=== PATIENT | male | born 1985 | race Caucasian/White ===

== ENCOUNTER 2017-11-23 22:47 | Inpatient (IN) | payer OTHER ==
[~2017-11-23] VITALS: Ht 170.2 cm; Wt 67.3 kg
[2017-11-23] MEDS: SODIUM CHLOR 0.9% 1000 ML INJ 1,000 ML IV SCH
[2017-11-23 22:48] VITALS: O2SAT 100
[2017-11-23] MEDS ORDERED: ONDANSETRON HCL 4 MG/2 ML VIAL ONE (22:52)
[2017-11-23] MEDS ORDERED: GENTAMICIN 80 MG PREMIX 100 ML ONE (22:53)
[2017-11-23] MEDS ORDERED: PROPOFOL 1000 MG/100 ML INJ 100 ML ONE (23:03)
[2017-11-23 23:09] LABS: AUTOMATED NEUTROPHIL # 26.1 TH/MM3 (1.8-7.7); BASOPHIL # 0.1 TH/MM3 (0-0.2); BASOPHIL % 0.3 % (0.0-2.0); EOSINOPHIL # 0.1 TH/MM3 (0-0.4); EOSINOPHIL % 0.4 % (0.0-4.0); HEMATOCRIT 37.6 % (39.0-51.0); HEMOGLOBIN 13.3 GM/DL (13.0-17.0); LYMPH % 15.2 % (9.0-44.0); MEAN CELL VOLUME 88.5 FL (80.0-100.0); MEAN CORPUSCULAR HEMOGLOBIN 31.5 PG (27.0-34.0); MEAN CORPUSCULAR HGB CONC 35.5 % (32.0-36.0); MEAN PLATELET VOLUME 7.9 FL (7.0-11.0); MONO % 4.3 % (0.0-8.0); MONOCYTE # 1.4 TH/MM3 (0-0.9); NEUT % 79.8 % (16.0-70.0); PLATELET COUNT 318 TH/MM3 (150-450); RED BLOOD COUNT 4.24 MIL/MM3 (4.50-5.90); RED CELL DISTRIBUTION WIDTH 12.5 % (11.6-17.2); WHITE BLOOD COUNT 32.7 TH/MM3 (4.0-11.0)
[2017-11-23] MEDS ORDERED: ROCURONIUM INJ 50 MG/5 ML VIAL ONE (23:09)
[2017-11-23] MEDS ORDERED: MIDAZOLAM HCL 5 MG/ML VIAL (1 ML) ONE (23:09)
[2017-11-23 23:17] LABS: INTERNATIONAL NORMALIZED RATIO 1.2 RATIO
[2017-11-23 23:20] VITALS: O2SAT 100
[2017-11-23] MEDS ORDERED: IOHEXOL 350 MG/ML 10 ML VIAL (for RAD DIAG) IVCONTRAST ONE (23:21)
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
[2017-11-23] MEDS ORDERED: Post-op Orders (for Pharmacy) XX ONE (23:45)
[2017-11-23] MEDS ORDERED: ONDANSETRON HCL 4 MG/2 ML VIAL IV PUSH PRN (23:45)
[2017-11-23] MEDS ORDERED: SODIUM CHLORIDE 0.9% FLUSH 10 ML FLUSH IV FLUSH PRN (23:45)
[2017-11-23] MEDS ORDERED: NALOXONE HCL 0.4 MG/ML AMP IV PUSH PRN (23:45)
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
--- NOTE | 2017-11-23 23:54 | RADRPT ---
EXAM DATE/TIME: 11/23/2017 22:48 [facility] COMPARISON: No previous studies available for comparison. INDICATIONS : Post ET tube placement MEDICAL HISTORY : Unobtainable SURGICAL HISTORY : Unobtainable ENCOUNTER: Initial ACUITY: 1 day PAIN SCORE: Non-responsive. LOCATION: Bilateral chest FINDINGS: Endotracheal tube and nasogastric tube in satisfactory position. Scattered subsegmental air space dis ease in the lungs, probably small contusions or mild aspiration. No effusion. Pneumothoraces seen on CT are not appreciated on plain film. CONCLUSION: 1. Endotracheal tube and nasogastric tube in good position. Scattered lung contusions or mild aspirat ion. No effusion. 2. Left-sided rib fractures. See abdomen and pelvic CT report. Dave Horton MD on November 23, 2017 at 23:50 Board Certified Radiologist. This report was verified electronically.
[2017-11-23 23:58] LABS: BANDS 15 % (0-6); LYMPHOCYTES 11 % (9-44); METAMYELOCYTES 1 % (0-1); MONOCYTES 2 % (0-8); MYELOCYTES 1 % (0-0); NEUTROPHIL # MANUAL DIFF 28.4 TH/MM3 (1.8-7.7); POLYS (SEG NEUTROPHILS) 69 % (16-70); PROMYELOCYTES 1 % (0-0)
[2017-11-24] VITALS (21 sets, daily range): BP systolic 92–117; BP diastolic 45–56; PULSE 59–119; RESP 16–24; TEMP 97.3–100.4; O2SAT 98–100
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
[2017-11-24] MEDS ORDERED: ATROPINE SULFATE 1 MG/10 ML SYRINGE ONE (00:13)
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
[2017-11-24] MEDS: fentaNYL 2,500 MCG/NS 250 ML IV PRN ×2 (00:21→11:06)
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
[2017-11-24] MEDS: PANTOPRAZOLE SODIUM 40 MG VIAL IV PUSH SCH ×2 (00:23→00:28)
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
[2017-11-24] MEDS ORDERED: PROPOFOL 1000 MG/100 ML IV PRN (00:30)
[2017-11-24] MEDS ORDERED: TERBUTALINE INJ 1 MG/ML AMP SQ PRN (00:30)
[2017-11-24] MEDS: MIDAZOLAM 100 MG/NS 100 ML DRIP Premix IV PRN ×3 (00:35→21:54)
[2017-11-24] MEDS: NOREPINEPHRINE INJ 4 MG in SODIUM CHLOR 0.9% 250 ML INJ 246 ML IV PRN ×2 (00:35→20:14)
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
[2017-11-24] MEDS ORDERED: ROCURONIUM INJ 50 MG/5 ML VIAL IV SCH (02:15)
[2017-11-24] MEDS: GENTAMICIN SULFATE 80 MG/2 ML VIAL IM SCH ×3 (02:34→19:42)
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
[2017-11-24 03:51] LABS: AUTOMATED NEUTROPHIL # 23.3 TH/MM3 (1.8-7.7); BASOPHIL # 0.1 TH/MM3 (0-0.2); BASOPHIL % 0.2 % (0.0-2.0); HEMATOCRIT 38.8 % (39.0-51.0); HEMOGLOBIN 13.3 GM/DL (13.0-17.0); LYMPH % 4.7 % (9.0-44.0); LYMPHOCYTE # 1.2 TH/MM3 (1.0-4.8); MEAN CELL VOLUME 87.2 FL (80.0-100.0); MEAN CORPUSCULAR HEMOGLOBIN 29.9 PG (27.0-34.0); MEAN CORPUSCULAR HGB CONC 34.3 % (32.0-36.0); MEAN PLATELET VOLUME 7.4 FL (7.0-11.0); MONOCYTE # 2.1 TH/MM3 (0-0.9); NEUT % 87.1 % (16.0-70.0); PLATELET COUNT 245 TH/MM3 (150-450); RED BLOOD COUNT 4.45 MIL/MM3 (4.50-5.90); RED CELL DISTRIBUTION WIDTH 13.5 % (11.6-17.2); WHITE BLOOD COUNT 26.8 TH/MM3 (4.0-11.0)
[2017-11-24 04:20] LABS: BICARBONATE 23.1 MEQ/L (21.0-32.0); CALCIUM 6.6 MG/DL (8.5-10.1); CREATININE 0.99 MG/DL (0.60-1.30)
[2017-11-24 04:59] LABS: CALCIUM-PROTEIN CORRECTED 7.7 MG/DL (8.5-10.1); TOTAL PROTEIN 4.9 GM/DL (6.4-8.2)
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
[2017-11-24] MEDS ORDERED: SODIUM CHLOR 0.9% 1000 ML INJ 1,000 ML IV SCH ×2 (07:00→11:00)
[2017-11-24] MEDS ORDERED: LACTATED RINGER'S 1000 ML INJ 1,000 ML IV SCH (07:00)
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
[2017-11-24] MEDS ORDERED: MAGNESIUM SULFATE INJ 2 GM in SODIUM CHLORIDE 0.9% INJ 96 ML IV PRN (07:30)
[2017-11-24] MEDS ORDERED: POTASSIUM PHOSPHATE MONOBASIC 500 MG TAB PO/TUBE PRN (07:30)
[2017-11-24] MEDS ORDERED: SODIUM PHOSPHATE INJ 30 MMOL in SODIUM CHLOR 0.9% 250 ML INJ 240 ML IV PRN (07:30)
[2017-11-24] MEDS ORDERED: POTASSIUM PHOSPHATE INJ 30 MMOL in SODIUM CHLOR 0.9% 250 ML INJ 250 ML IV PRN (07:30)
[2017-11-24] MEDS ORDERED: POTASSIUM CHLOR 20 MEQ PREMIX 100 ML IV PRN ×2 (07:30)
[2017-11-24] MEDS ORDERED: CHLORHEXIDINE GLUCONATE 2 % 1 PACK (2 CLOTHS) TOP PRN (07:30)
[2017-11-24] MEDS ORDERED: MAGNESIUM SULFATE INJ 4 GM in SODIUM CHLORIDE 0.9% INJ 92 ML IV PRN (07:30)
[2017-11-24] MEDS ORDERED: POTASSIUM CHLOR 40 MEQ PREMIX 100 ML IV PRN (07:30)
[2017-11-24] MEDS ORDERED: MAGNESIUM OXIDE 400 MG TAB PO PRN (07:30)
[2017-11-24] MEDS ORDERED: POTASSIUM PHOSPHATE MONOBASIC 500 MG TAB PO PRN (07:30)
[2017-11-24] MEDS ORDERED: MISCELLANEOUS NURSING INFORMATION XX SCH (07:30)
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
[2017-11-24] MEDS: CHLORHEXIDINE 0.12% (ORAL KIT) 15 ML CUP MT SCH ×2 (08:00→20:00)
[2017-11-24] MEDS: METHOCARBAMOL 500 MG TAB PO SCH ×3 (08:00→21:16)
[2017-11-24 08:23] LABS: BANDS 19 % (0-6); LYMPHOCYTES 11 % (9-44); MONOCYTES 7 % (0-8); POLYS (SEG NEUTROPHILS) 63 % (16-70)
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
[2017-11-24] MEDS: RESP: ALBUTEROL 2.5 MG/IPRATROPIUM 0.5 MG NEB (SCH) INH ×3 (08:33→20:24)
[2017-11-24] MEDS: LIDOCAINE HCL 5% PATCH T-DERMAL SCH (09:00)
[2017-11-24] MEDS: DOCUSATE SODIUM 50 MG/SENNA 8.6 MG TAB PO SCH ×2 (09:00→21:16)
[2017-11-24] MEDS: SODIUM CHLORIDE 0.9% FLUSH 10 ML FLUSH IV FLUSH SCH ×2 (09:00→21:16)
[2017-11-24] MEDS: MAGNESIUM HYDROXIDE SUSP 30 ML CUP PO SCH ×2 (09:00→21:16)
[2017-11-24 10:07] LABS: INTERNATIONAL NORMALIZED RATIO 1.1 RATIO
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
[2017-11-24] MEDS ORDERED: TETRACAINE 0.5% OPTH SOLN 4 ML BTL EACH EYE ONE (11:00)
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
[2017-11-24] MEDS ORDERED: ROCURONIUM INJ 50 MG/5 ML SYRINGE IV PUSH ONE (12:00)
[2017-11-24] MEDS ORDERED: PHENYLEPH/NS 1000 MCG/10 ML SYR IV ONE (12:00)
[2017-11-24] MEDS ORDERED: PROPOFOL 200 MG/20 ML AMP IV ONE (12:00)
[2017-11-24] MEDS ORDERED: LIDOCAINE HCL 1% PF 5 ML SYRINGE OTHER ONE (12:00)
[2017-11-24] MEDS ORDERED: LACTATED RINGER'S 1000 ML INJ 1,000 ML IV ONE (12:00)
[2017-11-24] MEDS ORDERED: PHENYLEPHRINE HCL 10 MG/ML VIAL IV ONE (12:00)
[2017-11-24] MEDS ORDERED: NORMOSOL R INJ 1,000 ML IV ONE (12:00)
[2017-11-24] MEDS ORDERED: SODIUM CHLOR 0.9% 250 ML INJ 250 ML IV ONE (12:00)
[2017-11-24] MEDS: ACETAMINOPHEN 1000 MG/100 ML 100 ML IV PRN (12:42)
[2017-11-24] MEDS ORDERED: BUPIVACAINE/EPINEPHRINE 0.5% PF 30 ML VIAL ONE (14:27)
[2017-11-24] MEDS ORDERED: THROMBIN (TOPICAL) 5,000 UNIT VIAL ONE (14:27)
[2017-11-24] MEDS ORDERED: GELFOAM SIZE 100 ONE (14:27)
[2017-11-24] MEDS ORDERED: FUROSEMIDE 40 MG/4 ML VIAL ONE (14:27)
[2017-11-24] MEDS ORDERED: ceFAZolin 2 GM PREMIX 0 ML ONE (14:27)
[2017-11-24] MEDS ORDERED: MANNITOL INJ 0 ML ONE (14:28)
[2017-11-24] MEDS ORDERED: levETIRAcetam 500 MG/5 ML VIAL IV ONE (15:21)
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
--- NOTE | 2017-11-24 17:34 | PD.OP ---
DANIELA Alan [id number] Operative Report Date of Surgery: Nov 24, 2017 Preoperative Diagnosis: Left frontal and temporal open depressed comminuted skull fractures; left frontal parietal large degloving scalp injury Postoperative Diagnosis: Same Procedure: Bicoronal flap with the left frontotemporal craniotomy for elevation and fixation of depressed skull fractures; reconstruction of a comminuted frontal skull base floor from the fractures; scalp flap transfer with repair of large degloving scalp injury Anesthesia: Gen. endotracheal by Candie brooke Surgeon: Geovanny Lowe M.D. [employer] Supervisor(s): Nuris Cope Operation and Findings: Following administration of a general endotracheal anesthesia patient received a gram of vancomycin intravenously. He had a Clinton catheter and invasive monitoring lines in place. Sequential compression devices were also in place. He was positioned supine with the head secured in a horseshoe headrest in a neutral position with the cervical collar in place. The bilateral frontal temporal areas along the left parietal area shaved. The open large degloving the left frontoparietal scalp injury was then irrigated with saline solution and subsequently prepped with a Betadine solution and ChloraPrep and sterilely draped. A bicoronal incision was incorporated into the large scalp laceration after infiltrating the scalp with 0.5% Marcaine with epinephrine solution. The scalp flap retracted forward until the orbital rim. Comminuted depressed frontal skull fractures were evident. Temporalis muscle fascia was also incised and retracted in a comminuted left temporal depressed skull skull fractures also seen compressing on the dura significantly but the did not penetrate to the dura and no CSF leak was noted. Fractures of the frontal skull overlying the orbital roof were also noted. With another gambling supervisor a bur hole was made and the bone flap adjacent to the frontal and temporal bone fractures was elevated. The fracture was also elevated with the use of curettes and normal alignment restored along with removal of the small fragments that were depressed. Area was copiously irrigated. Bone holes were placed at the craniotomy edges and dural tacking stitches placed with 4 Nurolon. The left frontal skull base floor along with the orbital roof was reinforced with the pericranial flap as well as compressed Gelf[place]am. The bone flap along with a comminuted skull fractures were then approximated using a [place] mini plates. The temporalis muscle fascia was approximated using 2-0 Vicryl procedures. The galea undercut to facilitate the coverage of the degloving scalp injury for a scalp transfer and subsequently the galea was partial using 3-0 Vicryl interrupted stitches and final skin closure was with ace. At this point the plastic surgeon undertook repair of the forehead/ eyelid laceration and washing out of the left upper extremity the open fracture wound by the orthopedic surgeon. There were no intraoperative complications from the cranial portion of the surgery estimated blood loss about 25 cc. Geovanny Lowe MD Nov 24, 2017 17:34
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
[2017-11-24] MEDS ORDERED: BACITRACIN TOP OINT 15 GM TUBE ONE (18:29)
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
[2017-11-24] MEDS ORDERED: MIDAZOLAM HCL 2 MG/2 ML VIAL ONE (19:23)
[2017-11-24] MEDS: SODIUM CHLOR 0.9% 1000 ML INJ 1,000 ML IV SCH ×2 (19:41→20:11)
[2017-11-24 20:42] LABS: HEMATOCRIT 29.5 % (39.0-51.0); HEMOGLOBIN 10.1 GM/DL (13.0-17.0); MEAN CELL VOLUME 86.9 FL (80.0-100.0); MEAN CORPUSCULAR HEMOGLOBIN 29.8 PG (27.0-34.0); MEAN CORPUSCULAR HGB CONC 34.3 % (32.0-36.0); MEAN PLATELET VOLUME 7.8 FL (7.0-11.0); PLATELET COUNT 171 TH/MM3 (150-450); RED BLOOD COUNT 3.39 MIL/MM3 (4.50-5.90); RED CELL DISTRIBUTION WIDTH 13.7 % (11.6-17.2); WHITE BLOOD COUNT 13.4 TH/MM3 (4.0-11.0)
[2017-11-24 21:10] LABS: BICARBONATE 21.2 MEQ/L (21.0-32.0); CALCIUM 6.9 MG/DL (8.5-10.1); CREATININE 1.28 MG/DL (0.60-1.30)
[2017-11-24 21:27] LABS: CALCIUM-PROTEIN CORRECTED 8.4 MG/DL (8.5-10.1); TOTAL PROTEIN 4.4 GM/DL (6.4-8.2)
[2017-11-24] MEDS: BACITRACIN OPHT OINT 3.5 GM TUBO SCH (23:05)
[2017-11-24] MEDS: ARTIFICIAL TEARS OPTH OINT 3.5 APPLIC/3.5 GM TUBO EACH EYE SCH (23:06)
[2017-11-25] VITALS (20 sets, daily range): BP systolic 102–132; BP diastolic 47–56; PULSE 60–90; RESP 18–24; TEMP 99.7–100.4; O2SAT 100
[2017-11-25] MEDS: fentaNYL 2,500 MCG/NS 250 ML IV PRN ×3 (00:11→19:56)
[2017-11-25] MEDS: PANTOPRAZOLE SODIUM 40 MG VIAL IV PUSH SCH ×2 (00:46→23:31)
[2017-11-25] MEDS: GENTAMICIN SULFATE 80 MG/2 ML VIAL IM SCH ×2 (02:30→08:34)
[2017-11-25] MEDS: RESP: ALBUTEROL 2.5 MG/IPRATROPIUM 0.5 MG NEB (SCH) INH ×4 (03:18→20:39)
[2017-11-25] MEDS: CHLORHEXIDINE GLUCONATE 2 % 1 PACK (2 CLOTHS) TOP SCH (04:00)
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
[2017-11-25 05:33] LABS: AUTOMATED NEUTROPHIL # 8.7 TH/MM3 (1.8-7.7); BASOPHIL % 0.2 % (0.0-2.0); EOSINOPHIL % 0.1 % (0.0-4.0); HEMATOCRIT 25.2 % (39.0-51.0); HEMOGLOBIN 8.9 GM/DL (13.0-17.0); LYMPH % 7.2 % (9.0-44.0); LYMPHOCYTE # 0.8 TH/MM3 (1.0-4.8); MEAN CELL VOLUME 86.2 FL (80.0-100.0); MEAN CORPUSCULAR HEMOGLOBIN 30.3 PG (27.0-34.0); MEAN CORPUSCULAR HGB CONC 35.1 % (32.0-36.0); MEAN PLATELET VOLUME 7.8 FL (7.0-11.0); MONO % 9.2 % (0.0-8.0); NEUT % 83.3 % (16.0-70.0); PLATELET COUNT 139 TH/MM3 (150-450); RED BLOOD COUNT 2.92 MIL/MM3 (4.50-5.90); RED CELL DISTRIBUTION WIDTH 13.8 % (11.6-17.2); WHITE BLOOD COUNT 10.4 TH/MM3 (4.0-11.0)
[2017-11-25] MEDS: METHOCARBAMOL 500 MG TAB PO SCH ×3 (05:43→22:14)
[2017-11-25 05:58] LABS: ALBUMIN 2.1 GM/DL (3.4-5.0); BICARBONATE 25.3 MEQ/L (21.0-32.0); CALCIUM 7.2 MG/DL (8.5-10.1); CALCIUM-PROTEIN CORRECTED 8.8 MG/DL (8.5-10.1); CREATININE 0.95 MG/DL (0.60-1.30); TOTAL BILIRUBIN ADULT 0.9 MG/DL (0.2-1.0); TOTAL PROTEIN 4.3 GM/DL (6.4-8.2)
[2017-11-25] MEDS: SODIUM CHLOR 0.9% 1000 ML INJ 1,000 ML IV SCH ×2 (06:27→14:13)
--- NOTE | 2017-11-25 07:10 | PD.ORT.PN ---
Subjective Subjective Remarks s/p left distal humerus fx POD 1 s/p I&D by Dr Duarte of left distal humerus s/p spine, facial, head fractures intubated/sedated. Objective Vitals Vital Signs Date Time Temp Pulse Resp B/P (MAP) Pulse Ox O2 Delivery O2 Flow Rate FiO2 11/25/17 06:00 89 11/25/17 05:47 100 35 11/25/17 04:00 35 11/25/17 04:00 90 11/25/17 04:00 100.0 90 24 109/54 (72) 100 108/47 (67) 11/25/17 02:00 86 11/25/17 01:33 100 40 11/25/17 00:00 88 11/25/17 00:00 40 11/25/17 00:00 99.7 88 24 113/54 (73) 100 104/50 (68) 11/24/17 23:54 100 40 11/24/17 22:16 106/50 11/24/17 22:00 92 11/24/17 20:15 40 11/24/17 20:14 98 107/55 11/24/17 20:11 100 Ventilator 45 11/24/17 20:11 100 45 11/24/17 20:00 91 11/24/17 20:00 45 11/24/17 20:00 99.9 91 24 100 106/56 (73) 11/24/17 19:00 100 Mechanical Ventilator 45 11/24/17 14:00 119 11/24/17 12:00 107 11/24/17 12:00 45 11/24/17 12:00 100.4 107 24 117/55 (75) 100 11/24/17 11:14 98 45 11/24/17 10:18 100 100 11/24/17 10:00 78 11/24/17 08:00 100.0 86 24 110/53 (72) 100 11/24/17 08:00 113 11/24/17 08:00 50 11/24/17 07:38 100 50 I/O 11/24/17 11/24/17 11/24/17 11/25/17 11/25/17 11/25/17 07:00 15:00 23:00 07:00 15:00 23:00 Intake Total 800 ml 3227 ml 1686 ml Output Total 850 ml 300 ml 400 ml 1150 ml Balance -50 ml -300 ml 2827 ml 536 ml Intake IV Total 1227 ml 1686 ml Packed Cells 800 ml Other 2000 ml Output Urine Total 450 ml 300 ml 200 ml 950 ml Stool Total 0 ml 0 ml Gastric Drainage Total 400 ml 200 ml Estimated Blood Loss 200 ml Result Diagram: 11/25/17 0430 11/25/17 0430 Other Results Laboratory Tests Test 11/24/17 09:25 Prothromb Time International Ratio 1.1 RATIO Prothrombin Time 11.0 SEC (9.8-11.6) Imaging Last 72 hours Impressions Chest X-Ray 11/24/17 0400 Signed Impressions: Service Date/Time: November 04:58 - CONCLUSION: 1. Minimal basilar density, probably atelectasis. No significant effusion. No pneumothorax identified on plain film. Placement of left central line without pneumothorax. Left-sided rib fractures present. Dave Horton MD Pelvis X-Ray 11/23/172308 Signed Impressions: Service Date/Time: Thursday, November 23, 2017 22:48 - CONCLUSION: Unremarkable examination of the pelvis. Dave Horton MD Chest X-Ray 11/23/172308 Signed Impressions: Service Date/Time: Thursday, November 23, 2017 22:48 - CONCLUSION: 1. Left lower rib fractures. Cardiomediastinal silhouette within normal limits. No dense consolidation or effusion. Dave Horton MD Thoracic Spine CT 11/23/17 903 Signed Impressions: Service Date/Time: Thursday, November 23, 2017 23:18 - CONCLUSION: 1. At T12 there is a burst fracture with retropulsion resulting in mild to moderate stenosis and fracture extending into the posterior elements. 2. At T11 there is a mild endplate fracture superiorly with fractures extending posteriorly into the posterior elements and facet joints at T11-12. Dave Horton MD Maxillofacial CT 11/23/17 201 Signed Impressions: Service Date/Time: Thursday, November 23, 2017 23:17 - CONCLUSION: 1. Numerous facial fractures as above including bilateral mandibular, bilateral zygomatic arches, bilateral orbits bilateral maxillary and ethmoid sinuses. Also bilateral calvarial fractures. Trace pneumocephalus. Extensive scalp and facial swelling. Dave Horton MD Lumbar Spine CT 11/23/172252 Signed Impressions: Service Date/Time: Thursday, November 23, 2017 23:21 - CONCLUSION: 1. Fractures through the left transverse process of L1 and L2. No lumbar spine vertebral body fractures or subluxation. Dave Horton MD Head CT 11/23/172252 Signed Impressions: Service Date/Time: Thursday, November 23, 2017 23:16 - CONCLUSION: 1. Fractures of the left frontal bone and right parietal bone without significant displacement. Trace pneumocephalus near the right parietal bone fracture. No significant intracranial hemorrhage. 2. Numerous facial bone fractures with hemorrhage in the paranasal sinuses. Facial CT pending. Dave Horton MD Chest CT 11/23/172252 Signed Impressions: Service Date/Time: Thursday, November 23, 2017 23:21 - CONCLUSION: 1. Small bilateral pneumothoraces. 2. Scattered groundglass opacity in the lungs most characteristic of lung contusions or minimal aspiration. 3. Multiple fractures including burst fracture of T12, superior endplate fracture of T11 and multiple left rib fractures as above. 4. Endotracheal tube and nasogastric tube in good position. Dave Horton MD Cervical Spine CT 11/23/172252 Signed Impressions: Service Date/Time: Thursday, November 23, 2017 23:17 - CONCLUSION: 1. Nondisplaced fractures to the left lateral mass of C3 and C5 extending into the facet joints. No vertebral body fractures. No subluxation. Dave Horton MD Abdomen/Pelvis CT 11/23/172252 Signed Impressions: Service Date/Time: Thursday, November 23, 2017 23:21 - CONCLUSION: 1. Negative for solid visceral injury within the abdomen and pelvis. No free air or free fluid. 2. Small bilateral pneumothoraces. 3. Fractures of the left transverse processes of L1 and L2 and the left anterior fifth through eighth ribs. T11 superior endplate fracture and T12 burst fractures as previously described. 4. Appendicolith without evidence for appendicitis. NG tip in stomach. Clinton catheter in bladder. 5. There is a small amount of air in the left external iliac vein and left femoral vein. Dave Horton MD Radius/Ulna X-Ray 11/23/17 0000 Signed Impressions: Service Date/Time: Thursday, November 23, 2017 22:48 - CONCLUSION: 1. First Metacarpal fracture. No radius and ulna fractures. No dislocation. Dave Horton MD Humerus X-Ray 11/23/17 0000 Signed Impressions: Service Date/Time: Thursday, November 23, 2017 22:48 - CONCLUSION: 1. Angulated fracture left distal humeral shaft. Dave Horton MD Chest X-Ray 11/23/17 0000 Signed Impressions: Service Date/Time: Thursday, November 23, 2017 22:48 - CONCLUSION: 1. Endotracheal tube and nasogastric tube in good position. Scattered lung contusions or mild aspiration. No effusion. 2. Left-sided rib fractures. See abdomen and pelvic CT report. Dave Horton MD Last 24 hours Impressions Chest X-Ray 11/24/17 0400 Signed Impressions: Service Date/Time: November 04:58 - CONCLUSION: 1. Minimal basilar density, probably atelectasis. No significant effusion. No pneumothorax identified on plain film. Placement of left central line without pneumothorax. Left-sided rib fractures present. Dave Horton MD Pelvis X-Ray 11/23/172308 Signed Impressions: Service Date/Time: Thursday, November 23, 2017 22:48 - CONCLUSION: Unremarkable examination of the pelvis. Dave Hortno MD Chest X-Ray 11/23/172308 Signed Impressions: Service Date/Time: Thursday, November 23, 2017 22:48 - CONCLUSION: 1. Left lower rib fractures. Cardiomediastinal silhouette within normal limits. No dense consolidation or effusion. Dave Horton MD Thoracic Spine CT 11/23/17 540 Signed Impressions: Service Date/Time: Thursday, November 23, 2017 23:18 - CONCLUSION: 1. At T12 there is a burst fracture with retropulsion resulting in mild to moderate stenosis and fracture extending into the posterior elements. 2. At T11 there is a mild endplate fracture superiorly with fractures extending posteriorly into the posterior elements and facet joints at T11-12. Dave Horton MD Maxillofacial CT 11/23/17 4118 Signed Impressions: Service Date/Time: Thursday, November 23, 2017 23:17 - CONCLUSION: 1. Numerous facial fractures as above including bilateral mandibular, bilateral zygomatic arches, bilateral orbits bilateral maxillary and ethmoid sinuses. Also bilateral calvarial fractures. Trace pneumocephalus. Extensive scalp and facial swelling. Dave Horton MD Lumbar Spine CT 11/23/172252 Signed Impressions: Service Date/Time: Thursday, November 23, 2017 23:21 - CONCLUSION: 1. Fractures through the left transverse process of L1 and L2. No lumbar spine vertebral body fractures or subluxation. Dave Horton MD Head CT 11/23/172252 Signed Impressions: Service Date/Time: Thursday, November 23, 2017 23:16 - CONCLUSION: 1. Fractures of the left frontal bone and right parietal bone without significant displacement. Trace pneumocephalus near the right parietal bone fracture. No significant intracranial hemorrhage. 2. Numerous facial bone fractures with hemorrhage in the paranasal sinuses. Facial CT pending. Dave Horton MD Chest CT 11/23/172252 Signed Impressions: Service Date/Time: Thursday, November 23, 2017 23:21 - CONCLUSION: 1. Small bilateral pneumothoraces. 2. Scattered groundglass opacity in the lungs most characteristic of lung contusions or minimal aspiration. 3. Multiple fractures including burst fracture of T12, superior endplate fracture of T11 and multiple left rib fractures as above. 4. Endotracheal tube and nasogastric tube in good position. Dave Horton MD Cervical Spine CT 11/23/172252 Signed Impressions: Service Date/Time: Thursday, November 23, 2017 23:17 - CONCLUSION: 1. Nondisplaced fractures to the left lateral mass of C3 and C5 extending into the facet joints. No vertebral body fractures. No subluxation. Dave Horton MD Abdomen/Pelvis CT 11/23/172252 Signed Impressions: Service Date/Time: Thursday, November 23, 2017 23:21 - CONCLUSION: 1. Negative for solid visceral injury within the abdomen and pelvis. No free air or free fluid. 2. Small bilateral pneumothoraces. 3. Fractures of the left transverse processes of L1 and L2 and the left anterior fifth through eighth ribs. T11 superior endplate fracture and T12 burst fractures as previously described. 4. Appendicolith without evidence for appendicitis. NG tip in stomach. Clinton catheter in bladder. 5. There is a small amount of air in the left external iliac vein and left femoral vein. Dave Horton MD Objective Remarks No laxity or deformity right upper extremity Bilateral lower extremity: No laxity in bilateral legs or ankles. Left upper extremity splint in place. Puncture wound medial/posterior humerus. Good capillary refills distally Assessment & Plan Assessment and Plan Left humeral shaft fracture with puncture wound s/p I&D by Dr Duarte - POD 1 -maintain splint at all times -will await neuro recs on spine/head fxs. -once neuro has plan of when or if to fix, will proceed with ORIF of left humerus. patient will need to be in lateral position for fixation of left humerus -possibly mon/tu depending on neuro recs and plan. Dennis Perez/First Margareth JIMENEZ Nov 25, 2017 07:10
[2017-11-25] MEDS: CHLORHEXIDINE 0.12% (ORAL KIT) 15 ML CUP MT SCH ×2 (07:46→19:21)
[2017-11-25] MEDS: MIDAZOLAM HCL 5 MG/ML VIAL (1 ML) IV PRN ×3 (07:46→19:32)
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
[2017-11-25] MEDS: LIDOCAINE HCL 5% PATCH T-DERMAL SCH (08:23)
[2017-11-25] MEDS: MIDAZOLAM 100 MG/NS 100 ML DRIP Premix IV PRN (08:23)
[2017-11-25] MEDS: DOCUSATE SODIUM 50 MG/SENNA 8.6 MG TAB PO SCH ×2 (08:23→19:45)
[2017-11-25] MEDS: MAGNESIUM HYDROXIDE SUSP 30 ML CUP PO SCH ×2 (08:23→19:36)
[2017-11-25] MEDS: NOREPINEPHRINE INJ 4 MG in SODIUM CHLOR 0.9% 250 ML INJ 246 ML IV PRN ×2 (08:24→18:51)
[2017-11-25] MEDS: ARTIFICIAL TEARS OPTH OINT 3.5 APPLIC/3.5 GM TUBO EACH EYE SCH ×3 (08:25→17:34)
[2017-11-25] MEDS: SODIUM CHLORIDE 0.9% FLUSH 10 ML FLUSH IV FLUSH SCH ×3 (08:25→23:31)
[2017-11-25] MEDS: BACITRACIN OPHT OINT 3.5 GM TUBO SCH ×2 (08:25→19:41)
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
[2017-11-25] MEDS ORDERED: FUROSEMIDE 20 MG/2 ML VIAL IV PUSH ONE ×2 (10:00)
[2017-11-25] MEDS: DEXAMETHASONE SOD PHOS 4 MG/ML VIAL IV PUSH SCH ×2 (10:07→19:40)
[2017-11-25] MEDS: ROCURONIUM INJ 50 MG/5 ML VIAL IV PRN (10:30)
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
[2017-11-25] MEDS: GENTAMICIN SULFATE 80 MG/2 ML VIAL IV SCH (17:34)
[2017-11-26] VITALS (16 sets, daily range): BP systolic 108–131; BP diastolic 54–74; PULSE 60–75; RESP 18–20; TEMP 99–99.9; O2SAT 100
[2017-11-26] MEDS: GENTAMICIN SULFATE 80 MG/2 ML VIAL IV SCH (01:02)
[2017-11-26] MEDS: MIDAZOLAM HCL 5 MG/ML VIAL (1 ML) IV PRN ×2 (01:02→06:32)
[2017-11-26] MEDS: SODIUM CHLOR 0.9% 1000 ML INJ 1,000 ML IV SCH ×3 (01:03→22:08)
[2017-11-26] MEDS: RESP: ALBUTEROL 2.5 MG/IPRATROPIUM 0.5 MG NEB (SCH) INH ×4 (03:36→20:57)
[2017-11-26] MEDS: CHLORHEXIDINE GLUCONATE 2 % 1 PACK (2 CLOTHS) TOP SCH (04:00)
[2017-11-26] MEDS: MIDAZOLAM 100 MG/NS 100 ML DRIP Premix IV PRN ×2 (04:12→12:48)
[2017-11-26] MEDS: NOREPINEPHRINE INJ 4 MG in SODIUM CHLOR 0.9% 250 ML INJ 246 ML IV PRN ×2 (04:53→18:38)
[2017-11-26] MEDS: METHOCARBAMOL 500 MG TAB PO SCH ×3 (05:13→22:07)
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
[2017-11-26 05:59] LABS: HEMOGLOBIN 7.3 GM/DL (13.0-17.0); LYMPH % 4.7 % (9.0-44.0); LYMPHOCYTE # 0.5 TH/MM3 (1.0-4.8); MEAN CELL VOLUME 86.8 FL (80.0-100.0); MEAN CORPUSCULAR HEMOGLOBIN 30.3 PG (27.0-34.0); MEAN CORPUSCULAR HGB CONC 34.9 % (32.0-36.0); MEAN PLATELET VOLUME 7.4 FL (7.0-11.0); MONO % 6.7 % (0.0-8.0); MONOCYTE # 0.8 TH/MM3 (0-0.9); NEUT % 88.6 % (16.0-70.0); PLATELET COUNT 154 TH/MM3 (150-450); RED BLOOD COUNT 2.42 MIL/MM3 (4.50-5.90); RED CELL DISTRIBUTION WIDTH 13.5 % (11.6-17.2); WHITE BLOOD COUNT 11.3 TH/MM3 (4.0-11.0)
[2017-11-26 06:17] LABS: AST (GOT) 108 U/L (15-37); BICARBONATE 31.3 MEQ/L (21.0-32.0); BLOOD UREA NITROGEN 11 MG/DL (7-18); CALCIUM 7.6 MG/DL (8.5-10.1); CHLORIDE 106 MEQ/L (98-107); CREATININE 0.82 MG/DL (0.60-1.30); GLOMERULAR FILTRATION RATE 109 ML/MIN (>89); GLUCOSE,RANDOM 164 MG/DL (74-106); SODIUM (NA) 141 MEQ/L (136-145)
[2017-11-26 06:18] LABS: ALT (GPT) 51 U/L (12-78)
[2017-11-26 06:20] LABS: ALKALINE PHOSPHATASE 52 U/L (45-117); TOTAL BILIRUBIN ADULT 0.6 MG/DL (0.2-1.0); TOTAL PROTEIN 4.8 GM/DL (6.4-8.2)
[2017-11-26] MEDS: fentaNYL 2,500 MCG/NS 250 ML IV PRN ×2 (06:38→17:31)
[2017-11-26] MEDS: CHLORHEXIDINE 0.12% (ORAL KIT) 15 ML CUP MT SCH ×2 (08:00→20:15)
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
[2017-11-26] MEDS: ARTIFICIAL TEARS OPTH OINT 3.5 APPLIC/3.5 GM TUBO EACH EYE SCH ×3 (09:00→17:29)
[2017-11-26] MEDS: BACITRACIN OPHT OINT 3.5 GM TUBO SCH ×2 (09:00→20:15)
[2017-11-26] MEDS: MAGNESIUM HYDROXIDE SUSP 30 ML CUP PO SCH ×2 (09:08→20:14)
[2017-11-26] MEDS: LIDOCAINE HCL 5% PATCH T-DERMAL SCH (09:08)
[2017-11-26] MEDS: DOCUSATE SODIUM 50 MG/SENNA 8.6 MG TAB PO SCH ×2 (09:08→20:14)
[2017-11-26] MEDS: DEXAMETHASONE SOD PHOS 4 MG/ML VIAL IV PUSH SCH ×2 (09:08→20:14)
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
[2017-11-26] MEDS: GENTAMICIN 80 MG PREMIX 100 ML IV SCH ×2 (11:16→17:30)
--- NOTE | 2017-11-26 12:08 | RADRPT ---
EXAM DATE/TIME: 11/26/2017 11:33 [facility] COMPARISON: No previous studies available for comparison. INDICATIONS : Bilateral leg swelling. History of deep vein thrombosis. MEDICAL HISTORY : Deep venous thrombosis. Sleep apnea. Depression. Substance use. SURGICAL HISTORY : Foot I&D. ENCOUNTER: Initial ACUITY: 1 day PAIN SCORE: Non-responsive LOCATION: Bilateral leg. TECHNIQUE: Venous ultrasound of the left and right leg was performed from the inguinal ligament to the proximal calf. Real-time, color Doppler and spectral tracing, compression and augmentation techniques were us ed. FINDINGS: RIGHT LEG: There is normal compressibility of the deep venous system from the inguinal region to the proximal ca lf. No echogenic clot is seen in the lumen of the common femoral, femoral, popliteal, and posterior tibial veins. There is a normal response of the venous system to proximal and distal augmentation an d respiration. LEFT LEG: There is normal compressibility of the deep venous system from the inguinal region to the proximal ca lf. No echogenic clot is seen in the lumen of the common femoral, femoral, popliteal, and posterior tibial veins. There is a normal response of the venous system to proximal and distal augmentation an d respiration. CONCLUSION: No DVT in either leg. Sancho Messina MD on November 26, 2017 at 12:04 Board Certified Radiologist. This report was verified electronically.
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
[2017-11-26] MEDS: SODIUM CHLORIDE 0.9% FLUSH 10 ML FLUSH IV FLUSH SCH (20:15)
[2017-11-26] MEDS: PANTOPRAZOLE SODIUM 40 MG VIAL IV PUSH SCH (23:19)
[2017-11-27] VITALS (18 sets, daily range): BP systolic 92–133; BP diastolic 50–90; PULSE 65–89; RESP 13–22; TEMP 99.1–100.4; O2SAT 84–100
[2017-11-27] MEDS: MIDAZOLAM 100 MG/NS 100 ML DRIP Premix IV PRN ×2 (01:55→11:55)
[2017-11-27] MEDS: GENTAMICIN 80 MG PREMIX 100 ML IV SCH ×3 (02:46→18:38)
[2017-11-27] MEDS: RESP: ALBUTEROL 2.5 MG/IPRATROPIUM 0.5 MG NEB (SCH) INH ×4 (03:59→23:14)
[2017-11-27] MEDS: CHLORHEXIDINE GLUCONATE 2 % 1 PACK (2 CLOTHS) TOP SCH (04:00)
[2017-11-27 04:30] LABS: AUTOMATED NEUTROPHIL # 10.4 TH/MM3 (1.8-7.7); BASOPHIL % 0.3 % (0.0-2.0); LYMPH % 4.6 % (9.0-44.0); LYMPHOCYTE # 0.5 TH/MM3 (1.0-4.8); MEAN CELL VOLUME 88.3 FL (80.0-100.0); MEAN CORPUSCULAR HEMOGLOBIN 30.6 PG (27.0-34.0); MEAN CORPUSCULAR HGB CONC 34.7 % (32.0-36.0); MEAN PLATELET VOLUME 7.5 FL (7.0-11.0); MONO % 7.5 % (0.0-8.0); MONOCYTE # 0.9 TH/MM3 (0-0.9); NEUT % 87.6 % (16.0-70.0); PLATELET COUNT 147 TH/MM3 (150-450); RED BLOOD COUNT 2.17 MIL/MM3 (4.50-5.90); RED CELL DISTRIBUTION WIDTH 13.4 % (11.6-17.2); WHITE BLOOD COUNT 11.8 TH/MM3 (4.0-11.0)
[2017-11-27 04:41] LABS: HEMATOCRIT 19.1 % (39.0-51.0); HEMOGLOBIN 6.6 GM/DL (13.0-17.0)
[2017-11-27] MEDS: fentaNYL 2,500 MCG/NS 250 ML IV PRN ×2 (05:01→13:59)
[2017-11-27 05:09] LABS: ALBUMIN 1.9 GM/DL (3.4-5.0); BICARBONATE 31.6 MEQ/L (21.0-32.0); CALCIUM 7.4 MG/DL (8.5-10.1); CALCIUM-PROTEIN CORRECTED 8.6 MG/DL (8.5-10.1); CREATININE 0.61 MG/DL (0.60-1.30); TOTAL BILIRUBIN ADULT 0.5 MG/DL (0.2-1.0)
[2017-11-27] MEDS: METHOCARBAMOL 500 MG TAB PO SCH ×3 (05:37→22:49)
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
[2017-11-27] MEDS: CHLORHEXIDINE 0.12% (ORAL KIT) 15 ML CUP MT SCH ×2 (08:00→20:00)
[2017-11-27] MEDS: SODIUM CHLORIDE 0.9% FLUSH 10 ML FLUSH IV FLUSH SCH ×2 (09:00→20:06)
[2017-11-27] MEDS: ARTIFICIAL TEARS OPTH OINT 3.5 APPLIC/3.5 GM TUBO EACH EYE SCH ×3 (09:00→18:00)
[2017-11-27] MEDS: BACITRACIN OPHT OINT 3.5 GM TUBO SCH ×2 (09:00→20:06)
[2017-11-27] MEDS ORDERED: DOPamine INJ PREMIX 500 ML ONE (09:02)
[2017-11-27] MEDS: DOPamine 800 MG/D5W PREMIX 500 ML IV PRN (09:10)
[2017-11-27] MEDS: DOCUSATE SODIUM 50 MG/SENNA 8.6 MG TAB PO SCH ×2 (10:16→20:07)
[2017-11-27] MEDS: MAGNESIUM HYDROXIDE SUSP 30 ML CUP PO SCH ×2 (10:16→20:07)
[2017-11-27] MEDS: LIDOCAINE HCL 5% PATCH T-DERMAL SCH (10:19)
[2017-11-27] MEDS: SODIUM CHLOR 0.9% 1000 ML INJ 1,000 ML IV SCH (10:19)
[2017-11-27] MEDS: VALPROIC ACID SYRUP 250 MG/5 ML UDC PO SCH ×2 (10:30→20:06)
[2017-11-27] MEDS: ROCURONIUM INJ 50 MG/5 ML VIAL IV PRN (10:45)
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
[2017-11-27 11:14] LABS: HEMATOCRIT 24.7 % (39.0-51.0); HEMOGLOBIN 8.8 GM/DL (13.0-17.0)
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
[2017-11-27] MEDS ORDERED: FUROSEMIDE 20 MG/2 ML VIAL IV PUSH ONE (11:30)
[2017-11-27] MEDS: QUEtiapine FUMARATE 25 MG TAB PO SCH ×2 (11:59→18:36)
[2017-11-27] MEDS: PROPOFOL 1000 MG/100 ML INJ 100 ML IV PRN ×2 (12:30→18:58)
[2017-11-27] MEDS ORDERED: TERBUTALINE INJ 1 MG/ML AMP SQ PRN (12:45)
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
[2017-11-27] MEDS: DEXAMETHASONE SOD PHOS 4 MG/ML VIAL IV PUSH SCH (20:06)
[2017-11-27] MEDS: PANTOPRAZOLE SODIUM 40 MG VIAL IV PUSH SCH (23:47)
[2017-11-28] VITALS (19 sets, daily range): BP systolic 93–136; BP diastolic 51–71; PULSE 66–83; RESP 11–19; TEMP 99.1–100.2; O2SAT 99–100
[2017-11-28] MEDS: fentaNYL 2,500 MCG/NS 250 ML IV PRN ×2 (02:24→14:45)
[2017-11-28] MEDS: GENTAMICIN 80 MG PREMIX 100 ML IV SCH ×2 (02:25→10:31)
[2017-11-28] MEDS: RESP: ALBUTEROL 2.5 MG/IPRATROPIUM 0.5 MG NEB (SCH) INH ×2 (03:35→07:30)
[2017-11-28] MEDS: CHLORHEXIDINE GLUCONATE 2 % 1 PACK (2 CLOTHS) TOP SCH (04:00)
--- NOTE | 2017-11-28 05:06 | RADRPT ---
EXAM DATE/TIME: 11/28/2017 04:34 [facility] COMPARISON: CHEST SINGLE AP, November 27, 2017, 4:28. INDICATIONS : Short of breath. MEDICAL HISTORY : None. SURGICAL HISTORY : None. ENCOUNTER: Initial ACUITY: 4 - 6 days PAIN SCORE: 0/10 LOCATION: Bilateral chest FINDINGS: Portable AP view of the chest demonstrates a normal-sized cardiac silhouette. ETT and left subclavian central line are present. Nasogastric tube distal tip courses beyond the GE junction with sidehole i n distal esophagus. There is left lower lung zone airspace consolidation. No pneumothorax or pleural effusion is identified. CONCLUSION: 1. Improved aeration at the left lung base with continued airspace consolidation in the left lower renny ng zone. 2. Nasogastric tube sentinel hole is in the distal esophagus. Waqas Linares MD on November 28, 2017 at 5:04 Board Certified Radiologist. This report was verified electronically.
[2017-11-28 05:30] LABS: AUTOMATED NEUTROPHIL # 8.9 TH/MM3 (1.8-7.7); EOSINOPHIL % 0.1 % (0.0-4.0); HEMATOCRIT 22.4 % (39.0-51.0); LYMPH % 6.1 % (9.0-44.0); LYMPHOCYTE # 0.6 TH/MM3 (1.0-4.8); MEAN CELL VOLUME 86.5 FL (80.0-100.0); MEAN CORPUSCULAR HEMOGLOBIN 30.9 PG (27.0-34.0); MEAN CORPUSCULAR HGB CONC 35.8 % (32.0-36.0); MEAN PLATELET VOLUME 7.3 FL (7.0-11.0); MONO % 6.8 % (0.0-8.0); MONOCYTE # 0.7 TH/MM3 (0-0.9); PLATELET COUNT 156 TH/MM3 (150-450); RED BLOOD COUNT 2.59 MIL/MM3 (4.50-5.90); RED CELL DISTRIBUTION WIDTH 13.7 % (11.6-17.2); WHITE BLOOD COUNT 10.2 TH/MM3 (4.0-11.0)
[2017-11-28 05:52] LABS: ALBUMIN 2.1 GM/DL (3.4-5.0); ALT (GPT) 58 U/L (12-78); AST (GOT) 65 U/L (15-37); BLOOD UREA NITROGEN 22 MG/DL (7-18); CALCIUM 7.8 MG/DL (8.5-10.1); CHLORIDE 104 MEQ/L (98-107); CREATININE 0.66 MG/DL (0.60-1.30); GLOMERULAR FILTRATION RATE 140 ML/MIN (>89); GLUCOSE,RANDOM 116 MG/DL (74-106); SODIUM (NA) 142 MEQ/L (136-145)
[2017-11-28 05:53] LABS: ALKALINE PHOSPHATASE 44 U/L (45-117); TOTAL BILIRUBIN ADULT 0.8 MG/DL (0.2-1.0); TOTAL PROTEIN 5.3 GM/DL (6.4-8.2)
[2017-11-28] MEDS: METHOCARBAMOL 500 MG TAB PO SCH ×3 (06:25→22:45)
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
[2017-11-28] MEDS: CHLORHEXIDINE 0.12% (ORAL KIT) 15 ML CUP MT SCH ×2 (07:55→19:38)
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
[2017-11-28] MEDS: BACITRACIN OPHT OINT 3.5 GM TUBO SCH ×2 (08:57→21:00)
[2017-11-28] MEDS: SODIUM CHLORIDE 0.9% FLUSH 10 ML FLUSH IV FLUSH SCH ×2 (08:58→21:01)
[2017-11-28] MEDS: ARTIFICIAL TEARS OPTH OINT 3.5 APPLIC/3.5 GM TUBO EACH EYE SCH ×3 (08:58→17:23)
[2017-11-28] MEDS: MAGNESIUM HYDROXIDE SUSP 30 ML CUP PO SCH ×2 (08:59→21:00)
[2017-11-28] MEDS: LIDOCAINE HCL 5% PATCH T-DERMAL SCH (08:59)
[2017-11-28] MEDS: DEXAMETHASONE SOD PHOS 4 MG/ML VIAL IV PUSH SCH ×2 (08:59→21:01)
[2017-11-28] MEDS: DOCUSATE SODIUM 50 MG/SENNA 8.6 MG TAB PO SCH ×2 (08:59→21:00)
[2017-11-28] MEDS: VALPROIC ACID SYRUP 250 MG/5 ML UDC PO SCH ×2 (09:00→21:00)
[2017-11-28] MEDS: QUEtiapine FUMARATE 25 MG TAB PO SCH ×3 (09:00→17:23)
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
[2017-11-28] MEDS: ENOXAPARIN SODIUM 30 MG/0.3 ML SYRINGE SQ SCH ×2 (10:12→22:45)
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
[2017-11-28] MEDS: PROPOFOL 1000 MG/100 ML INJ 100 ML IV PRN (14:11)
[2017-11-28] MEDS: MIDAZOLAM HCL 5 MG/ML VIAL (1 ML) IV PRN ×5 (14:12→23:49)
[2017-11-28] MEDS: ROCURONIUM INJ 50 MG/5 ML VIAL IV PRN (15:15)
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
[2017-11-28] MEDS: GENTAMICIN INJ 80 MG in SODIUM CHLORIDE 0.9% INJ 100 ML IV SCH (19:58)
[2017-11-28] MEDS: MIDAZOLAM 100 MG/NS 100 ML DRIP Premix IV PRN (21:05)
[2017-11-29] VITALS (16 sets, daily range): BP systolic 112–169; BP diastolic 56–89; PULSE 54–122; RESP 16–19; TEMP 99.1–100.4; O2SAT 97–100
[2017-11-29] MEDS: fentaNYL 2,500 MCG/NS 250 ML IV PRN ×3 (00:40→21:52)
[2017-11-29] MEDS: PANTOPRAZOLE SODIUM 40 MG VIAL IV PUSH SCH ×2 (00:40→23:57)
[2017-11-29] MEDS: MIDAZOLAM HCL 5 MG/ML VIAL (1 ML) IV PRN ×3 (02:44→10:45)
[2017-11-29] MEDS: GENTAMICIN INJ 80 MG in SODIUM CHLORIDE 0.9% INJ 100 ML IV SCH (03:44)
[2017-11-29] MEDS: CHLORHEXIDINE GLUCONATE 2 % 1 PACK (2 CLOTHS) TOP SCH (04:00)
[2017-11-29] MEDS: DOPamine 800 MG/D5W PREMIX 500 ML IV PRN (05:04)
--- NOTE | 2017-11-29 05:18 | RADRPT ---
EXAM DATE/TIME: 11/29/2017 04:28 [facility] COMPARISON: CHEST SINGLE AP, November 28, 2017, 4:34. INDICATIONS : Short of breath, respiratory disease. MEDICAL HISTORY : None. SURGICAL HISTORY : None. ENCOUNTER: Subsequent ACUITY: 4 - 6 days PAIN SCORE: 0/10 LOCATION: Bilateral chest FINDINGS: Portable AP view of the chest demonstrates a normal-sized cardiac silhouette. ETT, nasogastric tube, and left subclavian central line are present. There is increased left basilar pleural-parenchymal opa city and mildly increased right lower lung zone consolidation. No pneumothorax is visualized. CONCLUSION: 1. Increased left lower lung zone consolidation with possible effusion. 2. Mildly increased right lower lung zone consolidation. Waqas Linares MD on November 29, 2017 at 5:15 Board Certified Radiologist. This report was verified electronically.
[2017-11-29] MEDS: METHOCARBAMOL 500 MG TAB PO SCH ×3 (06:16→21:51)
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
[2017-11-29 06:34] LABS: AUTOMATED NEUTROPHIL # 10.2 TH/MM3 (1.8-7.7); BASOPHIL % 0.1 % (0.0-2.0); HEMATOCRIT 23.4 % (39.0-51.0); LYMPHOCYTE # 0.7 TH/MM3 (1.0-4.8); MEAN CORPUSCULAR HEMOGLOBIN 29.6 PG (27.0-34.0); MEAN PLATELET VOLUME 7.4 FL (7.0-11.0); MONO % 7.1 % (0.0-8.0); MONOCYTE # 0.8 TH/MM3 (0-0.9); NEUT % 86.8 % (16.0-70.0); PLATELET COUNT 207 TH/MM3 (150-450); RED BLOOD COUNT 2.69 MIL/MM3 (4.50-5.90); RED CELL DISTRIBUTION WIDTH 13.7 % (11.6-17.2); WHITE BLOOD COUNT 11.8 TH/MM3 (4.0-11.0)
[2017-11-29 07:12] LABS: ALBUMIN 2.1 GM/DL (3.4-5.0); AST (GOT) 56 U/L (15-37); BLOOD UREA NITROGEN 20 MG/DL (7-18); CALCIUM 8.3 MG/DL (8.5-10.1); CHLORIDE 104 MEQ/L (98-107); CREATININE 0.61 MG/DL (0.60-1.30); GLOMERULAR FILTRATION RATE 153 ML/MIN (>89); GLUCOSE,RANDOM 106 MG/DL (74-106); SODIUM (NA) 142 MEQ/L (136-145)
[2017-11-29 07:13] LABS: ALT (GPT) 59 U/L (12-78)
[2017-11-29 07:15] LABS: ALKALINE PHOSPHATASE 79 U/L (45-117); TOTAL PROTEIN 5.6 GM/DL (6.4-8.2)
--- NOTE | 2017-11-29 07:22 | PD.ORT.PN ---
Subjective Subjective Remarks s/p left distal humerus fx s/p I&D by Dr Duarte of left distal humerus s/p spine, facial, head fractures intubated/sedated. Objective Vitals Vital Signs Date Time Temp Pulse Resp B/P (MAP) Pulse Ox O2 Delivery O2 Flow Rate FiO2 11/29/17 06:00 68 11/29/17 05:04 79 152/79 11/29/17 04:22 100 40 11/29/17 04:00 99.5 54 17 125/57 (79) 100 11/29/17 04:00 54 11/29/17 04:00 40 11/29/17 02:00 69 11/29/17 01:52 100 40 11/29/17 00:00 62 11/29/17 00:00 40 11/29/17 00:00 99.3 62 16 112/56 (74) 98 11/28/17 23:08 100 40 11/28/17 22:00 71 11/28/17 21:29 100 40 11/28/17 20:00 99.7 70 19 124/57 (79) 100 11/28/17 20:00 70 11/28/17 20:00 40 11/28/17 19:00 100 Mechanical Ventilator 40 11/28/17 18:00 70 11/28/17 16:00 40 11/28/17 16:00 100.2 73 18 114/54 (74) 100 11/28/17 16:00 66 11/28/17 15:27 40 11/28/17 15:20 99 40 11/28/17 14:38 40 11/28/17 14:00 70 11/28/17 12:43 100 45 11/28/17 12:40 45 11/28/17 12:00 74 11/28/17 12:00 99.1 74 13 136/71 (92) 100 11/28/17 12:00 45 11/28/17 11:17 100 45 11/28/17 10:00 75 11/28/17 08:00 83 11/28/17 08:00 99.3 80 11 113/55 (74) 100 11/28/17 08:00 45 11/28/17 07:30 100 45 I/O 11/28/17 11/28/17 11/28/17 11/29/17 11/29/1711/29/18 07:00 15:00 23:00 07:00 15:00 23:00 Intake Total 765 ml 465 ml 100 ml 663 ml Output Total 750 ml 1400 ml 2375 ml Balance 15 ml 465 ml -1300 ml -1712 ml Intake IV Total 765 ml 465 ml 100 ml 663 ml Output Urine Total 650 ml 1400 ml 2325 ml Gastric Drainage Total 100 ml 0 ml 50 ml # Bowel Movements 1 0 1 Result Diagram: 11/29/17 0600 11/29/17 06 Imaging Last 72 hours Impressions Chest X-Ray 11/24/17 0400 Signed Impressions: Service Date/Time: November 04:58 - CONCLUSION: 1. Minimal basilar density, probably atelectasis. No significant effusion. No pneumothorax identified on plain film. Placement of left central line without pneumothorax. Left-sided rib fractures present. Dave Horton MD Pelvis X-Ray 11/23/172308 Signed Impressions: Service Date/Time: Thursday, November 23, 2017 22:48 - CONCLUSION: Unremarkable examination of the pelvis. Dave Horton MD Chest X-Ray 11/23/172308 Signed Impressions: Service Date/Time: Thursday, November 23, 2017 22:48 - CONCLUSION: 1. Left lower rib fractures. Cardiomediastinal silhouette within normal limits. No dense consolidation or effusion. Dave Horton MD Thoracic Spine CT 11/23/172252 Signed Impressions: Service Date/Time: Thursday, November 23, 2017 23:18 - CONCLUSION: 1. At T12 there is a burst fracture with retropulsion resulting in mild to moderate stenosis and fracture extending into the posterior elements. 2. At T11 there is a mild endplate fracture superiorly with fractures extending posteriorly into the posterior elements and facet joints at T11-12. Dave Horton MD Maxillofacial CT 11/23/172252 Signed Impressions: Service Date/Time: Thursday, November 23, 2017 23:17 - CONCLUSION: 1. Numerous facial fractures as above including bilateral mandibular, bilateral zygomatic arches, bilateral orbits bilateral maxillary and ethmoid sinuses. Also bilateral calvarial fractures. Trace pneumocephalus. Extensive scalp and facial swelling. Dave Horton MD Lumbar Spine CT 11/23/172252 Signed Impressions: Service Date/Time: Thursday, November 23, 2017 23:21 - CONCLUSION: 1. Fractures through the left transverse process of L1 and L2. No lumbar spine vertebral body fractures or subluxation. Dave Horton MD Head CT 11/23/172252 Signed Impressions: Service Date/Time: Thursday, November 23, 2017 23:16 - CONCLUSION: 1. Fractures of the left frontal bone and right parietal bone without significant displacement. Trace pneumocephalus near the right parietal bone fracture. No significant intracranial hemorrhage. 2. Numerous facial bone fractures with hemorrhage in the paranasal sinuses. Facial CT pending. Dave Horton MD Chest CT 11/23/172252 Signed Impressions: Service Date/Time: Thursday, November 23, 2017 23:21 - CONCLUSION: 1. Small bilateral pneumothoraces. 2. Scattered groundglass opacity in the lungs most characteristic of lung contusions or minimal aspiration. 3. Multiple fractures including burst fracture of T12, superior endplate fracture of T11 and multiple left rib fractures as above. 4. Endotracheal tube and nasogastric tube in good position. Dave Horton MD Cervical Spine CT 11/23/172252 Signed Impressions: Service Date/Time: Thursday, November 23, 2017 23:17 - CONCLUSION: 1. Nondisplaced fractures to the left lateral mass of C3 and C5 extending into the facet joints. No vertebral body fractures. No subluxation. Dave Horton MD Abdomen/Pelvis CT 11/23/172252 Signed Impressions: Service Date/Time: Thursday, November 23, 2017 23:21 - CONCLUSION: 1. Negative for solid visceral injury within the abdomen and pelvis. No free air or free fluid. 2. Small bilateral pneumothoraces. 3. Fractures of the left transverse processes of L1 and L2 and the left anterior fifth through eighth ribs. T11 superior endplate fracture and T12 burst fractures as previously described. 4. Appendicolith without evidence for appendicitis. NG tip in stomach. Clinton catheter in bladder. 5. There is a small amount of air in the left external iliac vein and left femoral vein. Dave Horton MD Radius/Ulna X-Ray 11/23/17 0000 Signed Impressions: Service Date/Time: Thursday, November 23, 2017 22:48 - CONCLUSION: 1. First Metacarpal fracture. No radius and ulna fractures. No dislocation. Dave Horton MD Humerus X-Ray 11/23/17 0000 Signed Impressions: Service Date/Time: Thursday, November 23, 2017 22:48 - CONCLUSION: 1. Angulated fracture left distal humeral shaft. Dave Horton MD Chest X-Ray 11/23/17 0000 Signed Impressions: Service Date/Time: Thursday, November 23, 2017 22:48 - CONCLUSION: 1. Endotracheal tube and nasogastric tube in good position. Scattered lung contusions or mild aspiration. No effusion. 2. Left-sided rib fractures. See abdomen and pelvic CT report. Dave Horton MD Last 24 hours Impressions Chest X-Ray 11/24/17 0400 Signed Impressions: Service Date/Time: November 04:58 - CONCLUSION: 1. Minimal basilar density, probably atelectasis. No significant effusion. No pneumothorax identified on plain film. Placement of left central line without pneumothorax. Left-sided rib fractures present. Dave Horton MD Pelvis X-Ray 11/23/172308 Signed Impressions: Service Date/Time: Thursday, November 23, 2017 22:48 - CONCLUSION: Unremarkable examination of the pelvis. Dave Horton MD Chest X-Ray 11/23/172308 Signed Impressions: Service Date/Time: Thursday, November 23, 2017 22:48 - CONCLUSION: 1. Left lower rib fractures. Cardiomediastinal silhouette within normal limits. No dense consolidation or effusion. Dave Horton MD Thoracic Spine CT 11/23/17 0336 Signed Impressions: Service Date/Time: Thursday, November 23, 2017 23:18 - CONCLUSION: 1. At T12 there is a burst fracture with retropulsion resulting in mild to moderate stenosis and fracture extending into the posterior elements. 2. At T11 there is a mild endplate fracture superiorly with fractures extending posteriorly into the posterior elements and facet joints at T11-12. Dave Horton MD Maxillofacial CT 11/23/17 7566 Signed Impressions: Service Date/Time: Thursday, November 23, 2017 23:17 - CONCLUSION: 1. Numerous facial fractures as above including bilateral mandibular, bilateral zygomatic arches, bilateral orbits bilateral maxillary and ethmoid sinuses. Also bilateral calvarial fractures. Trace pneumocephalus. Extensive scalp and facial swelling. Dave Horton MD Lumbar Spine CT 11/23/172252 Signed Impressions: Service Date/Time: Thursday, November 23, 2017 23:21 - CONCLUSION: 1. Fractures through the left transverse process of L1 and L2. No lumbar spine vertebral body fractures or subluxation. Dave Horton MD Head CT 11/23/172252 Signed Impressions: Service Date/Time: Thursday, November 23, 2017 23:16 - CONCLUSION: 1. Fractures of the left frontal bone and right parietal bone without significant displacement. Trace pneumocephalus near the right parietal bone fracture. No significant intracranial hemorrhage. 2. Numerous facial bone fractures with hemorrhage in the paranasal sinuses. Facial CT pending. Dave Horton MD Chest CT 11/23/172252 Signed Impressions: Service Date/Time: Thursday, November 23, 2017 23:21 - CONCLUSION: 1. Small bilateral pneumothoraces. 2. Scattered groundglass opacity in the lungs most characteristic of lung contusions or minimal aspiration. 3. Multiple fractures including burst fracture of T12, superior endplate fracture of T11 and multiple left rib fractures as above. 4. Endotracheal tube and nasogastric tube in good position. Dave Horton MD Cervical Spine CT 11/23/172252 Signed Impressions: Service Date/Time: Thursday, November 23, 2017 23:17 - CONCLUSION: 1. Nondisplaced fractures to the left lateral mass of C3 and C5 extending into the facet joints. No vertebral body fractures. No subluxation. Dave Horton MD Abdomen/Pelvis CT 11/23/172252 Signed Impressions: Service Date/Time: Thursday, November 23, 2017 23:21 - CONCLUSION: 1. Negative for solid visceral injury within the abdomen and pelvis. No free air or free fluid. 2. Small bilateral pneumothoraces. 3. Fractures of the left transverse processes of L1 and L2 and the left anterior fifth through eighth ribs. T11 superior endplate fracture and T12 burst fractures as previously described. 4. Appendicolith without evidence for appendicitis. NG tip in stomach. Clinton catheter in bladder. 5. There is a small amount of air in the left external iliac vein and left femoral vein. Dave Horton MD Objective Remarks No laxity or deformity right upper extremity Bilateral lower extremity: No laxity in bilateral legs or ankles. Left upper extremity splint in place. Puncture wound medial/posterior humerus. Good capillary refills distally Assessment & Plan Assessment and Plan 1) Left humeral shaft fracture with puncture wound s/p I&D by Dr Duarte -maintain splint at all times -planned facial surgery today. planned spinal surgery on -once facial and spinal surgeries are completed, will proceed with ORIF of humerus -will likely be early next week before can proceed with humerus surgery. probably mon/tues depending on patient status -recommend keeping nasally intubated after facial surgery until all surgeries completed. Dennis Perez/[employer] Nov 29, 2017 07:22
[2017-11-29 07:47] LABS: BANDS 8 % (0-6); CORRECTED NUCLEATED RBC 3 /100 WBC (0-0); LYMPHOCYTES 13 % (9-44); MONOCYTES 6 % (0-8); MYELOCYTES 1 % (0-0); NEUTROPHIL # MANUAL DIFF 9.6 TH/MM3 (1.8-7.7); NUCLEATED RED BLOOD CELL 3 (0-0); POLYS (SEG NEUTROPHILS) 72 % (16-70)
[2017-11-29] MEDS: CHLORHEXIDINE 0.12% (ORAL KIT) 15 ML CUP MT SCH ×2 (07:53→20:00)
[2017-11-29] MEDS: ARTIFICIAL TEARS OPTH OINT 3.5 APPLIC/3.5 GM TUBO EACH EYE SCH ×3 (09:00→18:55)
[2017-11-29] MEDS: SODIUM CHLORIDE 0.9% FLUSH 10 ML FLUSH IV FLUSH SCH ×2 (09:00→20:19)
[2017-11-29] MEDS: BACITRACIN OPHT OINT 3.5 GM TUBO SCH ×2 (09:00→20:19)
[2017-11-29] MEDS: MAGNESIUM HYDROXIDE SUSP 30 ML CUP PO SCH ×2 (09:00→20:19)
[2017-11-29] MEDS: LIDOCAINE HCL 5% PATCH T-DERMAL SCH (09:05)
[2017-11-29] MEDS: ENOXAPARIN SODIUM 30 MG/0.3 ML SYRINGE SQ SCH ×2 (09:05→21:48)
[2017-11-29] MEDS: VALPROIC ACID SYRUP 250 MG/5 ML UDC PO SCH ×2 (09:07→20:19)
[2017-11-29] MEDS: QUEtiapine FUMARATE 25 MG TAB PO SCH ×3 (09:07→18:08)
[2017-11-29] MEDS: DOCUSATE SODIUM 50 MG/SENNA 8.6 MG TAB PO SCH ×2 (09:07→20:19)
[2017-11-29] MEDS: DEXAMETHASONE SOD PHOS 4 MG/ML VIAL IV PUSH SCH (09:07)
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
[2017-11-29] MEDS ORDERED: ATROPINE SULFATE 1 MG/10 ML SYRINGE ONE (11:03)
[2017-11-29] MEDS ORDERED: ROCURONIUM INJ 50 MG/5 ML SYRINGE IV PUSH ONE (12:00)
[2017-11-29] MEDS ORDERED: SODIUM CHLORIDE 0.9% 20 ML VIAL IV ONE (12:00)
[2017-11-29] MEDS ORDERED: ceFAZolin INJ 1,000 MG VIAL IV ONE ×2 (12:00→14:47)
[2017-11-29] MEDS ORDERED: VECURONIUM BROMIDE 20 MG VIAL IV ONE (12:00)
[2017-11-29] MEDS ORDERED: DEXAMETHASONE SOD PHOS 4 MG/ML VIAL IV ONE (12:00)
[2017-11-29] MEDS ORDERED: STERILE WATER FOR INJECTION 20 ML VIAL IV ONE (12:00)
[2017-11-29] MEDS: ROCURONIUM INJ 50 MG/5 ML VIAL IV PRN (12:30)
[2017-11-29] MEDS ORDERED: SODIUM CHLORIDE 0.9% 20 ML VIAL ONE (13:15)
[2017-11-29] MEDS ORDERED: MICROFIBRILLAR COLLAGEN HEMOSTAT 1 GM PKT ONE (13:15)
[2017-11-29] MEDS ORDERED: DEXAMETHASONE SOD PHOS 20 MG/5 ML VIAL ONE (13:16)
[2017-11-29] MEDS ORDERED: methylPREDNISolone SOD SUCC 125 MG/2 ML VIAL ONE (13:16)
[2017-11-29] MEDS ORDERED: LIDOCAINE 2%/EPINEPHrine PF 1:200,000 20ML SDV ONE (13:16)
[2017-11-29] MEDS ORDERED: BACITRACIN TOP OINT 15 GM TUBE ONE ×2 (13:16→17:51)
[2017-11-29] MEDS ORDERED: PETROLATUM 30 GM TUBE ONE (13:16)
[2017-11-29] MEDS ORDERED: CHLORHEXIDINE GLUCONATE 0.12% 15 ML CUP ONE (13:18)
[2017-11-29] MEDS: PROPOFOL 1000 MG/100 ML INJ 100 ML IV PRN ×4 (13:21→21:51)
[2017-11-29] MEDS: MIDAZOLAM 100 MG/NS 100 ML DRIP Premix IV PRN (13:22)
[2017-11-29] MEDS: ACETAMINOPHEN 1000 MG/100 ML 100 ML IV PRN (13:25)
[2017-11-29] MEDS ORDERED: OXYMETAZOLINE HCL 0.05% 15 ML NASAL SPRAY ONE (13:55)
[2017-11-29] MEDS ORDERED: ARTIFICIAL TEARS OPTH OINT 3.5 APPLIC/3.5 GM TUBO ONE (14:33)
[2017-11-29] MEDS: LIDOCAINE 1%/EPINEPHrine 1:100,000 SOLN 50 ML VIAL ONE (14:48)
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
[2017-11-29] MEDS ORDERED: BALANCED SALT SOLN OPHT IRRIG 15 ML BTL ONE (17:11)
[2017-11-29] MEDS: cefTRIAXone INJ 1,000 MG in SODIUM CHLORIDE 0.9% INJ 100 ML IV SCH (18:55)
[2017-11-29] MEDS: MIDAZOLAM 100 MG/100 ML INJ 100 ML IV PRN (23:40)
[2017-11-30] VITALS (22 sets, daily range): BP systolic 100–133; BP diastolic 48–71; PULSE 60–82; RESP 14–18; TEMP 99–101.7; O2SAT 97–100
[2017-11-30] MEDS: PROPOFOL 1000 MG/100 ML INJ 100 ML IV PRN ×5 (00:39→23:38)
[2017-11-30] MEDS: CHLORHEXIDINE GLUCONATE 2 % 1 PACK (2 CLOTHS) TOP SCH (03:59)
[2017-11-30 05:40] LABS: AUTOMATED NEUTROPHIL # 10.5 TH/MM3 (1.8-7.7); BASOPHIL % 0.1 % (0.0-2.0); EOSINOPHIL % 0.3 % (0.0-4.0); HEMATOCRIT 22.6 % (39.0-51.0); HEMOGLOBIN 7.7 GM/DL (13.0-17.0); LYMPH % 6.1 % (9.0-44.0); LYMPHOCYTE # 0.7 TH/MM3 (1.0-4.8); MEAN CORPUSCULAR HGB CONC 34.1 % (32.0-36.0); MEAN PLATELET VOLUME 6.9 FL (7.0-11.0); MONO % 6.2 % (0.0-8.0); MONOCYTE # 0.7 TH/MM3 (0-0.9); NEUT % 87.3 % (16.0-70.0); PLATELET COUNT 261 TH/MM3 (150-450); RED BLOOD COUNT 2.57 MIL/MM3 (4.50-5.90); RED CELL DISTRIBUTION WIDTH 13.5 % (11.6-17.2); WHITE BLOOD COUNT 12.1 TH/MM3 (4.0-11.0)
[2017-11-30 05:56] LABS: AST (GOT) 38 U/L (15-37); BICARBONATE 31.8 MEQ/L (21.0-32.0); BLOOD UREA NITROGEN 20 MG/DL (7-18); CALCIUM 7.9 MG/DL (8.5-10.1); CHLORIDE 105 MEQ/L (98-107); CREATININE 0.62 MG/DL (0.60-1.30); GLOMERULAR FILTRATION RATE 150 ML/MIN (>89); GLUCOSE,RANDOM 100 MG/DL (74-106); SODIUM (NA) 143 MEQ/L (136-145)
[2017-11-30 05:57] LABS: ALT (GPT) 56 U/L (12-78)
[2017-11-30 06:00] LABS: ALKALINE PHOSPHATASE 77 U/L (45-117); TOTAL BILIRUBIN ADULT 1.1 MG/DL (0.2-1.0); TOTAL PROTEIN 5.4 GM/DL (6.4-8.2)
--- NOTE | 2017-11-30 06:11 | RADRPT ---
EXAM DATE/TIME: 11/30/2017 05:06 [facility] COMPARISON: CHEST SINGLE AP, November 29, 2017, 4:28. INDICATIONS : Shortness of breath. MEDICAL HISTORY : None. SURGICAL HISTORY : None. ENCOUNTER: Subsequent ACUITY: 4 - 6 days PAIN SCORE: Non-responsive. LOCATION: Bilateral chest FINDINGS: Portable AP view of the chest demonstrates a normal-sized cardiac silhouette. ETT, left subclavian ce ntral line, and nasogastric tube are present. EKG lines overlie the patient. There is stable left bas ilar pleural-parenchymal opacity. No pneumothorax or right lung abnormality is identified. CONCLUSION: Stable left basilar opacity likely representing small pleural effusion with associated atelectasis an d/or airspace consolidation. There is improved aeration at the right lung base. Waqas Linares MD on November 30, 2017 at 6:08 Board Certified Radiologist. This report was verified electronically.
[2017-11-30] MEDS: METHOCARBAMOL 500 MG TAB PO SCH ×3 (06:37→21:22)
--- NOTE | 2017-11-30 07:13 | PD.ORT.PN ---
Subjective Subjective Remarks s/p left distal humerus fx s/p I&D by Dr Duarte of left distal humerus s/p spine, facial, head fractures intubated/sedated. Objective Vitals Vital Signs Date Time Temp Pulse Resp B/P (MAP) Pulse Ox O2 Delivery O2 Flow Rate FiO2 11/30/17 06:00 61 11/30/17 04:30 100 40 11/30/17 04:00 64 11/30/17 04:00 99.0 64 17 105/52 (69) 99 11/30/17 04:00 40 11/30/17 02:00 62 11/30/17 01:42 100 40 11/30/17 00:00 99.5 60 18 108/54 (72) 100 11/30/17 00:00 40 11/30/17 00:00 60 11/29/17 22:00 70 11/29/17 20:18 100 40 11/29/17 20:00 78 11/29/17 20:00 40 11/29/17 20:00 99.7 78 18 119/57 (77) 100 11/29/17 19:00 100 Mechanical Ventilator 40 11/29/17 18:35 97 40 11/29/17 14:00 100 100 11/29/17 12:00 122 11/29/17 12:00 40 11/29/17 12:00 100.4 122 19 169/89 (115) 100 11/29/17 11:48 100 40 11/29/17 10:00 74 11/29/17 08:00 56 11/29/17 08:00 40 11/29/17 08:00 99.1 56 16 121/56 (77) 100 11/29/17 07:33 100 40 I/O 11/29/17 11/29/17 11/29/17 11/30/17 11/30/17 11/30/17 07:00 15:00 23:00 07:00 15:00 23:00 Intake Total 663 ml 1350 ml 628 ml Output Total 2375 ml 150 ml 2755 ml Balance -1712 ml 1200 ml -2127 ml Intake IV Total 663 ml 550 ml 628 ml Other 800 ml Output Urine Total 2325 ml 2725 ml Gastric Drainage Total 50 ml 0 ml Drainage Total 30 ml Estimated Blood Loss 150 ml # Bowel Movements 1 2 1 Result Diagram: 11/30/17 0520 11/30/17 0520 Imaging Last 72 hours Impressions Chest X-Ray 11/24/17 0400 Signed Impressions: Service Date/Time: November 04:58 - CONCLUSION: 1. Minimal basilar density, probably atelectasis. No significant effusion. No pneumothorax identified on plain film. Placement of left central line without pneumothorax. Left-sided rib fractures present. Dave Horton MD Pelvis X-Ray 11/23/172308 Signed Impressions: Service Date/Time: Thursday, November 23, 2017 22:48 - CONCLUSION: Unremarkable examination of the pelvis. Dave Horton MD Chest X-Ray 11/23/172308 Signed Impressions: Service Date/Time: Thursday, November 23, 2017 22:48 - CONCLUSION: 1. Left lower rib fractures. Cardiomediastinal silhouette within normal limits. No dense consolidation or effusion. Dave Horton MD Thoracic Spine CT 11/23/172252 Signed Impressions: Service Date/Time: Thursday, November 23, 2017 23:18 - CONCLUSION: 1. At T12 there is a burst fracture with retropulsion resulting in mild to moderate stenosis and fracture extending into the posterior elements. 2. At T11 there is a mild endplate fracture superiorly with fractures extending posteriorly into the posterior elements and facet joints at T11-12. Dave Horton MD Maxillofacial CT 11/23/172252 Signed Impressions: Service Date/Time: Thursday, November 23, 2017 23:17 - CONCLUSION: 1. Numerous facial fractures as above including bilateral mandibular, bilateral zygomatic arches, bilateral orbits bilateral maxillary and ethmoid sinuses. Also bilateral calvarial fractures. Trace pneumocephalus. Extensive scalp and facial swelling. Dave Horton MD Lumbar Spine CT 11/23/172252 Signed Impressions: Service Date/Time: Thursday, November 23, 2017 23:21 - CONCLUSION: 1. Fractures through the left transverse process of L1 and L2. No lumbar spine vertebral body fractures or subluxation. Dave Horton MD Head CT 11/23/172252 Signed Impressions: Service Date/Time: Thursday, November 23, 2017 23:16 - CONCLUSION: 1. Fractures of the left frontal bone and right parietal bone without significant displacement. Trace pneumocephalus near the right parietal bone fracture. No significant intracranial hemorrhage. 2. Numerous facial bone fractures with hemorrhage in the paranasal sinuses. Facial CT pending. Dave Horton MD Chest CT 11/23/172252 Signed Impressions: Service Date/Time: Thursday, November 23, 2017 23:21 - CONCLUSION: 1. Small bilateral pneumothoraces. 2. Scattered groundglass opacity in the lungs most characteristic of lung contusions or minimal aspiration. 3. Multiple fractures including burst fracture of T12, superior endplate fracture of T11 and multiple left rib fractures as above. 4. Endotracheal tube and nasogastric tube in good position. Dave Horton MD Cervical Spine CT 11/23/172252 Signed Impressions: Service Date/Time: Thursday, November 23, 2017 23:17 - CONCLUSION: 1. Nondisplaced fractures to the left lateral mass of C3 and C5 extending into the facet joints. No vertebral body fractures. No subluxation. Dave Horton MD Abdomen/Pelvis CT 11/23/172252 Signed Impressions: Service Date/Time: Thursday, November 23, 2017 23:21 - CONCLUSION: 1. Negative for solid visceral injury within the abdomen and pelvis. No free air or free fluid. 2. Small bilateral pneumothoraces. 3. Fractures of the left transverse processes of L1 and L2 and the left anterior fifth through eighth ribs. T11 superior endplate fracture and T12 burst fractures as previously described. 4. Appendicolith without evidence for appendicitis. NG tip in stomach. Clinton catheter in bladder. 5. There is a small amount of air in the left external iliac vein and left femoral vein. Dave Horton MD Radius/Ulna X-Ray 11/23/17 0000 Signed Impressions: Service Date/Time: Thursday, November 23, 2017 22:48 - CONCLUSION: 1. First Metacarpal fracture. No radius and ulna fractures. No dislocation. Dave Horton MD Humerus X-Ray 11/23/17 Signed Impressions: Service Date/Time: Thursday, November 23, 2017 22:48 - CONCLUSION: 1. Angulated fracture left distal humeral shaft. Dave Horton MD Chest X-Ray 11/23/17 0000 Signed Impressions: Service Date/Time: Thursday, November 23, 2017 22:48 - CONCLUSION: 1. Endotracheal tube and nasogastric tube in good position. Scattered lung contusions or mild aspiration. No effusion. 2. Left-sided rib fractures. See abdomen and pelvic CT report. Dave Horton MD Last 24 hours Impressions Chest X-Ray 11/24/170 Signed Impressions: Service Date/Time: November 04:58 - CONCLUSION: 1. Minimal basilar density, probably atelectasis. No significant effusion. No pneumothorax identified on plain film. Placement of left central line without pneumothorax. Left-sided rib fractures present. Dave Horton MD Pelvis X-Ray 11/23/172308 Signed Impressions: Service Date/Time: Thursday, November 23, 2017 22:48 - CONCLUSION: Unremarkable examination of the pelvis. Dave Horton MD Chest X-Ray 11/23/172308 Signed Impressions: Service Date/Time: Thursday, November 23, 2017 22:48 - CONCLUSION: 1. Left lower rib fractures. Cardiomediastinal silhouette within normal limits. No dense consolidation or effusion. Dave Horton MD Thoracic Spine CT 11/23/172252 Signed Impressions: Service Date/Time: Thursday, November 23, 2017 23:18 - CONCLUSION: 1. At T12 there is a burst fracture with retropulsion resulting in mild to moderate stenosis and fracture extending into the posterior elements. 2. At T11 there is a mild endplate fracture superiorly with fractures extending posteriorly into the posterior elements and facet joints at T11-12. Dave Horton MD Maxillofacial CT 11/23/172252 Signed Impressions: Service Date/Time: Thursday, November 23, 2017 23:17 - CONCLUSION: 1. Numerous facial fractures as above including bilateral mandibular, bilateral zygomatic arches, bilateral orbits bilateral maxillary and ethmoid sinuses. Also bilateral calvarial fractures. Trace pneumocephalus. Extensive scalp and facial swelling. Dave Horton MD Lumbar Spine CT 11/23/172252 Signed Impressions: Service Date/Time: Thursday, November 23, 2017 23:21 - CONCLUSION: 1. Fractures through the left transverse process of L1 and L2. No lumbar spine vertebral body fractures or subluxation. Dave Horton MD Head CT 11/23/172252 Signed Impressions: Service Date/Time: Thursday, November 23, 2017 23:16 - CONCLUSION: 1. Fractures of the left frontal bone and right parietal bone without significant displacement. Trace pneumocephalus near the right parietal bone fracture. No significant intracranial hemorrhage. 2. Numerous facial bone fractures with hemorrhage in the paranasal sinuses. Facial CT pending. Dave Horton MD Chest CT 11/23/172252 Signed Impressions: Service Date/Time: Thursday, November 23, 2017 23:21 - CONCLUSION: 1. Small bilateral pneumothoraces. 2. Scattered groundglass opacity in the lungs most characteristic of lung contusions or minimal aspiration. 3. Multiple fractures including burst fracture of T12, superior endplate fracture of T11 and multiple left rib fractures as above. 4. Endotracheal tube and nasogastric tube in good position. Dave Horton MD Cervical Spine CT 11/23/172252 Signed Impressions: Service Date/Time: Thursday, November 23, 2017 23:17 - CONCLUSION: 1. Nondisplaced fractures to the left lateral mass of C3 and C5 extending into the facet joints. No vertebral body fractures. No subluxation. Dave Horton MD Abdomen/Pelvis CT 11/23/172252 Signed Impressions: Service Date/Time: Thursday, November 23, 2017 23:21 - CONCLUSION: 1. Negative for solid visceral injury within the abdomen and pelvis. No free air or free fluid. 2. Small bilateral pneumothoraces. 3. Fractures of the left transverse processes of L1 and L2 and the left anterior fifth through eighth ribs. T11 superior endplate fracture and T12 burst fractures as previously described. 4. Appendicolith without evidence for appendicitis. NG tip in stomach. Clinton catheter in bladder. 5. There is a small amount of air in the left external iliac vein and left femoral vein. Dave Horton MD Objective Remarks No laxity or deformity right upper extremity Bilateral lower extremity: No laxity in bilateral legs or ankles. Left upper extremity splint in place. Puncture wound medial/posterior humerus. Good capillary refills distally Assessment & Plan Assessment and Plan 1) Left humeral shaft fracture with puncture wound s/p I&D by Dr Duarte -maintain splint at all times -facial surgery completed yesterday -planned spinal surgery -once facial and spinal surgeries are completed, will proceed with ORIF of humerus -will plan for ORIF of humerus on Tuesday pending medical stability -consents on chart and need to be signed by family Dennis Perez/First Margareth JIMENEZ Nov 30, 2017 07:13
[2017-11-30] MEDS: CHLORHEXIDINE 0.12% (ORAL KIT) 15 ML CUP MT SCH ×2 (07:41→20:46)
[2017-11-30] MEDS: VALPROIC ACID SYRUP 250 MG/5 ML UDC PO SCH ×2 (08:34→20:47)
[2017-11-30] MEDS: DEXAMETHASONE SOD PHOS 4 MG/ML VIAL IV PUSH SCH (08:34)
[2017-11-30] MEDS: QUEtiapine FUMARATE 25 MG TAB PO SCH ×3 (08:34→17:57)
[2017-11-30] MEDS: MIDAZOLAM 100 MG/100 ML INJ 100 ML IV PRN ×2 (08:34→19:23)
[2017-11-30] MEDS: BACITRACIN OPHT OINT 3.5 GM TUBO SCH ×2 (08:35→20:46)
[2017-11-30] MEDS: MAGNESIUM HYDROXIDE SUSP 30 ML CUP PO SCH ×2 (08:35→20:47)
[2017-11-30] MEDS: LIDOCAINE HCL 5% PATCH T-DERMAL SCH (08:35)
[2017-11-30] MEDS: SODIUM CHLORIDE 0.9% FLUSH 10 ML FLUSH IV FLUSH SCH ×2 (08:35→20:47)
[2017-11-30] MEDS: ARTIFICIAL TEARS OPTH OINT 3.5 APPLIC/3.5 GM TUBO EACH EYE SCH ×3 (08:35→17:57)
[2017-11-30] MEDS: DOCUSATE SODIUM 50 MG/SENNA 8.6 MG TAB PO SCH ×2 (08:35→20:47)
[2017-11-30 08:39] LABS: BANDS 3 % (0-6); LYMPHOCYTES 7 % (9-44); METAMYELOCYTES 1 % (0-1); MONOCYTES 3 % (0-8); MYELOCYTES 2 % (0-0); NEUTROPHIL # MANUAL DIFF 10.9 TH/MM3 (1.8-7.7); POLYS (SEG NEUTROPHILS) 84 % (16-70)
[2017-11-30 08:41] LABS: POLYCHROMASIA 2.2 % (0.0-1.9)
[2017-11-30 08:43] LABS: KERATOCYTES OCC (NORMAL)
[2017-11-30] MEDS: DOPamine 800 MG/D5W PREMIX 500 ML IV PRN (09:13)
[2017-11-30] MEDS: fentaNYL 2,500 MCG/NS 250 ML IV PRN ×2 (09:13→19:22)
[2017-11-30] MEDS: ROCURONIUM INJ 50 MG/5 ML VIAL IV PRN (09:36)
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
--- NOTE | 2017-11-30 10:23 | RADRPT ---
EXAM DATE/TIME: 11/30/2017 09:52 [facility] COMPARISON: CT 3D/SPECIAL RECONSTRUCTION, November 23, 2017, 23:17. CT FACIAL BONES W/O CONTRAST, November 23 8, 23:17. INDICATIONS : Post operative facial reconstruction. RADIATION DOSE: 56.97 CTDIvol (mGy) MEDICAL HISTORY : Non-responsive. SURGICAL HISTORY : Non-responsive. ENCOUNTER: Subsequent ACUITY: 1 week PAIN SCORE: Non-responsive LOCATION: flank TECHNIQUE: Volumetric scanning of the facial bones was performed. Using automated exposure control and adjustme nt of the mA and/or kV according to patient size, radiation dose was kept as low as reasonably achiev able to obtain optimal diagnostic quality images. DICOM format image data is available electronicall y for review and comparison. FINDINGS: There has been good reduction and approximation across either verbal rim on the left. There is persistent depression of the lateral orbital wall extending toward the overall apex with fra ctures of the cribriform plate and left temporal bone. Sphenoid sinus, ethmoid sinuses and maxillary sinuses are opacified. There is good approximation of the zygomatic arch on the left. Plate is seen bridging the focal bone on the right sulcal sinus. There are fractures of the posterio r wall of the left focal sinus. The left focal sinus is opacified. There is no pneumocephalus. There is no entrapment on the right and fractures of the right interlobar rib and lateral rim. Fract ure of the right zygomatic arch is noted as well. Temporal bones are intact Portion of its radial contents visualized are unremarkable Patient is at significant risk for CSF leak in the left little sinus and the perform plate left side. CONCLUSION: Postop repair as above with significant improvement in alignment. 3-D recon is nilay sarmiento. Tyrel Davison MD FACR on November 30, 2017 at 10:16 Board Certified Radiologist. This report was verified electronically.
[2017-11-30] MEDS: ACETAMINOPHEN 1000 MG/100 ML 100 ML IV PRN ×2 (11:15→21:11)
[2017-11-30] MEDS ORDERED: SODIUM CHLOR 0.9% 250 ML INJ 250 ML IV ONE (11:15)
--- NOTE | 2017-11-30 12:29 | RADRPT ---
EXAM DATE/TIME: 11/30/2017 09:53 [facility] COMPARISON: CT 3D/SPECIAL RECONSTRUCTION, November 23, 2017, 23:17. INDICATIONS : Post operative facial reconstruction. CTDIvol (mGy) ; Reconstructed from previous dataset, no dose MEDICAL HISTORY : Non-responsive. SURGICAL HISTORY : Non-responsive. ENCOUNTER: Initial ACUITY: 1 week PAIN SCALE: Non-responsive LOCATION: facial TECHNIQUE: 3D reconstructions of the face were performed. DICOM format image data is available electronically f or review and comparison. FINDINGS: 3-D reconstruction reveal significant improvement of the complex facial bone fractures but compared t o the preoperative study. CONCLUSION: Improvement as above. Tyrel Davison MD FACR on November 30, 2017 at 12:26 Board Certified Radiologist. This report was verified electronically.
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
[2017-11-30] MEDS: cefTRIAXone INJ 1,000 MG in SODIUM CHLORIDE 0.9% INJ 100 ML IV SCH (17:57)
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
[2017-12-01] VITALS (16 sets, daily range): BP systolic 108–131; BP diastolic 51–64; PULSE 62–95; RESP 16–19; TEMP 98.2–101.5; O2SAT 93–100
[2017-12-01] MEDS: PANTOPRAZOLE SODIUM 40 MG VIAL IV PUSH SCH ×2 (00:07→23:26)
[2017-12-01] MEDS: MIDAZOLAM HCL 5 MG/ML VIAL (1 ML) IV PRN (01:24)
[2017-12-01] MEDS: PROPOFOL 1000 MG/100 ML INJ 100 ML IV PRN ×5 (02:44→22:58)
[2017-12-01] MEDS: CHLORHEXIDINE GLUCONATE 2 % 1 PACK (2 CLOTHS) TOP SCH (04:00)
[2017-12-01] MEDS: ACETAMINOPHEN 1000 MG/100 ML 100 ML IV PRN (04:40)
[2017-12-01 04:45] LABS: AUTOMATED NEUTROPHIL # 12.4 TH/MM3 (1.8-7.7); BASOPHIL % 0.3 % (0.0-2.0); EOSINOPHIL # 0.1 TH/MM3 (0-0.4); HEMATOCRIT 28.1 % (39.0-51.0); HEMOGLOBIN 9.7 GM/DL (13.0-17.0); LYMPH % 6.3 % (9.0-44.0); LYMPHOCYTE # 0.9 TH/MM3 (1.0-4.8); MEAN CELL VOLUME 87.7 FL (80.0-100.0); MEAN CORPUSCULAR HEMOGLOBIN 30.2 PG (27.0-34.0); MEAN CORPUSCULAR HGB CONC 34.5 % (32.0-36.0); MEAN PLATELET VOLUME 6.9 FL (7.0-11.0); MONO % 6.5 % (0.0-8.0); MONOCYTE # 0.9 TH/MM3 (0-0.9); NEUT % 85.9 % (16.0-70.0); PLATELET COUNT 291 TH/MM3 (150-450); RED CELL DISTRIBUTION WIDTH 13.5 % (11.6-17.2); WHITE BLOOD COUNT 14.4 TH/MM3 (4.0-11.0)
[2017-12-01 05:12] LABS: BICARBONATE 28.6 MEQ/L (21.0-32.0); CALCIUM 7.3 MG/DL (8.5-10.1); CREATININE 0.59 MG/DL (0.60-1.30)
[2017-12-01] MEDS: MIDAZOLAM 100 MG/100 ML INJ 100 ML IV PRN ×2 (05:26→18:39)
[2017-12-01 05:28] LABS: CALCIUM-PROTEIN CORRECTED 8.1 MG/DL (8.5-10.1); TOTAL PROTEIN 5.6 GM/DL (6.4-8.2)
[2017-12-01] MEDS: fentaNYL 2,500 MCG/NS 250 ML IV PRN ×2 (05:55→18:39)
[2017-12-01] MEDS: METHOCARBAMOL 500 MG TAB PO SCH ×3 (05:55→21:10)
[2017-12-01] MEDS ORDERED: PROPOFOL 500 MG/50 ML INJ 200 ML ONE (06:38)
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
[2017-12-01] MEDS ORDERED: BUPIVACAINE/EPINEPHRINE 0.5% PF 30 ML VIAL ONE (07:48)
[2017-12-01] MEDS ORDERED: VANCOMYCIN HCL 1000 MG VIAL ONE ×4 (07:48→12:57)
[2017-12-01] MEDS ORDERED: GELFOAM SIZE 100 ONE ×2 (07:48→11:21)
[2017-12-01] MEDS ORDERED: THROMBIN (TOPICAL) 5,000 UNIT VIAL ONE ×2 (07:48→11:21)
[2017-12-01] MEDS: CHLORHEXIDINE 0.12% (ORAL KIT) 15 ML CUP MT SCH ×2 (08:00→21:09)
[2017-12-01] MEDS ORDERED: SODIUM BICARBONATE 8.4% INJ 50 MEQ/50 ML SYR ONE (08:05)
[2017-12-01] MEDS ORDERED: CALCIUM CHLORIDE 10% SOLN 1 GRAM/10 ML SYR ONE (08:05)
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
[2017-12-01] MEDS: ARTIFICIAL TEARS OPTH OINT 3.5 APPLIC/3.5 GM TUBO EACH EYE SCH ×3 (09:00→17:31)
[2017-12-01] MEDS: BACITRACIN OPHT OINT 3.5 GM TUBO SCH ×2 (09:00→21:09)
[2017-12-01] MEDS: DEXAMETHASONE SOD PHOS 4 MG/ML VIAL IV PUSH SCH (09:00)
[2017-12-01] MEDS: LIDOCAINE HCL 5% PATCH T-DERMAL SCH (09:00)
[2017-12-01] MEDS: QUEtiapine FUMARATE 25 MG TAB PO SCH ×3 (09:00→17:31)
[2017-12-01] MEDS: DOCUSATE SODIUM 50 MG/SENNA 8.6 MG TAB PO SCH ×2 (09:00→21:10)
[2017-12-01] MEDS: MAGNESIUM HYDROXIDE SUSP 30 ML CUP PO SCH ×2 (09:00→21:10)
[2017-12-01] MEDS: SODIUM CHLORIDE 0.9% FLUSH 10 ML FLUSH IV FLUSH SCH ×2 (09:00→21:09)
[2017-12-01] MEDS: VALPROIC ACID SYRUP 250 MG/5 ML UDC PO SCH ×2 (09:00→21:10)
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
[2017-12-01] MEDS ORDERED: SUFentanil INJ 250 MCG/5 ML AMP ONE ×2 (10:06→10:07)
[2017-12-01] MEDS ORDERED: NS 500 ML (EXCEL BAG) INJ 500 ML IV ONE (12:00)
[2017-12-01] MEDS ORDERED: PROPOFOL 200 MG/20 ML AMP IV ONE (12:00)
[2017-12-01] MEDS ORDERED: SODIUM CHLOR 0.9% 250 ML INJ 250 ML IV ONE (12:00)
[2017-12-01] MEDS ORDERED: PHENYLEPH/NS 1000 MCG/10 ML SYR IV ONE (12:00)
[2017-12-01] MEDS ORDERED: LACTATED RINGER'S 1000 ML INJ 1,000 ML IV ONE (12:00)
[2017-12-01] MEDS ORDERED: NORMOSOL R INJ 2,000 ML IV ONE (12:00)
[2017-12-01] MEDS ORDERED: PHENYLEPHRINE HCL 10 MG/ML VIAL IV ONE (12:00)
[2017-12-01] MEDS ORDERED: ePHEDrine/NS 25 MG/5 ML SYRINGE IV ONE (12:00)
[2017-12-01] MEDS ORDERED: ROCURONIUM INJ 50 MG/5 ML SYRINGE IV PUSH ONE (12:00)
[2017-12-01] MEDS ORDERED: DEXAMETHASONE SOD PHOS 4 MG/ML VIAL IV ONE (12:00)
[2017-12-01] MEDS ORDERED: LIDOCAINE HCL 1% PF 5 ML SYRINGE OTHER ONE (12:00)
[2017-12-01 14:08] LABS: HEMATOCRIT 27.6 % (39.0-51.0); HEMOGLOBIN 9.5 GM/DL (13.0-17.0)
[2017-12-01] MEDS ORDERED: MORPHINE SULFATE 4 MG/ML INJ ONE (14:35)
[2017-12-01] MEDS ORDERED: MIDAZOLAM HCL 2 MG/2 ML VIAL ONE (14:35)
[2017-12-01 15:29] LABS: BACTERIA, URINE RARE /hpf; BILIRUBIN, URINE NEG (NEG); BLOOD, URINE NEG (NEG); GLUCOSE,URINE NEG (NEG); KETONE, URINE 10 mg/dL (NEG); MUCUS URINE FEW /lpf (OCC); NITRITE,URINE NEG (NEG); PH, URINE 5.5 (5.0-8.5); URINE COLOR YELLOW (YELLW/STRAW); URINE LEUKOCYTE ESTERASE NEG (NEG)
--- NOTE | 2017-12-01 15:29 | RADRPT ---
EXAM DATE/TIME: 12/01/2017 08:39 [facility] COMPARISON: MRI THORACIC SPINE W/O CONTRAST, November 25, 2017, 10:58. SPINE THORACIC LATERAL ONLY, December 01, 2017, 8:39. INDICATIONS : Post-op T10-L2 posterior thoracolumbar fusion. MEDICAL HISTORY : None. SURGICAL HISTORY : Craniotomy. ORIF left humerus. ENCOUNTER: Subsequent ACUITY: 1 week PAIN SCORE: Non-responsive. LOCATION: Thoracolumbar spine. FINDINGS: Posterior fusion hardware is noted extending from T10 through L2 and is in good position. T12 bryanna elliott deformity is stable. CONCLUSION: Posterior fusion hardware extends from T10 through L2 and is in good position. Stable T12 compression deformity. Kristian Ford MD on December 01, 2017 at 15:25 Board Certified Radiologist. This report was verified electronically.
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
[2017-12-01 15:37] LABS: BICARBONATE 27.8 MEQ/L (21.0-32.0); CALCIUM 7.8 MG/DL (8.5-10.1); CREATININE 0.52 MG/DL (0.60-1.30)
[2017-12-01 15:39] LABS: AUTOMATED NEUTROPHIL # 17.5 TH/MM3 (1.8-7.7); BASOPHIL % 0.2 % (0.0-2.0); EOSINOPHIL # 0.1 TH/MM3 (0-0.4); EOSINOPHIL % 0.7 % (0.0-4.0); HEMATOCRIT 30.6 % (39.0-51.0); HEMOGLOBIN 10.5 GM/DL (13.0-17.0); LYMPH % 2.8 % (9.0-44.0); LYMPHOCYTE # 0.5 TH/MM3 (1.0-4.8); MEAN CELL VOLUME 87.9 FL (80.0-100.0); MEAN CORPUSCULAR HEMOGLOBIN 30.1 PG (27.0-34.0); MEAN CORPUSCULAR HGB CONC 34.3 % (32.0-36.0); MEAN PLATELET VOLUME 7.1 FL (7.0-11.0); MONO % 3.5 % (0.0-8.0); MONOCYTE # 0.7 TH/MM3 (0-0.9); NEUT % 92.8 % (16.0-70.0); PLATELET COUNT 337 TH/MM3 (150-450); RED BLOOD COUNT 3.49 MIL/MM3 (4.50-5.90); RED CELL DISTRIBUTION WIDTH 14.2 % (11.6-17.2); WHITE BLOOD COUNT 18.8 TH/MM3 (4.0-11.0)
[2017-12-01] MEDS: cefTRIAXone INJ 1,000 MG in SODIUM CHLORIDE 0.9% INJ 100 ML IV SCH (15:46)
[2017-12-01 16:22] LABS: BANDS 5 % (0-6); LYMPHOCYTES 19 % (9-44); METAMYELOCYTES 1 % (0-1); MONOCYTES 2 % (0-8); NEUTROPHIL # MANUAL DIFF 14.7 TH/MM3 (1.8-7.7); POLYS (SEG NEUTROPHILS) 70 % (16-70); PROMYELOCYTES 2 % (0-0)
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
[2017-12-01] MEDS: DOPamine INJ 800 MG in DEXTROSE 5% IN WATE 500 ML INJ 480 ML IV PRN ×2 (17:02)
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
[2017-12-01] MEDS ORDERED: ENOXAPARIN SODIUM 30 MG/0.3 ML SYRINGE SQ SCH (21:00)
[2017-12-02] VITALS (17 sets, daily range): BP systolic 100–146; BP diastolic 45–58; PULSE 59–92; RESP 16–20; TEMP 98.8–101.5; O2SAT 95–100
[2017-12-02] MEDS: PROPOFOL 1000 MG/100 ML INJ 100 ML IV PRN ×5 (03:07→20:51)
[2017-12-02] MEDS: CHLORHEXIDINE GLUCONATE 2 % 1 PACK (2 CLOTHS) TOP SCH (03:36)
[2017-12-02 04:41] LABS: AUTOMATED NEUTROPHIL # 13.3 TH/MM3 (1.8-7.7); BASOPHIL # 0.1 TH/MM3 (0-0.2); BASOPHIL % 0.4 % (0.0-2.0); EOSINOPHIL # 0.2 TH/MM3 (0-0.4); HEMATOCRIT 26.4 % (39.0-51.0); HEMOGLOBIN 9.5 GM/DL (13.0-17.0); LYMPH % 5.7 % (9.0-44.0); LYMPHOCYTE # 0.9 TH/MM3 (1.0-4.8); MEAN CELL VOLUME 86.1 FL (80.0-100.0); MEAN PLATELET VOLUME 6.9 FL (7.0-11.0); MONO % 5.6 % (0.0-8.0); MONOCYTE # 0.9 TH/MM3 (0-0.9); NEUT % 87.3 % (16.0-70.0); PLATELET COUNT 319 TH/MM3 (150-450); RED BLOOD COUNT 3.06 MIL/MM3 (4.50-5.90); RED CELL DISTRIBUTION WIDTH 13.8 % (11.6-17.2); WHITE BLOOD COUNT 15.3 TH/MM3 (4.0-11.0)
[2017-12-02] MEDS: MIDAZOLAM 100 MG/100 ML INJ 100 ML IV PRN ×2 (04:48→15:14)
[2017-12-02] MEDS: METHOCARBAMOL 500 MG TAB PO SCH ×3 (05:19→21:15)
[2017-12-02 05:24] LABS: ALBUMIN 1.8 GM/DL (3.4-5.0); ALT (GPT) 52 U/L (12-78); AST (GOT) 36 U/L (15-37); BICARBONATE 29.2 MEQ/L (21.0-32.0); BLOOD UREA NITROGEN 16 MG/DL (7-18); CALCIUM 7.7 MG/DL (8.5-10.1); CHLORIDE 106 MEQ/L (98-107); CREATININE 0.44 MG/DL (0.60-1.30); GLOMERULAR FILTRATION RATE 223 ML/MIN (>89); GLUCOSE,RANDOM 110 MG/DL (74-106); SODIUM (NA) 141 MEQ/L (136-145)
[2017-12-02 05:26] LABS: ALKALINE PHOSPHATASE 101 U/L (45-117); TOTAL BILIRUBIN ADULT 0.8 MG/DL (0.2-1.0); TOTAL PROTEIN 5.6 GM/DL (6.4-8.2)
--- NOTE | 2017-12-02 06:58 | PD.ORT.PN ---
Subjective Subjective Remarks s/p left distal humerus fx s/p I&D by Dr Duarte of left distal humerus s/p spine, facial, head fractures with subsequent ORIF intubated/sedated. Objective Vitals Vital Signs Date Time Temp Pulse Resp B/P (MAP) Pulse Ox O2 Delivery O2 Flow Rate FiO2 12/02/17 04:04 99 40 12/02/17 04:00 99.3 80 20 112/48 (69) 98 12/02/17 04:00 40 12/02/17 04:00 80 12/02/17 02:00 59 12/02/17 00:34 98 45 12/02/17 00:00 45 12/02/17 00:00 60 12/02/17 00:00 98.8 60 16 114/51 (72) 99 12/01/17 22:00 66 12/01/17 20:44 100 50 12/01/17 20:00 98.2 62 17 120/58 (78) 98 Automatic Cuff 12/01/17 20:00 62 12/01/17 20:00 50 12/01/17 19:00 100 Mechanical Ventilator 40 12/01/17 18:00 65 12/01/17 17:43 99 50 12/01/17 16:00 72 12/01/17 16:00 50 12/01/17 16:00 100.2 72 16 131/64 (86) 98 12/01/17 14:45 93 40 12/01/17 14:30 95 12/01/17 08:30 99 100 12/01/17 08:00 99.9 67 16 110/51 (70) 99 12/01/17 08:00 40 12/01/17 08:00 67 12/01/17 07:00 99 Mechanical Ventilator 40 I/O 12/01/17 12/01/17 12/01/17 12/02/17 12/02/17 12/02/17 07:00 15:00 23:00 07:00 15:00 23:00 Intake Total 1793 ml 1800 ml 920 ml 300 ml Output Total 1110 ml 1550 ml 2010 ml 40 ml Balance 683 ml 250 ml -1090 ml 260 ml Intake IV Total 1553 ml 1800 ml 800 ml 300 ml Other 240 ml 120 ml Output Urine Total 1100 ml 1350 ml 1900 ml Stool Total 0 ml Gastric Drainage Total 0 ml 0 ml Drainage Total 10 ml 110 ml 40 ml Estimated Blood Loss 200 ml # Bowel Movements 0 Result Diagram: 12/02/17 0345 12/02/17 0415 Imaging Last 72 hours Impressions Chest X-Ray 11/24/17 0400 Signed Impressions: Service Date/Time: November 04:58 - CONCLUSION: 1. Minimal basilar density, probably atelectasis. No significant effusion. No pneumothorax identified on plain film. Placement of left central line without pneumothorax. Left-sided rib fractures present. Dave Horton MD Pelvis X-Ray 11/23/172308 Signed Impressions: Service Date/Time: Thursday, November 23, 2017 22:48 - CONCLUSION: Unremarkable examination of the pelvis. Dave Horton MD Chest X-Ray 11/23/172308 Signed Impressions: Service Date/Time: Thursday, November 23, 2017 22:48 - CONCLUSION: 1. Left lower rib fractures. Cardiomediastinal silhouette within normal limits. No dense consolidation or effusion. Dave Horton MD Thoracic Spine CT 11/23/172252 Signed Impressions: Service Date/Time: Thursday, November 23, 2017 23:18 - CONCLUSION: 1. At T12 there is a burst fracture with retropulsion resulting in mild to moderate stenosis and fracture extending into the posterior elements. 2. At T11 there is a mild endplate fracture superiorly with fractures extending posteriorly into the posterior elements and facet joints at T11-12. Dave Horton MD Maxillofacial CT 11/23/172252 Signed Impressions: Service Date/Time: Thursday, November 23, 2017 23:17 - CONCLUSION: 1. Numerous facial fractures as above including bilateral mandibular, bilateral zygomatic arches, bilateral orbits bilateral maxillary and ethmoid sinuses. Also bilateral calvarial fractures. Trace pneumocephalus. Extensive scalp and facial swelling. Dave Horton MD Lumbar Spine CT 11/23/172252 Signed Impressions: Service Date/Time: Thursday, November 23, 2017 23:21 - CONCLUSION: 1. Fractures through the left transverse process of L1 and L2. No lumbar spine vertebral body fractures or subluxation. Dave Horton MD Head CT 11/23/172252 Signed Impressions: Service Date/Time: Thursday, November 23, 2017 23:16 - CONCLUSION: 1. Fractures of the left frontal bone and right parietal bone without significant displacement. Trace pneumocephalus near the right parietal bone fracture. No significant intracranial hemorrhage. 2. Numerous facial bone fractures with hemorrhage in the paranasal sinuses. Facial CT pending. Dave Horton MD Chest CT 11/23/172252 Signed Impressions: Service Date/Time: Thursday, November 23, 2017 23:21 - CONCLUSION: 1. Small bilateral pneumothoraces. 2. Scattered groundglass opacity in the lungs most characteristic of lung contusions or minimal aspiration. 3. Multiple fractures including burst fracture of T12, superior endplate fracture of T11 and multiple left rib fractures as above. 4. Endotracheal tube and nasogastric tube in good position. Dave Horton MD Cervical Spine CT 11/23/172252 Signed Impressions: Service Date/Time: Thursday, November 23, 2017 23:17 - CONCLUSION: 1. Nondisplaced fractures to the left lateral mass of C3 and C5 extending into the facet joints. No vertebral body fractures. No subluxation. Dave Horton MD Abdomen/Pelvis CT 11/23/172252 Signed Impressions: Service Date/Time: Thursday, November 23, 2017 23:21 - CONCLUSION: 1. Negative for solid visceral injury within the abdomen and pelvis. No free air or free fluid. 2. Small bilateral pneumothoraces. 3. Fractures of the left transverse processes of L1 and L2 and the left anterior fifth through eighth ribs. T11 superior endplate fracture and T12 burst fractures as previously described. 4. Appendicolith without evidence for appendicitis. NG tip in stomach. Clinton catheter in bladder. 5. There is a small amount of air in the left external iliac vein and left femoral vein. Dave Horton MD Radius/Ulna X-Ray 11/23/17 0000 Signed Impressions: Service Date/Time: Thursday, November 23, 2017 22:48 - CONCLUSION: 1. First Metacarpal fracture. No radius and ulna fractures. No dislocation. Dave Horton MD Humerus X-Ray 11/23/17 0000 Signed Impressions: Service Date/Time: Thursday, November 23, 2017 22:48 - CONCLUSION: 1. Angulated fracture left distal humeral shaft. Dave Horton MD Chest X-Ray 11/23/17 0000 Signed Impressions: Service Date/Time: Thursday, November 23, 2017 22:48 - CONCLUSION: 1. Endotracheal tube and nasogastric tube in good position. Scattered lung contusions or mild aspiration. No effusion. 2. Left-sided rib fractures. See abdomen and pelvic CT report. Dave Horton MD Last 24 hours Impressions Chest X-Ray 11/24/17 0400 Signed Impressions: Service Date/Time: November 04:58 - CONCLUSION: 1. Minimal basilar density, probably atelectasis. No significant effusion. No pneumothorax identified on plain film. Placement of left central line without pneumothorax. Left-sided rib fractures present. Dave Horton MD Pelvis X-Ray 11/23/172308 Signed Impressions: Service Date/Time: Thursday, November 23, 2017 22:48 - CONCLUSION: Unremarkable examination of the pelvis. Dave Horton MD Chest X-Ray 11/23/172308 Signed Impressions: Service Date/Time: Thursday, November 23, 2017 22:48 - CONCLUSION: 1. Left lower rib fractures. Cardiomediastinal silhouette within normal limits. No dense consolidation or effusion. Dave Horton MD Thoracic Spine CT 11/23/172252 Signed Impressions: Service Date/Time: Thursday, November 23, 2017 23:18 - CONCLUSION: 1. At T12 there is a burst fracture with retropulsion resulting in mild to moderate stenosis and fracture extending into the posterior elements. 2. At T11 there is a mild endplate fracture superiorly with fractures extending posteriorly into the posterior elements and facet joints at T11-12. Dave Horton MD Maxillofacial CT 11/23/172252 Signed Impressions: Service Date/Time: Thursday, November 23, 2017 23:17 - CONCLUSION: 1. Numerous facial fractures as above including bilateral mandibular, bilateral zygomatic arches, bilateral orbits bilateral maxillary and ethmoid sinuses. Also bilateral calvarial fractures. Trace pneumocephalus. Extensive scalp and facial swelling. Dave Horton MD Lumbar Spine CT 11/23/172252 Signed Impressions: Service Date/Time: Thursday, November 23, 2017 23:21 - CONCLUSION: 1. Fractures through the left transverse process of L1 and L2. No lumbar spine vertebral body fractures or subluxation. Dave Horton MD Head CT 11/23/172252 Signed Impressions: Service Date/Time: Thursday, November 23, 2017 23:16 - CONCLUSION: 1. Fractures of the left frontal bone and right parietal bone without significant displacement. Trace pneumocephalus near the right parietal bone fracture. No significant intracranial hemorrhage. 2. Numerous facial bone fractures with hemorrhage in the paranasal sinuses. Facial CT pending. Dave Horton MD Chest CT 11/23/172252 Signed Impressions: Service Date/Time: Thursday, November 23, 2017 23:21 - CONCLUSION: 1. Small bilateral pneumothoraces. 2. Scattered groundglass opacity in the lungs most characteristic of lung contusions or minimal aspiration. 3. Multiple fractures including burst fracture of T12, superior endplate fracture of T11 and multiple left rib fractures as above. 4. Endotracheal tube and nasogastric tube in good position. Dave Horton MD Cervical Spine CT 11/23/172252 Signed Impressions: Service Date/Time: Thursday, November 23, 2017 23:17 - CONCLUSION: 1. Nondisplaced fractures to the left lateral mass of C3 and C5 extending into the facet joints. No vertebral body fractures. No subluxation. Dave Horton MD Abdomen/Pelvis CT 11/23/172252 Signed Impressions: Service Date/Time: Thursday, November 23, 2017 23:21 - CONCLUSION: 1. Negative for solid visceral injury within the abdomen and pelvis. No free air or free fluid. 2. Small bilateral pneumothoraces. 3. Fractures of the left transverse processes of L1 and L2 and the left anterior fifth through eighth ribs. T11 superior endplate fracture and T12 burst fractures as previously described. 4. Appendicolith without evidence for appendicitis. NG tip in stomach. Clinton catheter in bladder. 5. There is a small amount of air in the left external iliac vein and left femoral vein. Dave Horton MD Objective Remarks No laxity or deformity right upper extremity Bilateral lower extremity: No laxity in bilateral legs or ankles. Left upper extremity splint in place. Puncture wound medial/posterior humerus. Good capillary refills distally Assessment & Plan Assessment and Plan 1) Left humeral shaft fracture with puncture wound s/p I&D by Dr Duarte -maintain splint at all times -facial surgery completed tuesday -spinal surgery completed -plan for OR today with Dr Merlos for ORIF of left humerus Dennis Perez/First Margareth JIMENEZ Dec 02, 2017 06:58
[2017-12-02 07:00] LABS: BANDS 11 % (0-6); LYMPHOCYTES 1 % (9-44); METAMYELOCYTES 4 % (0-1); MONOCYTES 2 % (0-8); NEUTROPHIL # MANUAL DIFF 14.8 TH/MM3 (1.8-7.7); POLYS (SEG NEUTROPHILS) 82 % (16-70)
[2017-12-02] MEDS: ACETAMINOPHEN 1000 MG/100 ML 100 ML IV PRN ×2 (07:27→20:35)
[2017-12-02] MEDS: CHLORHEXIDINE 0.12% (ORAL KIT) 15 ML CUP MT SCH ×2 (08:00→20:02)
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
[2017-12-02] MEDS: BACITRACIN OPHT OINT 3.5 GM TUBO SCH ×2 (09:00→20:03)
[2017-12-02] MEDS: VALPROIC ACID SYRUP 250 MG/5 ML UDC PO SCH ×2 (09:00→20:03)
[2017-12-02] MEDS: SODIUM CHLORIDE 0.9% FLUSH 10 ML FLUSH IV FLUSH SCH ×2 (09:00→20:03)
[2017-12-02] MEDS: MAGNESIUM HYDROXIDE SUSP 30 ML CUP PO SCH ×2 (09:00→20:03)
[2017-12-02] MEDS: QUEtiapine FUMARATE 25 MG TAB PO SCH ×3 (09:00→17:24)
[2017-12-02] MEDS: LIDOCAINE HCL 5% PATCH T-DERMAL SCH (09:00)
[2017-12-02] MEDS: DOCUSATE SODIUM 50 MG/SENNA 8.6 MG TAB PO SCH ×2 (09:00→20:03)
[2017-12-02] MEDS: ARTIFICIAL TEARS OPTH OINT 3.5 APPLIC/3.5 GM TUBO EACH EYE SCH ×3 (09:00→18:00)
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
[2017-12-02] MEDS ORDERED: ACETAMINOPHEN 1000 MG/100 ML 100 ML IV ONE (10:34)
[2017-12-02] MEDS ORDERED: GENTAMICIN SULFATE 80 MG/2 ML VIAL ONE ×2 (10:36→12:13)
[2017-12-02] MEDS ORDERED: ceFAZolin 2 GM PREMIX 50 ML ONE (10:36)
[2017-12-02] MEDS ORDERED: Vancomycin Consult Pharmacy 1 EA OTHER SCH (11:15)
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
[2017-12-02] MEDS ORDERED: ePHEDrine/NS 25 MG/5 ML SYRINGE IV ONE (12:00)
[2017-12-02] MEDS ORDERED: PROPOFOL 200 MG/20 ML AMP IV ONE (12:00)
[2017-12-02] MEDS ORDERED: ONDANSETRON HCL 4 MG/2 ML VIAL IV PUSH ONE (12:00)
[2017-12-02] MEDS ORDERED: VECURONIUM BROMIDE 20 MG VIAL IV ONE (12:00)
[2017-12-02] MEDS ORDERED: PHENYLEPHRINE HCL 10 MG/ML VIAL IV ONE (12:00)
[2017-12-02] MEDS ORDERED: VANCOMYCIN INJ 1,500 MG in SODIUM CHLORID 0.9% 500 ML INJ 500 ML IV ONE (12:00)
[2017-12-02] MEDS ORDERED: LACTATED RINGER'S 1000 ML INJ 2,000 ML IV ONE (12:00)
[2017-12-02] MEDS ORDERED: ROCURONIUM INJ 50 MG/5 ML SYRINGE IV PUSH ONE (12:00)
[2017-12-02] MEDS ORDERED: PHENYLEPH/NS 1000 MCG/10 ML SYR IV ONE (12:00)
[2017-12-02] MEDS ORDERED: ceFAZolin 2 GM PREMIX 50 ML IV SCH (12:45)
[2017-12-02] MEDS ORDERED: GENTAMICIN 80 MG PREMIX 100 ML IV SCH (12:45)
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
[2017-12-02] MEDS: PIPERACIL-TAZO 4.5 GM PREMIX 100 ML IV SCH ×3 (13:56→23:51)
--- NOTE | 2017-12-02 14:07 | PD.ORT.PN ---
Subjective Subjective Remarks POD 0 s/p ORIF left humeral shaft fx s/p spine, facial, head fractures with subsequent ORIF intubated/sedated. Objective Vitals Vital Signs Date Time Temp Pulse Resp B/P (MAP) Pulse Ox O2 Delivery O2 Flow Rate FiO2 12/02/17 10:45 100 100 12/02/17 10:00 92 12/02/17 08:23 96 45 12/02/17 08:00 72 12/02/17 08:00 101.5 62 19 146/58 (87) 99 12/02/17 08:00 45 12/02/17 07:00 100 Mechanical Ventilator 45 12/02/17 06:00 80 12/02/17 04:04 99 40 12/02/17 04:00 99.3 80 20 112/48 (69) 98 12/02/17 04:00 40 12/02/17 04:00 80 12/02/17 02:00 59 12/02/17 00:34 98 45 12/02/17 00:00 45 12/02/17 00:00 60 12/02/17 00:00 98.8 60 16 114/51 (72) 99 12/01/17 22:00 66 12/01/17 20:44 100 50 12/01/17 20:00 98.2 62 17 120/58 (78) 98 Automatic Cuff 12/01/17 20:00 62 12/01/17 20:00 50 12/01/17 19:00 100 Mechanical Ventilator 40 12/01/17 18:00 65 12/01/17 17:43 99 50 12/01/17 16:00 72 12/01/17 16:00 50 12/01/17 16:00 100.2 72 16 131/64 (86) 98 12/01/17 14:45 93 40 12/01/17 14:30 95 I/O 12/01/17 12/01/17 12/01/17 12/02/17 12/02/17 12/02/17 07:00 15:00 23:00 07:00 15:00 23:00 Intake Total 1793 ml 1800 ml 920 ml 420 ml 1000 ml Output Total 1110 ml 1550 ml 2010 ml 1170 ml 1150 ml Balance 683 ml 250 ml -1090 ml -750 ml -150 ml Intake IV Total 1553 ml 1800 ml 800 ml 300 ml Other 240 ml 120 ml 120 ml 1000 ml Output Urine Total 1100 ml 1350 ml 1900 ml 1100 ml 1000 ml Stool Total 0 ml Gastric Drainage Total 0 ml 0 ml Drainage Total 10 ml 110 ml 70 ml Estimated Blood Loss 200 ml 150 ml # Bowel Movements 0 0 Result Diagram: 12/02/17 0345 12/02/17 0415 Imaging Last 72 hours Impressions Chest X-Ray 11/24/17 0400 Signed Impressions: Service Date/Time: November 04:58 - CONCLUSION: 1. Minimal basilar density, probably atelectasis. No significant effusion. No pneumothorax identified on plain film. Placement of left central line without pneumothorax. Left-sided rib fractures present. Dave Horton MD Pelvis X-Ray 11/23/172308 Signed Impressions: Service Date/Time: Thursday, November 23, 2017 22:48 - CONCLUSION: Unremarkable examination of the pelvis. Dave Horton MD Chest X-Ray 11/23/172308 Signed Impressions: Service Date/Time: Thursday, November 23, 2017 22:48 - CONCLUSION: 1. Left lower rib fractures. Cardiomediastinal silhouette within normal limits. No dense consolidation or effusion. Dave Horton MD Thoracic Spine CT 11/23/172252 Signed Impressions: Service Date/Time: Thursday, November 23, 2017 23:18 - CONCLUSION: 1. At T12 there is a burst fracture with retropulsion resulting in mild to moderate stenosis and fracture extending into the posterior elements. 2. At T11 there is a mild endplate fracture superiorly with fractures extending posteriorly into the posterior elements and facet joints at T11-12. Dave Horton MD Maxillofacial CT 11/23/172252 Signed Impressions: Service Date/Time: Thursday, November 23, 2017 23:17 - CONCLUSION: 1. Numerous facial fractures as above including bilateral mandibular, bilateral zygomatic arches, bilateral orbits bilateral maxillary and ethmoid sinuses. Also bilateral calvarial fractures. Trace pneumocephalus. Extensive scalp and facial swelling. Dave Horton MD Lumbar Spine CT 11/23/172252 Signed Impressions: Service Date/Time: Thursday, November 23, 2017 23:21 - CONCLUSION: 1. Fractures through the left transverse process of L1 and L2. No lumbar spine vertebral body fractures or subluxation. Dave Horton MD Head CT 11/23/172252 Signed Impressions: Service Date/Time: Thursday, November 23, 2017 23:16 - CONCLUSION: 1. Fractures of the left frontal bone and right parietal bone without significant displacement. Trace pneumocephalus near the right parietal bone fracture. No significant intracranial hemorrhage. 2. Numerous facial bone fractures with hemorrhage in the paranasal sinuses. Facial CT pending. Dave Horton MD Chest CT 11/23/172252 Signed Impressions: Service Date/Time: Thursday, November 23, 2017 23:21 - CONCLUSION: 1. Small bilateral pneumothoraces. 2. Scattered groundglass opacity in the lungs most characteristic of lung contusions or minimal aspiration. 3. Multiple fractures including burst fracture of T12, superior endplate fracture of T11 and multiple left rib fractures as above. 4. Endotracheal tube and nasogastric tube in good position. Dave Horton MD Cervical Spine CT 11/23/172252 Signed Impressions: Service Date/Time: Thursday, November 23, 2017 23:17 - CONCLUSION: 1. Nondisplaced fractures to the left lateral mass of C3 and C5 extending into the facet joints. No vertebral body fractures. No subluxation. Dave Horton MD Abdomen/Pelvis CT 11/23/172252 Signed Impressions: Service Date/Time: Thursday, November 23, 2017 23:21 - CONCLUSION: 1. Negative for solid visceral injury within the abdomen and pelvis. No free air or free fluid. 2. Small bilateral pneumothoraces. 3. Fractures of the left transverse processes of L1 and L2 and the left anterior fifth through eighth ribs. T11 superior endplate fracture and T12 burst fractures as previously described. 4. Appendicolith without evidence for appendicitis. NG tip in stomach. Clinton catheter in bladder. 5. There is a small amount of air in the left external iliac vein and left femoral vein. Dave Horton MD Radius/Ulna X-Ray 11/23/17 0000 Signed Impressions: Service Date/Time: Thursday, November 23, 2017 22:48 - CONCLUSION: 1. First Metacarpal fracture. No radius and ulna fractures. No dislocation. Dave Horton MD Humerus X-Ray 11/23/17 0000 Signed Impressions: Service Date/Time: Thursday, November 23, 2017 22:48 - CONCLUSION: 1. Angulated fracture left distal humeral shaft. Dave Horton MD Chest X-Ray 11/23/17 0000 Signed Impressions: Service Date/Time: Thursday, November 23, 2017 22:48 - CONCLUSION: 1. Endotracheal tube and nasogastric tube in good position. Scattered lung contusions or mild aspiration. No effusion. 2. Left-sided rib fractures. See abdomen and pelvic CT report. Dave Horton MD Last 24 hours Impressions Chest X-Ray 11/24/17 0400 Signed Impressions: Service Date/Time: November 04:58 - CONCLUSION: 1. Minimal basilar density, probably atelectasis. No significant effusion. No pneumothorax identified on plain film. Placement of left central line without pneumothorax. Left-sided rib fractures present. Dave Horton MD Pelvis X-Ray 11/23/172308 Signed Impressions: Service Date/Time: Thursday, November 23, 2017 22:48 - CONCLUSION: Unremarkable examination of the pelvis. Dave Horton MD Chest X-Ray 11/23/172308 Signed Impressions: Service Date/Time: Thursday, November 23, 2017 22:48 - CONCLUSION: 1. Left lower rib fractures. Cardiomediastinal silhouette within normal limits. No dense consolidation or effusion. Dave Horton MD Thoracic Spine CT 11/23/172252 Signed Impressions: Service Date/Time: Thursday, November 23, 2017 23:18 - CONCLUSION: 1. At T12 there is a burst fracture with retropulsion resulting in mild to moderate stenosis and fracture extending into the posterior elements. 2. At T11 there is a mild endplate fracture superiorly with fractures extending posteriorly into the posterior elements and facet joints at T11-12. Dave Horton MD Maxillofacial CT 11/23/17 909 Signed Impressions: Service Date/Time: Thursday, November 23, 2017 23:17 - CONCLUSION: 1. Numerous facial fractures as above including bilateral mandibular, bilateral zygomatic arches, bilateral orbits bilateral maxillary and ethmoid sinuses. Also bilateral calvarial fractures. Trace pneumocephalus. Extensive scalp and facial swelling. Dave Horton MD Lumbar Spine CT 11/23/172252 Signed Impressions: Service Date/Time: Thursday, November 23, 2017 23:21 - CONCLUSION: 1. Fractures through the left transverse process of L1 and L2. No lumbar spine vertebral body fractures or subluxation. Dave Horton MD Head CT 11/23/172252 Signed Impressions: Service Date/Time: Thursday, November 23, 2017 23:16 - CONCLUSION: 1. Fractures of the left frontal bone and right parietal bone without significant displacement. Trace pneumocephalus near the right parietal bone fracture. No significant intracranial hemorrhage. 2. Numerous facial bone fractures with hemorrhage in the paranasal sinuses. Facial CT pending. Dave Horton MD Chest CT 11/23/172252 Signed Impressions: Service Date/Time: Thursday, November 23, 2017 23:21 - CONCLUSION: 1. Small bilateral pneumothoraces. 2. Scattered groundglass opacity in the lungs most characteristic of lung contusions or minimal aspiration. 3. Multiple fractures including burst fracture of T12, superior endplate fracture of T11 and multiple left rib fractures as above. 4. Endotracheal tube and nasogastric tube in good position. Dave Horton MD Cervical Spine CT 11/23/172252 Signed Impressions: Service Date/Time: Thursday, November 23, 2017 23:17 - CONCLUSION: 1. Nondisplaced fractures to the left lateral mass of C3 and C5 extending into the facet joints. No vertebral body fractures. No subluxation. Dave Horton MD Abdomen/Pelvis CT 11/23/172252 Signed Impressions: Service Date/Time: Thursday, November 23, 2017 23:21 - CONCLUSION: 1. Negative for solid visceral injury within the abdomen and pelvis. No free air or free fluid. 2. Small bilateral pneumothoraces. 3. Fractures of the left transverse processes of L1 and L2 and the left anterior fifth through eighth ribs. T11 superior endplate fracture and T12 burst fractures as previously described. 4. Appendicolith without evidence for appendicitis. NG tip in stomach. Clinton catheter in bladder. 5. There is a small amount of air in the left external iliac vein and left femoral vein. Dave Horton MD Objective Remarks LUE: dressings clean and dry. intact. +cap refill. Assessment & Plan Assessment and Plan 1) Left humeral shaft fracture s/p ORIF - POD 0 -daily dressing changes beginning POD 2 -sling and NWB otherwise -patient scheduled to have left hand fixed tuesday -other than hand, ortho surgeries completed at this time Dennis Perez/First Margareth JIMENEZ Dec 02, 2017 14:06
[2017-12-02] MEDS: ERGOCALCIFEROL (VIT D2) 50,000 UNIT CAP PO SCH (14:25)
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
[2017-12-02] MEDS: DOPamine INJ 800 MG in DEXTROSE 5% IN WATE 500 ML INJ 480 ML IV PRN ×2 (15:14)
--- NOTE | 2017-12-02 15:14 | RADRPT ---
EXAM DATE/TIME: 12/02/2017 12:29 [facility] COMPARISON: No previous studies available for comparison. INDICATIONS : Left humeral fracture- ORIF. MEDICAL HISTORY : None. SURGICAL HISTORY : None. ENCOUNTER: Subsequent ACUITY: 1 day PAIN SCORE: Non-responsive. LOCATION: Left Humerus. FINDINGS: Plate with screws is seen bridging the humeral fracture. Alignment anatomic. CONCLUSION: Anatomic alignment with hardware in good position. Tyrel Davison MD FACR on December 02, 2017 at 15:11 Board Certified Radiologist. This report was verified electronically.
[2017-12-02] MEDS: VANCOMYCIN INJ 1,500 MG in SODIUM CHLORID 0.9% 500 ML INJ 500 ML IV SCH (16:00)
--- NOTE | 2017-12-02 17:07 | RADRPT ---
EXAM DATE/TIME: 12/02/2017 16:41 [facility] COMPARISON: MRI THORACIC SPINE W/O CONTRAST, November 25, 2017, 10:58. CHEST SINGLE AP, December 01, 2017, 15:30 . INDICATIONS : Central line placement. MEDICAL HISTORY : Non-responsive. SURGICAL HISTORY : Non-responsive. ENCOUNTER: Initial ACUITY: 1 day PAIN SCORE: Non-responsive. LOCATION: Bilateral chest FINDINGS: Central line entering from the right with the tip in the right atrium. Left central line ET tube and nasogastric tube in good position. Cardiomegaly with mild interstitial edema. Minimal probable margie nges left base. CONCLUSION: Line from the right tip in right atrium. Tyrel Davison MD FACR on December 02, 2017 at 17:04 Board Certified Radiologist. This report was verified electronically.
[2017-12-02] MEDS: fentaNYL 2,500 MCG/NS 250 ML IV PRN (17:31)
--- NOTE | 2017-12-02 19:50 | PD.PROCEDR ---
Procedure Note Procedure Central Line Procedure Note Right subclavian 7 Persian 20 cm triple lumen catheter Diagnosis: Traumatic brain injury Indications: And need for highly potent vasoactive substances Consent: Obtained Anesthesia: Propofol IV Description of the Procedure: The patient was placed in the supine, mild- Trendelenburg position. The area was prepped and draped sterilely. A 19g needle was inserted under negative pressure aspiration and dark venous blood was obtained. A guidewire was inserted easily without resistance. A small incision was made using a #11 blade. Using a modified Seldinger technique, the dilator and 7 Persian 20 cm catheter were advanced over the guidewire without resistance. All ports were aspirated and flushed, and had brisk blood return. The line was secured at the skin using 2-0 silk interrupted sutures. A Biopatch and Transparent sterile dressing were applied. There were no immediate complications noted. There was minimal EBL. The patient tolerated the procedure well. Ultrasound guidance was not used for this procedure A Chest x-ray has been ordered. I personally performed the procedure. Philip Bundy MD Dec 02, 2017 19:50
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
[2017-12-02] MEDS: PANTOPRAZOLE SODIUM 40 MG VIAL IV PUSH SCH (23:51)
[2017-12-03] VITALS (19 sets, daily range): BP systolic 90–119; BP diastolic 46–54; PULSE 65–106; RESP 16–30; TEMP 98.8–103.1; O2SAT 96–100
[2017-12-03] MEDS: PROPOFOL 1000 MG/100 ML INJ 100 ML IV PRN ×6 (00:30→21:43)
[2017-12-03] MEDS: MIDAZOLAM 100 MG/100 ML INJ 100 ML IV PRN ×3 (01:08→21:43)
[2017-12-03] MEDS: MIDAZOLAM HCL 5 MG/ML VIAL (1 ML) IV PRN ×2 (02:23→21:43)
[2017-12-03] MEDS: ACETAMINOPHEN 1000 MG/100 ML 100 ML IV PRN ×3 (03:06→17:29)
[2017-12-03] MEDS: CHLORHEXIDINE GLUCONATE 2 % 1 PACK (2 CLOTHS) TOP SCH (04:00)
[2017-12-03] MEDS: VANCOMYCIN INJ 1,500 MG in SODIUM CHLORID 0.9% 500 ML INJ 500 ML IV SCH ×2 (04:16→15:53)
[2017-12-03 04:17] LABS: AUTOMATED NEUTROPHIL # 13.2 TH/MM3 (1.8-7.7); BASOPHIL # 0.1 TH/MM3 (0-0.2); BASOPHIL % 0.7 % (0.0-2.0); EOSINOPHIL # 0.2 TH/MM3 (0-0.4); EOSINOPHIL % 1.5 % (0.0-4.0); HEMATOCRIT 25.7 % (39.0-51.0); HEMOGLOBIN 8.6 GM/DL (13.0-17.0); LYMPH % 3.8 % (9.0-44.0); LYMPHOCYTE # 0.6 TH/MM3 (1.0-4.8); MEAN CELL VOLUME 87.4 FL (80.0-100.0); MEAN CORPUSCULAR HEMOGLOBIN 29.4 PG (27.0-34.0); MEAN CORPUSCULAR HGB CONC 33.7 % (32.0-36.0); MEAN PLATELET VOLUME 6.7 FL (7.0-11.0); MONO % 3.7 % (0.0-8.0); MONOCYTE # 0.5 TH/MM3 (0-0.9); NEUT % 90.3 % (16.0-70.0); PLATELET COUNT 321 TH/MM3 (150-450); RED BLOOD COUNT 2.94 MIL/MM3 (4.50-5.90); RED CELL DISTRIBUTION WIDTH 13.8 % (11.6-17.2); WHITE BLOOD COUNT 14.7 TH/MM3 (4.0-11.0)
--- NOTE | 2017-12-03 04:30 | RADRPT ---
EXAM DATE/TIME: 12/03/2017 03:14 [facility] COMPARISON: CHEST SINGLE AP, December 02, 2017, 16:41. INDICATIONS : Respiratory failure MEDICAL HISTORY : Non-Responsive SURGICAL HISTORY : Non-Responsive ENCOUNTER: Subsequent ACUITY: 2 weeks PAIN SCORE: Non-responsive. LOCATION: Bilateral chest FINDINGS: Endotracheal tube in good position. NG enters stomach. Right central line in superior vena cava. Bila teral mostly basilar airspace consolidation, left greater than right small left effusion. No pneumoth orax. CONCLUSION: 1. Basilar airspace disease, left greater than right similar to December 02. Previous left central reinier e has been removed. No pneumothorax. Dave Horton MD on December 03, 2017 at 4:27 Board Certified Radiologist. This report was verified electronically.
[2017-12-03 04:43] LABS: BICARBONATE 29.8 MEQ/L (21.0-32.0); CALCIUM 7.2 MG/DL (8.5-10.1); CREATININE 0.55 MG/DL (0.60-1.30)
[2017-12-03 05:03] LABS: CALCIUM-PROTEIN CORRECTED 8.3 MG/DL (8.5-10.1); TOTAL PROTEIN 5.1 GM/DL (6.4-8.2)
[2017-12-03] MEDS ORDERED: IOHEXOL 350 MG/ML 10 ML VIAL (for RAD DIAG) IVCONTRAST ONE (05:20)
[2017-12-03] MEDS: PIPERACIL-TAZO 4.5 GM PREMIX 100 ML IV SCH ×3 (05:39→17:29)
--- NOTE | 2017-12-03 05:40 | RADRPT ---
EXAM DATE/TIME: 12/03/2017 04:58 [facility] COMPARISON: No previous studies available for comparison. INDICATIONS : Tachycardia and hypoxia; rule out pulmonary embolus. IV CONTRAST: 75 cc Omnipaque 350 (iohexol) IV RADIATION DOSE: 10.82 CTDIvol (mGy) MEDICAL HISTORY : None SURGICAL HISTORY : None. ENCOUNTER: Initial ACUITY: 1 day PAIN SCALE: Non-responsive LOCATION: chest TECHNIQUE: Volumetric scanning of the chest was performed using a pulmonary embolism protocol MIP images were re constructed. Using automated exposure control and adjustment of the mA and/or kV according to patien t size, radiation dose was kept as low as reasonably achievable to obtain optimal diagnostic quality images. DICOM format image data is available electronically for review and comparison. Follow-up recommendations for detected pulmonary nodules are based at a minimum on nodule size and pa tient risk factors according to Fleischner Society Guidelines. FINDINGS: The examination is positive for pulmonary emboli seen mostly on the right side. There is bilateral mo stly basilar dependent consolidation in the lungs with left greater than right pleural effusions. No significant pericardial effusion. Endotracheal tube in good position. Nasogastric tube enters stomach. Right central line in right atri um. No acute findings in the upper abdomen. Previous spinal fixation. CONCLUSION: 1. Positive for pulmonary emboli noted on the right side. 2. Basilar and dependent lung consolidation with bilateral pleural effusions, left greater than right . Dave Horton MD on December 03, 2017 at 5:36 Board Certified Radiologist. This report was verified electronically.
[2017-12-03] MEDS: METHOCARBAMOL 500 MG TAB PO SCH ×3 (05:52→21:58)
[2017-12-03] MEDS: ENOXAPARIN SODIUM 100 MG/ML SYRINGE SQ SCH ×2 (06:45→17:29)
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
[2017-12-03] MEDS: EPOPROSTENOL NEB SOLUTION 50 NG/KG/MIN 100 ML NEB SCH ×6 (07:31→23:15)
[2017-12-03] MEDS: CHLORHEXIDINE 0.12% (ORAL KIT) 15 ML CUP MT SCH ×2 (08:00→19:58)
[2017-12-03] MEDS: CHOLECALCIFEROL (VIT D3) 1000 UNIT TAB PO SCH (09:00)
[2017-12-03] MEDS: SODIUM CHLORIDE 0.9% FLUSH 10 ML FLUSH IV FLUSH SCH ×2 (09:00→19:57)
[2017-12-03] MEDS: ARTIFICIAL TEARS OPTH OINT 3.5 APPLIC/3.5 GM TUBO EACH EYE SCH ×2 (09:00→13:00)
[2017-12-03] MEDS: VALPROIC ACID SYRUP 250 MG/5 ML UDC PO SCH ×2 (09:00→19:57)
[2017-12-03] MEDS: DOCUSATE SODIUM 50 MG/SENNA 8.6 MG TAB PO SCH ×2 (09:00→19:57)
[2017-12-03] MEDS: LIDOCAINE HCL 5% PATCH T-DERMAL SCH (09:00)
[2017-12-03] MEDS: BACITRACIN OPHT OINT 3.5 GM TUBO SCH ×2 (09:00→19:58)
[2017-12-03] MEDS: MAGNESIUM HYDROXIDE SUSP 30 ML CUP PO SCH ×2 (09:00→19:57)
[2017-12-03] MEDS: QUEtiapine FUMARATE 25 MG TAB PO SCH ×3 (09:00→17:30)
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
[2017-12-03] MEDS: BACITRACIN TOP OINT 15 GM TUBE TOPICAL SCH ×2 (12:00→19:59)
[2017-12-03] MEDS: fentaNYL 2,500 MCG/NS 250 ML IV PRN (13:35)
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
[2017-12-03] MEDS ORDERED: LEVOFLOXACIN 750 MG PREMIX INJ 150 ML IV SCH (17:00)
[2017-12-03] MEDS ORDERED: TOBRAMYCIN 0.3%/DEXAMETHASONE 0.1% OPHT SUSP 5 ML BTL EACH EYE SCH (17:00)
[2017-12-03] MEDS: ARTIFICIAL TEARS OPTH OINT 3.5 APPLIC/3.5 GM TUBO LEFT EYE SCH ×2 (17:30→19:59)
[2017-12-03] MEDS: ARTIFICIAL TEARS OPTH OINT 3.5 APPLIC/3.5 GM TUBO RIGHT EYE SCH (17:30)
[2017-12-03] MEDS ORDERED: NOREPINEPHRINE 4 MG/4 ML AMP ONE (20:15)
[2017-12-03] MEDS ORDERED: NOREPINEPHRINE 4 MG/D5W 250 ML IV PRN (22:00)
[2017-12-04] VITALS (15 sets, daily range): BP systolic 87–123; BP diastolic 46–65; PULSE 66–98; RESP 18–30; TEMP 99.3–100.7; O2SAT 100
[2017-12-04] MEDS: PIPERACIL-TAZO 4.5 GM PREMIX 100 ML IV SCH ×4 (00:10→17:49)
[2017-12-04] MEDS: PROPOFOL 1000 MG/100 ML INJ 100 ML IV PRN ×7 (01:13→22:22)
[2017-12-04] MEDS: ARTIFICIAL TEARS OPTH OINT 3.5 APPLIC/3.5 GM TUBO LEFT EYE SCH ×6 (02:00→20:21)
[2017-12-04] MEDS: CHLORHEXIDINE GLUCONATE 2 % 1 PACK (2 CLOTHS) TOP SCH (03:36)
[2017-12-04] MEDS ORDERED: PHARMACY ORDERED LAB ONE (03:45)
[2017-12-04] MEDS: VANCOMYCIN INJ 1,500 MG in SODIUM CHLORID 0.9% 500 ML INJ 500 ML IV SCH (04:00)
[2017-12-04] MEDS: MIDAZOLAM HCL 5 MG/ML VIAL (1 ML) IV PRN ×2 (05:00→22:00)
[2017-12-04] MEDS: METHOCARBAMOL 500 MG TAB PO SCH ×3 (06:28→20:19)
[2017-12-04] MEDS: ENOXAPARIN SODIUM 100 MG/ML SYRINGE SQ SCH ×2 (06:28→17:49)
--- NOTE | 2017-12-04 06:49 | RADRPT ---
EXAM DATE/TIME: 12/04/2017 05:05 [place] COMPARISON: CHEST SINGLE AP, December 03, 2017, 3:14. INDICATIONS : Pleural effusion. Follow up respiratory status. MEDICAL HISTORY : None. SURGICAL HISTORY : Fusion, thoracic. ENCOUNTER: Subsequent ACUITY: 4 - 6 days PAIN SCORE: Non-responsive. LOCATION: Bilateral chest FINDINGS: A single view of the chest demonstrates endotracheal tube in satisfactory position. NG enters stomach . Right central line in superior vena cava. Bilateral mostly basilar airspace disease not significant ly changed over the last day. CONCLUSION: 1. Basilar airspace disease relatively stable over the last day. Left effusion stable. Endotracheal t ube, right central line and nasogastric tube also unchanged. Previous spinal fixation. Dave Horton MD on December 04, 2017 at 6:46 Board Certified Radiologist. This report was verified electronically.
[2017-12-04 06:52] LABS: AUTOMATED NEUTROPHIL # 19.6 TH/MM3 (1.8-7.7); BASOPHIL # 0.1 TH/MM3 (0-0.2); BASOPHIL % 0.3 % (0.0-2.0); EOSINOPHIL # 0.2 TH/MM3 (0-0.4); HEMATOCRIT 25.6 % (39.0-51.0); HEMOGLOBIN 8.6 GM/DL (13.0-17.0); LYMPH % 2.8 % (9.0-44.0); LYMPHOCYTE # 0.6 TH/MM3 (1.0-4.8); MEAN CELL VOLUME 88.6 FL (80.0-100.0); MEAN CORPUSCULAR HEMOGLOBIN 29.8 PG (27.0-34.0); MEAN CORPUSCULAR HGB CONC 33.6 % (32.0-36.0); MEAN PLATELET VOLUME 7.1 FL (7.0-11.0); MONO % 4.6 % (0.0-8.0); NEUT % 91.3 % (16.0-70.0); PLATELET COUNT 214 TH/MM3 (150-450); RED BLOOD COUNT 2.89 MIL/MM3 (4.50-5.90); WHITE BLOOD COUNT 21.4 TH/MM3 (4.0-11.0)
[2017-12-04] MEDS: MIDAZOLAM 100 MG/100 ML INJ 100 ML IV PRN ×2 (07:04→17:43)
[2017-12-04 07:17] LABS: BICARBONATE 26.9 MEQ/L (21.0-32.0); CALCIUM 7.5 MG/DL (8.5-10.1); CREATININE 0.58 MG/DL (0.60-1.30)
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
[2017-12-04] MEDS: EPOPROSTENOL NEB SOLUTION 50 NG/KG/MIN 100 ML NEB SCH ×4 (07:51→17:10)
[2017-12-04] MEDS: CHLORHEXIDINE 0.12% (ORAL KIT) 15 ML CUP MT SCH ×2 (08:00→20:19)
[2017-12-04] MEDS: FAMOTIDINE 20 MG TAB PO SCH ×2 (08:57→20:19)
[2017-12-04] MEDS: CHOLECALCIFEROL (VIT D3) 1000 UNIT TAB PO SCH (08:57)
[2017-12-04] MEDS: QUEtiapine FUMARATE 25 MG TAB PO SCH ×3 (08:57→17:49)
[2017-12-04] MEDS: BACITRACIN OPHT OINT 3.5 GM TUBO SCH ×2 (08:58→20:20)
[2017-12-04] MEDS: MAGNESIUM HYDROXIDE SUSP 30 ML CUP PO SCH ×2 (08:58→20:20)
[2017-12-04] MEDS: VALPROIC ACID SYRUP 250 MG/5 ML UDC PO SCH ×2 (08:58→20:19)
[2017-12-04] MEDS: DOCUSATE SODIUM 50 MG/SENNA 8.6 MG TAB PO SCH ×2 (08:58→20:20)
[2017-12-04] MEDS: ARTIFICIAL TEARS OPTH OINT 3.5 APPLIC/3.5 GM TUBO RIGHT EYE SCH ×3 (08:58→17:50)
[2017-12-04] MEDS: BACITRACIN TOP OINT 15 GM TUBE TOPICAL SCH ×2 (08:59→20:20)
[2017-12-04] MEDS: LIDOCAINE HCL 5% PATCH T-DERMAL SCH (08:59)
[2017-12-04] MEDS: SODIUM CHLORIDE 0.9% FLUSH 10 ML FLUSH IV FLUSH SCH ×2 (09:00→20:20)
[2017-12-04] MEDS: fentaNYL 2,500 MCG/NS 250 ML IV PRN ×2 (09:21)
[2017-12-04] MEDS: NOREPINEPHRINE INJ 4 MG in SODIUM CHLOR 0.9% 250 ML INJ 246 ML IV PRN (11:15)
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
[2017-12-04] MEDS ORDERED: VANCOMYCIN 1,500 MG/NS 500 ML IV SCH ×2 (12:00)
[2017-12-04] MEDS: BENEPROTEIN POWDER 1 PACK G-TUBE SCH ×3 (13:00→17:49)
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
--- NOTE | 2017-12-04 16:16 | HHI.PR ---
Subjective Remarks Nurse called and stated the left eye was starting to swell in the medial corner. Objective Vital Signs Date Time Temp Pulse Resp B/P (MAP) Pulse Ox O2 Delivery O2 Flow Rate FiO2 12/04/17 15:29 100 40 12/04/17 14:58 79 106/55 12/04/17 13:20 70 103/64 12/04/17 12:00 66 12/04/17 12:00 99.3 66 18 87/46 (60) 100 12/04/17 12:00 66 87/46 12/04/17 11:16 100 40 12/04/17 11:15 72 85/47 12/04/17 08:00 40 12/04/17 08:00 99.9 93 30 123/65 (84) 100 12/04/17 08:00 93 12/04/17 07:49 100 40 12/04/17 06:00 98 12/04/17 04:14 100 40 12/04/17 04:00 70 12/04/17 04:00 99.9 96 22 97/49 (65) 100 12/04/17 04:00 60 12/04/17 02:00 79 12/04/17 01:04 100 40 12/04/17 00:00 100.0 88 21 94/54 (67) 100 12/04/17 00:00 60 12/04/17 00:00 88 12/03/17 22:00 71 12/03/17 20:00 65 12/03/17 20:00 98.8 65 16 90/46 (61) 100 12/03/17 20:00 60 12/03/17 19:33 100 50 12/03/17 19:00 100 Mechanical Ventilator 60 12/03/17 18:00 86 I/O 12/03/17 12/03/17 12/03/17 12/04/17 12/04/17 12/04/17 07:00 15:00 23:00 07:00 15:00 23:00 Intake Total 1815 ml 650 ml 1568 ml 824 ml 1250 ml Output Total 1500 ml 2150 ml 1240 ml 0 ml Balance 315 ml 650 ml -582 ml -416 ml 1250 ml Intake IV Total 1453 ml 650 ml 1115 ml 450 ml 1250 ml Tube Feeding 162 ml 273 ml 374 ml Other 200 ml 180 ml Output Urine Total 1450 ml 1800 ml 1200 ml Stool Total 300 ml Gastric Drainage Total 0 ml 0 ml Tube Feeding Residual Discard 0 ml Drainage Total 50 ml 50 ml 40 ml # Bowel Movements 1 Result Diagram: 12/04/17 0600 12/04/17 0600 Objective Remarks Va unable EOM unable CVF unable Pupils 3-2 no APD OU IOP 14, 15 mm Hg Anterior exam OD - normal eyelid, mild chemosis, K clear, AC deep, pupil round, lens clear OS - eyelid laceration with sutures intact, lateral tarsorrhaphy, chemosis nasally, K clear, AC deep, pupil round, lens clear Assessment and Plan Problem List: (1) Orbit fracture, bilateral ICD Codes: S02.81XA - Fracture of other specified skull and facial bones, right side, initial encounter for closed fracture; S02.82XA - Fracture of other specified skull and facial bones, left side, initial encounter for closed fracture Plan: No ocular injury seen on exam. Will reevaluate when patient awake and alert. (2) Left eyelid laceration ICD Codes: S01.112A - Laceration without foreign body of left eyelid and periocular area, initial encounter Plan: s/p repair by Dr. Blum with lateral tarsorrhaphy. (3) Chemosis of conjunctiva of both eyes ICD Codes: H11.423 - Conjunctival edema, bilateral Plan: Increase Lacri-lube ointment to q4h OU and keep left eye covered. Exposure to air will make the chemosis worse. Problem Qualifiers (1) Orbit fracture, bilateral: (2) Left eyelid laceration: Qualified Codes: S01.112D - Laceration without foreign body of left eyelid and periocular area, subsequent encounter Isabela Wheeler MD Dec 04, 2017 16:16
[2017-12-04] MEDS: LEVOFLOXACIN 750 MG PREMIX INJ 150 ML IV SCH (16:41)
--- NOTE | 2017-12-04 18:50 | ECHRPT ---
Indication: PE CONCLUSIONS Technically difficult study. The left ventricular systolic function is normal with an estimated ejection fraction in the range of 55-60%. The right ventricular systoilc function assessed visually is mildly decreased. Trace mitral valve regurgitation. There is trace tricuspid valve regurgitation. Possible left pleural effusion. BP: 107 / 50 HR: 69 Rhythm: MEASUREMENTS (Male / Female) Normal Values Technical Quality:Technically difficult study 2D ECHO LV Diastolic Diameter PLAX 4.2 cm 4.2 - 5.9 / 3.9 - 5.3 cm LV Systolic Diameter PLAX 3.0 cm IVS Diastolic Thickness 0.9 cm 0.6 - 1.0 / 0.6 - 0.9 cm LVPW Diastolic Thickness 0.7 cm 0.6 - 1.0 / 0.6 - 0.9 cm LV Relative Wall Thickness 0.4 DOPPLER Mitral E Point Velocity 90.7 cm/s Mitral A Point Velocity 72.8 cm/s Mitral E to A Ratio 1.2 TR Peak Velocity 150.3 cm/s TR Peak Gradient 9.0 mmHg FINDINGS LEFT VENTRICLE Normal left ventricular size. Wall thickness is normal. The left ventricular systolic function is normal with an estimated ejection fraction in the range of 55-60%. No regional wall motion abnormalities are present. RIGHT VENTRICLE The right ventricular size is normal. The right ventricular systoilc function assessed visually is mildly decreased LEFT ATRIUM The left atrial size is normal. RIGHT ATRIUM The right atrial size is normal. ATRIAL SEPTUM Normal atrial septal thickness. AORTA The aortic root and proximal ascending aorta are normal in size on limited imaging. MITRAL VALVE Structurally normal mitral valve. Trace mitral valve regurgitation. AORTIC VALVE Trileaflet aortic valve. No aortic valve stenosis or regurgitation. TRICUSPID VALVE Structurally normal tricuspid valve. There is trace tricuspid valve regurgitation. PULMONARY VALVE The pulmonary valve is not well visualized. VESSELS The inferior vena cava is normal in size. PERICARDIUM No pericardial effusion. Possible left pleural effusion. Larry Gonzalez DO (Electronically Signed) Final Date:04 December 2017 18:49
[2017-12-04] MEDS ORDERED: Vancomycin Consult Pharmacy 1 EA OTHER SCH (19:15)
[2017-12-04] MEDS: cefTRIAXone INJ 2,000 MG in SODIUM CHLORIDE 0.9% INJ 100 ML IV SCH (20:18)
[2017-12-04] MEDS: metroNIDAZOLE 500 MG TAB PO SCH (20:19)
[2017-12-04] MEDS: VANCOMYCIN 1,500 MG/NS 500 ML IV SCH ×2 (21:25)
[2017-12-05] VITALS (19 sets, daily range): BP systolic 95–126; BP diastolic 49–88; PULSE 57–109; RESP 16–22; TEMP 98.1–100.9; O2SAT 98–100
[2017-12-05] MEDS: EPOPROSTENOL NEB SOLUTION 50 NG/KG/MIN 100 ML NEB SCH ×6 (00:39→15:08)
[2017-12-05] MEDS: ARTIFICIAL TEARS OPTH OINT 3.5 APPLIC/3.5 GM TUBO LEFT EYE SCH ×6 (02:00→22:18)
[2017-12-05] MEDS: ACETAMINOPHEN 1000 MG/100 ML 100 ML IV PRN ×2 (02:34→20:12)
[2017-12-05] MEDS: CHLORHEXIDINE GLUCONATE 2 % 1 PACK (2 CLOTHS) TOP SCH (04:00)
[2017-12-05] MEDS: VANCOMYCIN 1,500 MG/NS 500 ML IV SCH ×6 (04:00→22:18)
[2017-12-05] MEDS: PROPOFOL 1000 MG/100 ML INJ 100 ML IV PRN ×6 (05:37→23:26)
[2017-12-05] MEDS: fentaNYL 2,500 MCG/NS 250 ML IV PRN ×2 (05:37→16:46)
[2017-12-05] MEDS: metroNIDAZOLE 500 MG TAB PO SCH ×2 (05:38→14:00)
[2017-12-05] MEDS: METHOCARBAMOL 500 MG TAB PO SCH ×3 (05:38→22:00)
[2017-12-05] MEDS: ENOXAPARIN SODIUM 100 MG/ML SYRINGE SQ SCH ×3 (05:39→20:52)
[2017-12-05 06:47] LABS: AUTOMATED NEUTROPHIL # 16.9 TH/MM3 (1.8-7.7); BASOPHIL # 0.1 TH/MM3 (0-0.2); BASOPHIL % 0.5 % (0.0-2.0); EOSINOPHIL # 0.1 TH/MM3 (0-0.4); EOSINOPHIL % 0.5 % (0.0-4.0); HEMATOCRIT 21.4 % (39.0-51.0); HEMOGLOBIN 7.2 GM/DL (13.0-17.0); LYMPH % 2.7 % (9.0-44.0); LYMPHOCYTE # 0.5 TH/MM3 (1.0-4.8); MEAN CELL VOLUME 88.6 FL (80.0-100.0); MEAN CORPUSCULAR HEMOGLOBIN 29.7 PG (27.0-34.0); MEAN CORPUSCULAR HGB CONC 33.6 % (32.0-36.0); MONO % 4.5 % (0.0-8.0); MONOCYTE # 0.8 TH/MM3 (0-0.9); NEUT % 91.8 % (16.0-70.0); PLATELET COUNT 205 TH/MM3 (150-450); RED BLOOD COUNT 2.41 MIL/MM3 (4.50-5.90); WHITE BLOOD COUNT 18.4 TH/MM3 (4.0-11.0)
--- NOTE | 2017-12-05 07:08 | PD.ORT.PN ---
Subjective Subjective Remarks Patient is intubated and sedated. Objective Vitals Vital Signs Date Time Temp Pulse Resp B/P (MAP) Pulse Ox O2 Delivery O2 Flow Rate FiO2 12/05/17 06:00 83 12/05/17 04:00 40 12/05/17 04:00 75 12/05/17 04:00 100.9 75 17 95/49 (64) 99 12/05/17 03:58 100 40 12/05/17 02:00 82 12/05/17 01:06 98 35 12/05/17 00:00 82 12/05/17 00:00 100.1 82 22 126/88 (101) 98 12/05/17 00:00 40 12/04/17 22:00 79 12/04/17 20:07 100 35 12/04/17 20:00 99.7 75 22 98/57 (71) 100 12/04/17 20:00 40 12/04/17 20:00 75 12/04/17 20:00 100 Mechanical Ventilator 35 12/04/17 18:37 79 113/56 12/04/17 16:35 80 106/55 12/04/17 16:00 76 12/04/17 16:00 100.7 76 20 101/52 (68) 100 12/04/17 15:29 100 40 12/04/17 14:58 79 106/55 12/04/17 13:20 70 103/64 12/04/17 12:00 66 12/04/17 12:00 99.3 66 18 87/46 (60) 100 12/04/17 12:00 66 87/46 12/04/17 11:16 100 40 12/04/17 11:15 72 85/47 12/04/17 08:00 40 12/04/17 08:00 99.9 93 30 123/65 (84) 100 12/04/17 08:00 93 12/04/17 07:49 100 40 I/O 12/04/17 12/04/17 12/04/17 12/05/17 12/05/17 12/05/17 07:00 15:00 23:00 07:00 15:00 23:00 Intake Total 824 ml 1250 ml 1542 ml 1700 ml Output Total 1240 ml 0 ml 1370.0 ml 970 ml Balance -416 ml 1250 ml 172.0 ml 730 ml Intake IV Total 450 ml 1250 ml 650 ml 1150 ml Tube Feeding 374 ml 512 ml 450 ml Other 380 ml 100 ml Output Urine Total 1200 ml 1225 ml 750 ml Stool Total 100 ml 200 ml Gastric Drainage Total 0 ml 0 ml Tube Feeding Residual Discard 0 ml 0 ml Drainage Total 40 ml 45 ml 20 ml Result Diagram: 12/05/17 0526 12/04/17 0600 Imaging Last 72 hours Impressions Chest X-Ray 11/24/17 0400 Signed Impressions: Service Date/Time: November 04:58 - CONCLUSION: 1. Minimal basilar density, probably atelectasis. No significant effusion. No pneumothorax identified on plain film. Placement of left central line without pneumothorax. Left-sided rib fractures present. Dave Horton MD Pelvis X-Ray 11/23/172308 Signed Impressions: Service Date/Time: Thursday, November 23, 2017 22:48 - CONCLUSION: Unremarkable examination of the pelvis. Dave Horton MD Chest X-Ray 11/23/172308 Signed Impressions: Service Date/Time: Thursday, November 23, 2017 22:48 - CONCLUSION: 1. Left lower rib fractures. Cardiomediastinal silhouette within normal limits. No dense consolidation or effusion. Dave Horton MD Thoracic Spine CT 11/23/172252 Signed Impressions: Service Date/Time: Thursday, November 23, 2017 23:18 - CONCLUSION: 1. At T12 there is a burst fracture with retropulsion resulting in mild to moderate stenosis and fracture extending into the posterior elements. 2. At T11 there is a mild endplate fracture superiorly with fractures extending posteriorly into the posterior elements and facet joints at T11-12. Dave Horton MD Maxillofacial CT 11/23/172252 Signed Impressions: Service Date/Time: Thursday, November 23, 2017 23:17 - CONCLUSION: 1. Numerous facial fractures as above including bilateral mandibular, bilateral zygomatic arches, bilateral orbits bilateral maxillary and ethmoid sinuses. Also bilateral calvarial fractures. Trace pneumocephalus. Extensive scalp and facial swelling. Dave Horton MD Lumbar Spine CT 11/23/172252 Signed Impressions: Service Date/Time: Thursday, November 23, 2017 23:21 - CONCLUSION: 1. Fractures through the left transverse process of L1 and L2. No lumbar spine vertebral body fractures or subluxation. Dave Horton MD Head CT 11/23/172252 Signed Impressions: Service Date/Time: Thursday, November 23, 2017 23:16 - CONCLUSION: 1. Fractures of the left frontal bone and right parietal bone without significant displacement. Trace pneumocephalus near the right parietal bone fracture. No significant intracranial hemorrhage. 2. Numerous facial bone fractures with hemorrhage in the paranasal sinuses. Facial CT pending. Dave Horton MD Chest CT 11/23/172252 Signed Impressions: Service Date/Time: Thursday, November 23, 2017 23:21 - CONCLUSION: 1. Small bilateral pneumothoraces. 2. Scattered groundglass opacity in the lungs most characteristic of lung contusions or minimal aspiration. 3. Multiple fractures including burst fracture of T12, superior endplate fracture of T11 and multiple left rib fractures as above. 4. Endotracheal tube and nasogastric tube in good position. Dave Horton MD Cervical Spine CT 11/23/172252 Signed Impressions: Service Date/Time: Thursday, November 23, 2017 23:17 - CONCLUSION: 1. Nondisplaced fractures to the left lateral mass of C3 and C5 extending into the facet joints. No vertebral body fractures. No subluxation. Dave Horton MD Abdomen/Pelvis CT 11/23/172252 Signed Impressions: Service Date/Time: Thursday, November 23, 2017 23:21 - CONCLUSION: 1. Negative for solid visceral injury within the abdomen and pelvis. No free air or free fluid. 2. Small bilateral pneumothoraces. 3. Fractures of the left transverse processes of L1 and L2 and the left anterior fifth through eighth ribs. T11 superior endplate fracture and T12 burst fractures as previously described. 4. Appendicolith without evidence for appendicitis. NG tip in stomach. Clinton catheter in bladder. 5. There is a small amount of air in the left external iliac vein and left femoral vein. Dave Horton MD Radius/Ulna X-Ray 11/23/17 0000 Signed Impressions: Service Date/Time: Thursday, November 23, 2017 22:48 - CONCLUSION: 1. First Metacarpal fracture. No radius and ulna fractures. No dislocation. Dave Horton MD Humerus X-Ray 11/23/17 0000 Signed Impressions: Service Date/Time: Thursday, November 23, 2017 22:48 - CONCLUSION: 1. Angulated fracture left distal humeral shaft. Dave Horton MD Chest X-Ray 11/23/17 0000 Signed Impressions: Service Date/Time: Thursday, November 23, 2017 22:48 - CONCLUSION: 1. Endotracheal tube and nasogastric tube in good position. Scattered lung contusions or mild aspiration. No effusion. 2. Left-sided rib fractures. See abdomen and pelvic CT report. Dave Horton MD Last 24 hours Impressions Chest X-Ray 11/24/17 0400 Signed Impressions: Service Date/Time: November 04:58 - CONCLUSION: 1. Minimal basilar density, probably atelectasis. No significant effusion. No pneumothorax identified on plain film. Placement of left central line without pneumothorax. Left-sided rib fractures present. Dave Horton MD Pelvis X-Ray 11/23/172308 Signed Impressions: Service Date/Time: Thursday, November 23, 2017 22:48 - CONCLUSION: Unremarkable examination of the pelvis. Dave Horton MD Chest X-Ray 11/23/172308 Signed Impressions: Service Date/Time: Thursday, November 23, 2017 22:48 - CONCLUSION: 1. Left lower rib fractures. Cardiomediastinal silhouette within normal limits. No dense consolidation or effusion. Dave Horton MD Thoracic Spine CT 11/23/173 Signed Impressions: Service Date/Time: Thursday, November 23, 2017 23:18 - CONCLUSION: 1. At T12 there is a burst fracture with retropulsion resulting in mild to moderate stenosis and fracture extending into the posterior elements. 2. At T11 there is a mild endplate fracture superiorly with fractures extending posteriorly into the posterior elements and facet joints at T11-12. Dave Horton MD Maxillofacial CT 11/23/17 286 Signed Impressions: Service Date/Time: Thursday, November 23, 2017 23:17 - CONCLUSION: 1. Numerous facial fractures as above including bilateral mandibular, bilateral zygomatic arches, bilateral orbits bilateral maxillary and ethmoid sinuses. Also bilateral calvarial fractures. Trace pneumocephalus. Extensive scalp and facial swelling. Dave Horton MD Lumbar Spine CT 11/23/172252 Signed Impressions: Service Date/Time: Thursday, November 23, 2017 23:21 - CONCLUSION: 1. Fractures through the left transverse process of L1 and L2. No lumbar spine vertebral body fractures or subluxation. Dave Horton MD Head CT 11/23/172252 Signed Impressions: Service Date/Time: Thursday, November 23, 2017 23:16 - CONCLUSION: 1. Fractures of the left frontal bone and right parietal bone without significant displacement. Trace pneumocephalus near the right parietal bone fracture. No significant intracranial hemorrhage. 2. Numerous facial bone fractures with hemorrhage in the paranasal sinuses. Facial CT pending. Dave Horton MD Chest CT 11/23/172252 Signed Impressions: Service Date/Time: Thursday, November 23, 2017 23:21 - CONCLUSION: 1. Small bilateral pneumothoraces. 2. Scattered groundglass opacity in the lungs most characteristic of lung contusions or minimal aspiration. 3. Multiple fractures including burst fracture of T12, superior endplate fracture of T11 and multiple left rib fractures as above. 4. Endotracheal tube and nasogastric tube in good position. Dave Horton MD Cervical Spine CT 11/23/172252 Signed Impressions: Service Date/Time: Thursday, November 23, 2017 23:17 - CONCLUSION: 1. Nondisplaced fractures to the left lateral mass of C3 and C5 extending into the facet joints. No vertebral body fractures. No subluxation. Dave Horton MD Abdomen/Pelvis CT 11/23/172252 Signed Impressions: Service Date/Time: Thursday, November 23, 2017 23:21 - CONCLUSION: 1. Negative for solid visceral injury within the abdomen and pelvis. No free air or free fluid. 2. Small bilateral pneumothoraces. 3. Fractures of the left transverse processes of L1 and L2 and the left anterior fifth through eighth ribs. T11 superior endplate fracture and T12 burst fractures as previously described. 4. Appendicolith without evidence for appendicitis. NG tip in stomach. Clinton catheter in bladder. 5. There is a small amount of air in the left external iliac vein and left femoral vein. Dave Horton MD Objective Remarks LUE: dressings clean and dry. intact. +cap refill. Motor and sensory exams are not possible secondary to sedation Assessment & Plan Assessment and Plan 1) Left humeral shaft fracture s/p ORIF - POD 3 -daily dressing changes beginning POD 2 -sling and NWB Amor Curry MD Dec 05, 2017 07:07
[2017-12-05] MEDS: MIDAZOLAM HCL 5 MG/ML VIAL (1 ML) IV PRN (07:15)
[2017-12-05 07:17] LABS: BICARBONATE 26.4 MEQ/L (21.0-32.0); CALCIUM 7.3 MG/DL (8.5-10.1); CREATININE 0.55 MG/DL (0.60-1.30)
[2017-12-05 07:38] LABS: CALCIUM-PROTEIN CORRECTED 8.5 MG/DL (8.5-10.1); TOTAL PROTEIN 4.9 GM/DL (6.4-8.2)
--- NOTE | 2017-12-05 07:44 | RADRPT ---
EXAM DATE/TIME: 12/05/2017 07:03 [facility] COMPARISON: CHEST SINGLE AP, December 04, 2017, 5:05. INDICATIONS : Atelectasis. Pleural effusion. MEDICAL HISTORY : None. SURGICAL HISTORY : Fusion, thoracic. ENCOUNTER: Subsequent ACUITY: 1 week PAIN SCORE: Non-responsive. LOCATION: Bilateral chest FINDINGS: Stable ETT, NGT and right subclavian catheter. Patchy bilateral lower lobe airspace disease with like ly small left pleural effusion. Cardiomediastinal contours are unremarkable. Remainder of the exam is unchanged. CONCLUSION: 1. Stable lines and tubes. 2. Stable bilateral lower lobe patchy airspace disease and small left pleural effusion. Zenon Mariano MD on December 05, 2017 at 7:40 Board Certified Radiologist. This report was verified electronically.
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
[2017-12-05] MEDS: CHLORHEXIDINE 0.12% (ORAL KIT) 15 ML CUP MT SCH ×2 (08:29→20:52)
[2017-12-05] MEDS: LIDOCAINE HCL 5% PATCH T-DERMAL SCH (08:50)
[2017-12-05] MEDS: CHOLECALCIFEROL (VIT D3) 1000 UNIT TAB PO SCH (08:50)
[2017-12-05] MEDS: FAMOTIDINE 20 MG TAB PO SCH ×2 (08:50→20:54)
[2017-12-05] MEDS: QUEtiapine FUMARATE 25 MG TAB PO SCH ×3 (08:50→15:59)
[2017-12-05] MEDS: cefTRIAXone INJ 2,000 MG in SODIUM CHLORIDE 0.9% INJ 100 ML IV SCH ×2 (08:51→20:51)
[2017-12-05] MEDS: SODIUM CHLORIDE 0.9% FLUSH 10 ML FLUSH IV FLUSH SCH ×2 (08:51→20:52)
[2017-12-05] MEDS: BACITRACIN OPHT OINT 3.5 GM TUBO SCH ×2 (08:51→20:53)
[2017-12-05] MEDS: MAGNESIUM HYDROXIDE SUSP 30 ML CUP PO SCH ×2 (08:51→20:54)
[2017-12-05] MEDS: VALPROIC ACID SYRUP 250 MG/5 ML UDC PO SCH ×2 (08:51→20:54)
[2017-12-05] MEDS: DOCUSATE SODIUM 50 MG/SENNA 8.6 MG TAB PO SCH ×2 (08:51→20:54)
[2017-12-05] MEDS: BENEPROTEIN POWDER 1 PACK G-TUBE SCH ×3 (08:51→16:56)
[2017-12-05] MEDS: BACITRACIN TOP OINT 15 GM TUBE TOPICAL SCH ×2 (08:52→20:54)
[2017-12-05] MEDS: ARTIFICIAL TEARS OPTH OINT 3.5 APPLIC/3.5 GM TUBO RIGHT EYE SCH ×3 (08:52→16:56)
[2017-12-05] MEDS: MIDAZOLAM 100 MG/100 ML INJ 100 ML IV PRN (08:52)
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
[2017-12-05] MEDS ORDERED: PHARMACY ORDERED LAB ONE ×2 (11:45)
[2017-12-05] MEDS ORDERED: ROCURONIUM INJ 50 MG/5 ML VIAL ONE (12:59)
--- NOTE | 2017-12-05 14:57 | RADRPT ---
EXAM DATE/TIME: 12/05/2017 14:13 [facility] COMPARISON: CHEST SINGLE AP, December 05, 2017, 7:03. INDICATIONS : Post bronchoscopy. MEDICAL HISTORY : None. SURGICAL HISTORY : fusion thoracic and lumbar. ENCOUNTER: Initial ACUITY: 1 week PAIN SCORE: Non-responsive. LOCATION: Bilateral chest FINDINGS: A single view of the chest demonstrates interval worsening of predominantly bibasilar air space disea se and worsening effusions. No pneumothorax. Nasogastric and endotracheal tubes have been removed and replaced with a tracheostomy with the tip at the clavicular heads. Right subclavian central venous c atheter is unchanged in position. Heart size is normal. Osseous structures are intact. CONCLUSION: 1. Slight interval worsening in bibasilar airspace disease with persistent effusions which may also b e slightly worse. 2. No pneumothorax. 3. Interval removal of the endotracheal and nasogastric tubes with placement of a tracheostomy. The t ip of the tracheostomy is positioned at the base of the head/aortic arch Dalton Ayala MD on December 05, 2017 at 14:51 Board Certified Radiologist. This report was verified electronically.
[2017-12-05] MEDS ORDERED: HYDROmorphone HCL PF 4 MG/ML VIAL IV PUSH ONE (15:30)
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
[2017-12-05] MEDS: LEVOFLOXACIN 750 MG PREMIX INJ 150 ML IV SCH (16:56)
[2017-12-05] MEDS: metroNIDAZOLE 500 MG INJ 100 ML IV SCH (16:56)
--- NOTE | 2017-12-05 18:21 | PD.PROCEDR ---
Procedure Note Procedure Procedure: Diagnostic Fiberoptic Bronchoscopy Diagnosis: Chronic respiratory failure Indications: Need for placement of percutaneous dilation tracheostomy Consent: Written consent was obtained Anesthesia: Propofol, Versed, fentanyl, Rocuronium Description of the Procedure: The patient was sedated and mechanically ventilated. The patient was placed on 100% FIO2 and a volume control mode of ventilation. The fiberoptic bronchoscopy was inserted via oral endotracheal tube. The trachea, right and left mainstem bronchi, and sub-segmental bronchi were evaluated. The endobronchial anatomy was normal. At this point, the percutaneous dilation tracheostomy procedure was performed. The needle, guidewire, dilator, and tracheostomy were all performed under direct bronchoscopic guidance and visualization. Once the tracheostomy was in place, the bronchoscope was inserted through the tracheostomy, and the lumen of the tracheostomy was confirmed in the lumen of the trachea prior to any positive pressure ventilation. Findings: Moderate amount of thin but purulent appearing secretions in the left lower lobe. BAL samples: 2 BAL samples were sent from the left lower lobe. The patient tolerated the procedure well with no hemodynamic instability or hypoxia. There were no immediate complications noted. At the conclusion of the procedure, the patient was placed back on their pre-procedure ventilatory settings. There was minimal EBL. A chest x-ray has been ordered. I personally performed the procedure. Philip Bundy MD Dec 05, 2017 18:21
[2017-12-05] MEDS: HYDROmorphone HCL PF 2 MG/ML VIAL IV PUSH SCH (19:28)
[2017-12-05] MEDS ORDERED: METHADONE 10 MG/ML VIAL IV PUSH ONE (22:00)
[2017-12-06] VITALS (18 sets, daily range): BP systolic 105–143; BP diastolic 52–84; PULSE 75–108; RESP 16–25; TEMP 99–101.5; O2SAT 94–100
[2017-12-06] MEDS: metroNIDAZOLE 500 MG INJ 100 ML IV SCH ×4 (00:43→23:57)
[2017-12-06] MEDS: HYDROmorphone HCL PF 2 MG/ML VIAL IV PUSH SCH ×7 (00:43→22:20)
[2017-12-06] MEDS: EPOPROSTENOL NEB SOLUTION 50 NG/KG/MIN 100 ML NEB SCH ×8 (00:43→23:35)
[2017-12-06] MEDS: fentaNYL DRIP 250 ML IV PRN ×3 (01:19→20:00)
[2017-12-06] MEDS: ARTIFICIAL TEARS OPTH OINT 3.5 APPLIC/3.5 GM TUBO LEFT EYE SCH ×6 (01:20→22:00)
[2017-12-06] MEDS: CHLORHEXIDINE GLUCONATE 2 % 1 PACK (2 CLOTHS) TOP SCH (03:20)
[2017-12-06] MEDS: VANCOMYCIN 1,500 MG/NS 500 ML IV SCH ×6 (03:55→21:21)
[2017-12-06] MEDS: PROPOFOL 1000 MG/100 ML INJ 100 ML IV PRN ×5 (04:00→23:22)
[2017-12-06 04:28] LABS: AUTOMATED NEUTROPHIL # 9.8 TH/MM3 (1.8-7.7); BASOPHIL % 0.3 % (0.0-2.0); EOSINOPHIL # 0.1 TH/MM3 (0-0.4); EOSINOPHIL % 1.2 % (0.0-4.0); HEMATOCRIT 23.4 % (39.0-51.0); LYMPH % 7.5 % (9.0-44.0); LYMPHOCYTE # 0.9 TH/MM3 (1.0-4.8); MEAN CELL VOLUME 87.8 FL (80.0-100.0); MEAN CORPUSCULAR HEMOGLOBIN 30.1 PG (27.0-34.0); MEAN CORPUSCULAR HGB CONC 34.3 % (32.0-36.0); MEAN PLATELET VOLUME 7.1 FL (7.0-11.0); MONO % 7.4 % (0.0-8.0); MONOCYTE # 0.9 TH/MM3 (0-0.9); NEUT % 83.6 % (16.0-70.0); PLATELET COUNT 252 TH/MM3 (150-450); RED BLOOD COUNT 2.67 MIL/MM3 (4.50-5.90); RED CELL DISTRIBUTION WIDTH 13.9 % (11.6-17.2); WHITE BLOOD COUNT 11.7 TH/MM3 (4.0-11.0)
[2017-12-06 05:01] LABS: BICARBONATE 30.7 MEQ/L (21.0-32.0); CALCIUM 7.7 MG/DL (8.5-10.1); CREATININE 0.44 MG/DL (0.60-1.30)
[2017-12-06] MEDS: METHOCARBAMOL 500 MG TAB PO SCH ×3 (05:08→20:55)
[2017-12-06] MEDS: POTASSIUM CHLOR 40 MEQ PREMIX 100 ML IV PRN (06:25)
[2017-12-06 06:38] LABS: BANDS 12 % (0-6); LYMPHOCYTES 3 % (9-44); METAMYELOCYTES 2 % (0-1); MONOCYTES 9 % (0-8); NEUTROPHIL # MANUAL DIFF 10.2 TH/MM3 (1.8-7.7); POLYS (SEG NEUTROPHILS) 71 % (16-70); PROMYELOCYTES 2 % (0-0)
[2017-12-06] MEDS: MIDAZOLAM 100 MG/100 ML INJ 100 ML IV PRN ×2 (07:16→20:54)
--- NOTE | 2017-12-06 07:31 | PD.ORT.PN ---
Subjective Subjective Remarks POD 4 s/p ORIF left humeral shaft fx s/p spine, facial, head fractures with subsequent ORIF trached thumb surgery still not done Objective Vitals Vital Signs Date Time Temp Pulse Resp B/P (MAP) Pulse Ox O2 Delivery O2 Flow Rate FiO2 12/06/17 06:00 94 12/06/17 04:25 24 12/06/17 04:10 96 35 12/06/17 04:00 102 12/06/17 04:00 35 12/06/17 04:00 99.1 102 23 132/84 (100) 99 12/06/17 02:00 87 12/06/17 00:21 100 35 12/06/17 00:00 99.0 75 16 108/52 (70) 100 12/06/17 00:00 75 12/06/17 00:00 35 12/05/17 23:49 16 12/05/17 22:00 100 12/05/17 21:29 100 40 12/05/17 20:00 99.3 104 16 107/51 (69) 100 12/05/17 20:00 109 12/05/17 20:00 35 12/05/17 19:00 100 Mechanical Ventilator 40 12/05/17 18:00 73 12/05/17 16:47 100 50 12/05/17 16:00 35 12/05/17 16:00 98.7 80 17 101/52 (68) 100 12/05/17 16:00 71 12/05/17 14:06 100 100 12/05/17 14:00 88 12/05/17 12:00 35 12/05/17 12:00 98.5 71 17 102/55 (71) 100 12/05/17 12:00 66 12/05/17 11:45 100 35 12/05/17 10:00 57 12/05/17 09:04 100 35 12/05/17 08:00 100 Mechanical Ventilator 35 12/05/17 08:00 98.1 71 18 101/55 (70) 100 12/05/17 08:00 40 12/05/17 08:00 69 I/O 12/05/17 12/05/17 12/05/17 12/06/17 12/06/17 12/06/17 07:00 15:00 23:00 07:00 15:00 23:00 Intake Total 1700 ml 400 ml 770 ml 1165 ml Output Total 970 ml 0 ml 1510 ml 1450 ml Balance 730 ml 400 ml -740 ml -285 ml Intake IV Total 1150 ml 400 ml 650 ml 1165 ml Tube Feeding 450 ml 0 ml Other 100 ml 120 ml Output Urine Total 750 ml 1500 ml 1450 ml Stool Total 200 ml 0 ml 0 ml Gastric Drainage Total 0 ml Tube Feeding Residual Discard 0 ml Drainage Total 20 ml 10 ml Result Diagram: 12/06/1739912/06/17399 Imaging Last 72 hours Impressions Chest X-Ray 11/24/17399 Signed Impressions: Service Date/Time: November 04:58 - CONCLUSION: 1. Minimal basilar density, probably atelectasis. No significant effusion. No pneumothorax identified on plain film. Placement of left central line without pneumothorax. Left-sided rib fractures present. Dave Horton MD Pelvis X-Ray 11/23/172308 Signed Impressions: Service Date/Time: Thursday, November 23, 2017 22:48 - CONCLUSION: Unremarkable examination of the pelvis. Dave Horton MD Chest X-Ray 11/23/172308 Signed Impressions: Service Date/Time: Thursday, November 23, 2017 22:48 - CONCLUSION: 1. Left lower rib fractures. Cardiomediastinal silhouette within normal limits. No dense consolidation or effusion. Dave Horton MD Thoracic Spine CT 11/23/172252 Signed Impressions: Service Date/Time: Thursday, November 23, 2017 23:18 - CONCLUSION: 1. At T12 there is a burst fracture with retropulsion resulting in mild to moderate stenosis and fracture extending into the posterior elements. 2. At T11 there is a mild endplate fracture superiorly with fractures extending posteriorly into the posterior elements and facet joints at T11-12. Dave Horton MD Maxillofacial CT 11/23/172252 Signed Impressions: Service Date/Time: Thursday, November 23, 2017 23:17 - CONCLUSION: 1. Numerous facial fractures as above including bilateral mandibular, bilateral zygomatic arches, bilateral orbits bilateral maxillary and ethmoid sinuses. Also bilateral calvarial fractures. Trace pneumocephalus. Extensive scalp and facial swelling. Dave Horton MD Lumbar Spine CT 11/23/172252 Signed Impressions: Service Date/Time: Thursday, November 23, 2017 23:21 - CONCLUSION: 1. Fractures through the left transverse process of L1 and L2. No lumbar spine vertebral body fractures or subluxation. Dave Horton MD Head CT 11/23/172252 Signed Impressions: Service Date/Time: Thursday, November 23, 2017 23:16 - CONCLUSION: 1. Fractures of the left frontal bone and right parietal bone without significant displacement. Trace pneumocephalus near the right parietal bone fracture. No significant intracranial hemorrhage. 2. Numerous facial bone fractures with hemorrhage in the paranasal sinuses. Facial CT pending. Dave Horton MD Chest CT 11/23/172252 Signed Impressions: Service Date/Time: Thursday, November 23, 2017 23:21 - CONCLUSION: 1. Small bilateral pneumothoraces. 2. Scattered groundglass opacity in the lungs most characteristic of lung contusions or minimal aspiration. 3. Multiple fractures including burst fracture of T12, superior endplate fracture of T11 and multiple left rib fractures as above. 4. Endotracheal tube and nasogastric tube in good position. Dave Horton MD Cervical Spine CT 11/23/172252 Signed Impressions: Service Date/Time: Thursday, November 23, 2017 23:17 - CONCLUSION: 1. Nondisplaced fractures to the left lateral mass of C3 and C5 extending into the facet joints. No vertebral body fractures. No subluxation. Dave Horton MD Abdomen/Pelvis CT 11/23/172252 Signed Impressions: Service Date/Time: Thursday, November 23, 2017 23:21 - CONCLUSION: 1. Negative for solid visceral injury within the abdomen and pelvis. No free air or free fluid. 2. Small bilateral pneumothoraces. 3. Fractures of the left transverse processes of L1 and L2 and the left anterior fifth through eighth ribs. T11 superior endplate fracture and T12 burst fractures as previously described. 4. Appendicolith without evidence for appendicitis. NG tip in stomach. Clinton catheter in bladder. 5. There is a small amount of air in the left external iliac vein and left femoral vein. Dave Horton MD Radius/Ulna X-Ray 11/23/17 0000 Signed Impressions: Service Date/Time: Thursday, November 23, 2017 22:48 - CONCLUSION: 1. First Metacarpal fracture. No radius and ulna fractures. No dislocation. Dave Horton MD Humerus X-Ray 11/23/17 0000 Signed Impressions: Service Date/Time: Thursday, November 23, 2017 22:48 - CONCLUSION: 1. Angulated fracture left distal humeral shaft. Dave Horton MD Chest X-Ray 11/23/17 0000 Signed Impressions: Service Date/Time: Thursday, November 23, 2017 22:48 - CONCLUSION: 1. Endotracheal tube and nasogastric tube in good position. Scattered lung contusions or mild aspiration. No effusion. 2. Left-sided rib fractures. See abdomen and pelvic CT report. Dave Horton MD Last 24 hours Impressions Chest X-Ray 11/24/17 0400 Signed Impressions: Service Date/Time: November 04:58 - CONCLUSION: 1. Minimal basilar density, probably atelectasis. No significant effusion. No pneumothorax identified on plain film. Placement of left central line without pneumothorax. Left-sided rib fractures present. Dave Horton MD Pelvis X-Ray 11/23/172308 Signed Impressions: Service Date/Time: Thursday, November 23, 2017 22:48 - CONCLUSION: Unremarkable examination of the pelvis. Dave Horton MD Chest X-Ray 11/23/172308 Signed Impressions: Service Date/Time: Thursday, November 23, 2017 22:48 - CONCLUSION: 1. Left lower rib fractures. Cardiomediastinal silhouette within normal limits. No dense consolidation or effusion. Dave Horton MD Thoracic Spine CT 11/23/17 160 Signed Impressions: Service Date/Time: Thursday, November 23, 2017 23:18 - CONCLUSION: 1. At T12 there is a burst fracture with retropulsion resulting in mild to moderate stenosis and fracture extending into the posterior elements. 2. At T11 there is a mild endplate fracture superiorly with fractures extending posteriorly into the posterior elements and facet joints at T11-12. Dave Horton MD Maxillofacial CT 11/23/17 2395 Signed Impressions: Service Date/Time: Thursday, November 23, 2017 23:17 - CONCLUSION: 1. Numerous facial fractures as above including bilateral mandibular, bilateral zygomatic arches, bilateral orbits bilateral maxillary and ethmoid sinuses. Also bilateral calvarial fractures. Trace pneumocephalus. Extensive scalp and facial swelling. Dave Horton MD Lumbar Spine CT 11/23/172252 Signed Impressions: Service Date/Time: Thursday, November 23, 2017 23:21 - CONCLUSION: 1. Fractures through the left transverse process of L1 and L2. No lumbar spine vertebral body fractures or subluxation. Dave Horton MD Head CT 11/23/172252 Signed Impressions: Service Date/Time: Thursday, November 23, 2017 23:16 - CONCLUSION: 1. Fractures of the left frontal bone and right parietal bone without significant displacement. Trace pneumocephalus near the right parietal bone fracture. No significant intracranial hemorrhage. 2. Numerous facial bone fractures with hemorrhage in the paranasal sinuses. Facial CT pending. Dave Horton MD Chest CT 11/23/172252 Signed Impressions: Service Date/Time: Thursday, November 23, 2017 23:21 - CONCLUSION: 1. Small bilateral pneumothoraces. 2. Scattered groundglass opacity in the lungs most characteristic of lung contusions or minimal aspiration. 3. Multiple fractures including burst fracture of T12, superior endplate fracture of T11 and multiple left rib fractures as above. 4. Endotracheal tube and nasogastric tube in good position. Dave Horton MD Cervical Spine CT 11/23/172252 Signed Impressions: Service Date/Time: Thursday, November 23, 2017 23:17 - CONCLUSION: 1. Nondisplaced fractures to the left lateral mass of C3 and C5 extending into the facet joints. No vertebral body fractures. No subluxation. Dave Horton MD Abdomen/Pelvis CT 11/23/172252 Signed Impressions: Service Date/Time: Thursday, November 23, 2017 23:21 - CONCLUSION: 1. Negative for solid visceral injury within the abdomen and pelvis. No free air or free fluid. 2. Small bilateral pneumothoraces. 3. Fractures of the left transverse processes of L1 and L2 and the left anterior fifth through eighth ribs. T11 superior endplate fracture and T12 burst fractures as previously described. 4. Appendicolith without evidence for appendicitis. NG tip in stomach. Clinton catheter in bladder. 5. There is a small amount of air in the left external iliac vein and left femoral vein. Dave Horton MD Objective Remarks LUE: dressings clean and dry. intact. +cap refill. Motor and sensory exams are not possible secondary to sedation Assessment & Plan Assessment and Plan 1) Left humeral shaft fracture s/p ORIF - POD 4 -daily dressing changes -sling and NWB -OT for motion of elbow and shoulder Dennis Perez/[employer] PA Dec 06, 2017 07:31
[2017-12-06] MEDS: BACITRACIN OPHT OINT 3.5 GM TUBO SCH ×2 (07:54→21:00)
[2017-12-06] MEDS: MAGNESIUM HYDROXIDE SUSP 30 ML CUP PO SCH ×2 (07:54→21:00)
[2017-12-06] MEDS: CHLORHEXIDINE 0.12% (ORAL KIT) 15 ML CUP MT SCH ×2 (07:54→20:00)
[2017-12-06] MEDS: QUEtiapine FUMARATE 25 MG TAB PO SCH ×3 (07:54→18:00)
[2017-12-06] MEDS: BENEPROTEIN POWDER 1 PACK G-TUBE SCH ×3 (07:54→15:56)
[2017-12-06] MEDS: VALPROIC ACID SYRUP 250 MG/5 ML UDC PO SCH ×2 (07:54→21:21)
[2017-12-06] MEDS: DOCUSATE SODIUM 50 MG/SENNA 8.6 MG TAB PO SCH ×2 (07:54→20:55)
[2017-12-06] MEDS: ARTIFICIAL TEARS OPTH OINT 3.5 APPLIC/3.5 GM TUBO RIGHT EYE SCH ×3 (07:55→18:02)
[2017-12-06] MEDS: BACITRACIN TOP OINT 15 GM TUBE TOPICAL SCH ×2 (07:55→21:00)
[2017-12-06] MEDS: FAMOTIDINE 20 MG TAB PO SCH ×2 (07:55→20:55)
[2017-12-06] MEDS: CHOLECALCIFEROL (VIT D3) 1000 UNIT TAB PO SCH (07:55)
[2017-12-06] MEDS: cefTRIAXone INJ 2,000 MG in SODIUM CHLORIDE 0.9% INJ 100 ML IV SCH ×2 (08:16→20:55)
[2017-12-06] MEDS: ENOXAPARIN SODIUM 100 MG/ML SYRINGE SQ SCH ×2 (08:16→20:54)
[2017-12-06] MEDS: SODIUM CHLORIDE 0.9% FLUSH 10 ML FLUSH IV FLUSH SCH ×2 (08:16→21:00)
[2017-12-06] MEDS: LIDOCAINE HCL 5% PATCH T-DERMAL SCH (08:16)
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
[2017-12-06] MEDS ORDERED: LIDOCAINE HCL 1% PF 5 ML SYRINGE OTHER ONE (12:00)
[2017-12-06] MEDS ORDERED: PROPOFOL 200 MG/20 ML AMP IV ONE (12:00)
[2017-12-06] MEDS ORDERED: KETAMINE IV ONE (12:00)
[2017-12-06] MEDS ORDERED: SODIUM CHLOR 0.9% IV ONE (12:00)
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
[2017-12-06] MEDS: ACETAMINOPHEN 1000 MG/100 ML 100 ML IV PRN (13:18)
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
--- NOTE | 2017-12-06 15:15 | PD.PROCEDR ---
GI Procedure PROCEDURE PERFORMED EGD with PEG placement INDICATION FOR PROCEDURE Respiratory failure and need for long-term nutritional access PROCEDURE: The procedure, risks and benefits were discussed with Mr. Kaur and informed consent was obtained. Anesthesia sedated him with Diprivan. He was placed in the left lateral decubitus position. EGD: The Pentax videoscope was introduced through the oropharynx and advanced to the second portion of the duodenum under direct visualization. Retroflexion was performed in the stomach. FINDINGS: Esophagus this was normal Stomach this was normal Duodenum this was normal Following the evaluation of the stomach and the duodenum the stomach was insufflated with air and the area of PEG placement was identified through indentation and transillumination the area was prepped and draped in usual fashion 5 cc of lidocaine were injected locally a small incision was made then an Angiocath was passed into the stomach through which a guidewire was passed this was retrieved with the scope into that a PEG tube was attached and pulled into place and thereafter secured in usual fashion The patient tolerated procedure well and there are no immediate complications ESTIMATED BLOOD LOSS: None SPECIMENS REMOVED: None COMPLICATIONS: None IMPRESSION: Normal EGD Successful PEG placement PLAN: PLAN: 1. May use PEG tube for medications today 2. May start feeding tomorrow 3. May obtain nutritional consult for tube feeding 4. Flush tube with 50 cc of water every 4-6 hours 5. Always flush tube after feedings 6. Apply abdominal binder as necessary 7. Clamp G-tube after use and flush. Mason Coles MD Dec 06, 2017 15:15
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
[2017-12-06] MEDS: LEVOFLOXACIN 750 MG PREMIX INJ 150 ML IV SCH (15:56)
[2017-12-06] MEDS: ACETAMINOPHEN/HYDROcodone 325 MG/10 MG TAB PO PRN (23:57)
[2017-12-06] MEDS: HYDROmorphone HCL PF 2 MG/ML VIAL IV PUSH PRN (23:57)
[2017-12-07] VITALS (18 sets, daily range): BP systolic 93–145; BP diastolic 50–102; PULSE 75–144; RESP 17–28; TEMP 98–101.4; O2SAT 94–100
[2017-12-07] MEDS: ARTIFICIAL TEARS OPTH OINT 3.5 APPLIC/3.5 GM TUBO LEFT EYE SCH ×6 (02:00→20:36)
[2017-12-07] MEDS: HYDROmorphone HCL PF 2 MG/ML VIAL IV PUSH SCH ×6 (02:47→23:09)
[2017-12-07] MEDS ORDERED: PHARMACY ORDERED LAB ONE (03:45)
[2017-12-07] MEDS: CHLORHEXIDINE GLUCONATE 2 % 1 PACK (2 CLOTHS) TOP SCH (04:00)
[2017-12-07] MEDS: VANCOMYCIN 1,500 MG/NS 500 ML IV SCH ×6 (04:42→20:35)
[2017-12-07 04:49] LABS: AUTOMATED NEUTROPHIL # 8.7 TH/MM3 (1.8-7.7); BASOPHIL % 0.2 % (0.0-2.0); EOSINOPHIL # 0.1 TH/MM3 (0-0.4); EOSINOPHIL % 0.8 % (0.0-4.0); LYMPH % 6.9 % (9.0-44.0); LYMPHOCYTE # 0.7 TH/MM3 (1.0-4.8); MEAN CELL VOLUME 86.9 FL (80.0-100.0); MEAN CORPUSCULAR HEMOGLOBIN 29.8 PG (27.0-34.0); MEAN CORPUSCULAR HGB CONC 34.3 % (32.0-36.0); MEAN PLATELET VOLUME 6.4 FL (7.0-11.0); MONO % 8.3 % (0.0-8.0); MONOCYTE # 0.9 TH/MM3 (0-0.9); NEUT % 83.8 % (16.0-70.0); PLATELET COUNT 249 TH/MM3 (150-450); RED BLOOD COUNT 2.32 MIL/MM3 (4.50-5.90); RED CELL DISTRIBUTION WIDTH 13.8 % (11.6-17.2); WHITE BLOOD COUNT 10.4 TH/MM3 (4.0-11.0)
[2017-12-07 04:53] LABS: HEMATOCRIT 20.1 % (39.0-51.0); HEMOGLOBIN 6.9 GM/DL (13.0-17.0)
[2017-12-07 05:07] LABS: ALBUMIN 1.3 GM/DL (3.4-5.0); BICARBONATE 26.9 MEQ/L (21.0-32.0); CALCIUM 7.4 MG/DL (8.5-10.1); CALCIUM-PROTEIN CORRECTED 8.6 MG/DL (8.5-10.1); CREATININE 0.31 MG/DL (0.60-1.30); TOTAL BILIRUBIN ADULT 0.7 MG/DL (0.2-1.0); TOTAL PROTEIN 4.9 GM/DL (6.4-8.2); VANCOMYCIN TROUGH 15.8 MCG/ML (5.0-10.0)
[2017-12-07] MEDS: fentaNYL DRIP 250 ML IV PRN ×2 (05:59→15:00)
[2017-12-07] MEDS: PROPOFOL 1000 MG/100 ML INJ 100 ML IV PRN ×3 (06:00→23:08)
[2017-12-07] MEDS: METHOCARBAMOL 500 MG TAB PO SCH ×3 (06:29→20:34)
[2017-12-07] MEDS: SODIUM CHLOR 0.9% 1000 ML INJ 1,000 ML IV SCH (08:00)
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
[2017-12-07] MEDS: cefTRIAXone INJ 2,000 MG in SODIUM CHLORIDE 0.9% INJ 100 ML IV SCH ×2 (08:34→20:36)
[2017-12-07] MEDS: CHLORHEXIDINE 0.12% (ORAL KIT) 15 ML CUP MT SCH ×2 (08:41→20:35)
[2017-12-07] MEDS: MAGNESIUM HYDROXIDE SUSP 30 ML CUP PO SCH ×2 (09:00→20:38)
[2017-12-07] MEDS: BENEPROTEIN POWDER 1 PACK G-TUBE SCH ×3 (09:00→17:46)
[2017-12-07] MEDS: ARTIFICIAL TEARS OPTH OINT 3.5 APPLIC/3.5 GM TUBO RIGHT EYE SCH ×3 (09:00→17:43)
[2017-12-07] MEDS: MIDAZOLAM 100 MG/100 ML INJ 100 ML IV PRN ×2 (09:25→20:00)
[2017-12-07] MEDS: EPOPROSTENOL NEB SOLUTION 50 NG/KG/MIN 100 ML NEB SCH ×6 (09:34→23:43)
[2017-12-07] MEDS: VALPROIC ACID SYRUP 250 MG/5 ML UDC PO SCH ×2 (09:35→20:34)
[2017-12-07] MEDS: LEVOFLOXACIN 750 MG TAB PO SCH (09:35)
[2017-12-07] MEDS: DOCUSATE SODIUM 50 MG/SENNA 8.6 MG TAB PO SCH ×2 (09:35→20:34)
[2017-12-07] MEDS: SODIUM CHLORIDE 0.9% FLUSH 10 ML FLUSH IV FLUSH SCH ×2 (09:35→20:36)
[2017-12-07] MEDS: QUEtiapine FUMARATE 25 MG TAB PO SCH ×3 (09:35→17:42)
[2017-12-07] MEDS: FAMOTIDINE 20 MG TAB PO SCH ×2 (09:35→20:34)
[2017-12-07] MEDS: metroNIDAZOLE 500 MG TAB PO SCH ×2 (09:35→17:42)
[2017-12-07] MEDS: CHOLECALCIFEROL (VIT D3) 1000 UNIT TAB PO SCH (09:35)
[2017-12-07] MEDS: LIDOCAINE HCL 5% PATCH T-DERMAL SCH (09:40)
[2017-12-07] MEDS: BACITRACIN TOP OINT 15 GM TUBE TOPICAL SCH ×2 (09:47→20:36)
[2017-12-07] MEDS: BACITRACIN OPHT OINT 3.5 GM TUBO SCH ×2 (09:48→20:35)
--- NOTE | 2017-12-07 09:56 | RADRPT ---
EXAM DATE/TIME: 12/07/2017 09:28 [place] COMPARISON: CHEST SINGLE AP, December 05, 2017, 14:13. INDICATIONS : Short of breath. MEDICAL HISTORY : Unobtainable. SURGICAL HISTORY : Unobtainable. ENCOUNTER: Subsequent ACUITY: 2 weeks PAIN SCORE: Non-responsive. LOCATION: chest FINDINGS: A single portable frontal view the chest shows worsening bilateral pulmonary consolidations most pron ounced within the bases. Small left effusion. Heart is normal in size. Tracheostomy tube, right subcl shahriar central line and orthopedic hardware are noted. CONCLUSION: 1. Worsening bilateral infiltrates. 2. Stable small left effusion. Gustavo Streeter Jr., MD on December 07, 2017 at 9:51 Board Certified Radiologist. This report was verified electronically.
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
[2017-12-07] MEDS: ACETAMINOPHEN 1000 MG/100 ML 100 ML IV PRN (10:40)
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
[2017-12-07] MEDS ORDERED: ROCURONIUM INJ 50 MG/5 ML SYRINGE IV PUSH ONE (12:00)
[2017-12-07] MEDS ORDERED: KETAMINE IV ONE (12:00)
[2017-12-07] MEDS ORDERED: PHENYLEPH/NS 1000 MCG/10 ML SYR IV ONE (12:00)
[2017-12-07] MEDS ORDERED: PROPOFOL 200 MG/20 ML AMP IV ONE (12:00)
[2017-12-07] MEDS ORDERED: SODIUM CHLORIDE 0.9% 20 ML VIAL IV ONE (12:00)
[2017-12-07] MEDS ORDERED: SODIUM CHLOR 0.9% IV ONE (12:00)
[2017-12-07] MEDS ORDERED: BUPIVACAINE/EPINEPHRINE 0.25% 50 ML VIAL ONE (13:01)
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
[2017-12-07] MEDS ORDERED: HYDROmorphone HCL PF 2 MG/ML VIAL ONE (14:47)
[2017-12-07] MEDS ORDERED: BUPIVACAINE HCL PF 0.5% 30 ML VIAL ONE (16:13)
[2017-12-07] MEDS ORDERED: EPOPROSTENOL NEB SOLUTION 10 NG/KG/MIN 100 ML NEB SCH ×2 (17:00)
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
[2017-12-07] MEDS: METHADONE HCL 10 MG/10 ML ORAL SOLUTION PEG SCH (17:41)
--- NOTE | 2017-12-07 19:41 | RADRPT ---
EXAM DATE/TIME: 12/07/2017 19:12 [facility] COMPARISON: CHEST SINGLE AP, December 07, 2017, 9:28. INDICATIONS : Low O2 saturation. MEDICAL HISTORY : None. SURGICAL HISTORY : Thoracic fusion. ORIF left humerus. Left frontotemporal craniotomy with fixation of depressed skull. ENCOUNTER: Subsequent ACUITY: 1 day PAIN SCORE: Non-responsive. LOCATION: Bilateral chest FINDINGS: There is no significant change in bilateral mixed interstitial and alveolar process in both lungs. Tr acheostomy tube is present in satisfactory position. The rest of the examination has not significantl y changed. CONCLUSION: No appreciable change. Alessandra Rai MD on December 07, 2017 at 19:39 Board Certified Radiologist. This report was verified electronically.
[2017-12-07] MEDS: ENOXAPARIN SODIUM 100 MG/ML SYRINGE SQ SCH (20:01)
[2017-12-07] MEDS: chlordiazePOXIDE 25 MG CAP PO SCH (20:34)
[2017-12-07 22:04] LABS: AUTOMATED NEUTROPHIL # 9.9 TH/MM3 (1.8-7.7); BASOPHIL # 0.1 TH/MM3 (0-0.2); BASOPHIL % 0.9 % (0.0-2.0); EOSINOPHIL # 0.1 TH/MM3 (0-0.4); EOSINOPHIL % 0.7 % (0.0-4.0); HEMATOCRIT 25.5 % (39.0-51.0); HEMOGLOBIN 8.6 GM/DL (13.0-17.0); LYMPH % 7.5 % (9.0-44.0); LYMPHOCYTE # 0.9 TH/MM3 (1.0-4.8); MEAN CELL VOLUME 88.2 FL (80.0-100.0); MEAN CORPUSCULAR HEMOGLOBIN 29.7 PG (27.0-34.0); MEAN CORPUSCULAR HGB CONC 33.7 % (32.0-36.0); MEAN PLATELET VOLUME 7.3 FL (7.0-11.0); MONO % 8.6 % (0.0-8.0); NEUT % 82.3 % (16.0-70.0); PLATELET COUNT 264 TH/MM3 (150-450); RED CELL DISTRIBUTION WIDTH 14.1 % (11.6-17.2); WHITE BLOOD COUNT 12.1 TH/MM3 (4.0-11.0)
[2017-12-07] MEDS ORDERED: FUROSEMIDE 40 MG/4 ML VIAL IV PUSH ONE (22:45)
[2017-12-07 23:08] LABS: BANDS 14 % (0-6); LYMPHOCYTES 6 % (9-44); METAMYELOCYTES 1 % (0-1); MONOCYTES 1 % (0-8); MYELOCYTES 2 % (0-0); NEUTROPHIL # MANUAL DIFF 11.3 TH/MM3 (1.8-7.7); POLYS (SEG NEUTROPHILS) 76 % (16-70)
[2017-12-07 23:10] LABS: OVALOCYTES 1+ (NORMAL)
[2017-12-08] VITALS (19 sets, daily range): BP systolic 97–167; BP diastolic 51–99; PULSE 86–140; RESP 16–26; TEMP 98.7–102.1; O2SAT 94–100
[2017-12-08] MEDS: ACETAMINOPHEN/HYDROcodone 325 MG/10 MG TAB PO PRN (00:09)
[2017-12-08] MEDS: HYDROmorphone HCL PF 2 MG/ML VIAL IV PUSH PRN (00:31)
[2017-12-08] MEDS: fentaNYL DRIP 250 ML IV PRN ×3 (01:02→18:18)
[2017-12-08] MEDS: metroNIDAZOLE 500 MG TAB PO SCH ×3 (01:03→17:09)
[2017-12-08] MEDS: MIDAZOLAM HCL 5 MG/ML VIAL (1 ML) IV PRN ×2 (01:06→20:34)
[2017-12-08] MEDS: ARTIFICIAL TEARS OPTH OINT 3.5 APPLIC/3.5 GM TUBO LEFT EYE SCH ×6 (02:00→20:54)
[2017-12-08] MEDS: HYDROmorphone HCL PF 2 MG/ML VIAL IV PUSH SCH ×6 (03:05→23:05)
[2017-12-08] MEDS: CHLORHEXIDINE GLUCONATE 2 % 1 PACK (2 CLOTHS) TOP SCH (04:00)
[2017-12-08] MEDS: VANCOMYCIN 1,500 MG/NS 500 ML IV SCH ×6 (04:00→20:50)
[2017-12-08] MEDS: PROPOFOL 1000 MG/100 ML INJ 100 ML IV PRN ×4 (04:04→23:51)
[2017-12-08] MEDS: EPOPROSTENOL NEB SOLUTION 50 NG/KG/MIN 100 ML NEB SCH ×4 (05:00→12:04)
[2017-12-08] MEDS: METHOCARBAMOL 500 MG TAB PO SCH ×3 (05:02→20:51)
[2017-12-08] MEDS: METHADONE HCL 10 MG/10 ML ORAL SOLUTION PEG SCH ×2 (05:02→17:10)
[2017-12-08] MEDS: chlordiazePOXIDE 25 MG CAP PO SCH (05:02)
[2017-12-08 05:55] LABS: AUTOMATED NEUTROPHIL # 9.4 TH/MM3 (1.8-7.7); BASOPHIL % 0.4 % (0.0-2.0); EOSINOPHIL # 0.1 TH/MM3 (0-0.4); EOSINOPHIL % 0.8 % (0.0-4.0); HEMATOCRIT 26.4 % (39.0-51.0); LYMPH % 6.8 % (9.0-44.0); LYMPHOCYTE # 0.8 TH/MM3 (1.0-4.8); MEAN CELL VOLUME 87.8 FL (80.0-100.0); MEAN CORPUSCULAR HEMOGLOBIN 30.1 PG (27.0-34.0); MEAN CORPUSCULAR HGB CONC 34.2 % (32.0-36.0); MEAN PLATELET VOLUME 6.8 FL (7.0-11.0); MONO % 9.6 % (0.0-8.0); MONOCYTE # 1.1 TH/MM3 (0-0.9); NEUT % 82.4 % (16.0-70.0); PLATELET COUNT 317 TH/MM3 (150-450); RED CELL DISTRIBUTION WIDTH 13.9 % (11.6-17.2); WHITE BLOOD COUNT 11.4 TH/MM3 (4.0-11.0)
--- NOTE | 2017-12-08 06:30 | RADRPT ---
EXAM DATE/TIME: 12/08/2017 05:49 [facility] COMPARISON: CHEST SINGLE AP, December 07, 2017, 19:12. INDICATIONS : Respiratory distress. MEDICAL HISTORY : None. SURGICAL HISTORY : Thoracic fusion. ORIF left humerus. Left frontotemporal craniotomy with fixation of depressed skull. ENCOUNTER: Subsequent ACUITY: 2 weeks PAIN SCORE: Non-responsive. LOCATION: Bilateral chest FINDINGS: Tracheostomy tube and right subclavian central venous catheter noted. There is patchy bilateral conso lidation greatest in the left lower lobe, unchanged. A small cavitary lesion in the right upper lung measuring 1.8 cm is identified. CONCLUSION: Bilateral infiltrates are again seen with a right cavitary focus identified. Roderick Wynn MD on December 08, 2017 at 6:28 Board Certified Radiologist. This report was verified electronically.
[2017-12-08 06:42] LABS: ALBUMIN 1.5 GM/DL (3.4-5.0); AST (GOT) 30 U/L (15-37); BICARBONATE 31.8 MEQ/L (21.0-32.0); BLOOD UREA NITROGEN 5 MG/DL (7-18); CALCIUM 7.5 MG/DL (8.5-10.1); CHLORIDE 103 MEQ/L (98-107); CREATININE 0.44 MG/DL (0.60-1.30); GLOMERULAR FILTRATION RATE 223 ML/MIN (>89); GLUCOSE,RANDOM 112 MG/DL (74-106); SODIUM (NA) 142 MEQ/L (136-145)
[2017-12-08 06:44] LABS: ALT (GPT) 35 U/L (12-78)
[2017-12-08 06:46] LABS: ALKALINE PHOSPHATASE 170 U/L (45-117); TOTAL BILIRUBIN ADULT 0.7 MG/DL (0.2-1.0); TOTAL PROTEIN 5.4 GM/DL (6.4-8.2)
[2017-12-08] MEDS: cefTRIAXone INJ 2,000 MG in SODIUM CHLORIDE 0.9% INJ 100 ML IV SCH ×2 (07:44→20:51)
[2017-12-08] MEDS: CHLORHEXIDINE 0.12% (ORAL KIT) 15 ML CUP MT SCH ×2 (07:45→20:51)
[2017-12-08 08:06] LABS: BANDS 6 % (0-6); LYMPHOCYTES 6 % (9-44); METAMYELOCYTES 1 % (0-1); MONOCYTES 7 % (0-8); MYELOCYTES 2 % (0-0); NEUTROPHIL # MANUAL DIFF 9.8 TH/MM3 (1.8-7.7); POLYS (SEG NEUTROPHILS) 77 % (16-70)
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
[2017-12-08] MEDS: MIDAZOLAM 100 MG/100 ML INJ 100 ML IV PRN ×2 (08:33→19:43)
[2017-12-08] MEDS: BACITRACIN TOP OINT 15 GM TUBE TOPICAL SCH ×2 (09:00→20:51)
[2017-12-08] MEDS: MAGNESIUM HYDROXIDE SUSP 30 ML CUP PO SCH ×2 (09:06→20:51)
[2017-12-08] MEDS: FAMOTIDINE 20 MG TAB PO SCH ×2 (09:07→20:51)
[2017-12-08] MEDS: QUEtiapine FUMARATE 25 MG TAB PO SCH ×3 (09:07→17:09)
[2017-12-08] MEDS: VALPROIC ACID SYRUP 250 MG/5 ML UDC PO SCH ×2 (09:07→20:53)
[2017-12-08] MEDS: LEVOFLOXACIN 750 MG TAB PO SCH (09:07)
[2017-12-08] MEDS: DOCUSATE SODIUM 50 MG/SENNA 8.6 MG TAB PO SCH ×2 (09:07→20:52)
[2017-12-08] MEDS: CHOLECALCIFEROL (VIT D3) 1000 UNIT TAB PO SCH (09:07)
[2017-12-08] MEDS: LIDOCAINE HCL 5% PATCH T-DERMAL SCH (09:08)
[2017-12-08] MEDS: ENOXAPARIN SODIUM 100 MG/ML SYRINGE SQ SCH ×2 (09:08→20:52)
[2017-12-08] MEDS: BACITRACIN OPHT OINT 3.5 GM TUBO SCH ×2 (09:09→20:53)
[2017-12-08] MEDS: ARTIFICIAL TEARS OPTH OINT 3.5 APPLIC/3.5 GM TUBO RIGHT EYE SCH ×3 (09:10→18:20)
[2017-12-08] MEDS: BENEPROTEIN POWDER 1 PACK G-TUBE SCH ×3 (09:11→17:10)
[2017-12-08] MEDS: SODIUM CHLORIDE 0.9% FLUSH 10 ML FLUSH IV FLUSH SCH ×2 (09:11→20:51)
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
[2017-12-08] MEDS: POTASSIUM CHLOR 40 MEQ PREMIX 100 ML IV PRN ×2 (10:39→18:33)
[2017-12-08] MEDS ORDERED: METHADONE HCL 10 MG/10 ML ORAL SOLUTION PEG ONE (11:15)
[2017-12-08] MEDS ORDERED: FUROSEMIDE 20 MG/2 ML VIAL IV PUSH ONE (11:15)
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
[2017-12-08 12:13] LABS: BACTERIA, URINE RARE /hpf; BILIRUBIN, URINE NEG (NEG); BLOOD, URINE NEG (NEG); GLUCOSE,URINE NEG (NEG); KETONE, URINE 10 mg/dL (NEG); MUCUS URINE FEW /lpf (OCC); NITRITE,URINE NEG (NEG); URINE COLOR YELLOW (YELLW/STRAW); URINE LEUKOCYTE ESTERASE TRACE (NEG)
[2017-12-08] MEDS: TOBRAMYCIN 0.3%/DEXAMETHASONE 0.1% OPHT SUSP 5 ML BTL LEFT EYE SCH ×3 (12:43→20:53)
[2017-12-08] MEDS: chlordiazePOXIDE 25 MG CAP G-TUBE SCH ×2 (13:31→20:51)
[2017-12-08] MEDS ORDERED: VECURONIUM BROMIDE 10 MG VIAL IV PUSH ONE (14:15)
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
[2017-12-08] MEDS: SODIUM CHLOR 0.9% 1000 ML INJ 1,000 ML IV SCH (16:17)
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
[2017-12-08] MEDS: ACETAMINOPHEN 1000 MG/100 ML 100 ML IV PRN (19:42)
[2017-12-08] MEDS: SULFAMETHOXAZOLE-TRIMETHOPRIM 400-80 MG TAB PO SCH (20:51)
[2017-12-08] MEDS: EPOPROSTENOL NEB SOLUTION 40 NG/KG/MIN 100 ML NEB SCH ×2 (22:04)
[2017-12-09] VITALS (16 sets, daily range): BP systolic 91–140; BP diastolic 50–85; PULSE 73–135; RESP 16–17; TEMP 98.1–101.6; O2SAT 94–100
[2017-12-09] MEDS: metroNIDAZOLE 500 MG TAB PO SCH ×4 (00:23→23:51)
[2017-12-09] MEDS: TOBRAMYCIN 0.3%/DEXAMETHASONE 0.1% OPHT SUSP 5 ML BTL LEFT EYE SCH ×7 (00:23→23:42)
[2017-12-09] MEDS: fentaNYL DRIP 250 ML IV PRN ×3 (01:18→17:20)
[2017-12-09] MEDS: ACETAMINOPHEN 1000 MG/100 ML 100 ML IV PRN ×2 (01:18→08:30)
[2017-12-09] MEDS: MIDAZOLAM HCL 5 MG/ML VIAL (1 ML) IV PRN ×3 (01:18→16:06)
[2017-12-09] MEDS: ARTIFICIAL TEARS OPTH OINT 3.5 APPLIC/3.5 GM TUBO LEFT EYE SCH ×6 (02:00→21:34)
[2017-12-09] MEDS: HYDROmorphone HCL PF 2 MG/ML VIAL IV PUSH SCH ×6 (03:30→21:15)
[2017-12-09] MEDS: CHLORHEXIDINE GLUCONATE 2 % 1 PACK (2 CLOTHS) TOP SCH (04:00)
[2017-12-09] MEDS: PROPOFOL 1000 MG/100 ML INJ 100 ML IV PRN ×4 (04:11→21:17)
[2017-12-09] MEDS: VANCOMYCIN 1,500 MG/NS 500 ML IV SCH ×4 (04:12→12:03)
--- NOTE | 2017-12-09 05:03 | RADRPT ---
EXAM DATE/TIME: 12/09/2017 04:10 [place] COMPARISON: CHEST SINGLE AP, December 08, 2017, 5:49. INDICATIONS : Respiratory distress. MEDICAL HISTORY : None. SURGICAL HISTORY : Thoracic fusion. ORIF left humerus. Left frontotemporal craniotomy with fixation of depressed skull. ENCOUNTER: Subsequent ACUITY: 2 weeks PAIN SCORE: Non-responsive. LOCATION: Bilateral chest FINDINGS: Tracheostomy tube is present in satisfactory position. Right subclavian line is present with tip over lapping the expected region of the SVC. There is no change in airspace process bilaterally worse in t he right lung and Left basilar opacity is present may be due to a combination of consolidation and or pleural effusion. CONCLUSION: No appreciable change. Alessandra Rai MD on December 09, 2017 at 5:00 Board Certified Radiologist. This report was verified electronically.
[2017-12-09] MEDS: HYDROmorphone HCL PF 2 MG/ML VIAL IV PUSH PRN (05:06)
[2017-12-09] MEDS: chlordiazePOXIDE 25 MG CAP G-TUBE SCH ×3 (05:22→21:16)
[2017-12-09] MEDS: METHOCARBAMOL 500 MG TAB PO SCH ×3 (05:22→21:16)
[2017-12-09] MEDS: METHADONE HCL 10 MG/10 ML ORAL SOLUTION PEG SCH ×2 (05:22→16:07)
[2017-12-09 06:24] LABS: ALBUMIN 1.6 GM/DL (3.4-5.0); ALT (GPT) 45 U/L (12-78); AST (GOT) 40 U/L (15-37); BLOOD UREA NITROGEN 7 MG/DL (7-18); CALCIUM 7.6 MG/DL (8.5-10.1); CHLORIDE 105 MEQ/L (98-107); CREATININE 0.52 MG/DL (0.60-1.30); GLOMERULAR FILTRATION RATE 184 ML/MIN (>89); GLUCOSE,RANDOM 94 MG/DL (74-106); SODIUM (NA) 143 MEQ/L (136-145)
[2017-12-09 06:26] LABS: ALKALINE PHOSPHATASE 229 U/L (45-117); TOTAL BILIRUBIN ADULT 0.7 MG/DL (0.2-1.0)
[2017-12-09] MEDS: MIDAZOLAM 100 MG/100 ML INJ 100 ML IV PRN (06:42)
[2017-12-09] MEDS: EPOPROSTENOL NEB SOLUTION 40 NG/KG/MIN 100 ML NEB SCH ×6 (06:42→23:42)
[2017-12-09 07:17] LABS: AUTOMATED NEUTROPHIL # 8.8 TH/MM3 (1.8-7.7); BASOPHIL # 0.1 TH/MM3 (0-0.2); BASOPHIL % 0.5 % (0.0-2.0); EOSINOPHIL # 0.1 TH/MM3 (0-0.4); HEMATOCRIT 29.5 % (39.0-51.0); HEMOGLOBIN 9.6 GM/DL (13.0-17.0); LYMPH % 10.1 % (9.0-44.0); LYMPHOCYTE # 1.1 TH/MM3 (1.0-4.8); MEAN CELL VOLUME 89.8 FL (80.0-100.0); MEAN CORPUSCULAR HEMOGLOBIN 29.3 PG (27.0-34.0); MEAN CORPUSCULAR HGB CONC 32.7 % (32.0-36.0); MEAN PLATELET VOLUME 7.5 FL (7.0-11.0); MONO % 7.4 % (0.0-8.0); MONOCYTE # 0.8 TH/MM3 (0-0.9); PLATELET COUNT 328 TH/MM3 (150-450); RED BLOOD COUNT 3.28 MIL/MM3 (4.50-5.90); RED CELL DISTRIBUTION WIDTH 14.4 % (11.6-17.2); WHITE BLOOD COUNT 10.9 TH/MM3 (4.0-11.0)
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
[2017-12-09] MEDS: VALPROIC ACID SYRUP 250 MG/5 ML UDC PO SCH ×2 (08:32→21:17)
[2017-12-09] MEDS: MAGNESIUM HYDROXIDE SUSP 30 ML CUP PO SCH ×2 (08:32→21:00)
[2017-12-09] MEDS: cefTRIAXone INJ 2,000 MG in SODIUM CHLORIDE 0.9% INJ 100 ML IV SCH ×2 (08:32→21:16)
[2017-12-09] MEDS: BACITRACIN TOP OINT 15 GM TUBE TOPICAL SCH (08:33)
[2017-12-09] MEDS: ENOXAPARIN SODIUM 100 MG/ML SYRINGE SQ SCH ×2 (08:33→21:16)
[2017-12-09] MEDS: LIDOCAINE HCL 5% PATCH T-DERMAL SCH (08:34)
[2017-12-09] MEDS: LEVOFLOXACIN 750 MG TAB PO SCH (08:34)
[2017-12-09] MEDS: FAMOTIDINE 20 MG TAB PO SCH ×2 (08:35→21:16)
[2017-12-09] MEDS: QUEtiapine FUMARATE 25 MG TAB PO SCH ×4 (08:35→23:51)
[2017-12-09] MEDS: CHOLECALCIFEROL (VIT D3) 1000 UNIT TAB PO SCH (08:35)
[2017-12-09] MEDS: SULFAMETHOXAZOLE-TRIMETHOPRIM 400-80 MG TAB PO SCH ×2 (08:35→21:16)
[2017-12-09] MEDS: DOCUSATE SODIUM 50 MG/SENNA 8.6 MG TAB PO SCH ×2 (08:35→21:00)
[2017-12-09] MEDS: SODIUM CHLORIDE 0.9% FLUSH 10 ML FLUSH IV FLUSH SCH ×2 (08:35→22:50)
[2017-12-09] MEDS: BACITRACIN OPHT OINT 3.5 GM TUBO SCH ×2 (08:35→21:33)
[2017-12-09] MEDS: BENEPROTEIN POWDER 1 PACK G-TUBE SCH ×3 (08:36→16:53)
[2017-12-09] MEDS: CHLORHEXIDINE 0.12% (ORAL KIT) 15 ML CUP MT SCH ×2 (08:36→20:00)
[2017-12-09] MEDS: ARTIFICIAL TEARS OPTH OINT 3.5 APPLIC/3.5 GM TUBO RIGHT EYE SCH ×3 (09:00→18:00)
[2017-12-09] MEDS: METOCLOPRAMIDE HCL 10 MG/2 ML VIAL IV PUSH SCH ×3 (11:21→21:15)
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
[2017-12-09] MEDS: ERGOCALCIFEROL (VIT D2) 50,000 UNIT CAP PO SCH (14:00)
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
[2017-12-09] MEDS: NYSTATIN 100,000 U/GM PWD 15 GM BTL TOPICAL SCH ×2 (14:43→21:33)
[2017-12-09] MEDS: SODIUM CHLOR 0.9% 1000 ML INJ 1,000 ML IV SCH (15:00)
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
--- NOTE | 2017-12-09 18:02 | HHI.PR ---
Subjective Remarks Pt intubated/sedated. Fevers overnight. Objective Vital Signs Date Time Temp Pulse Resp B/P (MAP) Pulse Ox O2 Delivery O2 Flow Rate FiO2 12/09/17 16:52 16 12/09/17 16:52 16 12/09/17 16:45 100 35 12/09/17 16:00 35 12/09/17 16:00 100.4 135 17 140/85 (103) 95 12/09/17 16:00 135 12/09/17 14:00 74 12/09/17 12:13 94 35 12/09/17 12:00 73 12/09/17 12:00 35 12/09/17 12:00 98.1 73 16 91/50 (64) 95 12/09/17 10:00 80 12/09/17 08:00 100 35 12/09/17 08:00 98 12/09/17 08:00 35 12/09/17 08:00 101.6 98 16 121/64 (83) 100 12/09/17 07:00 98 Mechanical Ventilator 35 12/09/17 06:56 17 12/09/17 06:00 92 12/09/17 04:00 35 12/09/17 04:00 101.5 113 17 115/59 (77) 100 12/09/17 04:00 113 12/09/17 03:31 100 35 12/09/17 03:09 16 12/09/17 02:00 89 12/09/17 00:00 100.4 96 16 111/54 (73) 100 12/09/17 00:00 35 12/09/17 00:00 97 12/08/17 23:56 100 35 12/08/17 22:00 86 12/08/17 20:29 96 40 12/08/17 20:00 100 12/08/17 20:00 102.1 100 16 111/54 (73) 99 12/08/17 20:00 35 12/08/17 19:00 98 Mechanical Ventilator 35 I/O 12/08/17 12/08/17 12/08/17 12/09/17 12/09/17 12/09/17 07:00 15:00 23:00 07:00 15:00 23:00 Intake Total 2162 ml 1581 ml 2734 ml 2840 ml 1150 ml 100 ml Output Total 3400 ml 2700 ml 1300 ml Balance -1238 ml 1581 ml 34 ml 1540 ml 1150 ml 100 ml Intake IV Total 1638 ml 1581 ml 1934 ml 2113 ml 1150 ml 100 ml Tube Feeding 374 ml 340 ml 227 ml Other 150 ml 460 ml 500 ml Output Urine Total 3400 ml 2550 ml 700 ml Stool Total 0 ml 150 ml 600 ml Tube Feeding Residual Discard 0 ml Result Diagram: 12/09/1752212/09/17522 Objective Remarks PERRLA L tarsorrhaphy suture in place L eyebrow incision well apposed coronal Incision well apposed No signs infection MMF elastics in place Chemosis patch in place LUE splint in place digits w/ excellent cap refill x 5 Assessment and Plan Problem List: (1) Multiple facial bone fractures ICD Codes: S02.92XA - Unspecified fracture of facial bones, initial encounter for closed fracture Status: Acute Assessment and Plan 32-year-old male with multiple injuries including skull fractures, left humerus fracture, L 1st CMC fracture, and multiple facial fractures Facial incisions well apposed Please maintain left hand elevated above heart Please continue Lacri-Lube to eyes and keep L eye covered per Ophtho recs Will d/c LUE splint late next week Problem Qualifiers (1) Multiple facial bone fractures: Qualified Codes: S02.92XB - Unspecified fracture of facial bones, initial encounter for open fracture Dagoberto Blum MD Dec 09, 2017 18:02
[2017-12-10] VITALS (18 sets, daily range): BP systolic 90–119; BP diastolic 46–59; PULSE 76–116; RESP 16–18; TEMP 99.5–101.4; O2SAT 96–100
[2017-12-10] MEDS: ARTIFICIAL TEARS OPTH OINT 3.5 APPLIC/3.5 GM TUBO LEFT EYE SCH ×6 (02:00→20:44)
[2017-12-10] MEDS: HYDROmorphone HCL PF 2 MG/ML VIAL IV PUSH SCH ×6 (02:55→21:51)
[2017-12-10] MEDS: fentaNYL DRIP 250 ML IV PRN ×3 (02:55→18:19)
[2017-12-10] MEDS: TOBRAMYCIN 0.3%/DEXAMETHASONE 0.1% OPHT SUSP 5 ML BTL LEFT EYE SCH ×5 (04:00→20:35)
[2017-12-10] MEDS: EPOPROSTENOL NEB SOLUTION 40 NG/KG/MIN 100 ML NEB SCH ×2 (04:00)
[2017-12-10] MEDS: CHLORHEXIDINE GLUCONATE 2 % 1 PACK (2 CLOTHS) TOP SCH (04:00)
[2017-12-10 04:04] LABS: AUTOMATED NEUTROPHIL # 4.5 TH/MM3 (1.8-7.7); BASOPHIL # 0.1 TH/MM3 (0-0.2); BASOPHIL % 1.8 % (0.0-2.0); EOSINOPHIL # 0.1 TH/MM3 (0-0.4); EOSINOPHIL % 1.4 % (0.0-4.0); HEMOGLOBIN 7.4 GM/DL (13.0-17.0); LYMPH % 12.9 % (9.0-44.0); LYMPHOCYTE # 0.8 TH/MM3 (1.0-4.8); MEAN CELL VOLUME 89.3 FL (80.0-100.0); MEAN CORPUSCULAR HEMOGLOBIN 30.3 PG (27.0-34.0); MEAN CORPUSCULAR HGB CONC 33.9 % (32.0-36.0); MEAN PLATELET VOLUME 7.5 FL (7.0-11.0); MONO % 8.9 % (0.0-8.0); MONOCYTE # 0.5 TH/MM3 (0-0.9); PLATELET COUNT 286 TH/MM3 (150-450); RED BLOOD COUNT 2.46 MIL/MM3 (4.50-5.90); RED CELL DISTRIBUTION WIDTH 14.8 % (11.6-17.2)
[2017-12-10 04:46] LABS: ALBUMIN 1.3 GM/DL (3.4-5.0); AST (GOT) 29 U/L (15-37); BICARBONATE 33.8 MEQ/L (21.0-32.0); BLOOD UREA NITROGEN 9 MG/DL (7-18); CALCIUM 7.7 MG/DL (8.5-10.1); CHLORIDE 106 MEQ/L (98-107); CREATININE 0.45 MG/DL (0.60-1.30); GLOMERULAR FILTRATION RATE 218 ML/MIN (>89); GLUCOSE,RANDOM 107 MG/DL (74-106); SODIUM (NA) 146 MEQ/L (136-145)
[2017-12-10 04:51] LABS: ALKALINE PHOSPHATASE 189 U/L (45-117); ALT (GPT) 33 U/L (12-78); TOTAL BILIRUBIN ADULT 0.4 MG/DL (0.2-1.0); TOTAL PROTEIN 5.1 GM/DL (6.4-8.2)
[2017-12-10] MEDS: METHADONE HCL 10 MG/10 ML ORAL SOLUTION PEG SCH ×2 (05:00→17:00)
[2017-12-10] MEDS: METOCLOPRAMIDE HCL 10 MG/2 ML VIAL IV PUSH SCH ×3 (06:00→20:45)
--- NOTE | 2017-12-10 06:04 | RADRPT ---
EXAM DATE/TIME: 12/10/2017 05:23 [facility] COMPARISON: CHEST SINGLE AP, December 09, 2017, 4:10. INDICATIONS : ARDS. MEDICAL HISTORY : None. SURGICAL HISTORY : Thoracic fusion. ORIF left humerus. Left frontotemporal craniotomy with fixation of depressed skull ENCOUNTER: Subsequent ACUITY: 2 weeks PAIN SCORE: Non-responsive. LOCATION: Bilateral chest FINDINGS: There is no appreciable change in bilateral mainly alveolar process in the lungs. Left basilar opacit y is present may be due to a combination of consolidation and or pleural effusion. Lines and tubes ar e present not significantly changed. CONCLUSION: No appreciable change. Alessandra Rai MD on December 10, 2017 at 6:02 Board Certified Radiologist. This report was verified electronically.
[2017-12-10] MEDS: METHOCARBAMOL 500 MG TAB PO SCH ×3 (06:20→20:44)
[2017-12-10] MEDS: chlordiazePOXIDE 25 MG CAP G-TUBE SCH ×3 (06:20→21:51)
[2017-12-10] MEDS: PROPOFOL 1000 MG/100 ML INJ 100 ML IV PRN ×2 (06:49→13:11)
[2017-12-10] MEDS: MIDAZOLAM 100 MG/100 ML INJ 100 ML IV PRN ×2 (06:49→18:20)
[2017-12-10] MEDS: LIDOCAINE HCL 5% PATCH T-DERMAL SCH (08:38)
[2017-12-10] MEDS: VALPROIC ACID SYRUP 250 MG/5 ML UDC PO SCH ×2 (08:39→20:44)
[2017-12-10] MEDS: MAGNESIUM HYDROXIDE SUSP 30 ML CUP PO SCH ×2 (08:39→20:32)
[2017-12-10] MEDS: FAMOTIDINE 20 MG TAB PO SCH ×2 (08:40→20:44)
[2017-12-10] MEDS: cefTRIAXone INJ 2,000 MG in SODIUM CHLORIDE 0.9% INJ 100 ML IV SCH (08:40)
[2017-12-10] MEDS: CHOLECALCIFEROL (VIT D3) 1000 UNIT TAB PO SCH (08:40)
[2017-12-10] MEDS: DOCUSATE SODIUM 50 MG/SENNA 8.6 MG TAB PO SCH ×2 (08:40→20:44)
[2017-12-10] MEDS: metroNIDAZOLE 500 MG TAB PO SCH ×2 (08:40→17:47)
[2017-12-10] MEDS: QUEtiapine FUMARATE 25 MG TAB PO SCH ×3 (08:40→18:00)
[2017-12-10] MEDS: LEVOFLOXACIN 750 MG TAB PO SCH (08:40)
[2017-12-10] MEDS: BACITRACIN TOP OINT 15 GM TUBE TOPICAL SCH ×2 (08:41→20:45)
[2017-12-10] MEDS: BACITRACIN OPHT OINT 3.5 GM TUBO SCH ×2 (08:41→20:35)
[2017-12-10] MEDS: CHLORHEXIDINE 0.12% (ORAL KIT) 15 ML CUP MT SCH ×2 (08:41→20:35)
[2017-12-10] MEDS: ENOXAPARIN SODIUM 100 MG/ML SYRINGE SQ SCH ×2 (08:41→20:45)
[2017-12-10] MEDS: ARTIFICIAL TEARS OPTH OINT 3.5 APPLIC/3.5 GM TUBO RIGHT EYE SCH ×3 (08:42→17:48)
[2017-12-10] MEDS: BENEPROTEIN POWDER 1 PACK G-TUBE SCH ×3 (08:42→17:48)
[2017-12-10] MEDS: SODIUM CHLORIDE 0.9% FLUSH 10 ML FLUSH IV FLUSH SCH ×2 (08:42→20:36)
[2017-12-10] MEDS: NYSTATIN 100,000 U/GM PWD 15 GM BTL TOPICAL SCH ×2 (08:43→20:46)
[2017-12-10] MEDS: SULFAMETHOXAZOLE-TRIMETHOPRIM 400-80 MG TAB PO SCH ×2 (09:00→17:47)
[2017-12-10] MEDS ORDERED: POTASSIUM CHLORIDE 25 MEQ EFFERVESCENT TAB PO ONE (09:30)
[2017-12-10] MEDS ORDERED: FUROSEMIDE 20 MG/2 ML VIAL IV PUSH ONE (09:30)
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
[2017-12-10] MEDS: EPOPROSTENOL NEB SOLUTION 20 NG/KG/MIN 100 ML NEB SCH ×4 (11:45→20:10)
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
[2017-12-10] MEDS: CEFEPIME INJ 2,000 MG in SODIUM CHLORIDE 0.9% INJ 100 ML IV SCH ×2 (13:11→20:44)
[2017-12-10] MEDS: ACETAMINOPHEN 1000 MG/100 ML 100 ML IV PRN ×2 (13:11→21:50)
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
[2017-12-10] MEDS: SODIUM CHLOR 0.9% 1000 ML INJ 1,000 ML IV SCH (15:00)
[2017-12-11] VITALS (16 sets, daily range): BP systolic 94–161; BP diastolic 45–91; PULSE 74–118; RESP 15–20; TEMP 98.6–100.8; O2SAT 93–100
[2017-12-11] MEDS: metroNIDAZOLE 500 MG TAB PO SCH ×3 (01:42→17:00)
[2017-12-11] MEDS: ARTIFICIAL TEARS OPTH OINT 3.5 APPLIC/3.5 GM TUBO LEFT EYE SCH ×6 (01:42→22:00)
[2017-12-11] MEDS: SULFAMETHOXAZOLE-TRIMETHOPRIM 400-80 MG TAB PO SCH ×3 (01:42→17:19)
[2017-12-11] MEDS: HYDROmorphone HCL PF 2 MG/ML VIAL IV PUSH SCH ×6 (02:20→23:00)
[2017-12-11] MEDS: fentaNYL DRIP 250 ML IV PRN ×3 (03:10→21:01)
[2017-12-11] MEDS: PROPOFOL 1000 MG/100 ML INJ 100 ML IV PRN ×3 (03:45→19:30)
[2017-12-11] MEDS: TOBRAMYCIN 0.3%/DEXAMETHASONE 0.1% OPHT SUSP 5 ML BTL LEFT EYE SCH ×6 (04:00→20:36)
[2017-12-11] MEDS: CHLORHEXIDINE GLUCONATE 2 % 1 PACK (2 CLOTHS) TOP SCH (04:00)
[2017-12-11] MEDS: EPOPROSTENOL NEB SOLUTION 20 NG/KG/MIN 100 ML NEB SCH ×2 (04:19)
[2017-12-11] MEDS: CEFEPIME INJ 2,000 MG in SODIUM CHLORIDE 0.9% INJ 100 ML IV SCH ×3 (04:19→21:00)
[2017-12-11 05:25] LABS: AUTOMATED NEUTROPHIL # 5.6 TH/MM3 (1.8-7.7); BASOPHIL % 0.6 % (0.0-2.0); EOSINOPHIL # 0.1 TH/MM3 (0-0.4); EOSINOPHIL % 1.5 % (0.0-4.0); HEMATOCRIT 22.1 % (39.0-51.0); HEMOGLOBIN 7.2 GM/DL (13.0-17.0); LYMPH % 13.6 % (9.0-44.0); MEAN CELL VOLUME 90.2 FL (80.0-100.0); MEAN CORPUSCULAR HEMOGLOBIN 29.4 PG (27.0-34.0); MEAN CORPUSCULAR HGB CONC 32.6 % (32.0-36.0); MEAN PLATELET VOLUME 7.7 FL (7.0-11.0); MONO % 7.3 % (0.0-8.0); MONOCYTE # 0.5 TH/MM3 (0-0.9); PLATELET COUNT 283 TH/MM3 (150-450); RED BLOOD COUNT 2.45 MIL/MM3 (4.50-5.90); RED CELL DISTRIBUTION WIDTH 14.8 % (11.6-17.2); WHITE BLOOD COUNT 7.3 TH/MM3 (4.0-11.0)
[2017-12-11] MEDS: METHOCARBAMOL 500 MG TAB PO SCH ×3 (05:46→21:44)
[2017-12-11] MEDS: chlordiazePOXIDE 25 MG CAP G-TUBE SCH ×3 (05:46→21:44)
[2017-12-11] MEDS: METOCLOPRAMIDE HCL 10 MG/2 ML VIAL IV PUSH SCH ×3 (05:46→21:45)
[2017-12-11] MEDS: METHADONE HCL 10 MG/10 ML ORAL SOLUTION PEG SCH ×2 (05:47→17:00)
[2017-12-11 05:52] LABS: ALBUMIN 1.5 GM/DL (3.4-5.0); AST (GOT) 24 U/L (15-37); BICARBONATE 30.2 MEQ/L (21.0-32.0); BLOOD UREA NITROGEN 11 MG/DL (7-18); CALCIUM 7.8 MG/DL (8.5-10.1); CHLORIDE 109 MEQ/L (98-107); GLOMERULAR FILTRATION RATE 193 ML/MIN (>89); GLUCOSE,RANDOM 110 MG/DL (74-106); SODIUM (NA) 144 MEQ/L (136-145)
[2017-12-11 05:54] LABS: ALKALINE PHOSPHATASE 177 U/L (45-117); ALT (GPT) 31 U/L (12-78); TOTAL BILIRUBIN ADULT 0.3 MG/DL (0.2-1.0); TOTAL PROTEIN 5.4 GM/DL (6.4-8.2)
[2017-12-11 06:20] LABS: BANDS 13 % (0-6); LYMPHOCYTES 9 % (9-44); MONOCYTES 5 % (0-8); MYELOCYTES 3 % (0-0); NEUTROPHIL # MANUAL DIFF 6.1 TH/MM3 (1.8-7.7); POLYS (SEG NEUTROPHILS) 66 % (16-70); PROMYELOCYTES 1 % (0-0)
[2017-12-11 06:21] LABS: TOXIC GRANULATION 1+ (NORMAL)
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
[2017-12-11] MEDS: CHLORHEXIDINE 0.12% (ORAL KIT) 15 ML CUP MT SCH ×2 (08:00→20:00)
[2017-12-11] MEDS: MIDAZOLAM 100 MG/100 ML INJ 100 ML IV PRN (08:44)
[2017-12-11] MEDS: MAGNESIUM HYDROXIDE SUSP 30 ML CUP PO SCH ×2 (08:45→21:45)
[2017-12-11] MEDS: ENOXAPARIN SODIUM 100 MG/ML SYRINGE SQ SCH ×2 (08:45→21:45)
[2017-12-11] MEDS: CHOLECALCIFEROL (VIT D3) 1000 UNIT TAB PO SCH (08:46)
[2017-12-11] MEDS: DOCUSATE SODIUM 50 MG/SENNA 8.6 MG TAB PO SCH ×2 (08:46→21:44)
[2017-12-11] MEDS: FAMOTIDINE 20 MG TAB PO SCH ×2 (08:46→21:44)
[2017-12-11] MEDS: VALPROIC ACID SYRUP 250 MG/5 ML UDC PO SCH ×2 (08:46→20:34)
[2017-12-11] MEDS: LEVOFLOXACIN 750 MG TAB PO SCH (08:46)
[2017-12-11] MEDS: BACITRACIN OPHT OINT 3.5 GM TUBO SCH ×2 (08:47→20:37)
[2017-12-11] MEDS: QUEtiapine FUMARATE 25 MG TAB PO SCH ×3 (08:47→17:26)
[2017-12-11] MEDS: BENEPROTEIN POWDER 1 PACK G-TUBE SCH ×3 (08:47→17:26)
[2017-12-11] MEDS: SODIUM CHLORIDE 0.9% FLUSH 10 ML FLUSH IV FLUSH SCH ×2 (08:47→21:00)
[2017-12-11] MEDS: ARTIFICIAL TEARS OPTH OINT 3.5 APPLIC/3.5 GM TUBO RIGHT EYE SCH ×3 (08:48→17:26)
[2017-12-11] MEDS: NYSTATIN 100,000 U/GM PWD 15 GM BTL TOPICAL SCH ×2 (08:50→21:00)
[2017-12-11] MEDS: BACITRACIN TOP OINT 15 GM TUBE TOPICAL SCH ×2 (08:50→20:37)
[2017-12-11] MEDS: LIDOCAINE HCL 5% PATCH T-DERMAL SCH (08:50)
[2017-12-11] MEDS: ACETAMINOPHEN 1000 MG/100 ML 100 ML IV PRN (11:14)
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
--- NOTE | 2017-12-11 19:03 | HHI.PR ---
Addendum to Inpatient Note Additional Information Seen around 1200 Full note to follow Rocio Vargas MD Dec 11, 2017 19:03
--- NOTE | 2017-12-11 23:14 | HHI.IDPN ---
Subjective Subjective Remarks ID [id number] cover for Dr Devine chart reviewd febrile Less < [address] while on [place] bed Antibiotics Ceftriaxone q12hrs TS Flagyl oral Levaquin Lines Line sites with no e.o infection Past Medical History reviewed Allergies: Coded Allergies: No Known Allergies (Unverified , 11/23/17) Objective . Vital Signs Date Time Temp Pulse Resp B/P (MAP) Pulse Ox O2 Delivery O2 Flow Rate FiO2 12/11/17 19:34 98 30 12/11/17 18:00 79 12/11/17 17:49 30 12/11/17 16:53 99 30 12/11/17 16:00 98.6 76 17 99/52 (68) 97 12/11/17 16:00 76 12/11/17 16:00 30 12/11/17 14:00 77 12/11/17 12:00 87 12/11/17 12:00 100.8 87 20 109/55 (73) 93 12/11/17 12:00 30 12/11/17 11:07 96 30 12/11/17 10:00 80 12/11/17 08:40 95 30 12/11/17 08:40 30 12/11/17 08:40 98 Ventilator 30 12/11/17 08:00 81 12/11/17 08:00 100.6 80 15 95/45 (62) 97 12/11/17 08:00 30 12/11/17 07:00 100 Mechanical Ventilator 30 12/11/17 04:10 100 30 12/11/17 02:50 17 12/11/17 02:00 77 12/11/17 00:00 99.0 74 16 94/51 (65) 96 12/11/17 00:00 74 12/11/17 00:00 30 12/10/17 23:28 96 30 12/11/17 12/11/17 12/12/17 15:00 23:00 07:00 Intake Total 19.2 ml 157 ml Output Total 0 ml 2075 ml Balance 19.2 ml -1918 ml Intake IV Total 19.2 ml 157 ml Output Urine Total 1975 ml Stool Total 100 ml Tube Feeding Residual Discard 0 ml 0 ml . Laboratory Tests Test 12/10/17 03:25 12/11/17 04:45 White Blood Count 6.0 TH/MM3 7.3 TH/MM3 Red Blood Count 2.46 MIL/MM3 2.45 MIL/MM3 Hemoglobin 7.4 GM/DL 7.2 GM/DL Hematocrit 22.0 % 22.1 % Mean Corpuscular Volume 89.3 FL 90.2 FL Mean Corpuscular Hemoglobin 30.3 PG 29.4 PG Mean Corpuscular Hemoglobin Concent 33.9 % 32.6 % Red Cell Distribution Width 14.8 % 14.8 % Platelet Count 286 TH/MM3 283 TH/MM3 Mean Platelet Volume 7.5 FL 7.7 FL Neutrophils (%) (Auto) 75.0 % 77.0 % Lymphocytes (%) (Auto) 12.9 % 13.6 % Monocytes (%) (Auto) 8.9 % 7.3 % Eosinophils (%) (Auto) 1.4 % 1.5 % Basophils (%) (Auto) 1.8 % 0.6 % Neutrophils # (Auto) 4.5 TH/MM3 5.6 TH/MM3 Lymphocytes # (Auto) 0.8 TH/MM3 1.0 TH/MM3 Monocytes # (Auto) 0.5 TH/MM3 0.5 TH/MM3 Eosinophils # (Auto) 0.1 TH/MM3 0.1 TH/MM3 Basophils # (Auto) 0.1 TH/MM3 0.0 TH/MM3 CBC Comment DIFF FINAL AUTO DIFF Differential Comment FINAL DIFF MANUAL Differential Total Cells Counted 100 Neutrophils % (Manual) 66 % Band Neutrophils % 13 % Lymphocytes % 9 % Monocytes % 5 % Eosinophils % 3 % Neutrophils # (Manual) 6.1 TH/MM3 Myelocytes 3 % Promyelocytes 1 % Toxic Granulation 1+ Platelet Estimate NORMAL Platelet Morphology Comment NORMAL Basophilic Stippling FAINT Laboratory Tests Test 12/10/17 03:25 12/11/17 04:45 Blood Urea Nitrogen 9 MG/DL 11 MG/DL Creatinine 0.45 MG/DL 0.50 MG/DL Random Glucose 107 MG/DL 110 MG/DL Total Protein 5.1 GM/DL 5.4 GM/DL Albumin 1.3 GM/DL 1.5 GM/DL Calcium Level 7.7 MG/DL 7.8 MG/DL Alkaline Phosphatase 189 U/L 177 U/L Aspartate Amino Transf (AST/SGOT) 29 U/L 24 U/L Alanine Aminotransferase (ALT/SGPT) 33 U/L 31 U/L Total Bilirubin 0.4 MG/DL 0.3 MG/DL Sodium Level 146 MEQ/L 144 MEQ/L Potassium Level 3.5 MEQ/L 4.1 MEQ/L Chloride Level 106 MEQ/L 109 MEQ/L Carbon Dioxide Level 33.8 MEQ/L 30.2 MEQ/L Anion Gap 6 MEQ/L 5 MEQ/L Estimat Glomerular Filtration Rate 218 ML/MIN 193 ML/MIN Imaging Last Impressions Chest X-Ray 12/10/17 0600 Signed Impressions: Service Date/Time: Sunday, December 10, 2017 05:23 - CONCLUSION: No appreciable change. Alessandra Rai MD CT Angiography 12/03/17 0000 Signed Impressions: Service Date/Time: Sunday, December 03, 2017 04:58 - CONCLUSION: 1. Positive for pulmonary emboli noted on the right side. 2. Basilar and dependent lung consolidation with bilateral pleural effusions, left greater than right. Dave Horton MD Lower Extremity Ultrasound 12/02/17 0000 Signed Impressions: Service Date/Time: Saturday, December 02, 2017 19:46 - CONCLUSION: No evidence of DVT. No significant change compared to the prior study. Lucas Vidales MD Humerus X-Ray 12/02/17 0000 Signed Impressions: Service Date/Time: Saturday, December 02, 2017 12:29 - CONCLUSION: Anatomic alignment with hardware in good position. Tyrel Davison MD FACR Thoracolumbar Spine 12/01/17 0000 Signed Impressions: Service Date/Time: November 08:39 - CONCLUSION: Posterior fusion hardware extends from T10 through L2 and is in good position. Stable T12 compression deformity. Kristian Ford MD Thoracic Spine X-Ray 12/01/17 0000 Signed Impressions: Service Date/Time: November 08:39 - CONCLUSION: Surgical instruments are noted posteriorly extending from T10 through L2. Moderate compression deformity involving T12. Kristian Ford MD Hand X-Ray 12/01/17 0000 Signed Impressions: Service Date/Time: November 06:59 - CONCLUSION: Displaced fracture proximal shaft proximal phalanx first digit. Sancho Messina MD Multiplanar Reconstruction 11/30/17 1024 Signed Impressions: Service Date/Time: Thursday, November 30, 2017 09:53 - CONCLUSION: Improvement as above. Tyrel Davison MD FACR Maxillofacial CT 11/30/17 0800 Signed Impressions: Service Date/Time: Thursday, November 30, 2017 09:52 - CONCLUSION: Postop repair as above with significant improvement in alignment. 3-D recon is pending. Tyrel Davison MD FACR Thoracic Spine MRI 11/25/17 0600 Signed Impressions: Service Date/Time: Saturday, November 25, 2017 10:58 - CONCLUSION: 1. Moderate burst type fracture again noted involving T12 with retropulsion with mass effect on the anterior thecal sac and no epidural hematoma. 2. Mild endplate fracture of T11 again noted. 3. No additional fractures or malalignment. Emerson Carrera MD Head CT 11/24/1713 Signed Impressions: Service Date/Time: November 10:00 - CONCLUSION: 1. Evolving focal right frontal contusion without hemorrhage. 2. Redemonstration of multiple bilateral skull and numerous facial bone fractures with hemorrhage in the paranasal sinuses. Zenon Mariano MD Pelvis X-Ray 11/23/172308 Signed Impressions: Service Date/Time: Thursday, November 23, 2017 22:48 - CONCLUSION: Unremarkable examination of the pelvis. Dave Horton MD Thoracic Spine CT 11/23/172252 Signed Impressions: Service Date/Time: Thursday, November 23, 2017 23:18 - CONCLUSION: 1. At T12 there is a burst fracture with retropulsion resulting in mild to moderate stenosis and fracture extending into the posterior elements. 2. At T11 there is a mild endplate fracture superiorly with fractures extending posteriorly into the posterior elements and facet joints at T11-12. Dave Horton MD Lumbar Spine CT 11/23/172252 Signed Impressions: Service Date/Time: Thursday, November 23, 2017 23:21 - CONCLUSION: 1. Fractures through the left transverse process of L1 and L2. No lumbar spine vertebral body fractures or subluxation. Dave Horton MD Chest CT 11/23/172252 Signed Impressions: Service Date/Time: Thursday, November 23, 2017 23:21 - CONCLUSION: 1. Small bilateral pneumothoraces. 2. Scattered groundglass opacity in the lungs most characteristic of lung contusions or minimal aspiration. 3. Multiple fractures including burst fracture of T12, superior endplate fracture of T11 and multiple left rib fractures as above. 4. Endotracheal tube and nasogastric tube in good position. Dave Horton MD Cervical Spine CT 11/23/172252 Signed Impressions: Service Date/Time: Thursday, November 23, 2017 23:17 - CONCLUSION: 1. Nondisplaced fractures to the left lateral mass of C3 and C5 extending into the facet joints. No vertebral body fractures. No subluxation. Dave Horton MD Abdomen/Pelvis CT 11/23/172252 Signed Impressions: Service Date/Time: Thursday, November 23, 2017 23:21 - CONCLUSION: 1. Negative for solid visceral injury within the abdomen and pelvis. No free air or free fluid. 2. Small bilateral pneumothoraces. 3. Fractures of the left transverse processes of L1 and L2 and the left anterior fifth through eighth ribs. T11 superior endplate fracture and T12 burst fractures as previously described. 4. Appendicolith without evidence for appendicitis. NG tip in stomach. Clinton catheter in bladder. 5. There is a small amount of air in the left external iliac vein and left femoral vein. Dave Horton MD Radius/Ulna X-Ray 11/23/17 0000 Signed Impressions: Service Date/Time: Thursday, November 23, 2017 22:48 - CONCLUSION: 1. First Metacarpal fracture. No radius and ulna fractures. No dislocation. Dave Horton MD Physical Exam GENERAL: This is a well-nourished, well-developed patient, in no apparent distress. e/o polytrauma ROTAREST BED. SKIN: No rashes, ecchymoses or lesions. Cool and dry. HEAD: Scalp with surgical scars with no e.o infection. e.o trauma. FACE is swollen EYES: No scleral icterus. No injection or drainage. NECK: Trachea midline. Supple, nontender, no meningeal signs. CARDIOVASCULAR: HS audible. RESPIRATORY: Clear to auscultation. Breath sounds equal bilaterally. GASTROINTESTINAL: Abdomen soft, non-tender, nondistended. MUSCULOSKELETAL: Right hand in dressing. Rt leg in dressing. NEUROLOGICAL: Sedated. Per RN when off sedartion follows 4/4 Psych cannot be assessed IV line sites with no e.o infection. Assessment & Plan Remarks Pneumonia: Burkholderia cepacia,Stenotrophomonas and aspiration PNA component. Acute resp failure on vent: Bilateral PE, Pneumonia, Polytrauma. Persistent fevers: PE, Infection. Possible Drug fever. At high risk for meningitis given skull base fractures, orbital fractures. Given persistent fevers would like LP before changing treatment but patient on heparin for bilateral PE. Acute encephalopathy: polytrauma, infection, r.o meningitis. Summary of Polytrauma related injuries: Left frontotemporal open depressed communicated fracture with a left frontoparietal large degloving scalp injury.s/p Left frontotemporal craniotomy for elevation and fixation of the depressed skull and reconstruction of communicated frontal skull base floor fracture. Multiple facial bone fracture as well as bilateral orbital fracture s/o open treatment of complicated communited frontal sinus fracture wire coronal approach. Bilateral open treatment of craniofacial separation of the forte type III. Close treatment of mandibular fracture with interdental fixation. Open treatment of left orbital floor blow fracture periorbital approach. Temporary closure of left eyelid by Umanzor suture Thoracic T12 vertebral burst fracture with retropulsion associated facet fractures with kyphosis, T11 vertebral body compression fracture s/p T12 transpedicular partial corpectomy, posterior T10, T11, T12, L1 and L2 fusion, T10 to L2 pedicle screw fixation, T12 to L1 laminectomy, left iliac crest autograft harvest using a microsurgical technique. Open left humerus shaft fracture s/p irrigation and debridement of open left humerus fracture with open reduction total fixation left humerus shaft fracture Bandemia Fever Recs: Change meningitis coverage to cefepime IV (high risk for strep infection as seen in basilar skull fractures) Continue flagyl for anaerobic coverage given type of facial fractures and risk of meningitis. Change to IV when no OGT/PEG tube. Continue Levaquin IV for Burkholderia cepacia Increase Bactrim dose for Steno malto and Burkholderia. CT head with contrast when fessible Possibly MRI brain dw Rocio Barrientos RN, MD Dec 11, 2017 23:14
[2017-12-12] VITALS (19 sets, daily range): BP systolic 87–115; BP diastolic 45–63; PULSE 70–113; RESP 18–22; TEMP 98.1–100.9; O2SAT 87–100
[2017-12-12] MEDS: metroNIDAZOLE 500 MG TAB PO SCH ×3 (01:00→16:55)
[2017-12-12] MEDS: SULFAMETHOXAZOLE-TRIMETHOPRIM 400-80 MG TAB PO SCH ×3 (01:00→16:55)
[2017-12-12] MEDS: PROPOFOL 1000 MG/100 ML INJ 100 ML IV PRN ×6 (01:00→20:22)
[2017-12-12] MEDS: BACITRACIN TOP OINT 15 GM TUBE TOPICAL SCH ×3 (01:00→20:16)
[2017-12-12] MEDS: ARTIFICIAL TEARS OPTH OINT 3.5 APPLIC/3.5 GM TUBO LEFT EYE SCH ×6 (02:00→20:16)
[2017-12-12] MEDS: RESP: ALBUTEROL 2.5 MG/IPRATROPIUM 0.5 MG NEB (PRN) INH (02:59)
[2017-12-12] MEDS: HYDROmorphone HCL PF 2 MG/ML VIAL IV PUSH SCH ×7 (03:00→22:20)
[2017-12-12 03:52] LABS: AUTOMATED NEUTROPHIL # 8.3 TH/MM3 (1.8-7.7); BASOPHIL # 0.1 TH/MM3 (0-0.2); BASOPHIL % 0.6 % (0.0-2.0); EOSINOPHIL # 0.2 TH/MM3 (0-0.4); EOSINOPHIL % 1.4 % (0.0-4.0); HEMATOCRIT 24.3 % (39.0-51.0); HEMOGLOBIN 8.1 GM/DL (13.0-17.0); LYMPH % 14.5 % (9.0-44.0); LYMPHOCYTE # 1.6 TH/MM3 (1.0-4.8); MEAN CELL VOLUME 90.1 FL (80.0-100.0); MEAN CORPUSCULAR HEMOGLOBIN 30.1 PG (27.0-34.0); MEAN CORPUSCULAR HGB CONC 33.4 % (32.0-36.0); MEAN PLATELET VOLUME 7.8 FL (7.0-11.0); MONO % 6.4 % (0.0-8.0); MONOCYTE # 0.7 TH/MM3 (0-0.9); NEUT % 77.1 % (16.0-70.0); PLATELET COUNT 359 TH/MM3 (150-450); RED CELL DISTRIBUTION WIDTH 15.1 % (11.6-17.2); WHITE BLOOD COUNT 10.7 TH/MM3 (4.0-11.0)
[2017-12-12] MEDS: CHLORHEXIDINE GLUCONATE 2 % 1 PACK (2 CLOTHS) TOP SCH (04:00)
[2017-12-12 04:35] LABS: ALBUMIN 1.6 GM/DL (3.4-5.0); ALT (GPT) 36 U/L (12-78); AST (GOT) 38 U/L (15-37); BICARBONATE 30.1 MEQ/L (21.0-32.0); BLOOD UREA NITROGEN 11 MG/DL (7-18); CALCIUM 7.6 MG/DL (8.5-10.1); CHLORIDE 107 MEQ/L (98-107); CREATININE 0.58 MG/DL (0.60-1.30); GLOMERULAR FILTRATION RATE 162 ML/MIN (>89); GLUCOSE,RANDOM 107 MG/DL (74-106); SODIUM (NA) 142 MEQ/L (136-145)
[2017-12-12] MEDS: METOCLOPRAMIDE HCL 10 MG/2 ML VIAL IV PUSH SCH ×3 (04:36→20:15)
[2017-12-12 04:37] LABS: ALKALINE PHOSPHATASE 199 U/L (45-117); TOTAL BILIRUBIN ADULT 0.3 MG/DL (0.2-1.0); TOTAL PROTEIN 5.6 GM/DL (6.4-8.2)
[2017-12-12] MEDS: CEFEPIME INJ 2,000 MG in SODIUM CHLORIDE 0.9% INJ 100 ML IV SCH ×3 (04:37→20:15)
[2017-12-12] MEDS: SODIUM CHLOR 0.9% 1000 ML INJ 1,000 ML IV SCH ×2 (04:37→15:00)
[2017-12-12 04:42] LABS: BANDS 14 % (0-6); BASOPHILS 1 % (0-2); LYMPHOCYTES 19 % (9-44); METAMYELOCYTES 2 % (0-1); MONOCYTES 5 % (0-8); MYELOCYTES 2 % (0-0); NEUTROPHIL # MANUAL DIFF 7.6 TH/MM3 (1.8-7.7); POLYS (SEG NEUTROPHILS) 53 % (16-70)
[2017-12-12 04:48] LABS: POLYCHROMASIA 2.5 % (0.0-1.9)
[2017-12-12] MEDS: chlordiazePOXIDE 25 MG CAP G-TUBE SCH ×3 (04:55→20:14)
[2017-12-12] MEDS: METHOCARBAMOL 500 MG TAB PO SCH ×3 (04:57→20:14)
[2017-12-12] MEDS: TOBRAMYCIN 0.3%/DEXAMETHASONE 0.1% OPHT SUSP 5 ML BTL LEFT EYE SCH ×6 (04:57→20:16)
[2017-12-12] MEDS ORDERED: LORazepam 2 MG/ML VIAL IV ONE (05:45)
--- NOTE | 2017-12-12 06:58 | PD.ORT.PN ---
Subjective Subjective Remarks Patient is stable with no new changes Objective Vitals Vital Signs Date Time Temp Pulse Resp B/P (MAP) Pulse Ox O2 Delivery O2 Flow Rate FiO2 12/12/17 06:00 76 12/12/17 04:03 88 12/12/17 04:01 90 55 12/12/17 04:00 100.9 87 20 87/45 (59) 90 12/12/17 04:00 55 12/12/17 02:00 113 12/12/17 00:00 81 12/12/17 00:00 100.8 82 19 105/57 (73) 93 12/12/17 00:00 65 18 23:22 95 30 12/11/18 22:00 85 218 20:00 30 18 20:00 78 18 20:00 99.8 118 19 161/91 (114) 98 18 19:34 98 Mechanical Ventilator 30 18 19:34 30 12/11/18 19:34 98 30 12/11/18 19:00 30 12/11/18 19:00 98 Mechanical Ventilator 30 12/11/18 18:00 79 2/18 17:49 30 12/11/18 16:53 99 30 2/18 16:00 98.6 76 17 99/52 (68) 97 18 16:00 76 12/11/18 16:00 30 12/11/18 14:00 77 2/18 12:00 87 2/18/18 12:00 100.8 87 20 109/55 (73) 93 18 12:00 30 12/11/18 11:07 96 30 218/18 10:00 80 2/18/18 08:40 95 30 2/18/18 08:40 30 2/18/18 08:40 98 Ventilator 30 2/18 08:00 81 2/18/18 08:00 100.6 80 15 95/45 (62) 97 18/18 08:00 30 218/18 07:00 100 Mechanical Ventilator 30 I/O 2/18/18 2/18/18 2/18/18 2//18 2//18 2//18 07:00 15:00 23:00 07:00 15:00 23:00 Intake Total 19.2 ml 257 ml 1405 ml Output Total 0 ml 0 ml 2075.0 ml 1550 ml Balance 0 ml 19.2 ml -1818.0 ml -145 ml Intake Oral 0 ml IV Total 19.2 ml 257 ml 722 ml Tube Feeding 623 ml Other 60 ml Output Urine Total 1975 ml 1350 ml Stool Total 100 ml 200 ml Tube Feeding Residual Discard 0 ml 0 ml 0 ml 0 ml Result Diagram: 12/12/17 0340 12/12/17 034 Imaging Last 72 hours Impressions Chest X-Ray 11/24/17399 Signed Impressions: Service Date/Time: November 04:58 - CONCLUSION: 1. Minimal basilar density, probably atelectasis. No significant effusion. No pneumothorax identified on plain film. Placement of left central line without pneumothorax. Left-sided rib fractures present. Dave Horton MD Pelvis X-Ray 11/23/172308 Signed Impressions: Service Date/Time: Thursday, November 23, 2017 22:48 - CONCLUSION: Unremarkable examination of the pelvis. Dave Horton MD Chest X-Ray 11/23/172308 Signed Impressions: Service Date/Time: Thursday, November 23, 2017 22:48 - CONCLUSION: 1. Left lower rib fractures. Cardiomediastinal silhouette within normal limits. No dense consolidation or effusion. Dave Horton MD Thoracic Spine CT 11/23/172252 Signed Impressions: Service Date/Time: Thursday, November 23, 2017 23:18 - CONCLUSION: 1. At T12 there is a burst fracture with retropulsion resulting in mild to moderate stenosis and fracture extending into the posterior elements. 2. At T11 there is a mild endplate fracture superiorly with fractures extending posteriorly into the posterior elements and facet joints at T11-12. Dave Horton MD Maxillofacial CT 11/23/172252 Signed Impressions: Service Date/Time: Thursday, November 23, 2017 23:17 - CONCLUSION: 1. Numerous facial fractures as above including bilateral mandibular, bilateral zygomatic arches, bilateral orbits bilateral maxillary and ethmoid sinuses. Also bilateral calvarial fractures. Trace pneumocephalus. Extensive scalp and facial swelling. Dave Horton MD Lumbar Spine CT 11/23/172252 Signed Impressions: Service Date/Time: Thursday, November 23, 2017 23:21 - CONCLUSION: 1. Fractures through the left transverse process of L1 and L2. No lumbar spine vertebral body fractures or subluxation. Dave Horton MD Head CT 11/23/172252 Signed Impressions: Service Date/Time: Thursday, November 23, 2017 23:16 - CONCLUSION: 1. Fractures of the left frontal bone and right parietal bone without significant displacement. Trace pneumocephalus near the right parietal bone fracture. No significant intracranial hemorrhage. 2. Numerous facial bone fractures with hemorrhage in the paranasal sinuses. Facial CT pending. Dave Horton MD Chest CT 11/23/172252 Signed Impressions: Service Date/Time: Thursday, November 23, 2017 23:21 - CONCLUSION: 1. Small bilateral pneumothoraces. 2. Scattered groundglass opacity in the lungs most characteristic of lung contusions or minimal aspiration. 3. Multiple fractures including burst fracture of T12, superior endplate fracture of T11 and multiple left rib fractures as above. 4. Endotracheal tube and nasogastric tube in good position. Dave Horton MD Cervical Spine CT 11/23/172252 Signed Impressions: Service Date/Time: Thursday, November 23, 2017 23:17 - CONCLUSION: 1. Nondisplaced fractures to the left lateral mass of C3 and C5 extending into the facet joints. No vertebral body fractures. No subluxation. Dave Horton MD Abdomen/Pelvis CT 11/23/172252 Signed Impressions: Service Date/Time: Thursday, November 23, 2017 23:21 - CONCLUSION: 1. Negative for solid visceral injury within the abdomen and pelvis. No free air or free fluid. 2. Small bilateral pneumothoraces. 3. Fractures of the left transverse processes of L1 and L2 and the left anterior fifth through eighth ribs. T11 superior endplate fracture and T12 burst fractures as previously described. 4. Appendicolith without evidence for appendicitis. NG tip in stomach. Clinton catheter in bladder. 5. There is a small amount of air in the left external iliac vein and left femoral vein. Dave Horton MD Radius/Ulna X-Ray 11/23/17 0000 Signed Impressions: Service Date/Time: Thursday, November 23, 2017 22:48 - CONCLUSION: 1. First Metacarpal fracture. No radius and ulna fractures. No dislocation. Dave Horton MD Humerus X-Ray 11/23/17 0000 Signed Impressions: Service Date/Time: Thursday, November 23, 2017 22:48 - CONCLUSION: 1. Angulated fracture left distal humeral shaft. Dave Horton MD Chest X-Ray 11/23/17 0000 Signed Impressions: Service Date/Time: Thursday, November 23, 2017 22:48 - CONCLUSION: 1. Endotracheal tube and nasogastric tube in good position. Scattered lung contusions or mild aspiration. No effusion. 2. Left-sided rib fractures. See abdomen and pelvic CT report. Dave Horotn MD Last 24 hours Impressions Chest X-Ray 11/24/17 0400 Signed Impressions: Service Date/Time: November 04:58 - CONCLUSION: 1. Minimal basilar density, probably atelectasis. No significant effusion. No pneumothorax identified on plain film. Placement of left central line without pneumothorax. Left-sided rib fractures present. Dave Horton MD Pelvis X-Ray 11/23/172308 Signed Impressions: Service Date/Time: Thursday, November 23, 2017 22:48 - CONCLUSION: Unremarkable examination of the pelvis. Dave Horton MD Chest X-Ray 11/23/172308 Signed Impressions: Service Date/Time: Thursday, November 23, 2017 22:48 - CONCLUSION: 1. Left lower rib fractures. Cardiomediastinal silhouette within normal limits. No dense consolidation or effusion. Dave Horton MD Thoracic Spine CT 11/23/17 957 Signed Impressions: Service Date/Time: Thursday, November 23, 2017 23:18 - CONCLUSION: 1. At T12 there is a burst fracture with retropulsion resulting in mild to moderate stenosis and fracture extending into the posterior elements. 2. At T11 there is a mild endplate fracture superiorly with fractures extending posteriorly into the posterior elements and facet joints at T11-12. Dave Horton MD Maxillofacial CT 11/23/17 6606 Signed Impressions: Service Date/Time: Thursday, November 23, 2017 23:17 - CONCLUSION: 1. Numerous facial fractures as above including bilateral mandibular, bilateral zygomatic arches, bilateral orbits bilateral maxillary and ethmoid sinuses. Also bilateral calvarial fractures. Trace pneumocephalus. Extensive scalp and facial swelling. Dave Horton MD Lumbar Spine CT 11/23/172252 Signed Impressions: Service Date/Time: Thursday, November 23, 2017 23:21 - CONCLUSION: 1. Fractures through the left transverse process of L1 and L2. No lumbar spine vertebral body fractures or subluxation. Dave Horton MD Head CT 11/23/172252 Signed Impressions: Service Date/Time: Thursday, November 23, 2017 23:16 - CONCLUSION: 1. Fractures of the left frontal bone and right parietal bone without significant displacement. Trace pneumocephalus near the right parietal bone fracture. No significant intracranial hemorrhage. 2. Numerous facial bone fractures with hemorrhage in the paranasal sinuses. Facial CT pending. Dave Horton MD Chest CT 11/23/172252 Signed Impressions: Service Date/Time: Thursday, November 23, 2017 23:21 - CONCLUSION: 1. Small bilateral pneumothoraces. 2. Scattered groundglass opacity in the lungs most characteristic of lung contusions or minimal aspiration. 3. Multiple fractures including burst fracture of T12, superior endplate fracture of T11 and multiple left rib fractures as above. 4. Endotracheal tube and nasogastric tube in good position. Dave Horton MD Cervical Spine CT 11/23/172252 Signed Impressions: Service Date/Time: Thursday, November 23, 2017 23:17 - CONCLUSION: 1. Nondisplaced fractures to the left lateral mass of C3 and C5 extending into the facet joints. No vertebral body fractures. No subluxation. Dave Horton MD Abdomen/Pelvis CT 11/23/172252 Signed Impressions: Service Date/Time: Thursday, November 23, 2017 23:21 - CONCLUSION: 1. Negative for solid visceral injury within the abdomen and pelvis. No free air or free fluid. 2. Small bilateral pneumothoraces. 3. Fractures of the left transverse processes of L1 and L2 and the left anterior fifth through eighth ribs. T11 superior endplate fracture and T12 burst fractures as previously described. 4. Appendicolith without evidence for appendicitis. NG tip in stomach. Clinton catheter in bladder. 5. There is a small amount of air in the left external iliac vein and left femoral vein. Dave Horton MD Objective Remarks Left upper extremity: Dressings taken down. Incisions both surgical and traumatic are healing well. New dressings are placed upon it with Xeroform and Primapore. Splint overhand in place and in good repair. Good capillary refills. Assessment & Plan Assessment and Plan 1) Left humeral shaft fracture s/p ORIF - POD 10 (12/02) -Dressing of Xeroform and Primapore changed every other day -sling and NWB -OT for motion of elbow and shoulder Emerson Talbot Jr. TONY Dec 12, 2017 06:58
[2017-12-12] MEDS: VALPROIC ACID SYRUP 250 MG/5 ML UDC PO SCH ×2 (07:59→20:14)
[2017-12-12] MEDS: MAGNESIUM HYDROXIDE SUSP 30 ML CUP PO SCH ×2 (07:59→20:15)
[2017-12-12] MEDS: CHLORHEXIDINE 0.12% (ORAL KIT) 15 ML CUP MT SCH ×2 (08:00→20:16)
[2017-12-12] MEDS: ENOXAPARIN SODIUM 100 MG/ML SYRINGE SQ SCH ×2 (08:00→20:15)
[2017-12-12] MEDS: DOCUSATE SODIUM 50 MG/SENNA 8.6 MG TAB PO SCH ×2 (08:00→20:09)
[2017-12-12] MEDS: CHOLECALCIFEROL (VIT D3) 1000 UNIT TAB PO SCH (08:00)
[2017-12-12] MEDS: LIDOCAINE HCL 5% PATCH T-DERMAL SCH (08:01)
[2017-12-12] MEDS: LEVOFLOXACIN 750 MG TAB PO SCH (08:01)
[2017-12-12] MEDS: FAMOTIDINE 20 MG TAB PO SCH ×2 (08:01→20:15)
[2017-12-12] MEDS: NYSTATIN 100,000 U/GM PWD 15 GM BTL TOPICAL SCH ×2 (08:02→20:16)
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
[2017-12-12] MEDS: BACITRACIN OPHT OINT 3.5 GM TUBO SCH ×2 (09:00→20:16)
[2017-12-12] MEDS: ARTIFICIAL TEARS OPTH OINT 3.5 APPLIC/3.5 GM TUBO RIGHT EYE SCH ×3 (09:00→18:00)
[2017-12-12] MEDS: SODIUM CHLORIDE 0.9% FLUSH 10 ML FLUSH IV FLUSH SCH ×2 (09:00→20:15)
[2017-12-12] MEDS: BENEPROTEIN POWDER 1 PACK G-TUBE SCH ×3 (09:00→18:00)
[2017-12-12] MEDS: MIDAZOLAM 100 MG/100 ML INJ 100 ML IV PRN (09:07)
--- NOTE | 2017-12-12 09:09 | RADRPT ---
EXAM DATE/TIME: 12/12/2017 08:35 [place] COMPARISON: CHEST SINGLE AP, December 10, 2017, 5:23. INDICATIONS : Respiratory distress. Increased O2 requirements. MEDICAL HISTORY : None. SURGICAL HISTORY : Thoracic fusion. ORIF left humerus. Left frontotemporal craniotomy with fixation of depressed skull ENCOUNTER: Subsequent ACUITY: 2 weeks PAIN SCORE: Non-responsive. LOCATION: Bilateral chest FINDINGS: Tracheostomy and right central line stable in position. There is a persistent airspace opacities thr oughout both lungs with consolidation in the left lower lung and persistent loss of delineation the e ntire left hemidiaphragm. Infiltrates in right lung appear to have increased and there is now some l oss of delineation of portions of the right hemidiaphragm. CONCLUSION: Increasing diffuse bilateral airspace consolidation. Gustavo Funes MD on December 12, 2017 at 9:06 Board Certified Radiologist. This report was verified electronically.
[2017-12-12] MEDS: QUEtiapine FUMARATE 25 MG TAB PO SCH ×2 (12:01→16:55)
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
[2017-12-12] MEDS: fentaNYL DRIP 250 ML IV PRN ×2 (13:21→22:12)
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
[2017-12-12] MEDS: NOREPINEPHRINE INJ 4 MG in SODIUM CHLOR 0.9% 250 ML INJ 246 ML IV PRN (15:57)
[2017-12-12 16:22] LABS: AMORPHOUS SEDIMENT, URINE RARE; BILIRUBIN, URINE NEG (NEG); BLOOD, URINE TRACE (NEG); GLUCOSE,URINE NEG (NEG); KETONE, URINE NEG (NEG); MUCUS URINE FEW /lpf (OCC); NITRITE,URINE NEG (NEG); URINE COLOR YELLOW (YELLW/STRAW); URINE LEUKOCYTE ESTERASE SMALL (NEG)
[2017-12-12] MEDS: METHADONE HCL 10 MG/10 ML ORAL SOLUTION PEG SCH (16:54)
--- NOTE | 2017-12-12 18:21 | PD.PROCEDR ---
Procedure Note Procedure Procedure: Right Femoral Arterial Line Placement Diagnosis: Hypoxic respiratory failure/ARDS, Circulatory shock Indications: ABG and BP monitoring Consent: I discussed the necessity of arterial line placement with patient's mother and she agrees Description of the Procedure: The right femoral site was prepped and draped sterilely. 1% lidocaine was used for local anesthesia. The arterial site was located using ultrasound and a needle was advanced into the artery. A 18 gauge catheter was advanced into the artery using a modified Seldinger technique. The catheter was sutured to the skin and a sterile dressing was applied. The catheter was connected to a pressure transducer and an arterial waveform was noted. There were no immediate complications noted. There was minimal EBL. I personally performed the procedure. Narciso Rahman MD Dec 12, 2017 18:21
[2017-12-13] VITALS (20 sets, daily range): BP systolic 100–115; BP diastolic 49–66; PULSE 67–91; RESP 11–23; TEMP 97.8–100.9; O2SAT 91–100
[2017-12-13] MEDS: PROPOFOL 1000 MG/100 ML INJ 100 ML IV PRN ×6 (00:11→23:33)
[2017-12-13] MEDS: TOBRAMYCIN 0.3%/DEXAMETHASONE 0.1% OPHT SUSP 5 ML BTL LEFT EYE SCH ×6 (00:12→20:43)
[2017-12-13] MEDS: SULFAMETHOXAZOLE-TRIMETHOPRIM 400-80 MG TAB PO SCH ×3 (00:15→17:59)
[2017-12-13] MEDS: metroNIDAZOLE 500 MG TAB PO SCH ×3 (00:16→15:22)
[2017-12-13] MEDS: ARTIFICIAL TEARS OPTH OINT 3.5 APPLIC/3.5 GM TUBO LEFT EYE SCH ×6 (01:32→21:10)
[2017-12-13] MEDS: CHLORHEXIDINE GLUCONATE 2 % 1 PACK (2 CLOTHS) TOP SCH (01:52)
[2017-12-13] MEDS: HYDROmorphone HCL PF 2 MG/ML VIAL IV PUSH SCH ×5 (02:00→22:14)
[2017-12-13] MEDS: MIDAZOLAM 100 MG/100 ML INJ 100 ML IV PRN (03:08)
[2017-12-13] MEDS: chlordiazePOXIDE 25 MG CAP G-TUBE SCH ×3 (04:26→21:09)
[2017-12-13] MEDS: CEFEPIME INJ 2,000 MG in SODIUM CHLORIDE 0.9% INJ 100 ML IV SCH ×3 (04:26→20:25)
[2017-12-13] MEDS: METHOCARBAMOL 500 MG TAB PO SCH ×3 (04:26→21:10)
[2017-12-13] MEDS: METHADONE HCL 10 MG/10 ML ORAL SOLUTION PEG SCH ×2 (04:26→15:21)
[2017-12-13] MEDS: METOCLOPRAMIDE HCL 10 MG/2 ML VIAL IV PUSH SCH ×3 (04:27→21:09)
[2017-12-13] MEDS: fentaNYL DRIP 250 ML IV PRN ×3 (05:29→23:34)
[2017-12-13 06:02] LABS: AUTOMATED NEUTROPHIL # 7.6 TH/MM3 (1.8-7.7); BASOPHIL # 0.1 TH/MM3 (0-0.2); BASOPHIL % 1.3 % (0.0-2.0); EOSINOPHIL # 0.1 TH/MM3 (0-0.4); HEMATOCRIT 22.9 % (39.0-51.0); HEMOGLOBIN 7.6 GM/DL (13.0-17.0); LYMPH % 12.7 % (9.0-44.0); LYMPHOCYTE # 1.2 TH/MM3 (1.0-4.8); MEAN CELL VOLUME 89.6 FL (80.0-100.0); MEAN CORPUSCULAR HEMOGLOBIN 29.6 PG (27.0-34.0); MEAN PLATELET VOLUME 8.7 FL (7.0-11.0); MONO % 6.7 % (0.0-8.0); MONOCYTE # 0.6 TH/MM3 (0-0.9); NEUT % 78.3 % (16.0-70.0); PLATELET COUNT 345 TH/MM3 (150-450); RED BLOOD COUNT 2.55 MIL/MM3 (4.50-5.90); RED CELL DISTRIBUTION WIDTH 15.3 % (11.6-17.2); WHITE BLOOD COUNT 9.6 TH/MM3 (4.0-11.0)
--- NOTE | 2017-12-13 06:11 | RADRPT ---
EXAM DATE/TIME: 12/13/2017 04:35 [facility] COMPARISON: CHEST SINGLE AP, December 12, 2017, 8:35. INDICATIONS : Respiratory distress.. Followup by basilar airspace consolidation.. MEDICAL HISTORY : None. SURGICAL HISTORY : Thoracic fusion. ORIF left humerus. Left frontotemporal craniotomy with fixation of depressed skull. ENCOUNTER: Subsequent ACUITY: 2 weeks PAIN SCORE: Non-responsive. LOCATION: Bilateral chest FINDINGS: Multiple AP portable supine views of the abdomen were obtained and demonstrate interval improvement i n the previously noted dense alveolar opacity. Perihilar consolidation remains with mild patchy infil trate in the lung bases. The heart size is within normal limits. There is no effusion. The bony thora x is stable in appearance with postsurgical changes in the lower thoracic and upper lumbar spine stat us post multilevel fusion. The right subclavian central venous line remains in place. CONCLUSION: Interval improvement in pulmonary edema. Emerson Carrera MD on December 13, 2017 at 6:08 Board Certified Radiologist. This report was verified electronically.
[2017-12-13 06:15] LABS: ALBUMIN 1.7 GM/DL (3.4-5.0); AST (GOT) 39 U/L (15-37); BICARBONATE 28.2 MEQ/L (21.0-32.0); BLOOD UREA NITROGEN 11 MG/DL (7-18); CALCIUM 7.7 MG/DL (8.5-10.1); CHLORIDE 107 MEQ/L (98-107); GLOMERULAR FILTRATION RATE 193 ML/MIN (>89); GLUCOSE,RANDOM 110 MG/DL (74-106); MAGNESIUM 2.3 MG/DL (1.5-2.5); SODIUM (NA) 142 MEQ/L (136-145)
[2017-12-13 06:18] LABS: ALKALINE PHOSPHATASE 187 U/L (45-117); ALT (GPT) 38 U/L (12-78); TOTAL BILIRUBIN ADULT 0.3 MG/DL (0.2-1.0); TOTAL PROTEIN 5.8 GM/DL (6.4-8.2)
[2017-12-13] MEDS ORDERED: ALBUMIN 25% INJ 100 ML IV ONE (07:30)
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
[2017-12-13] MEDS: MAGNESIUM HYDROXIDE SUSP 30 ML CUP PO SCH ×2 (07:59→20:27)
[2017-12-13] MEDS: CHLORHEXIDINE 0.12% (ORAL KIT) 15 ML CUP MT SCH ×2 (08:00→20:44)
[2017-12-13] MEDS: CHOLECALCIFEROL (VIT D3) 1000 UNIT TAB PO SCH (08:00)
[2017-12-13] MEDS: VALPROIC ACID SYRUP 250 MG/5 ML UDC PO SCH ×2 (08:00→20:26)
[2017-12-13] MEDS: ENOXAPARIN SODIUM 100 MG/ML SYRINGE SQ SCH ×2 (08:00→20:27)
[2017-12-13] MEDS: DOCUSATE SODIUM 50 MG/SENNA 8.6 MG TAB PO SCH ×2 (08:00→20:27)
[2017-12-13] MEDS: FAMOTIDINE 20 MG TAB PO SCH ×2 (08:00→20:27)
[2017-12-13] MEDS: QUEtiapine FUMARATE 25 MG TAB PO SCH ×3 (08:00→17:56)
[2017-12-13] MEDS: LEVOFLOXACIN 750 MG TAB PO SCH (08:00)
[2017-12-13] MEDS: RESP: ALBUTEROL 2.5 MG/IPRATROPIUM 0.5 MG NEB (PRN) INH (08:09)
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
[2017-12-13] MEDS: SODIUM CHLORIDE 0.9% FLUSH 10 ML FLUSH IV FLUSH SCH ×2 (09:00→21:00)
[2017-12-13] MEDS: BACITRACIN TOP OINT 15 GM TUBE TOPICAL SCH ×2 (09:00→20:46)
[2017-12-13] MEDS: BACITRACIN OPHT OINT 3.5 GM TUBO SCH ×2 (09:00→20:45)
[2017-12-13] MEDS: LIDOCAINE HCL 5% PATCH T-DERMAL SCH (09:00)
[2017-12-13] MEDS: NYSTATIN 100,000 U/GM PWD 15 GM BTL TOPICAL SCH ×2 (09:00→20:45)
[2017-12-13] MEDS: ARTIFICIAL TEARS OPTH OINT 3.5 APPLIC/3.5 GM TUBO RIGHT EYE SCH ×3 (09:00→18:00)
[2017-12-13] MEDS: BENEPROTEIN POWDER 1 PACK G-TUBE SCH ×3 (09:00→18:00)
[2017-12-13] MEDS ORDERED: FUROSEMIDE 40 MG/4 ML VIAL IV PUSH ONE (09:30)
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
[2017-12-13 09:43] LABS: BANDS 25 % (0-6); BASOPHILS 1 % (0-2); CORRECTED NUCLEATED RBC 2 /100 WBC (0-0); LYMPHOCYTES 6 % (9-44); METAMYELOCYTES 6 % (0-1); MONOCYTES 7 % (0-8); MYELOCYTES 3 % (0-0); NEUTROPHIL # MANUAL DIFF 8.1 TH/MM3 (1.8-7.7); NUCLEATED RED BLOOD CELL 2 (0-0); POLYS (SEG NEUTROPHILS) 50 % (16-70)
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
[2017-12-13 17:30] LABS: CALCIUM 7.9 MG/DL (8.5-10.1); CREATININE 0.55 MG/DL (0.60-1.30); MAGNESIUM 2.3 MG/DL (1.5-2.5)
[2017-12-13 17:31] LABS: PHOSPHORUS 3.4 MG/DL (2.5-4.9)
[2017-12-14] VITALS (24 sets, daily range): BP systolic 91–144; BP diastolic 54–82; PULSE 66–103; RESP 11–23; TEMP 97–101.4; O2SAT 95–100
[2017-12-14] MEDS: metroNIDAZOLE 500 MG TAB PO SCH ×3 (00:19→17:25)
[2017-12-14] MEDS: MIDAZOLAM 100 MG/100 ML INJ 100 ML IV PRN ×2 (00:19→20:48)
[2017-12-14] MEDS: SULFAMETHOXAZOLE-TRIMETHOPRIM 400-80 MG TAB PO SCH ×3 (00:56→17:25)
[2017-12-14] MEDS: PROPOFOL 1000 MG/100 ML INJ 100 ML IV PRN ×6 (02:02→22:25)
[2017-12-14] MEDS: HYDROmorphone HCL PF 2 MG/ML VIAL IV PUSH SCH ×6 (02:03→23:21)
[2017-12-14] MEDS: ARTIFICIAL TEARS OPTH OINT 3.5 APPLIC/3.5 GM TUBO LEFT EYE SCH ×6 (02:03→22:00)
[2017-12-14] MEDS: TOBRAMYCIN 0.3%/DEXAMETHASONE 0.1% OPHT SUSP 5 ML BTL LEFT EYE SCH ×6 (02:03→20:00)
[2017-12-14] MEDS: CHLORHEXIDINE GLUCONATE 2 % 1 PACK (2 CLOTHS) TOP SCH (04:00)
[2017-12-14] MEDS: CEFEPIME INJ 2,000 MG in SODIUM CHLORIDE 0.9% INJ 100 ML IV SCH ×3 (04:01→20:48)
[2017-12-14] MEDS: chlordiazePOXIDE 25 MG CAP G-TUBE SCH ×3 (05:08→20:49)
[2017-12-14] MEDS: METHOCARBAMOL 500 MG TAB PO SCH ×3 (05:08→20:49)
[2017-12-14] MEDS: METHADONE HCL 10 MG/10 ML ORAL SOLUTION PEG SCH ×2 (05:09→17:24)
[2017-12-14] MEDS: METOCLOPRAMIDE HCL 10 MG/2 ML VIAL IV PUSH SCH ×3 (05:09→20:47)
[2017-12-14 05:58] LABS: AUTOMATED NEUTROPHIL # 6.5 TH/MM3 (1.8-7.7); BASOPHIL # 0.1 TH/MM3 (0-0.2); BASOPHIL % 0.8 % (0.0-2.0); EOSINOPHIL # 0.1 TH/MM3 (0-0.4); EOSINOPHIL % 1.7 % (0.0-4.0); HEMATOCRIT 21.2 % (39.0-51.0); LYMPHOCYTE # 1.2 TH/MM3 (1.0-4.8); MEAN CELL VOLUME 90.2 FL (80.0-100.0); MEAN CORPUSCULAR HEMOGLOBIN 29.1 PG (27.0-34.0); MEAN CORPUSCULAR HGB CONC 32.2 % (32.0-36.0); MEAN PLATELET VOLUME 8.8 FL (7.0-11.0); MONO % 8.4 % (0.0-8.0); MONOCYTE # 0.7 TH/MM3 (0-0.9); NEUT % 75.1 % (16.0-70.0); PLATELET COUNT 321 TH/MM3 (150-450); RED BLOOD COUNT 2.35 MIL/MM3 (4.50-5.90); RED CELL DISTRIBUTION WIDTH 15.6 % (11.6-17.2); WHITE BLOOD COUNT 8.7 TH/MM3 (4.0-11.0)
[2017-12-14 06:16] LABS: ALBUMIN 1.9 GM/DL (3.4-5.0); AST (GOT) 27 U/L (15-37); BICARBONATE 31.3 MEQ/L (21.0-32.0); BLOOD UREA NITROGEN 13 MG/DL (7-18); CALCIUM 7.9 MG/DL (8.5-10.1); CHLORIDE 106 MEQ/L (98-107); CREATININE 0.52 MG/DL (0.60-1.30); GLOMERULAR FILTRATION RATE 184 ML/MIN (>89); GLUCOSE,RANDOM 109 MG/DL (74-106); MAGNESIUM 2.4 MG/DL (1.5-2.5); SODIUM (NA) 142 MEQ/L (136-145)
[2017-12-14 06:18] LABS: ALT (GPT) 29 U/L (12-78)
[2017-12-14 06:20] LABS: ALKALINE PHOSPHATASE 182 U/L (45-117); TOTAL BILIRUBIN ADULT 0.4 MG/DL (0.2-1.0)
[2017-12-14 06:31] LABS: HEMOGLOBIN 6.8 GM/DL (13.0-17.0)
--- NOTE | 2017-12-14 07:07 | RADRPT ---
EXAM DATE/TIME: 12/14/2017 05:15 [place] COMPARISON: CHEST SINGLE AP, December 13, 2017, 4:35. INDICATIONS : Shortness of breath. MEDICAL HISTORY : None. SURGICAL HISTORY : Fusion, thoracic. ORIF left humerus. Left frontotemporal craniotomy with fixation of depressed skul l. ENCOUNTER: Subsequent ACUITY: 2 weeks PAIN SCORE: Non-responsive. LOCATION: Bilateral chest FINDINGS: A single AP portable supine view of the chest was obtained. Portions of the lateral chest wall cut of f both views. Mild residual pulmonary edema is again noted greatest in the perihilar regions. The hea rt size at the upper limits of normal. The tracheostomy tube remains in place. The right internal jug ular central venous line is again noted. Patient is status post lower thoracic and upper lumbar fusio n. CONCLUSION: No significant change. Residual pulmonary edema is again noted. Emerson Carrera MD on December 14, 2017 at 7:04 Board Certified Radiologist. This report was verified electronically.
[2017-12-14 08:09] LABS: BANDS 15 % (0-6); CORRECTED NUCLEATED RBC 3 /100 WBC (0-0); LYMPHOCYTES 7 % (9-44); METAMYELOCYTES 4 % (0-1); MONOCYTES 3 % (0-8); MYELOCYTES 7 % (0-0); NEUTROPHIL # MANUAL DIFF 7.6 TH/MM3 (1.8-7.7); NUCLEATED RED BLOOD CELL 3 (0-0); POLYS (SEG NEUTROPHILS) 60 % (16-70); PROMYELOCYTES 1 % (0-0)
[2017-12-14] MEDS: CHLORHEXIDINE 0.12% (ORAL KIT) 15 ML CUP MT SCH ×2 (08:24→20:00)
[2017-12-14] MEDS: BACITRACIN OPHT OINT 3.5 GM TUBO SCH ×2 (08:24→20:49)
[2017-12-14] MEDS: fentaNYL DRIP 250 ML IV PRN ×2 (09:19→18:22)
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
[2017-12-14] MEDS: ENOXAPARIN SODIUM 100 MG/ML SYRINGE SQ SCH ×2 (10:46→20:47)
[2017-12-14] MEDS: CHOLECALCIFEROL (VIT D3) 1000 UNIT TAB PO SCH (10:47)
[2017-12-14] MEDS: FAMOTIDINE 20 MG TAB PO SCH ×2 (10:47→20:49)
[2017-12-14] MEDS: VALPROIC ACID SYRUP 250 MG/5 ML UDC PO SCH ×2 (10:47→20:48)
[2017-12-14] MEDS: DOCUSATE SODIUM 50 MG/SENNA 8.6 MG TAB PO SCH ×2 (10:48→20:49)
[2017-12-14] MEDS: LEVOFLOXACIN 750 MG TAB PO SCH (10:48)
[2017-12-14] MEDS: SODIUM CHLORIDE 0.9% FLUSH 10 ML FLUSH IV FLUSH SCH ×2 (10:48→20:49)
[2017-12-14] MEDS: BENEPROTEIN POWDER 1 PACK G-TUBE SCH ×3 (10:49→17:25)
[2017-12-14] MEDS: QUEtiapine FUMARATE 25 MG TAB PO SCH ×3 (10:49→17:24)
[2017-12-14] MEDS: MAGNESIUM HYDROXIDE SUSP 30 ML CUP PO SCH ×2 (10:49→20:49)
[2017-12-14] MEDS: ARTIFICIAL TEARS OPTH OINT 3.5 APPLIC/3.5 GM TUBO RIGHT EYE SCH ×3 (10:50→17:25)
[2017-12-14] MEDS: LIDOCAINE HCL 5% PATCH T-DERMAL SCH (10:50)
[2017-12-14] MEDS: NYSTATIN 100,000 U/GM PWD 15 GM BTL TOPICAL SCH ×2 (10:51→20:50)
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
[2017-12-14] MEDS ORDERED: FUROSEMIDE 40 MG/4 ML VIAL IV PUSH ONE (11:45)
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
[2017-12-14] MEDS: SODIUM CHLOR 0.9% 1000 ML INJ 1,000 ML IV SCH ×2 (15:30→17:26)
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
[2017-12-14] MEDS: BACITRACIN TOP OINT 15 GM TUBE TOPICAL SCH ×2 (17:26→20:50)
[2017-12-14] MEDS: MIDAZOLAM HCL 5 MG/ML VIAL (1 ML) IV PRN (17:53)
[2017-12-15] VITALS (17 sets, daily range): BP systolic 99–127; BP diastolic 54–98; PULSE 67–92; RESP 20; TEMP 98.1–99; O2SAT 91–99
[2017-12-15] MEDS: SULFAMETHOXAZOLE-TRIMETHOPRIM 400-80 MG TAB PO SCH ×3 (00:42→17:00)
[2017-12-15] MEDS: fentaNYL DRIP 250 ML IV PRN ×3 (00:42→18:37)
[2017-12-15] MEDS: metroNIDAZOLE 500 MG TAB PO SCH ×3 (00:42→17:00)
[2017-12-15] MEDS: ARTIFICIAL TEARS OPTH OINT 3.5 APPLIC/3.5 GM TUBO LEFT EYE SCH ×6 (01:44→20:20)
[2017-12-15] MEDS: HYDROmorphone HCL PF 2 MG/ML VIAL IV PUSH SCH ×6 (03:00→21:46)
[2017-12-15] MEDS: TOBRAMYCIN 0.3%/DEXAMETHASONE 0.1% OPHT SUSP 5 ML BTL LEFT EYE SCH ×7 (04:00→23:08)
[2017-12-15] MEDS: CHLORHEXIDINE GLUCONATE 2 % 1 PACK (2 CLOTHS) TOP SCH (04:00)
[2017-12-15] MEDS: CEFEPIME INJ 2,000 MG in SODIUM CHLORIDE 0.9% INJ 100 ML IV SCH ×3 (04:22→20:17)
[2017-12-15] MEDS: METHADONE HCL 10 MG/10 ML ORAL SOLUTION PEG SCH ×2 (04:22→17:00)
[2017-12-15 04:54] LABS: AUTOMATED NEUTROPHIL # 7.3 TH/MM3 (1.8-7.7); BASOPHIL # 0.1 TH/MM3 (0-0.2); BASOPHIL % 0.7 % (0.0-2.0); EOSINOPHIL # 0.1 TH/MM3 (0-0.4); HEMATOCRIT 28.9 % (39.0-51.0); HEMOGLOBIN 9.6 GM/DL (13.0-17.0); LYMPH % 18.5 % (9.0-44.0); LYMPHOCYTE # 1.9 TH/MM3 (1.0-4.8); MEAN CELL VOLUME 88.3 FL (80.0-100.0); MEAN CORPUSCULAR HEMOGLOBIN 29.3 PG (27.0-34.0); MEAN CORPUSCULAR HGB CONC 33.2 % (32.0-36.0); MEAN PLATELET VOLUME 9.2 FL (7.0-11.0); MONO % 7.6 % (0.0-8.0); MONOCYTE # 0.8 TH/MM3 (0-0.9); NEUT % 72.2 % (16.0-70.0); PLATELET COUNT 388 TH/MM3 (150-450); RED BLOOD COUNT 3.28 MIL/MM3 (4.50-5.90); RED CELL DISTRIBUTION WIDTH 15.4 % (11.6-17.2); WHITE BLOOD COUNT 10.2 TH/MM3 (4.0-11.0)
[2017-12-15 05:13] LABS: ALBUMIN 1.9 GM/DL (3.4-5.0); AST (GOT) 22 U/L (15-37); BICARBONATE 31.3 MEQ/L (21.0-32.0); CALCIUM 7.7 MG/DL (8.5-10.1); CHLORIDE 104 MEQ/L (98-107); GLOMERULAR FILTRATION RATE 193 ML/MIN (>89); GLUCOSE,RANDOM 107 MG/DL (74-106); MAGNESIUM 2.2 MG/DL (1.5-2.5); SODIUM (NA) 141 MEQ/L (136-145)
[2017-12-15 05:19] LABS: ALKALINE PHOSPHATASE 180 U/L (45-117); ALT (GPT) 28 U/L (12-78); BLOOD UREA NITROGEN 12 MG/DL (7-18); PHOSPHORUS 2.9 MG/DL (2.5-4.9); TOTAL BILIRUBIN ADULT 0.5 MG/DL (0.2-1.0); TOTAL PROTEIN 6.3 GM/DL (6.4-8.2)
[2017-12-15] MEDS: METHOCARBAMOL 500 MG TAB PO SCH ×3 (06:21→20:19)
[2017-12-15] MEDS: METOCLOPRAMIDE HCL 10 MG/2 ML VIAL IV PUSH SCH ×3 (06:21→20:18)
[2017-12-15] MEDS: chlordiazePOXIDE 25 MG CAP G-TUBE SCH ×3 (06:21→20:19)
[2017-12-15] MEDS: PROPOFOL 1000 MG/100 ML INJ 100 ML IV PRN ×3 (06:31→20:40)
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
--- NOTE | 2017-12-15 07:53 | HHI.CCPN ---
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 fracture with small laceration of the arm. Neuro: Traumatic Brain Injury Agitated Delirium Acute pain associated with traumatic injuries - continue seroquel, VPA, librium - propofol, fentanyl, versed gtt for goal RASS -3 while on high PEEP requirements - will start decreasing sedation once oxygenation is improved - off Ketamine - on norco, dilaudid, methadone, lidocaine patch Resp: Acute hypoxic and hypercarbic respiratory failure - worsening P/F ratio Left pulmonary contusion - severe multiple left-sided rib fractures Acute pulmonary embolism Ventilator Associated Burkholderia pneumonia - On on PRVC, currently on PEEP of 14 just decreased to 12. We will continue very slow tapering of PEEP to avoid derecruitment - Peak airway pressure of 27, patient synchronize with event, no auto PEEP - Vent bundle and bronchodilators CV: Shock -on very low-dose norepinephrine, likely related to pain medication and sedation Acute pulmonary embolism -We will give 1 dose of albumin with Lasix - on full dose lovenox Renal: - keep crespo today given multi-organ dysfunction and need for close monitoring of uop. need to ensure adequate uop and renal perfusion. FEN/GI: Acute protein calorie malnutrition- mild Diarrhea - TF - ICU electrolyte protocol - add fiber to diet. - stool for C diff negative -> negative Heme/ID: Fevers Leukocytosis Healthcare associated/Ventilator associated pneumonia Acute right-sided pulmonary embolism - sputum culture 12/01: Burkholderia - blood cultures 12/02: 10/29 bottles staph epi, likely contaminant. - Levaquin started 12/03 for burkholderia. - ID consulted and following. - possibility of [employer] infection: abx changed to rocephin, now to cefepime since - Levaquin and Flagyl switched to by mouth on 12/07. - 12/02 LE dopplers negative for DVT. 12/02 CT Pulmonary angiogram + for right- sided PE - on therapeutic lovenox- held for hand surgery on 12/07 AM and resumed at night - Transfused PRBCs on 12/07 for hemoglobin 6.9. - Receiving 2 units PRBC for Hb 6.8 on 12/14 Endocrine: - ssi for euglycemia prn prophylaxis: - SCDs - therapeutic lovenox. - ppi Lines: - 12/02 right SC TLC, will discuss with trauma regarding changing the line - crespo Dispo: remain in ICU. critically ill. Further recommendations per trauma team. Overall impression: Remains critically ill and unable to wean ventilator. Mother was updated in detail about the plan. Narciso Rahman MD Dec 15, 2017 07:53
[2017-12-15] MEDS: CHLORHEXIDINE 0.12% (ORAL KIT) 15 ML CUP MT SCH ×2 (08:00→20:00)
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
[2017-12-15] MEDS: BENEPROTEIN POWDER 1 PACK G-TUBE SCH ×3 (09:00→17:43)
[2017-12-15] MEDS: ARTIFICIAL TEARS OPTH OINT 3.5 APPLIC/3.5 GM TUBO RIGHT EYE SCH ×3 (09:00→17:44)
[2017-12-15] MEDS: BACITRACIN OPHT OINT 3.5 GM TUBO SCH ×2 (09:00→20:19)
[2017-12-15] MEDS: SODIUM CHLORIDE 0.9% FLUSH 10 ML FLUSH IV FLUSH SCH ×2 (09:00→20:19)
[2017-12-15] MEDS: CHOLECALCIFEROL (VIT D3) 1000 UNIT TAB PO SCH (09:06)
[2017-12-15] MEDS: DOCUSATE SODIUM 50 MG/SENNA 8.6 MG TAB PO SCH ×2 (09:06→20:19)
[2017-12-15] MEDS: VALPROIC ACID SYRUP 250 MG/5 ML UDC PO SCH ×2 (09:06→20:19)
[2017-12-15] MEDS: LEVOFLOXACIN 750 MG TAB PO SCH (09:06)
[2017-12-15] MEDS: FAMOTIDINE 20 MG TAB PO SCH ×2 (09:06→20:19)
[2017-12-15] MEDS: QUEtiapine FUMARATE 25 MG TAB PO SCH ×3 (09:06→17:44)
[2017-12-15] MEDS: ENOXAPARIN SODIUM 100 MG/ML SYRINGE SQ SCH ×2 (09:07→20:18)
[2017-12-15] MEDS: MAGNESIUM HYDROXIDE SUSP 30 ML CUP PO SCH ×2 (09:07→20:18)
[2017-12-15 09:08] LABS: BANDS 11 % (0-6); LYMPHOCYTES 9 % (9-44); METAMYELOCYTES 3 % (0-1); MONOCYTES 9 % (0-8); MYELOCYTES 12 % (0-0); NEUTROPHIL # MANUAL DIFF 8.4 TH/MM3 (1.8-7.7); POLYS (SEG NEUTROPHILS) 56 % (16-70)
[2017-12-15] MEDS: NYSTATIN 100,000 U/GM PWD 15 GM BTL TOPICAL SCH ×2 (09:08→20:20)
[2017-12-15] MEDS: LIDOCAINE HCL 5% PATCH T-DERMAL SCH (09:08)
[2017-12-15] MEDS: BACITRACIN TOP OINT 15 GM TUBE TOPICAL SCH ×2 (09:09→20:20)
[2017-12-15] MEDS ORDERED: FUROSEMIDE 40 MG/4 ML VIAL IV PUSH ONE ×2 (09:50→11:15)
[2017-12-15] MEDS ORDERED: ALBUMIN 25% INJ 100 ML IV ONE (10:15)
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
[2017-12-15] MEDS: MIDAZOLAM 100 MG/100 ML INJ 100 ML IV PRN (14:00)
[2017-12-15] MEDS: SODIUM CHLOR 0.9% 1000 ML INJ 1,000 ML IV SCH (15:00)
[2017-12-15 17:10] LABS: MAGNESIUM 2.3 MG/DL (1.5-2.5)
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
[2017-12-15] MEDS: NOREPINEPHRINE INJ 4 MG in SODIUM CHLOR 0.9% 250 ML INJ 246 ML IV PRN (21:59)
[2017-12-16] VITALS (16 sets, daily range): BP systolic 104–123; BP diastolic 60–82; PULSE 65–78; RESP 20; TEMP 98.9–100.1; O2SAT 86–100
[2017-12-16] MEDS: SULFAMETHOXAZOLE-TRIMETHOPRIM 400-80 MG TAB PO SCH ×3 (01:00→17:09)
[2017-12-16] MEDS: metroNIDAZOLE 500 MG TAB PO SCH ×3 (01:06→17:09)
[2017-12-16] MEDS: HYDROmorphone HCL PF 2 MG/ML VIAL IV PUSH PRN (01:06)
[2017-12-16] MEDS: ACETAMINOPHEN/HYDROcodone 325 MG/10 MG TAB PO PRN ×4 (01:06→20:35)
[2017-12-16] MEDS: ARTIFICIAL TEARS OPTH OINT 3.5 APPLIC/3.5 GM TUBO LEFT EYE SCH ×6 (01:56→20:35)
[2017-12-16] MEDS: PROPOFOL 1000 MG/100 ML INJ 100 ML IV PRN ×4 (01:56→11:55)
[2017-12-16] MEDS: fentaNYL DRIP 250 ML IV PRN ×4 (02:47→20:35)
[2017-12-16 04:00] LABS: AUTOMATED NEUTROPHIL # 6.6 TH/MM3 (1.8-7.7); BASOPHIL # 0.1 TH/MM3 (0-0.2); BASOPHIL % 0.7 % (0.0-2.0); EOSINOPHIL # 0.2 TH/MM3 (0-0.4); EOSINOPHIL % 2.3 % (0.0-4.0); HEMATOCRIT 27.3 % (39.0-51.0); LYMPH % 16.4 % (9.0-44.0); LYMPHOCYTE # 1.5 TH/MM3 (1.0-4.8); MEAN CELL VOLUME 88.4 FL (80.0-100.0); MEAN CORPUSCULAR HEMOGLOBIN 29.2 PG (27.0-34.0); MEAN PLATELET VOLUME 8.7 FL (7.0-11.0); MONO % 10.3 % (0.0-8.0); NEUT % 70.3 % (16.0-70.0); PLATELET COUNT 397 TH/MM3 (150-450); RED BLOOD COUNT 3.09 MIL/MM3 (4.50-5.90); RED CELL DISTRIBUTION WIDTH 15.4 % (11.6-17.2); WHITE BLOOD COUNT 9.4 TH/MM3 (4.0-11.0)
[2017-12-16] MEDS: CHLORHEXIDINE GLUCONATE 2 % 1 PACK (2 CLOTHS) TOP SCH (04:00)
[2017-12-16] MEDS: TOBRAMYCIN 0.3%/DEXAMETHASONE 0.1% OPHT SUSP 5 ML BTL LEFT EYE SCH ×5 (04:00→20:00)
[2017-12-16 04:32] LABS: CALCIUM 8.1 MG/DL (8.5-10.1); CREATININE 0.5 MG/DL (0.60-1.30)
[2017-12-16] MEDS: HYDROmorphone HCL PF 2 MG/ML VIAL IV PUSH SCH ×5 (04:55→20:34)
[2017-12-16] MEDS: chlordiazePOXIDE 25 MG CAP G-TUBE SCH ×3 (04:56→20:35)
[2017-12-16] MEDS: METHOCARBAMOL 500 MG TAB PO SCH ×3 (04:56→20:35)
[2017-12-16] MEDS: METHADONE HCL 10 MG/10 ML ORAL SOLUTION PEG SCH ×2 (04:56→17:09)
[2017-12-16] MEDS: METOCLOPRAMIDE HCL 10 MG/2 ML VIAL IV PUSH SCH (04:57)
[2017-12-16] MEDS: CEFEPIME INJ 2,000 MG in SODIUM CHLORIDE 0.9% INJ 100 ML IV SCH ×3 (04:57→20:34)
[2017-12-16 05:22] LABS: BANDS 7 % (0-6); BASOPHILS 1 % (0-2); BLASTS 1 % (0-0); LYMPHOCYTES 21 % (9-44); METAMYELOCYTES 1 % (0-1); MONOCYTES 8 % (0-8); MYELOCYTES 3 % (0-0); NEUTROPHIL # MANUAL DIFF 6.3 TH/MM3 (1.8-7.7); POLYS (SEG NEUTROPHILS) 56 % (16-70)
[2017-12-16 05:29] LABS: POLYCHROMASIA 3.7 % (0.0-1.9)
--- NOTE | 2017-12-16 06:51 | RADRPT ---
EXAM DATE/TIME: 12/16/2017 06:32 [facility] COMPARISON: No previous studies available for comparison. INDICATIONS : Decreased sats. MEDICAL HISTORY : None. SURGICAL HISTORY : Fusion, thoracic. ORIF left humerus. Left frontotemporal craniotomy with fixation of depressed skull. ENCOUNTER: Subsequent ACUITY: 3 weeks PAIN SCORE: Non-responsive. LOCATION: Bilateral chest FINDINGS: Diffuse airspace opacities persist and with probable small bilateral pleural effusions. I don't see a pneumothorax. Mild cardiomegaly is stable. Trach collar again seen. There is a right subclavian central venous catheter with tip in the right at rium. CONCLUSION: No significant change diffuse airspace disease. Waqas Macedo MD on December 16, 2017 at 6:49 Board Certified Radiologist. This report was verified electronically.
--- NOTE | 2017-12-16 07:02 | PD.ORT.PN ---
Subjective Subjective Remarks POD 14 s/p ORIF left humeral shaft fx s/p spine, facial, head fractures with subsequent ORIF trached no changes Objective Vitals Vital Signs Date Time Temp Pulse Resp B/P (MAP) Pulse Ox O2 Delivery O2 Flow Rate FiO2 12/16/17 05:56 21 12/16/17 05:25 23 12/16/17 03:36 100 35 12/16/17 02:00 69 12/16/17 01:36 20 12/16/17 01:36 20 12/16/17 00:09 97 35 12/16/17 00:00 78 12/16/17 00:00 98.9 78 20 113/82 (92) 98 12/16/17 00:00 35 12/15/17 22:00 72 12/15/17 21:59 71 101/83 12/15/17 20:00 72 12/15/17 20:00 35 12/15/17 20:00 99.0 72 20 102/81 (88) 98 12/15/17 19:49 95 35 12/15/17 19:00 98 Mechanical Ventilator 35 12/15/17 18:00 77 12/15/17 16:00 35 12/15/17 16:00 92 12/15/17 16:00 98.4 92 20 127/98 (108) 98 12/15/17 15:23 95 35 12/15/17 14:00 74 12/15/17 12:00 69 12/15/17 12:00 35 12/15/17 12:00 98.8 69 20 104/72 (83) 91 12/15/17 11:49 91 45 12/15/17 10:00 67 12/15/17 08:00 98.1 67 20 99/76 (84) 97 Automatic Cuff 12/15/17 08:00 85 12/15/17 08:00 35 12/15/17 07:40 98 35 I/O 12/15/17 12/15/17 12/15/17 12/16/17 12/16/17 12/16/17 07:00 15:00 23:00 07:00 15:00 23:00 Intake Total 504 ml 1648 ml Output Total 650 ml 4400 ml Balance -146 ml -2752 ml IV Total 504 ml Tube Feeding 648 ml Tube Irrigant 1000 ml Output Urine Total 550 ml 3900 ml Stool Total 100 ml 500 ml Result Diagram: 12/16/17 0340 12/16/17 0340 Imaging Last 72 hours Impressions Chest X-Ray 11/24/17 0400 Signed Impressions: Service Date/Time: November 04:58 - CONCLUSION: 1. Minimal basilar density, probably atelectasis. No significant effusion. No pneumothorax identified on plain film. Placement of left central line without pneumothorax. Left-sided rib fractures present. Dave Horton MD Pelvis X-Ray 11/23/172308 Signed Impressions: Service Date/Time: Thursday, November 23, 2017 22:48 - CONCLUSION: Unremarkable examination of the pelvis. Dave Horton MD Chest X-Ray 11/23/172308 Signed Impressions: Service Date/Time: Thursday, November 23, 2017 22:48 - CONCLUSION: 1. Left lower rib fractures. Cardiomediastinal silhouette within normal limits. No dense consolidation or effusion. Dave Horton MD Thoracic Spine CT 11/23/172252 Signed Impressions: Service Date/Time: Thursday, November 23, 2017 23:18 - CONCLUSION: 1. At T12 there is a burst fracture with retropulsion resulting in mild to moderate stenosis and fracture extending into the posterior elements. 2. At T11 there is a mild endplate fracture superiorly with fractures extending posteriorly into the posterior elements and facet joints at T11-12. Dave Horton MD Maxillofacial CT 11/23/172252 Signed Impressions: Service Date/Time: Thursday, November 23, 2017 23:17 - CONCLUSION: 1. Numerous facial fractures as above including bilateral mandibular, bilateral zygomatic arches, bilateral orbits bilateral maxillary and ethmoid sinuses. Also bilateral calvarial fractures. Trace pneumocephalus. Extensive scalp and facial swelling. Dave Horton MD Lumbar Spine CT 11/23/172252 Signed Impressions: Service Date/Time: Thursday, November 23, 2017 23:21 - CONCLUSION: 1. Fractures through the left transverse process of L1 and L2. No lumbar spine vertebral body fractures or subluxation. Dave Horton MD Head CT 11/23/172252 Signed Impressions: Service Date/Time: Thursday, November 23, 2017 23:16 - CONCLUSION: 1. Fractures of the left frontal bone and right parietal bone without significant displacement. Trace pneumocephalus near the right parietal bone fracture. No significant intracranial hemorrhage. 2. Numerous facial bone fractures with hemorrhage in the paranasal sinuses. Facial CT pending. Dave Horton MD Chest CT 11/23/172252 Signed Impressions: Service Date/Time: Thursday, November 23, 2017 23:21 - CONCLUSION: 1. Small bilateral pneumothoraces. 2. Scattered groundglass opacity in the lungs most characteristic of lung contusions or minimal aspiration. 3. Multiple fractures including burst fracture of T12, superior endplate fracture of T11 and multiple left rib fractures as above. 4. Endotracheal tube and nasogastric tube in good position. Dave Horton MD Cervical Spine CT 11/23/172252 Signed Impressions: Service Date/Time: Thursday, November 23, 2017 23:17 - CONCLUSION: 1. Nondisplaced fractures to the left lateral mass of C3 and C5 extending into the facet joints. No vertebral body fractures. No subluxation. Dave Hotron MD Abdomen/Pelvis CT 11/23/172252 Signed Impressions: Service Date/Time: Thursday, November 23, 2017 23:21 - CONCLUSION: 1. Negative for solid visceral injury within the abdomen and pelvis. No free air or free fluid. 2. Small bilateral pneumothoraces. 3. Fractures of the left transverse processes of L1 and L2 and the left anterior fifth through eighth ribs. T11 superior endplate fracture and T12 burst fractures as previously described. 4. Appendicolith without evidence for appendicitis. NG tip in stomach. Clinton catheter in bladder. 5. There is a small amount of air in the left external iliac vein and left femoral vein. Dave Horton MD Radius/Ulna X-Ray 11/23/17 0000 Signed Impressions: Service Date/Time: Thursday, November 23, 2017 22:48 - CONCLUSION: 1. First Metacarpal fracture. No radius and ulna fractures. No dislocation. Dave Horton MD Humerus X-Ray 11/23/17 Signed Impressions: Service Date/Time: Thursday, November 23, 2017 22:48 - CONCLUSION: 1. Angulated fracture left distal humeral shaft. Dave Horton MD Chest X-Ray 11/23/17 0000 Signed Impressions: Service Date/Time: Thursday, November 23, 2017 22:48 - CONCLUSION: 1. Endotracheal tube and nasogastric tube in good position. Scattered lung contusions or mild aspiration. No effusion. 2. Left-sided rib fractures. See abdomen and pelvic CT report. Dave Horton MD Last 24 hours Impressions Chest X-Ray 11/24/17 0400 Signed Impressions: Service Date/Time: November 04:58 - CONCLUSION: 1. Minimal basilar density, probably atelectasis. No significant effusion. No pneumothorax identified on plain film. Placement of left central line without pneumothorax. Left-sided rib fractures present. Dave Horton MD Pelvis X-Ray 11/23/172308 Signed Impressions: Service Date/Time: Thursday, November 23, 2017 22:48 - CONCLUSION: Unremarkable examination of the pelvis. Dave Horton MD Chest X-Ray 11/23/172308 Signed Impressions: Service Date/Time: Thursday, November 23, 2017 22:48 - CONCLUSION: 1. Left lower rib fractures. Cardiomediastinal silhouette within normal limits. No dense consolidation or effusion. Dave Horton MD Thoracic Spine CT 11/23/172252 Signed Impressions: Service Date/Time: Thursday, November 23, 2017 23:18 - CONCLUSION: 1. At T12 there is a burst fracture with retropulsion resulting in mild to moderate stenosis and fracture extending into the posterior elements. 2. At T11 there is a mild endplate fracture superiorly with fractures extending posteriorly into the posterior elements and facet joints at T11-12. Dave Horton MD Maxillofacial CT 11/23/172252 Signed Impressions: Service Date/Time: Thursday, November 23, 2017 23:17 - CONCLUSION: 1. Numerous facial fractures as above including bilateral mandibular, bilateral zygomatic arches, bilateral orbits bilateral maxillary and ethmoid sinuses. Also bilateral calvarial fractures. Trace pneumocephalus. Extensive scalp and facial swelling. Dave Horton MD Lumbar Spine CT 11/23/172252 Signed Impressions: Service Date/Time: Thursday, November 23, 2017 23:21 - CONCLUSION: 1. Fractures through the left transverse process of L1 and L2. No lumbar spine vertebral body fractures or subluxation. Dave Horton MD Head CT 11/23/172252 Signed Impressions: Service Date/Time: Thursday, November 23, 2017 23:16 - CONCLUSION: 1. Fractures of the left frontal bone and right parietal bone without significant displacement. Trace pneumocephalus near the right parietal bone fracture. No significant intracranial hemorrhage. 2. Numerous facial bone fractures with hemorrhage in the paranasal sinuses. Facial CT pending. Dave Horton MD Chest CT 11/23/172252 Signed Impressions: Service Date/Time: Thursday, November 23, 2017 23:21 - CONCLUSION: 1. Small bilateral pneumothoraces. 2. Scattered groundglass opacity in the lungs most characteristic of lung contusions or minimal aspiration. 3. Multiple fractures including burst fracture of T12, superior endplate fracture of T11 and multiple left rib fractures as above. 4. Endotracheal tube and nasogastric tube in good position. Dave Horton MD Cervical Spine CT 11/23/172252 Signed Impressions: Service Date/Time: Thursday, November 23, 2017 23:17 - CONCLUSION: 1. Nondisplaced fractures to the left lateral mass of C3 and C5 extending into the facet joints. No vertebral body fractures. No subluxation. Dave Horton MD Abdomen/Pelvis CT 11/23/172252 Signed Impressions: Service Date/Time: Thursday, November 23, 2017 23:21 - CONCLUSION: 1. Negative for solid visceral injury within the abdomen and pelvis. No free air or free fluid. 2. Small bilateral pneumothoraces. 3. Fractures of the left transverse processes of L1 and L2 and the left anterior fifth through eighth ribs. T11 superior endplate fracture and T12 burst fractures as previously described. 4. Appendicolith without evidence for appendicitis. NG tip in stomach. Clinton catheter in bladder. 5. There is a small amount of air in the left external iliac vein and left femoral vein. Dave Horton MD Objective Remarks Left upper extremity: dressings clean and dry. intact. Assessment & Plan Assessment and Plan 1) Left humeral shaft fracture s/p ORIF - POD 14 (12/02) -Dressing of Xeroform and Primapore changed every other day -sling and NWB -OT for motion of elbow and shoulder -plan for XR of elbow next week and likely removal of ace at that time. evita ann/Dennis Lafleur/First Margareth JIMENEZ Dec 16, 2017 07:02
[2017-12-16] MEDS: FAMOTIDINE 20 MG TAB PO SCH ×2 (08:15→20:35)
[2017-12-16] MEDS: CHLORHEXIDINE 0.12% (ORAL KIT) 15 ML CUP MT SCH ×2 (08:15→20:00)
[2017-12-16] MEDS: DOCUSATE SODIUM 50 MG/SENNA 8.6 MG TAB PO SCH ×2 (08:16→20:35)
[2017-12-16] MEDS: QUEtiapine FUMARATE 25 MG TAB PO SCH ×3 (08:16→17:09)
[2017-12-16] MEDS: CHOLECALCIFEROL (VIT D3) 1000 UNIT TAB PO SCH (08:16)
[2017-12-16] MEDS: LEVOFLOXACIN 750 MG TAB PO SCH (08:16)
[2017-12-16] MEDS: ACETAMINOPHEN 650 MG/20.3 ML UDC PO PRN (08:17)
[2017-12-16] MEDS: BENEPROTEIN POWDER 1 PACK G-TUBE SCH ×3 (08:17→17:09)
[2017-12-16] MEDS: SODIUM CHLORIDE 0.9% FLUSH 10 ML FLUSH IV FLUSH SCH ×2 (08:17→20:36)
[2017-12-16] MEDS: BACITRACIN OPHT OINT 3.5 GM TUBO SCH ×2 (08:17→20:36)
[2017-12-16] MEDS: MAGNESIUM HYDROXIDE SUSP 30 ML CUP PO SCH ×2 (08:17→20:34)
[2017-12-16] MEDS: VALPROIC ACID SYRUP 250 MG/5 ML UDC PO SCH ×2 (08:17→21:00)
[2017-12-16] MEDS: NYSTATIN 100,000 U/GM PWD 15 GM BTL TOPICAL SCH ×2 (08:18→20:36)
[2017-12-16] MEDS: BACITRACIN TOP OINT 15 GM TUBE TOPICAL SCH ×2 (08:18→20:36)
[2017-12-16] MEDS: ARTIFICIAL TEARS OPTH OINT 3.5 APPLIC/3.5 GM TUBO RIGHT EYE SCH ×3 (08:18→17:10)
[2017-12-16] MEDS: ENOXAPARIN SODIUM 100 MG/ML SYRINGE SQ SCH ×2 (08:18→20:34)
[2017-12-16] MEDS: LIDOCAINE HCL 5% PATCH T-DERMAL SCH (08:18)
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
[2017-12-16] MEDS: MIDAZOLAM 100 MG/100 ML INJ 100 ML IV PRN ×2 (08:36→20:35)
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
[2017-12-16] MEDS ORDERED: FUROSEMIDE 40 MG/4 ML VIAL IV PUSH ONE (09:00)
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
[2017-12-16] MEDS: ERGOCALCIFEROL (VIT D2) 50,000 UNIT CAP PO SCH (12:58)
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
[2017-12-17] VITALS (19 sets, daily range): BP systolic 113–126; BP diastolic 59–72; PULSE 62–86; RESP 20; TEMP 99.6–100.3; O2SAT 92–98
[2017-12-17] MEDS: PROPOFOL 1000 MG/100 ML INJ 100 ML IV PRN ×6 (00:15→20:29)
[2017-12-17] MEDS: ACETAMINOPHEN/HYDROcodone 325 MG/10 MG TAB PO PRN ×2 (00:15→02:18)
[2017-12-17] MEDS: metroNIDAZOLE 500 MG TAB PO SCH ×3 (00:16→16:56)
[2017-12-17] MEDS: SULFAMETHOXAZOLE-TRIMETHOPRIM 400-80 MG TAB PO SCH ×3 (00:16→16:56)
[2017-12-17] MEDS: HYDROmorphone HCL PF 2 MG/ML VIAL IV PUSH SCH ×7 (00:16→23:16)
[2017-12-17] MEDS: ARTIFICIAL TEARS OPTH OINT 3.5 APPLIC/3.5 GM TUBO LEFT EYE SCH ×6 (02:00→22:02)
[2017-12-17] MEDS: TOBRAMYCIN 0.3%/DEXAMETHASONE 0.1% OPHT SUSP 5 ML BTL LEFT EYE SCH ×7 (04:00→23:17)
[2017-12-17] MEDS: CHLORHEXIDINE GLUCONATE 2 % 1 PACK (2 CLOTHS) TOP SCH (04:00)
[2017-12-17] MEDS: CEFEPIME INJ 2,000 MG in SODIUM CHLORIDE 0.9% INJ 100 ML IV SCH ×3 (04:02→21:59)
[2017-12-17] MEDS: METHADONE HCL 10 MG/10 ML ORAL SOLUTION PEG SCH ×2 (05:00→16:56)
[2017-12-17] MEDS: METHOCARBAMOL 500 MG TAB PO SCH ×3 (06:00→21:59)
[2017-12-17] MEDS: chlordiazePOXIDE 25 MG CAP G-TUBE SCH ×3 (06:00→21:59)
[2017-12-17] MEDS: MIDAZOLAM 100 MG/100 ML INJ 100 ML IV PRN ×2 (06:08→15:37)
[2017-12-17] MEDS: fentaNYL DRIP 250 ML IV PRN ×2 (06:09→22:04)
[2017-12-17] MEDS: QUEtiapine FUMARATE 25 MG TAB PO SCH ×3 (07:53→16:56)
[2017-12-17] MEDS: LEVOFLOXACIN 750 MG TAB PO SCH (07:53)
[2017-12-17] MEDS: FAMOTIDINE 20 MG TAB PO SCH ×2 (07:53→21:59)
[2017-12-17] MEDS: DOCUSATE SODIUM 50 MG/SENNA 8.6 MG TAB PO SCH ×2 (07:53→21:59)
[2017-12-17] MEDS: CHOLECALCIFEROL (VIT D3) 1000 UNIT TAB PO SCH (07:53)
[2017-12-17] MEDS: VALPROIC ACID SYRUP 250 MG/5 ML UDC PO SCH ×2 (07:54→21:59)
[2017-12-17] MEDS: NOREPINEPHRINE INJ 4 MG in SODIUM CHLOR 0.9% 250 ML INJ 246 ML IV PRN (07:54)
[2017-12-17] MEDS: ENOXAPARIN SODIUM 100 MG/ML SYRINGE SQ SCH ×2 (07:54→22:01)
[2017-12-17] MEDS: MAGNESIUM HYDROXIDE SUSP 30 ML CUP PO SCH ×2 (07:54→21:59)
[2017-12-17] MEDS: BACITRACIN OPHT OINT 3.5 GM TUBO SCH ×3 (07:55→22:03)
[2017-12-17] MEDS: ARTIFICIAL TEARS OPTH OINT 3.5 APPLIC/3.5 GM TUBO RIGHT EYE SCH ×3 (07:55→16:57)
[2017-12-17] MEDS: SODIUM CHLORIDE 0.9% FLUSH 10 ML FLUSH IV FLUSH SCH ×2 (07:55→21:00)
[2017-12-17] MEDS: CHLORHEXIDINE 0.12% (ORAL KIT) 15 ML CUP MT SCH ×2 (07:55→20:00)
[2017-12-17] MEDS: BENEPROTEIN POWDER 1 PACK G-TUBE SCH ×3 (07:55→16:57)
[2017-12-17] MEDS: LIDOCAINE HCL 5% PATCH T-DERMAL SCH (07:56)
[2017-12-17] MEDS: BACITRACIN TOP OINT 15 GM TUBE TOPICAL SCH ×2 (07:56→22:01)
[2017-12-17] MEDS: NYSTATIN 100,000 U/GM PWD 15 GM BTL TOPICAL SCH ×2 (07:56→22:01)
[2017-12-17] MEDS: RESP: ALBUTEROL 2.5 MG/IPRATROPIUM 0.5 MG NEB (PRN) INH (08:33)
[2017-12-17] MEDS ORDERED: FUROSEMIDE 40 MG/4 ML VIAL IV PUSH ONE (10:30)
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
[2017-12-17 13:14] LABS: AUTOMATED NEUTROPHIL # 6.2 TH/MM3 (1.8-7.7); BASOPHIL # 0.1 TH/MM3 (0-0.2); BASOPHIL % 0.6 % (0.0-2.0); EOSINOPHIL # 0.2 TH/MM3 (0-0.4); EOSINOPHIL % 2.7 % (0.0-4.0); HEMATOCRIT 31.3 % (39.0-51.0); HEMOGLOBIN 10.4 GM/DL (13.0-17.0); LYMPH % 17.1 % (9.0-44.0); LYMPHOCYTE # 1.5 TH/MM3 (1.0-4.8); MEAN CELL VOLUME 88.5 FL (80.0-100.0); MEAN CORPUSCULAR HEMOGLOBIN 29.5 PG (27.0-34.0); MEAN CORPUSCULAR HGB CONC 33.3 % (32.0-36.0); MEAN PLATELET VOLUME 8.5 FL (7.0-11.0); MONO % 11.1 % (0.0-8.0); NEUT % 68.5 % (16.0-70.0); PLATELET COUNT 458 TH/MM3 (150-450); RED BLOOD COUNT 3.54 MIL/MM3 (4.50-5.90); RED CELL DISTRIBUTION WIDTH 15.6 % (11.6-17.2); WHITE BLOOD COUNT 9.1 TH/MM3 (4.0-11.0)
[2017-12-17 13:37] LABS: BICARBONATE 35.8 MEQ/L (21.0-32.0); CALCIUM 8.3 MG/DL (8.5-10.1); CREATININE 0.46 MG/DL (0.60-1.30)
[2017-12-17 14:05] LABS: BANDS 14 % (0-6); BASOPHILS 1 % (0-2); LYMPHOCYTES 12 % (9-44); MONOCYTES 7 % (0-8); MYELOCYTES 2 % (0-0); NEUTROPHIL # MANUAL DIFF 7.2 TH/MM3 (1.8-7.7); POLYCHROMASIA 2.5 % (0.0-1.9); POLYS (SEG NEUTROPHILS) 63 % (16-70)
[2017-12-17] MEDS ORDERED: CISATRACURIUM INJ 100 MG in SODIUM CHLOR 0.9% 250 ML INJ 250 ML IV PRN (14:30)
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
[2017-12-17] MEDS: CISATRACURIUM INJ 200 MG in SODIUM CHLORID 0.9% 500 ML INJ 480 ML IV PRN (21:59)
[2017-12-17] MEDS: RESP: ALBUTEROL 2.5 MG/IPRATROPIUM 0.5 MG NEB (SCH) NEB (22:00)
[2017-12-17] MEDS: RESP: ACETYLCYSTEINE 20% 4 ML NEB NEB SCH (23:10)
[2017-12-18] VITALS (20 sets, daily range): BP systolic 109–123; BP diastolic 57–71; PULSE 74–95; RESP 20–24; TEMP 98.3–100.4; O2SAT 92–100
[2017-12-18] MEDS: metroNIDAZOLE 500 MG TAB PO SCH ×4 (00:19→23:18)
[2017-12-18] MEDS: SULFAMETHOXAZOLE-TRIMETHOPRIM 400-80 MG TAB PO SCH ×2 (00:19→07:51)
[2017-12-18] MEDS: MIDAZOLAM 100 MG/100 ML INJ 100 ML IV PRN ×4 (00:35→17:16)
[2017-12-18] MEDS: PROPOFOL 1000 MG/100 ML INJ 100 ML IV PRN ×3 (01:30→23:53)
[2017-12-18] MEDS: ARTIFICIAL TEARS OPTH OINT 3.5 APPLIC/3.5 GM TUBO LEFT EYE SCH ×6 (02:00→20:01)
[2017-12-18] MEDS: RESP: ALBUTEROL 2.5 MG/IPRATROPIUM 0.5 MG NEB (SCH) NEB ×4 (03:24→21:22)
[2017-12-18] MEDS: RESP: ACETYLCYSTEINE 20% 4 ML NEB NEB SCH ×4 (03:28→21:22)
[2017-12-18] MEDS: CHLORHEXIDINE GLUCONATE 2 % 1 PACK (2 CLOTHS) TOP SCH (03:37)
[2017-12-18] MEDS: HYDROmorphone HCL PF 2 MG/ML VIAL IV PUSH SCH ×6 (03:37→23:18)
[2017-12-18] MEDS: TOBRAMYCIN 0.3%/DEXAMETHASONE 0.1% OPHT SUSP 5 ML BTL LEFT EYE SCH ×6 (03:38→23:18)
[2017-12-18 04:31] LABS: AUTOMATED NEUTROPHIL # 6.6 TH/MM3 (1.8-7.7); BASOPHIL # 0.1 TH/MM3 (0-0.2); BASOPHIL % 0.7 % (0.0-2.0); EOSINOPHIL # 0.2 TH/MM3 (0-0.4); HEMATOCRIT 28.6 % (39.0-51.0); HEMOGLOBIN 9.5 GM/DL (13.0-17.0); LYMPH % 16.1 % (9.0-44.0); LYMPHOCYTE # 1.6 TH/MM3 (1.0-4.8); MEAN CELL VOLUME 89.2 FL (80.0-100.0); MEAN CORPUSCULAR HEMOGLOBIN 29.8 PG (27.0-34.0); MEAN CORPUSCULAR HGB CONC 33.4 % (32.0-36.0); MEAN PLATELET VOLUME 8.4 FL (7.0-11.0); MONO % 12.7 % (0.0-8.0); MONOCYTE # 1.2 TH/MM3 (0-0.9); NEUT % 68.5 % (16.0-70.0); PLATELET COUNT 377 TH/MM3 (150-450); RED CELL DISTRIBUTION WIDTH 15.3 % (11.6-17.2); WHITE BLOOD COUNT 9.6 TH/MM3 (4.0-11.0)
[2017-12-18 04:54] LABS: BICARBONATE 36.1 MEQ/L (21.0-32.0); CREATININE 0.51 MG/DL (0.60-1.30)
[2017-12-18] MEDS: METHOCARBAMOL 500 MG TAB PO SCH ×3 (05:11→23:18)
[2017-12-18] MEDS: METHADONE HCL 10 MG/10 ML ORAL SOLUTION PEG SCH ×2 (05:11→17:16)
[2017-12-18] MEDS: chlordiazePOXIDE 25 MG CAP G-TUBE SCH ×3 (05:11→23:17)
[2017-12-18] MEDS: CEFEPIME INJ 2,000 MG in SODIUM CHLORIDE 0.9% INJ 100 ML IV SCH ×3 (05:12→19:59)
[2017-12-18] MEDS: fentaNYL DRIP 250 ML IV PRN ×3 (05:13→17:16)
--- NOTE | 2017-12-18 05:38 | RADRPT ---
EXAM DATE/TIME: 12/18/2017 04:19 [facility] COMPARISON: CHEST SINGLE AP, December 16, 2017, 6:32. INDICATIONS : Infiltrate. MEDICAL HISTORY : None. SURGICAL HISTORY : Fusion, thoracic. ORIF left humerus. Left frontotemporal craniotomy with fixation of depressed skull ENCOUNTER: Subsequent ACUITY: 3 weeks PAIN SCORE: Non-responsive. LOCATION: Bilateral chest FINDINGS: Diffuse bilateral parenchymal opacities with small to moderate pleural effusions again noted nonsigni ficantly changed. I don't see a pneumothorax. Heart size stable, upper limits of normal. Tracheostomy tube again noted. There is a right subclavian central venous catheter again seen with ti p at the atrial caval junction. CONCLUSION: No significant change. Waqas Macedo MD on December 18, 2017 at 5:36 Board Certified Radiologist. This report was verified electronically.
[2017-12-18 05:43] LABS: BANDS 5 % (0-6); BASOPHILS 1 % (0-2); LYMPHOCYTES 13 % (9-44); MONOCYTES 10 % (0-8); NEUTROPHIL # MANUAL DIFF 7.1 TH/MM3 (1.8-7.7); POLYS (SEG NEUTROPHILS) 69 % (16-70)
[2017-12-18 05:44] LABS: SPHEROCYTES OCC (NORMAL)
[2017-12-18] MEDS: CISATRACURIUM INJ 200 MG in SODIUM CHLORID 0.9% 500 ML INJ 480 ML IV PRN ×4 (06:46→17:17)
[2017-12-18] MEDS: MAGNESIUM HYDROXIDE SUSP 30 ML CUP PO SCH ×2 (07:49→19:58)
[2017-12-18] MEDS: ENOXAPARIN SODIUM 100 MG/ML SYRINGE SQ SCH ×2 (07:49→20:00)
[2017-12-18] MEDS: LIDOCAINE HCL 5% PATCH T-DERMAL SCH (07:49)
[2017-12-18] MEDS: QUEtiapine FUMARATE 25 MG TAB PO SCH ×3 (07:50→17:16)
[2017-12-18] MEDS: CHOLECALCIFEROL (VIT D3) 1000 UNIT TAB PO SCH (07:50)
[2017-12-18] MEDS: VALPROIC ACID SYRUP 250 MG/5 ML UDC PO SCH ×2 (07:50→19:58)
[2017-12-18] MEDS: FAMOTIDINE 20 MG TAB PO SCH ×2 (07:50→20:00)
[2017-12-18] MEDS: LEVOFLOXACIN 750 MG TAB PO SCH (07:50)
[2017-12-18] MEDS: BENEPROTEIN POWDER 1 PACK G-TUBE SCH ×3 (07:51→17:16)
[2017-12-18] MEDS: CHLORHEXIDINE 0.12% (ORAL KIT) 15 ML CUP MT SCH ×2 (07:51→20:05)
[2017-12-18] MEDS: SODIUM CHLORIDE 0.9% FLUSH 10 ML FLUSH IV FLUSH SCH ×2 (07:51→19:58)
[2017-12-18] MEDS: DOCUSATE SODIUM 50 MG/SENNA 8.6 MG TAB PO SCH ×2 (07:51→20:00)
[2017-12-18] MEDS: BACITRACIN OPHT OINT 3.5 GM TUBO SCH ×2 (07:51→20:03)
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
[2017-12-18] MEDS: BACITRACIN TOP OINT 15 GM TUBE TOPICAL SCH ×2 (08:48→20:02)
[2017-12-18] MEDS: ARTIFICIAL TEARS OPTH OINT 3.5 APPLIC/3.5 GM TUBO RIGHT EYE SCH ×3 (08:48→17:16)
[2017-12-18] MEDS: NYSTATIN 100,000 U/GM PWD 15 GM BTL TOPICAL SCH ×2 (08:48→20:02)
[2017-12-18] MEDS ORDERED: ALBUMIN 25% INJ 100 ML IV ONE (10:00)
--- NOTE | 2017-12-18 10:12 | RADRPT ---
EXAM DATE/TIME: 12/18/2017 09:36 [facility] COMPARISON: CHEST SINGLE AP, December 05, 2017, 14:13. CHEST SINGLE AP, December 14, 2017, 5:15. CHEST SINGLE A P, December 15, 2017, 5:39. CHEST SINGLE AP, December 16, 2017, 6:32. CHEST SINGLE AP, December 18, 2017, 4:19. INDICATIONS : Respiratory disease. MEDICAL HISTORY : None. SURGICAL HISTORY : Fusion, thoracic. ORIF left humerus. Left frontotemporal craniotomy with fixation of depressed skull. ENCOUNTER: Subsequent ACUITY: 3 weeks PAIN SCORE: Non-responsive. LOCATION: Bilateral chest FINDINGS: There is a tracheostomy tube in place. Surgical hardware is seen at the lower thoracic and upper lumb ar spine region. The heart size is normal. There is hazy density seen throughout the lungs bilaterall y. There is a right subclavian line in good position. CONCLUSION: Hazy density seen throughout the lungs bilaterally likely related to bilateral effusions and some deg ree of diffuse parenchymal consolidation. Pulmonary edema, diffuse infection, or ARDS could be consid ered. Waqas Cutler MD on December 18, 2017 at 10:08 Board Certified Radiologist. This report was verified electronically.
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
[2017-12-18] MEDS ORDERED: FUROSEMIDE 40 MG/4 ML VIAL IV PUSH ONE (13:00)
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
[2017-12-18] MEDS: SULFAMETHOXAZOLE-TRIMETHOPRIM 800-160 MG/20 ML UDC PO SCH (17:18)
[2017-12-18] MEDS: HYDROmorphone HCL PF 2 MG/ML VIAL IV PUSH PRN (17:40)
[2017-12-19] VITALS (19 sets, daily range): BP systolic 99–115; BP diastolic 56–68; PULSE 62–89; RESP 24; TEMP 98.4–100.4; O2SAT 93–100
[2017-12-19] MEDS: CISATRACURIUM INJ 200 MG in SODIUM CHLORID 0.9% 500 ML INJ 480 ML IV PRN ×2 (01:30→05:04)
[2017-12-19] MEDS: MIDAZOLAM 100 MG/100 ML INJ 100 ML IV PRN (01:31)
[2017-12-19] MEDS: ARTIFICIAL TEARS OPTH OINT 3.5 APPLIC/3.5 GM TUBO LEFT EYE SCH ×6 (02:00→21:04)
[2017-12-19] MEDS: HYDROmorphone HCL PF 2 MG/ML VIAL IV PUSH SCH ×2 (02:59→06:27)
[2017-12-19] MEDS: RESP: ALBUTEROL 2.5 MG/IPRATROPIUM 0.5 MG NEB (SCH) NEB ×4 (03:08→19:45)
[2017-12-19] MEDS: SULFAMETHOXAZOLE-TRIMETHOPRIM 800-160 MG/20 ML UDC PO SCH ×2 (03:08→12:52)
[2017-12-19] MEDS: RESP: ACETYLCYSTEINE 20% 4 ML NEB NEB SCH ×4 (03:08→19:45)
[2017-12-19] MEDS: TOBRAMYCIN 0.3%/DEXAMETHASONE 0.1% OPHT SUSP 5 ML BTL LEFT EYE SCH ×6 (03:08→23:59)
[2017-12-19 03:34] LABS: BASOPHIL # 0.1 TH/MM3 (0-0.2); BASOPHIL % 0.8 % (0.0-2.0); EOSINOPHIL # 0.2 TH/MM3 (0-0.4); EOSINOPHIL % 2.1 % (0.0-4.0); HEMATOCRIT 26.2 % (39.0-51.0); HEMOGLOBIN 8.6 GM/DL (13.0-17.0); LYMPH % 12.2 % (9.0-44.0); MEAN CELL VOLUME 89.3 FL (80.0-100.0); MEAN CORPUSCULAR HEMOGLOBIN 29.4 PG (27.0-34.0); MEAN CORPUSCULAR HGB CONC 32.9 % (32.0-36.0); MEAN PLATELET VOLUME 8.1 FL (7.0-11.0); MONO % 11.2 % (0.0-8.0); MONOCYTE # 0.9 TH/MM3 (0-0.9); NEUT % 73.7 % (16.0-70.0); PLATELET COUNT 321 TH/MM3 (150-450); RED BLOOD COUNT 2.94 MIL/MM3 (4.50-5.90); RED CELL DISTRIBUTION WIDTH 15.7 % (11.6-17.2); WHITE BLOOD COUNT 8.1 TH/MM3 (4.0-11.0)
[2017-12-19 03:53] LABS: BICARBONATE 33.6 MEQ/L (21.0-32.0); CREATININE 0.42 MG/DL (0.60-1.30)
[2017-12-19] MEDS: CHLORHEXIDINE GLUCONATE 2 % 1 PACK (2 CLOTHS) TOP SCH (04:00)
[2017-12-19 04:27] LABS: BANDS 19 % (0-6); LYMPHOCYTES 9 % (9-44); METAMYELOCYTES 1 % (0-1); MONOCYTES 7 % (0-8); NEUTROPHIL # MANUAL DIFF 6.6 TH/MM3 (1.8-7.7); POLYS (SEG NEUTROPHILS) 62 % (16-70)
[2017-12-19] MEDS: chlordiazePOXIDE 25 MG CAP G-TUBE SCH (05:02)
[2017-12-19] MEDS: METHOCARBAMOL 500 MG TAB PO SCH ×3 (05:02→21:01)
[2017-12-19] MEDS: fentaNYL DRIP 250 ML IV PRN (05:03)
[2017-12-19] MEDS: CEFEPIME INJ 2,000 MG in SODIUM CHLORIDE 0.9% INJ 100 ML IV SCH ×2 (05:04→12:26)
[2017-12-19] MEDS: METHADONE HCL 10 MG/10 ML ORAL SOLUTION PEG SCH ×2 (05:34→16:23)
[2017-12-19] MEDS ORDERED: PHENYLEPHRINE INJ 40 MG in DEXTROSE 5% IN WATE 500 ML INJ 496 ML IV PRN ×2 (07:15)
[2017-12-19] MEDS ORDERED: TERBUTALINE INJ 1 MG/ML AMP SQ PRN (07:15)
[2017-12-19] MEDS ORDERED: PROPOFOL 500 MG/50 ML INJ 50 ML ONE (07:53)
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
[2017-12-19] MEDS: CHLORHEXIDINE 0.12% (ORAL KIT) 15 ML CUP MT SCH ×2 (08:00→21:02)
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
[2017-12-19] MEDS: MAGNESIUM HYDROXIDE SUSP 30 ML CUP PO SCH ×2 (08:32→21:01)
[2017-12-19] MEDS: ENOXAPARIN SODIUM 100 MG/ML SYRINGE SQ SCH ×2 (08:33→21:01)
[2017-12-19] MEDS: FAMOTIDINE 20 MG TAB PO SCH ×2 (08:34→21:01)
[2017-12-19] MEDS: CHOLECALCIFEROL (VIT D3) 1000 UNIT TAB PO SCH (08:34)
[2017-12-19] MEDS: LIDOCAINE HCL 5% PATCH T-DERMAL SCH (08:34)
[2017-12-19] MEDS: metroNIDAZOLE 500 MG TAB PO SCH (08:34)
[2017-12-19] MEDS: LEVOFLOXACIN 750 MG TAB PO SCH (08:34)
[2017-12-19] MEDS: SODIUM CHLORIDE 0.9% FLUSH 10 ML FLUSH IV FLUSH SCH ×2 (08:35→21:02)
[2017-12-19] MEDS: BENEPROTEIN POWDER 1 PACK G-TUBE SCH ×3 (08:35→17:05)
[2017-12-19] MEDS: BACITRACIN OPHT OINT 3.5 GM TUBO SCH ×2 (08:35→21:03)
[2017-12-19] MEDS: ARTIFICIAL TEARS OPTH OINT 3.5 APPLIC/3.5 GM TUBO RIGHT EYE SCH ×3 (09:00→17:05)
[2017-12-19] MEDS: BACITRACIN TOP OINT 15 GM TUBE TOPICAL SCH ×2 (09:00→21:00)
[2017-12-19] MEDS: ALBUMIN 25% INJ 100 ML IV SCH ×3 (09:00→23:57)
[2017-12-19] MEDS: FUROSEMIDE 40 MG/4 ML VIAL IV PUSH SCH ×3 (09:00→23:58)
[2017-12-19] MEDS: NYSTATIN 100,000 U/GM PWD 15 GM BTL TOPICAL SCH ×2 (09:00→21:00)
[2017-12-19] MEDS: PROPOFOL 1000 MG/100 ML INJ 100 ML IV PRN ×6 (09:01→23:58)
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
[2017-12-19] MEDS: DOCUSATE SODIUM 50 MG/SENNA 8.6 MG TAB PO SCH ×2 (12:27→21:02)
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
[2017-12-19] MEDS: HYDROmorphone HCL PF 2 MG/ML VIAL IV PUSH PRN ×2 (14:24→22:18)
[2017-12-19 15:25] LABS: BICARBONATE 33.3 MEQ/L (21.0-32.0); CALCIUM 8.3 MG/DL (8.5-10.1); CREATININE 0.51 MG/DL (0.60-1.30); MAGNESIUM 2.2 MG/DL (1.5-2.5)
[2017-12-19] MEDS ORDERED: POTASSIUM CHLORIDE 25 MEQ EFFERVESCENT TAB PO ONE (16:45)
[2017-12-20] VITALS (14 sets, daily range): BP systolic 122–162; BP diastolic 67–95; PULSE 79–104; RESP 26–47; TEMP 98.7–101.5; O2SAT 90–99
[2017-12-20] MEDS: ARTIFICIAL TEARS OPTH OINT 3.5 APPLIC/3.5 GM TUBO LEFT EYE SCH ×6 (00:56→21:29)
[2017-12-20] MEDS: CHLORHEXIDINE GLUCONATE 2 % 1 PACK (2 CLOTHS) TOP SCH (00:56)
[2017-12-20] MEDS: PROPOFOL 1000 MG/100 ML INJ 100 ML IV PRN ×8 (02:44→15:43)
[2017-12-20] MEDS: HYDROmorphone HCL PF 2 MG/ML VIAL IV PUSH PRN ×5 (02:45→22:05)
[2017-12-20] MEDS: TOBRAMYCIN 0.3%/DEXAMETHASONE 0.1% OPHT SUSP 5 ML BTL LEFT EYE SCH ×5 (04:00→21:29)
[2017-12-20] MEDS: ACETAMINOPHEN 650 MG/20.3 ML UDC PO PRN ×2 (04:10→12:12)
[2017-12-20 04:14] LABS: AMORPHOUS SEDIMENT, URINE OCC; BILIRUBIN, URINE NEG (NEG); BLOOD, URINE NEG (NEG); GLUCOSE,URINE NEG (NEG); KETONE, URINE NEG (NEG); MUCUS URINE FEW /lpf (OCC); NITRITE,URINE NEG (NEG); PH, URINE 8.5 (5.0-8.5); URINE COLOR YELLOW (YELLW/STRAW); URINE LEUKOCYTE ESTERASE NEG (NEG)
[2017-12-20] MEDS: RESP: ALBUTEROL 2.5 MG/IPRATROPIUM 0.5 MG NEB (SCH) NEB ×4 (04:15→20:08)
[2017-12-20] MEDS: RESP: ACETYLCYSTEINE 20% 4 ML NEB NEB SCH ×3 (04:15→20:08)
[2017-12-20 04:32] LABS: AUTOMATED NEUTROPHIL # 5.2 TH/MM3 (1.8-7.7); BASOPHIL # 0.1 TH/MM3 (0-0.2); BASOPHIL % 0.8 % (0.0-2.0); EOSINOPHIL # 0.2 TH/MM3 (0-0.4); EOSINOPHIL % 3.4 % (0.0-4.0); HEMATOCRIT 26.7 % (39.0-51.0); HEMOGLOBIN 8.9 GM/DL (13.0-17.0); LYMPH % 14.4 % (9.0-44.0); MEAN CELL VOLUME 88.2 FL (80.0-100.0); MEAN CORPUSCULAR HEMOGLOBIN 29.3 PG (27.0-34.0); MEAN CORPUSCULAR HGB CONC 33.2 % (32.0-36.0); MEAN PLATELET VOLUME 8.1 FL (7.0-11.0); MONO % 10.2 % (0.0-8.0); MONOCYTE # 0.7 TH/MM3 (0-0.9); NEUT % 71.2 % (16.0-70.0); PLATELET COUNT 334 TH/MM3 (150-450); RED BLOOD COUNT 3.03 MIL/MM3 (4.50-5.90); RED CELL DISTRIBUTION WIDTH 15.5 % (11.6-17.2); WHITE BLOOD COUNT 7.2 TH/MM3 (4.0-11.0)
[2017-12-20] MEDS: METHADONE HCL 10 MG/10 ML ORAL SOLUTION PEG SCH (04:40)
[2017-12-20] MEDS: METHOCARBAMOL 500 MG TAB PO SCH ×3 (04:41→21:28)
[2017-12-20 04:56] LABS: BICARBONATE 30.7 MEQ/L (21.0-32.0); CALCIUM 8.4 MG/DL (8.5-10.1); CREATININE 0.59 MG/DL (0.60-1.30)
--- NOTE | 2017-12-20 05:37 | RADRPT ---
EXAM DATE/TIME: 12/20/2017 04:46 [facility] COMPARISON: CHEST SINGLE AP, December 18, 2017, 9:36. INDICATIONS : Respiratory distress. MEDICAL HISTORY : None. SURGICAL HISTORY : Fusion, thoracic. ORIF left humerus. Left frontotemporal craniotomy with fixation of depressed skull. . ENCOUNTER: Subsequent ACUITY: 3 weeks PAIN SCORE: Non-responsive. LOCATION: Bilateral chest FINDINGS: Stable tracheostomy. Interval removal of right subclavian central line. Persistent diffuse hazy bilat eral opacities, left greater than right. Cardiomediastinal contours are stable. Remainder of the exam is unchanged. CONCLUSION: 1. Persistent bilateral diffuse hazy opacities likely reflecting combination of diffuse parenchymal o pacities and layering pleural effusions. 2. No significant interval change. Zenon Mariano MD on December 20, 2017 at 5:34 Board Certified Radiologist. This report was verified electronically.
[2017-12-20 07:04] LABS: BANDS 11 % (0-6); CORRECTED NUCLEATED RBC 1 /100 WBC (0-0); LYMPHOCYTES 11 % (9-44); MONOCYTES 5 % (0-8); MYELOCYTES 2 % (0-0); NEUTROPHIL # MANUAL DIFF 5.9 TH/MM3 (1.8-7.7); NUCLEATED RED BLOOD CELL 1 (0-0); POLYS (SEG NEUTROPHILS) 69 % (16-70)
--- NOTE | 2017-12-20 07:12 | PD.ORT.PN ---
Subjective Subjective Remarks Patient is stable with no new changes Objective Vitals Vital Signs Date Time Temp Pulse Resp B/P (MAP) Pulse Ox O2 Delivery O2 Flow Rate FiO2 12/20/17 04:21 99 40 12/20/17 04:00 101.5 91 26 122/67 (85) 96 12/20/17 04:00 40 12/20/17 04:00 91 12/20/17 02:00 83 12/20/17 00:00 40 12/20/17 00:00 100.8 86 26 126/70 (88) 97 12/20/17 00:00 86 12/19/17 23:04 98 40 12/19/17 22:00 89 12/19/17 20:00 95 Mechanical Ventilator 40 12/19/17 20:00 77 12/19/17 20:00 40 12/19/17 20:00 100.4 77 24 102/56 (71) 95 12/19/17 19:47 93 40 12/19/17 18:00 85 12/19/17 16:08 95 40 12/19/17 16:00 45 12/19/17 16:00 98.5 75 24 115/67 (83) 98 12/19/17 16:00 75 12/19/17 14:00 82 12/19/17 12:00 45 12/19/17 12:00 74 12/19/17 12:00 99.2 74 24 109/64 (79) 95 12/19/17 11:51 94 45 12/19/17 10:00 80 12/19/17 08:05 100 50 12/19/17 08:00 99.5 77 24 104/64 (77) 100 12/19/17 08:00 50 12/19/17 08:00 77 I/O 12/19/17 12/19/17 12/19/17 12/20/17 12/20/17 12/20/17 07:00 15:00 23:00 07:00 15:00 23:00 Intake Total 2252 ml 633.4 ml 1018 ml 395 ml Output Total 1050 ml 3200 ml Balance 1202 ml 633.4 ml -2182 ml 395 ml Intake Oral 0 ml IV Total 1550 ml 633.4 ml 298 ml 395 ml Tube Feeding 702 ml 720 ml Output Urine Total 750 ml 2700 ml Stool Total 300 ml 500 ml Result Diagram: 2/27/18 0415 12/20/17 0415 Imaging Last 72 hours Impressions Chest X-Ray 11/24/17 0400 Signed Impressions: Service Date/Time: November 04:58 - CONCLUSION: 1. Minimal basilar density, probably atelectasis. No significant effusion. No pneumothorax identified on plain film. Placement of left central line without pneumothorax. Left-sided rib fractures present. Dave Horton MD Pelvis X-Ray 11/23/172308 Signed Impressions: Service Date/Time: Thursday, November 23, 2017 22:48 - CONCLUSION: Unremarkable examination of the pelvis. Dave Horton MD Chest X-Ray 11/23/172308 Signed Impressions: Service Date/Time: Thursday, November 23, 2017 22:48 - CONCLUSION: 1. Left lower rib fractures. Cardiomediastinal silhouette within normal limits. No dense consolidation or effusion. Dave Horton MD Thoracic Spine CT 11/23/172252 Signed Impressions: Service Date/Time: Thursday, November 23, 2017 23:18 - CONCLUSION: 1. At T12 there is a burst fracture with retropulsion resulting in mild to moderate stenosis and fracture extending into the posterior elements. 2. At T11 there is a mild endplate fracture superiorly with fractures extending posteriorly into the posterior elements and facet joints at T11-12. Dave Horton MD Maxillofacial CT 11/23/172252 Signed Impressions: Service Date/Time: Thursday, November 23, 2017 23:17 - CONCLUSION: 1. Numerous facial fractures as above including bilateral mandibular, bilateral zygomatic arches, bilateral orbits bilateral maxillary and ethmoid sinuses. Also bilateral calvarial fractures. Trace pneumocephalus. Extensive scalp and facial swelling. Dave Horton MD Lumbar Spine CT 11/23/172252 Signed Impressions: Service Date/Time: Thursday, November 23, 2017 23:21 - CONCLUSION: 1. Fractures through the left transverse process of L1 and L2. No lumbar spine vertebral body fractures or subluxation. Dave oHrton MD Head CT 11/23/172252 Signed Impressions: Service Date/Time: Thursday, November 23, 2017 23:16 - CONCLUSION: 1. Fractures of the left frontal bone and right parietal bone without significant displacement. Trace pneumocephalus near the right parietal bone fracture. No significant intracranial hemorrhage. 2. Numerous facial bone fractures with hemorrhage in the paranasal sinuses. Facial CT pending. Dave Horton MD Chest CT 11/23/172252 Signed Impressions: Service Date/Time: Thursday, November 23, 2017 23:21 - CONCLUSION: 1. Small bilateral pneumothoraces. 2. Scattered groundglass opacity in the lungs most characteristic of lung contusions or minimal aspiration. 3. Multiple fractures including burst fracture of T12, superior endplate fracture of T11 and multiple left rib fractures as above. 4. Endotracheal tube and nasogastric tube in good position. Dave Horton MD Cervical Spine CT 11/23/172252 Signed Impressions: Service Date/Time: Thursday, November 23, 2017 23:17 - CONCLUSION: 1. Nondisplaced fractures to the left lateral mass of C3 and C5 extending into the facet joints. No vertebral body fractures. No subluxation. Dave Horton MD Abdomen/Pelvis CT 11/23/172252 Signed Impressions: Service Date/Time: Thursday, November 23, 2017 23:21 - CONCLUSION: 1. Negative for solid visceral injury within the abdomen and pelvis. No free air or free fluid. 2. Small bilateral pneumothoraces. 3. Fractures of the left transverse processes of L1 and L2 and the left anterior fifth through eighth ribs. T11 superior endplate fracture and T12 burst fractures as previously described. 4. Appendicolith without evidence for appendicitis. NG tip in stomach. Clinton catheter in bladder. 5. There is a small amount of air in the left external iliac vein and left femoral vein. Dave Horton MD Radius/Ulna X-Ray 11/23/17 0000 Signed Impressions: Service Date/Time: Thursday, November 23, 2017 22:48 - CONCLUSION: 1. First Metacarpal fracture. No radius and ulna fractures. No dislocation. Dave Horton MD Humerus X-Ray 11/23/17 Signed Impressions: Service Date/Time: Thursday, November 23, 2017 22:48 - CONCLUSION: 1. Angulated fracture left distal humeral shaft. Dave Horton MD Chest X-Ray 11/23/17 0000 Signed Impressions: Service Date/Time: Thursday, November 23, 2017 22:48 - CONCLUSION: 1. Endotracheal tube and nasogastric tube in good position. Scattered lung contusions or mild aspiration. No effusion. 2. Left-sided rib fractures. See abdomen and pelvic CT report. Dave Horton MD Last 24 hours Impressions Chest X-Ray 11/24/17 0400 Signed Impressions: Service Date/Time: November 04:58 - CONCLUSION: 1. Minimal basilar density, probably atelectasis. No significant effusion. No pneumothorax identified on plain film. Placement of left central line without pneumothorax. Left-sided rib fractures present. Dave Horton MD Pelvis X-Ray 11/23/172308 Signed Impressions: Service Date/Time: Thursday, November 23, 2017 22:48 - CONCLUSION: Unremarkable examination of the pelvis. Dave Horton MD Chest X-Ray 11/23/172308 Signed Impressions: Service Date/Time: Thursday, November 23, 2017 22:48 - CONCLUSION: 1. Left lower rib fractures. Cardiomediastinal silhouette within normal limits. No dense consolidation or effusion. Dave Horton MD Thoracic Spine CT 11/23/172252 Signed Impressions: Service Date/Time: Thursday, November 23, 2017 23:18 - CONCLUSION: 1. At T12 there is a burst fracture with retropulsion resulting in mild to moderate stenosis and fracture extending into the posterior elements. 2. At T11 there is a mild endplate fracture superiorly with fractures extending posteriorly into the posterior elements and facet joints at T11-12. Dave Horton MD Maxillofacial CT 11/23/172252 Signed Impressions: Service Date/Time: Thursday, November 23, 2017 23:17 - CONCLUSION: 1. Numerous facial fractures as above including bilateral mandibular, bilateral zygomatic arches, bilateral orbits bilateral maxillary and ethmoid sinuses. Also bilateral calvarial fractures. Trace pneumocephalus. Extensive scalp and facial swelling. Dave Horton MD Lumbar Spine CT 11/23/172252 Signed Impressions: Service Date/Time: Thursday, November 23, 2017 23:21 - CONCLUSION: 1. Fractures through the left transverse process of L1 and L2. No lumbar spine vertebral body fractures or subluxation. Dave Horton MD Head CT 11/23/172252 Signed Impressions: Service Date/Time: Thursday, November 23, 2017 23:16 - CONCLUSION: 1. Fractures of the left frontal bone and right parietal bone without significant displacement. Trace pneumocephalus near the right parietal bone fracture. No significant intracranial hemorrhage. 2. Numerous facial bone fractures with hemorrhage in the paranasal sinuses. Facial CT pending. Dave Horton MD Chest CT 11/23/172252 Signed Impressions: Service Date/Time: Thursday, November 23, 2017 23:21 - CONCLUSION: 1. Small bilateral pneumothoraces. 2. Scattered groundglass opacity in the lungs most characteristic of lung contusions or minimal aspiration. 3. Multiple fractures including burst fracture of T12, superior endplate fracture of T11 and multiple left rib fractures as above. 4. Endotracheal tube and nasogastric tube in good position. Dave Horton MD Cervical Spine CT 11/23/172252 Signed Impressions: Service Date/Time: Thursday, November 23, 2017 23:17 - CONCLUSION: 1. Nondisplaced fractures to the left lateral mass of C3 and C5 extending into the facet joints. No vertebral body fractures. No subluxation. Dave Horton MD Abdomen/Pelvis CT 11/23/172252 Signed Impressions: Service Date/Time: Thursday, November 23, 2017 23:21 - CONCLUSION: 1. Negative for solid visceral injury within the abdomen and pelvis. No free air or free fluid. 2. Small bilateral pneumothoraces. 3. Fractures of the left transverse processes of L1 and L2 and the left anterior fifth through eighth ribs. T11 superior endplate fracture and T12 burst fractures as previously described. 4. Appendicolith without evidence for appendicitis. NG tip in stomach. Clinton catheter in bladder. 5. There is a small amount of air in the left external iliac vein and left femoral vein. Dave Horton MD Objective Remarks Left upper extremity: dressings clean and dry. intact. Splint over thumb. Good capillary refills distally Assessment & Plan Assessment and Plan 1) Left humeral shaft fracture s/p ORIF - POD 18 (12/02) -Dressing of Xeroform and Primapore changed every other day -sling and NWB -OT for motion of elbow and shoulder -X-rays today of left humerus -Plan on DC sutures and ace to left humerus on Emerson Talbot Jr. Dec 20, 2017 07:12
[2017-12-20] MEDS: POTASSIUM CHLORIDE 25 MEQ EFFERVESCENT TAB PO PRN ×2 (07:55→11:05)
[2017-12-20] MEDS: CHLORHEXIDINE 0.12% (ORAL KIT) 15 ML CUP MT SCH ×2 (07:56→21:29)
[2017-12-20] MEDS: HYOSCYAMINE SOLN 0.125 MG/ML 15 ML BTL SL PRN ×3 (08:00→16:50)
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
--- NOTE | 2017-12-20 08:57 | RADRPT ---
EXAM DATE/TIME: 12/20/2017 08:25 [facility] COMPARISON: HUMERUS LEFT (MIN 2VWS), December 02, 2017, 12:29. INDICATIONS : Post-op left humerus open reduction internal fixation. MEDICAL HISTORY : None. SURGICAL HISTORY : Fusion, thoracic. ORIF left humerus. Left frontotemporal craniotomy with fixation of depressed skull. ENCOUNTER: Subsequent ACUITY: 1 day PAIN SCORE: Non-responsive. LOCATION: Left humerus FINDINGS: Two view examination of the left humerus demonstrates plate and screws along the left humerus fixatin g distal shaft fracture which is near anatomic. Postsurgical changes. Minimal periosteal reaction. B shon mineralization is normal. CONCLUSION: Previous internal fixation of the left humerus, near-anatomic in alignment. Sancho Messina MD on December 20, 2017 at 8:55 Board Certified Radiologist. This report was verified electronically.
[2017-12-20] MEDS: ARTIFICIAL TEARS OPTH OINT 3.5 APPLIC/3.5 GM TUBO RIGHT EYE SCH ×3 (09:00→18:00)
[2017-12-20] MEDS: BACITRACIN TOP OINT 15 GM TUBE TOPICAL SCH ×2 (09:00→21:00)
[2017-12-20] MEDS: SODIUM CHLORIDE 0.9% FLUSH 10 ML FLUSH IV FLUSH SCH ×2 (09:00→21:29)
[2017-12-20] MEDS: BACITRACIN OPHT OINT 3.5 GM TUBO SCH ×2 (09:00→21:00)
[2017-12-20] MEDS: BENEPROTEIN POWDER 1 PACK G-TUBE SCH ×3 (09:00→18:00)
[2017-12-20] MEDS: MAGNESIUM HYDROXIDE SUSP 30 ML CUP PO SCH ×2 (09:12→21:28)
[2017-12-20] MEDS: CHOLECALCIFEROL (VIT D3) 1000 UNIT TAB PO SCH (09:12)
[2017-12-20] MEDS: DOCUSATE SODIUM 50 MG/SENNA 8.6 MG TAB PO SCH ×2 (09:12→21:28)
[2017-12-20] MEDS: ALBUMIN 25% INJ 100 ML IV SCH ×2 (09:12→16:33)
[2017-12-20] MEDS: LIDOCAINE HCL 5% PATCH T-DERMAL SCH (09:13)
[2017-12-20] MEDS: LEVOFLOXACIN 750 MG TAB PO SCH (09:13)
[2017-12-20] MEDS: FUROSEMIDE 40 MG/4 ML VIAL IV PUSH SCH ×2 (09:13→16:33)
[2017-12-20] MEDS: FAMOTIDINE 20 MG TAB PO SCH ×2 (09:14→21:28)
[2017-12-20] MEDS: NYSTATIN 100,000 U/GM PWD 15 GM BTL TOPICAL SCH ×2 (09:14→21:29)
[2017-12-20] MEDS: ENOXAPARIN SODIUM 100 MG/ML SYRINGE SQ SCH ×2 (09:14→21:28)
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
[2017-12-20] MEDS ORDERED: DEXAMETHASONE SOD PHOS 20 MG/5 ML VIAL ONE (15:26)
[2017-12-20] MEDS: DEXMEDETOMIDINE INJ 200 MCG in SODIUM CHLORIDE 0.9% INJ 50 ML IV PRN ×5 (15:35→19:20)
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
[2017-12-20] MEDS: HALOPERIDOL LACTATE 5 MG/ML AMP IV PUSH PRN ×2 (18:16→23:20)
[2017-12-20] MEDS: PROPRANOLOL HCL 40 MG TAB PO SCH (18:53)
[2017-12-20] MEDS: DEXMEDETOMIDINE INJ 1,000 MCG in SODIUM CHLOR 0.9% 250 ML INJ 240 ML IV PRN (21:00)
[2017-12-21] VITALS (13 sets, daily range): BP systolic 133–148; BP diastolic 86–99; PULSE 76–94; RESP 33–39; TEMP 98.8–103.1; O2SAT 92–98
[2017-12-21] MEDS: FUROSEMIDE 40 MG/4 ML VIAL IV PUSH SCH ×3 (00:52→18:13)
[2017-12-21] MEDS: ALBUMIN 25% INJ 100 ML IV SCH (00:52)
[2017-12-21] MEDS: DEXMEDETOMIDINE INJ 1,000 MCG in SODIUM CHLOR 0.9% 250 ML INJ 240 ML IV PRN ×3 (00:52→16:57)
[2017-12-21] MEDS: ARTIFICIAL TEARS OPTH OINT 3.5 APPLIC/3.5 GM TUBO LEFT EYE SCH ×6 (02:00→22:59)
[2017-12-21] MEDS: HYDROmorphone HCL PF 2 MG/ML VIAL IV PUSH PRN ×6 (02:34→23:34)
--- NOTE | 2017-12-21 02:51 | RADRPT ---
EXAM DATE/TIME: 12/21/2017 02:11 [facility] COMPARISON: CHEST SINGLE AP, December 20, 2017, 4:46. INDICATIONS : Short of breath, asbestosis. MEDICAL HISTORY : None. SURGICAL HISTORY : Fusion, thoracic. ORIF left humerus. Left frontotemporal craniotomy with fixation of depressed skull. ENCOUNTER: Subsequent ACUITY: 2 weeks PAIN SCORE: 0/10 LOCATION: Bilateral chest FINDINGS: Stable tracheostomy. Improving bilateral hazy opacities. Cardiomediastinal contours are within normal limits. Remainder of the exam is unchanged. CONCLUSION: 1. Improving bilateral pleural-parenchymal disease. Zenon Mariano MD on December 21, 2017 at 2:49 Board Certified Radiologist. This report was verified electronically.
[2017-12-21] MEDS: RESP: ACETYLCYSTEINE 20% 4 ML NEB NEB SCH ×4 (03:27→20:14)
[2017-12-21] MEDS: RESP: ALBUTEROL 2.5 MG/IPRATROPIUM 0.5 MG NEB (SCH) NEB ×4 (03:27→20:14)
[2017-12-21 03:35] LABS: AUTOMATED NEUTROPHIL # 9.1 TH/MM3 (1.8-7.7); BASOPHIL % 0.4 % (0.0-2.0); EOSINOPHIL % 0.2 % (0.0-4.0); HEMATOCRIT 29.5 % (39.0-51.0); HEMOGLOBIN 9.7 GM/DL (13.0-17.0); LYMPH % 7.8 % (9.0-44.0); LYMPHOCYTE # 0.8 TH/MM3 (1.0-4.8); MEAN CELL VOLUME 86.5 FL (80.0-100.0); MEAN CORPUSCULAR HEMOGLOBIN 28.4 PG (27.0-34.0); MEAN CORPUSCULAR HGB CONC 32.8 % (32.0-36.0); MEAN PLATELET VOLUME 8.2 FL (7.0-11.0); MONO % 5.5 % (0.0-8.0); MONOCYTE # 0.6 TH/MM3 (0-0.9); NEUT % 86.1 % (16.0-70.0); PLATELET COUNT 345 TH/MM3 (150-450); RED BLOOD COUNT 3.42 MIL/MM3 (4.50-5.90); RED CELL DISTRIBUTION WIDTH 15.5 % (11.6-17.2); WHITE BLOOD COUNT 10.6 TH/MM3 (4.0-11.0)
[2017-12-21] MEDS: HALOPERIDOL LACTATE 5 MG/ML AMP IV PUSH PRN ×4 (03:58→22:00)
[2017-12-21] MEDS: CHLORHEXIDINE GLUCONATE 2 % 1 PACK (2 CLOTHS) TOP SCH (04:00)
[2017-12-21] MEDS: TOBRAMYCIN 0.3%/DEXAMETHASONE 0.1% OPHT SUSP 5 ML BTL LEFT EYE SCH ×6 (04:00→19:48)
[2017-12-21 04:05] LABS: ALBUMIN 3.1 GM/DL (3.4-5.0); ALT (GPT) 15 U/L (12-78); AST (GOT) 16 U/L (15-37); BICARBONATE 24.9 MEQ/L (21.0-32.0); BLOOD UREA NITROGEN 16 MG/DL (7-18); CALCIUM 8.5 MG/DL (8.5-10.1); CHLORIDE 104 MEQ/L (98-107); CREATININE 0.52 MG/DL (0.60-1.30); GLOMERULAR FILTRATION RATE 184 ML/MIN (>89); GLUCOSE,RANDOM 147 MG/DL (74-106); SODIUM (NA) 139 MEQ/L (136-145)
[2017-12-21 04:07] LABS: ALKALINE PHOSPHATASE 144 U/L (45-117); TOTAL BILIRUBIN ADULT 0.7 MG/DL (0.2-1.0); TOTAL PROTEIN 7.3 GM/DL (6.4-8.2)
[2017-12-21] MEDS: METHOCARBAMOL 500 MG TAB PO SCH ×3 (05:30→22:58)
[2017-12-21] MEDS: PROPRANOLOL HCL 40 MG TAB PO SCH ×4 (05:31→17:21)
--- NOTE | 2017-12-21 06:26 | PD.ORT.PN ---
Subjective Subjective Remarks Running low-grade temperature and has increased swelling to left arm. No erythema. Objective Vitals Vital Signs Date Time Temp Pulse Resp B/P (MAP) Pulse Ox O2 Delivery O2 Flow Rate FiO2 12/21/17 04:00 95 45 12/21/17 00:00 98.9 92 39 148/86 (106) 95 12/21/17 00:00 40 12/21/17 00:00 92 12/20/17 22:12 95 50 12/20/17 22:00 94 12/20/17 20:00 40 12/20/17 20:00 92 50 12/20/17 20:00 92 12/20/17 20:00 98.7 92 47 158/95 (116) 90 12/20/17 16:00 79 12/20/17 16:00 100.4 79 31 136/78 (97) 94 12/20/17 15:58 95 40 12/20/17 12:00 101.0 97 27 148/83 (104) 98 12/20/17 12:00 97 12/20/17 11:14 98 40 12/20/17 08:49 96 40 12/20/17 08:00 104 12/20/17 08:00 40 12/20/17 08:00 100.0 104 34 162/70 (100) 99 I/O 12/20/17 12/20/17 12/20/17 12/21/17 12/21/17 12/21/17 07:00 15:00 23:00 07:00 15:00 23:00 Intake Total 1207 ml 500 ml 1246 ml Output Total 3050 ml 0 ml 4675.0 ml 0 ml Balance -1843 ml 500 ml -3429.0 ml 0 ml IV Total 395 ml 500 ml Tube Feeding 672 ml 706 ml Tube Irrigant 140 ml Other 540 ml Output Urine Total 3000 ml 4175 ml Stool Total 50 ml 500 ml Gastric Drainage Total 0 ml Tube Feeding Residual Discard 0 ml 0 ml 0 ml Result Diagram: 12/21/1731412/21/17314 Imaging Last 72 hours Impressions Chest X-Ray 11/24/17 0400 Signed Impressions: Service Date/Time: November 04:58 - CONCLUSION: 1. Minimal basilar density, probably atelectasis. No significant effusion. No pneumothorax identified on plain film. Placement of left central line without pneumothorax. Left-sided rib fractures present. Dave Horton MD Pelvis X-Ray 11/23/172308 Signed Impressions: Service Date/Time: Thursday, November 23, 2017 22:48 - CONCLUSION: Unremarkable examination of the pelvis. Dave Horton MD Chest X-Ray 11/23/172308 Signed Impressions: Service Date/Time: Thursday, November 23, 2017 22:48 - CONCLUSION: 1. Left lower rib fractures. Cardiomediastinal silhouette within normal limits. No dense consolidation or effusion. Dave Horton MD Thoracic Spine CT 11/23/172252 Signed Impressions: Service Date/Time: Thursday, November 23, 2017 23:18 - CONCLUSION: 1. At T12 there is a burst fracture with retropulsion resulting in mild to moderate stenosis and fracture extending into the posterior elements. 2. At T11 there is a mild endplate fracture superiorly with fractures extending posteriorly into the posterior elements and facet joints at T11-12. Dave Horton MD Maxillofacial CT 11/23/172252 Signed Impressions: Service Date/Time: Thursday, November 23, 2017 23:17 - CONCLUSION: 1. Numerous facial fractures as above including bilateral mandibular, bilateral zygomatic arches, bilateral orbits bilateral maxillary and ethmoid sinuses. Also bilateral calvarial fractures. Trace pneumocephalus. Extensive scalp and facial swelling. Dave Horton MD Lumbar Spine CT 11/23/172252 Signed Impressions: Service Date/Time: Thursday, November 23, 2017 23:21 - CONCLUSION: 1. Fractures through the left transverse process of L1 and L2. No lumbar spine vertebral body fractures or subluxation. Dave Horton MD Head CT 11/23/172252 Signed Impressions: Service Date/Time: Thursday, November 23, 2017 23:16 - CONCLUSION: 1. Fractures of the left frontal bone and right parietal bone without significant displacement. Trace pneumocephalus near the right parietal bone fracture. No significant intracranial hemorrhage. 2. Numerous facial bone fractures with hemorrhage in the paranasal sinuses. Facial CT pending. Dave Horton MD Chest CT 11/23/172252 Signed Impressions: Service Date/Time: Thursday, November 23, 2017 23:21 - CONCLUSION: 1. Small bilateral pneumothoraces. 2. Scattered groundglass opacity in the lungs most characteristic of lung contusions or minimal aspiration. 3. Multiple fractures including burst fracture of T12, superior endplate fracture of T11 and multiple left rib fractures as above. 4. Endotracheal tube and nasogastric tube in good position. Dave Horton MD Cervical Spine CT 11/23/172252 Signed Impressions: Service Date/Time: Thursday, November 23, 2017 23:17 - CONCLUSION: 1. Nondisplaced fractures to the left lateral mass of C3 and C5 extending into the facet joints. No vertebral body fractures. No subluxation. Dave Horton MD Abdomen/Pelvis CT 11/23/172252 Signed Impressions: Service Date/Time: Thursday, November 23, 2017 23:21 - CONCLUSION: 1. Negative for solid visceral injury within the abdomen and pelvis. No free air or free fluid. 2. Small bilateral pneumothoraces. 3. Fractures of the left transverse processes of L1 and L2 and the left anterior fifth through eighth ribs. T11 superior endplate fracture and T12 burst fractures as previously described. 4. Appendicolith without evidence for appendicitis. NG tip in stomach. Clinton catheter in bladder. 5. There is a small amount of air in the left external iliac vein and left femoral vein. Dave Horton MD Radius/Ulna X-Ray 11/23/17 0000 Signed Impressions: Service Date/Time: Thursday, November 23, 2017 22:48 - CONCLUSION: 1. First Metacarpal fracture. No radius and ulna fractures. No dislocation. Dave Horton MD Humerus X-Ray 11/23/17 0000 Signed Impressions: Service Date/Time: Thursday, November 23, 2017 22:48 - CONCLUSION: 1. Angulated fracture left distal humeral shaft. Dave Horton MD Chest X-Ray 11/23/17 0000 Signed Impressions: Service Date/Time: Thursday, November 23, 2017 22:48 - CONCLUSION: 1. Endotracheal tube and nasogastric tube in good position. Scattered lung contusions or mild aspiration. No effusion. 2. Left-sided rib fractures. See abdomen and pelvic CT report. Dave Horton MD Last 24 hours Impressions Chest X-Ray 11/24/17 0400 Signed Impressions: Service Date/Time: November 04:58 - CONCLUSION: 1. Minimal basilar density, probably atelectasis. No significant effusion. No pneumothorax identified on plain film. Placement of left central line without pneumothorax. Left-sided rib fractures present. Dave Horton MD Pelvis X-Ray 11/23/172308 Signed Impressions: Service Date/Time: Thursday, November 23, 2017 22:48 - CONCLUSION: Unremarkable examination of the pelvis. Dave Horton MD Chest X-Ray 11/23/172308 Signed Impressions: Service Date/Time: Thursday, November 23, 2017 22:48 - CONCLUSION: 1. Left lower rib fractures. Cardiomediastinal silhouette within normal limits. No dense consolidation or effusion. Dave Horton MD Thoracic Spine CT 11/23/172252 Signed Impressions: Service Date/Time: Thursday, November 23, 2017 23:18 - CONCLUSION: 1. At T12 there is a burst fracture with retropulsion resulting in mild to moderate stenosis and fracture extending into the posterior elements. 2. At T11 there is a mild endplate fracture superiorly with fractures extending posteriorly into the posterior elements and facet joints at T11-12. Dave Horton MD Maxillofacial CT 11/23/172252 Signed Impressions: Service Date/Time: Thursday, November 23, 2017 23:17 - CONCLUSION: 1. Numerous facial fractures as above including bilateral mandibular, bilateral zygomatic arches, bilateral orbits bilateral maxillary and ethmoid sinuses. Also bilateral calvarial fractures. Trace pneumocephalus. Extensive scalp and facial swelling. Dave Horton MD Lumbar Spine CT 11/23/172252 Signed Impressions: Service Date/Time: Thursday, November 23, 2017 23:21 - CONCLUSION: 1. Fractures through the left transverse process of L1 and L2. No lumbar spine vertebral body fractures or subluxation. Dave Horton MD Head CT 11/23/172252 Signed Impressions: Service Date/Time: Thursday, November 23, 2017 23:16 - CONCLUSION: 1. Fractures of the left frontal bone and right parietal bone without significant displacement. Trace pneumocephalus near the right parietal bone fracture. No significant intracranial hemorrhage. 2. Numerous facial bone fractures with hemorrhage in the paranasal sinuses. Facial CT pending. aDve Horton MD Chest CT 11/23/172252 Signed Impressions: Service Date/Time: Thursday, November 23, 2017 23:21 - CONCLUSION: 1. Small bilateral pneumothoraces. 2. Scattered groundglass opacity in the lungs most characteristic of lung contusions or minimal aspiration. 3. Multiple fractures including burst fracture of T12, superior endplate fracture of T11 and multiple left rib fractures as above. 4. Endotracheal tube and nasogastric tube in good position. Dave Horton MD Cervical Spine CT 11/23/172252 Signed Impressions: Service Date/Time: Thursday, November 23, 2017 23:17 - CONCLUSION: 1. Nondisplaced fractures to the left lateral mass of C3 and C5 extending into the facet joints. No vertebral body fractures. No subluxation. Dave Horton MD Abdomen/Pelvis CT 11/23/172252 Signed Impressions: Service Date/Time: Thursday, November 23, 2017 23:21 - CONCLUSION: 1. Negative for solid visceral injury within the abdomen and pelvis. No free air or free fluid. 2. Small bilateral pneumothoraces. 3. Fractures of the left transverse processes of L1 and L2 and the left anterior fifth through eighth ribs. T11 superior endplate fracture and T12 burst fractures as previously described. 4. Appendicolith without evidence for appendicitis. NG tip in stomach. Clinton catheter in bladder. 5. There is a small amount of air in the left external iliac vein and left femoral vein. Dave Horton MD Objective Remarks Left upper extremity: Incisions healing well. Swelling a +3 over arm. Distally good capillary refills and palpable distal pulses. Thumb spica splint in place Assessment & Plan Assessment and Plan 1) Left humeral shaft fracture s/p ORIF - POD 19 (12/02) -Discontinue sutures and ace to the left upper arm. Dressing of Xeroform and Primapore to be left in place for 2 days and then discontinue -sling and NWB -OT for motion of elbow and shoulder -DVT ultrasound to be ordered today for left upper extremity Emerson Talbot Jr. Dec 21, 2017 06:26
[2017-12-21] MEDS: MAGNESIUM HYDROXIDE SUSP 30 ML CUP PO SCH ×2 (07:31→19:46)
[2017-12-21] MEDS: DOCUSATE SODIUM 50 MG/SENNA 8.6 MG TAB PO SCH ×2 (07:31→19:47)
[2017-12-21] MEDS: FAMOTIDINE 20 MG TAB PO SCH ×2 (07:31→19:47)
[2017-12-21] MEDS: CHOLECALCIFEROL (VIT D3) 1000 UNIT TAB PO SCH (07:31)
[2017-12-21] MEDS: LEVOFLOXACIN 750 MG TAB PO SCH (07:31)
[2017-12-21] MEDS: POTASSIUM CHLORIDE 25 MEQ EFFERVESCENT TAB PO PRN ×4 (07:31→18:13)
[2017-12-21] MEDS: LIDOCAINE HCL 5% PATCH T-DERMAL SCH (07:31)
[2017-12-21] MEDS: CHLORHEXIDINE 0.12% (ORAL KIT) 15 ML CUP MT SCH ×2 (07:32→19:47)
[2017-12-21] MEDS: METHADONE HCL 10 MG/10 ML ORAL SOLUTION PEG SCH (07:41)
--- NOTE | 2017-12-21 08:42 | RADRPT ---
EXAM DATE/TIME: 12/21/2017 08:13 [facility] COMPARISON: No previous studies available for comparison. , INDICATIONS : Left arm edema. MEDICAL HISTORY : Sleep apnea. PTSD. Depression. Substance use. SURGICAL HISTORY : Foot I&D. ORIF left arm. ENCOUNTER: Initial ACUITY: 1 day PAIN SCORE: 0/10 LOCATION: Left arm FINDINGS: There is spontaneous flow documented in the brachial, basilic, cephalic, axillary, and subclavian vei ns. The vessels are compressible and augmentation response is documented. No filling defects are se en. The flow is phasic with respiration. Direction of flow in the jugular vein is caudal. Soft tis nehemias edema is noted. CONCLUSION: 1. Negative exam with no evidence of deep venous thrombosis. 2. Soft tissue edema is noted. Emerson Carrera MD on December 21, 2017 at 8:40 Board Certified Radiologist. This report was verified electronically.
[2017-12-21] MEDS: NYSTATIN 100,000 U/GM PWD 15 GM BTL TOPICAL SCH ×2 (09:00→22:59)
[2017-12-21] MEDS: BACITRACIN TOP OINT 15 GM TUBE TOPICAL SCH ×2 (09:00→22:59)
[2017-12-21] MEDS: BENEPROTEIN POWDER 1 PACK G-TUBE SCH ×3 (09:00→17:22)
[2017-12-21] MEDS: SODIUM CHLORIDE 0.9% FLUSH 10 ML FLUSH IV FLUSH SCH ×2 (09:00→19:47)
[2017-12-21] MEDS: BACITRACIN OPHT OINT 3.5 GM TUBO SCH ×2 (09:00→19:47)
[2017-12-21] MEDS: ARTIFICIAL TEARS OPTH OINT 3.5 APPLIC/3.5 GM TUBO RIGHT EYE SCH ×3 (09:00→17:22)
[2017-12-21] MEDS: ENOXAPARIN SODIUM 100 MG/ML SYRINGE SQ SCH ×2 (09:41→19:47)
[2017-12-21] MEDS ORDERED: fentaNYL DRIP 250 ML IV PRN (10:00)
[2017-12-21] MEDS: QUEtiapine FUMARATE 25 MG TAB PO SCH ×2 (10:39→17:21)
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
[2017-12-21] MEDS: ACETAMINOPHEN 650 MG/20.3 ML UDC PO PRN ×2 (16:13→19:46)
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
[2017-12-21] MEDS: MELATONIN 5 MG TAB PO SCH (19:46)
[2017-12-22] VITALS (18 sets, daily range): BP systolic 96–150; BP diastolic 70–94; PULSE 64–96; RESP 19–43; TEMP 99.2–102.4; O2SAT 95–100
[2017-12-22] MEDS: PROPRANOLOL HCL 40 MG TAB PO SCH ×4 (01:04→17:27)
[2017-12-22] MEDS: TOBRAMYCIN 0.3%/DEXAMETHASONE 0.1% OPHT SUSP 5 ML BTL LEFT EYE SCH ×6 (01:04→20:07)
[2017-12-22] MEDS: QUEtiapine FUMARATE 25 MG TAB PO SCH ×3 (01:04→17:27)
[2017-12-22] MEDS: ARTIFICIAL TEARS OPTH OINT 3.5 APPLIC/3.5 GM TUBO LEFT EYE SCH ×6 (01:05→20:08)
[2017-12-22] MEDS: HALOPERIDOL LACTATE 5 MG/ML AMP IV PUSH PRN (02:31)
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
[2017-12-22] MEDS: RESP: ALBUTEROL 2.5 MG/IPRATROPIUM 0.5 MG NEB (SCH) NEB ×4 (03:48→21:23)
[2017-12-22] MEDS: CHLORHEXIDINE GLUCONATE 2 % 1 PACK (2 CLOTHS) TOP SCH (04:00)
[2017-12-22 05:04] LABS: AUTOMATED NEUTROPHIL # 11.7 TH/MM3 (1.8-7.7); BASOPHIL # 0.1 TH/MM3 (0-0.2); BASOPHIL % 0.9 % (0.0-2.0); EOSINOPHIL # 0.1 TH/MM3 (0-0.4); EOSINOPHIL % 0.4 % (0.0-4.0); HEMATOCRIT 30.6 % (39.0-51.0); HEMOGLOBIN 10.1 GM/DL (13.0-17.0); LYMPH % 6.5 % (9.0-44.0); LYMPHOCYTE # 0.9 TH/MM3 (1.0-4.8); MEAN CELL VOLUME 85.1 FL (80.0-100.0); MEAN CORPUSCULAR HEMOGLOBIN 28.1 PG (27.0-34.0); MONO % 7.2 % (0.0-8.0); PLATELET COUNT 344 TH/MM3 (150-450); RED CELL DISTRIBUTION WIDTH 15.2 % (11.6-17.2); WHITE BLOOD COUNT 13.7 TH/MM3 (4.0-11.0)
[2017-12-22 05:14] LABS: BICARBONATE 23.2 MEQ/L (21.0-32.0); CALCIUM 8.2 MG/DL (8.5-10.1); CREATININE 0.45 MG/DL (0.60-1.30)
[2017-12-22] MEDS: cloNIDine HCL 0.2 MG TAB PO SCH ×3 (06:00→22:00)
[2017-12-22] MEDS: METHOCARBAMOL 500 MG TAB PO SCH ×3 (06:05→20:06)
--- NOTE | 2017-12-22 06:48 | PD.ORT.PN ---
Subjective Subjective Remarks Running low-grade temperature and has decreased swelling to left arm. No erythema. Objective Vitals Vital Signs Date Time Temp Pulse Resp B/P (MAP) Pulse Ox O2 Delivery O2 Flow Rate FiO2 12/22/17 06:00 96 12/22/17 04:00 45 12/22/17 04:00 96 12/22/17 04:00 101.5 96 42 126/88 (101) 96 12/22/17 03:49 96 45 12/22/17 02:00 90 12/22/17 00:26 96 45 12/22/17 00:00 86 12/22/17 00:00 45 12/22/17 00:00 102.4 92 34 126/84 (98) 95 12/21/17 22:00 94 12/21/17 20:16 96 CPAP 45 12/21/17 20:16 96 45 12/21/17 20:00 82 12/21/17 20:00 40 12/21/17 20:00 103.1 93 33 133/98 (110) 95 12/21/17 16:00 87 12/21/17 16:00 102.4 87 37 135/99 (111) 96 12/21/17 15:52 96 45 12/21/17 12:07 93 45 12/21/17 12:00 76 12/21/17 12:00 99.5 76 33 138/95 (109) 98 12/21/17 08:45 45 12/21/17 08:00 98.8 82 39 135/97 (110) 92 12/21/17 08:00 82 12/21/17 08:00 40 12/21/17 07:57 93 45 I/O 12/21/17 12/21/17 12/21/17 12/22/17 12/22/17 12/22/17 07:00 15:00 23:00 07:00 15:00 23:00 Intake Total 564 ml 250 ml 938 ml 695 ml Output Total 2600 ml 0 ml 1850.0 ml 1680 ml Balance -2036 ml 250 ml -912.0 ml -985 ml IV Total 250 ml Tube Feeding 444 ml 398 ml 545 ml Other 120 ml 540 ml 150 ml Output Urine Total 2600 ml 1850 ml 1680 ml Stool Total 0 ml Gastric Drainage Total 0 ml 0 ml Tube Feeding Residual Discard 0 ml 0 ml 0 ml 0 ml # Bowel Movements 1 Result Diagram: 12/22/17 0449 12/22/17 0449 Imaging Last 72 hours Impressions Chest X-Ray 11/24/170 Signed Impressions: Service Date/Time: November 04:58 - CONCLUSION: 1. Minimal basilar density, probably atelectasis. No significant effusion. No pneumothorax identified on plain film. Placement of left central line without pneumothorax. Left-sided rib fractures present. Dave Horton MD Pelvis X-Ray 11/23/172308 Signed Impressions: Service Date/Time: Thursday, November 23, 2017 22:48 - CONCLUSION: Unremarkable examination of the pelvis. Dave Horton MD Chest X-Ray 11/23/172308 Signed Impressions: Service Date/Time: Thursday, November 23, 2017 22:48 - CONCLUSION: 1. Left lower rib fractures. Cardiomediastinal silhouette within normal limits. No dense consolidation or effusion. Dave Horton MD Thoracic Spine CT 11/23/172252 Signed Impressions: Service Date/Time: Thursday, November 23, 2017 23:18 - CONCLUSION: 1. At T12 there is a burst fracture with retropulsion resulting in mild to moderate stenosis and fracture extending into the posterior elements. 2. At T11 there is a mild endplate fracture superiorly with fractures extending posteriorly into the posterior elements and facet joints at T11-12. Dave Horton MD Maxillofacial CT 11/23/172252 Signed Impressions: Service Date/Time: Thursday, November 23, 2017 23:17 - CONCLUSION: 1. Numerous facial fractures as above including bilateral mandibular, bilateral zygomatic arches, bilateral orbits bilateral maxillary and ethmoid sinuses. Also bilateral calvarial fractures. Trace pneumocephalus. Extensive scalp and facial swelling. Dave Horton MD Lumbar Spine CT 11/23/172252 Signed Impressions: Service Date/Time: Thursday, November 23, 2017 23:21 - CONCLUSION: 1. Fractures through the left transverse process of L1 and L2. No lumbar spine vertebral body fractures or subluxation. Dave Horton MD Head CT 11/23/172252 Signed Impressions: Service Date/Time: Thursday, November 23, 2017 23:16 - CONCLUSION: 1. Fractures of the left frontal bone and right parietal bone without significant displacement. Trace pneumocephalus near the right parietal bone fracture. No significant intracranial hemorrhage. 2. Numerous facial bone fractures with hemorrhage in the paranasal sinuses. Facial CT pending. Dave Horton MD Chest CT 11/23/172252 Signed Impressions: Service Date/Time: Thursday, November 23, 2017 23:21 - CONCLUSION: 1. Small bilateral pneumothoraces. 2. Scattered groundglass opacity in the lungs most characteristic of lung contusions or minimal aspiration. 3. Multiple fractures including burst fracture of T12, superior endplate fracture of T11 and multiple left rib fractures as above. 4. Endotracheal tube and nasogastric tube in good position. Dave Horton MD Cervical Spine CT 11/23/172252 Signed Impressions: Service Date/Time: Thursday, November 23, 2017 23:17 - CONCLUSION: 1. Nondisplaced fractures to the left lateral mass of C3 and C5 extending into the facet joints. No vertebral body fractures. No subluxation. Dave Horton MD Abdomen/Pelvis CT 11/23/172252 Signed Impressions: Service Date/Time: Thursday, November 23, 2017 23:21 - CONCLUSION: 1. Negative for solid visceral injury within the abdomen and pelvis. No free air or free fluid. 2. Small bilateral pneumothoraces. 3. Fractures of the left transverse processes of L1 and L2 and the left anterior fifth through eighth ribs. T11 superior endplate fracture and T12 burst fractures as previously described. 4. Appendicolith without evidence for appendicitis. NG tip in stomach. Clinton catheter in bladder. 5. There is a small amount of air in the left external iliac vein and left femoral vein. Dave Horton MD Radius/Ulna X-Ray 11/23/17 0000 Signed Impressions: Service Date/Time: Thursday, November 23, 2017 22:48 - CONCLUSION: 1. First Metacarpal fracture. No radius and ulna fractures. No dislocation. Dave Horton MD Humerus X-Ray 11/23/17 0000 Signed Impressions: Service Date/Time: Thursday, November 23, 2017 22:48 - CONCLUSION: 1. Angulated fracture left distal humeral shaft. Dave Horton MD Chest X-Ray 11/23/17 0000 Signed Impressions: Service Date/Time: Thursday, November 23, 2017 22:48 - CONCLUSION: 1. Endotracheal tube and nasogastric tube in good position. Scattered lung contusions or mild aspiration. No effusion. 2. Left-sided rib fractures. See abdomen and pelvic CT report. Dave Horton MD Last 24 hours Impressions Chest X-Ray 11/24/17 0400 Signed Impressions: Service Date/Time: November 04:58 - CONCLUSION: 1. Minimal basilar density, probably atelectasis. No significant effusion. No pneumothorax identified on plain film. Placement of left central line without pneumothorax. Left-sided rib fractures present. Dave Horton MD Pelvis X-Ray 11/23/172308 Signed Impressions: Service Date/Time: Thursday, November 23, 2017 22:48 - CONCLUSION: Unremarkable examination of the pelvis. Dave Horton MD Chest X-Ray 11/23/172308 Signed Impressions: Service Date/Time: Thursday, November 23, 2017 22:48 - CONCLUSION: 1. Left lower rib fractures. Cardiomediastinal silhouette within normal limits. No dense consolidation or effusion. Dave Horton MD Thoracic Spine CT 11/23/172252 Signed Impressions: Service Date/Time: Thursday, November 23, 2017 23:18 - CONCLUSION: 1. At T12 there is a burst fracture with retropulsion resulting in mild to moderate stenosis and fracture extending into the posterior elements. 2. At T11 there is a mild endplate fracture superiorly with fractures extending posteriorly into the posterior elements and facet joints at T11-12. Dave Horton MD Maxillofacial CT 11/23/172252 Signed Impressions: Service Date/Time: Thursday, November 23, 2017 23:17 - CONCLUSION: 1. Numerous facial fractures as above including bilateral mandibular, bilateral zygomatic arches, bilateral orbits bilateral maxillary and ethmoid sinuses. Also bilateral calvarial fractures. Trace pneumocephalus. Extensive scalp and facial swelling. Dave Horton MD Lumbar Spine CT 11/23/172252 Signed Impressions: Service Date/Time: Thursday, November 23, 2017 23:21 - CONCLUSION: 1. Fractures through the left transverse process of L1 and L2. No lumbar spine vertebral body fractures or subluxation. Dave Horton MD Head CT 11/23/172252 Signed Impressions: Service Date/Time: Thursday, November 23, 2017 23:16 - CONCLUSION: 1. Fractures of the left frontal bone and right parietal bone without significant displacement. Trace pneumocephalus near the right parietal bone fracture. No significant intracranial hemorrhage. 2. Numerous facial bone fractures with hemorrhage in the paranasal sinuses. Facial CT pending. Dave Horton MD Chest CT 11/23/172252 Signed Impressions: Service Date/Time: Thursday, November 23, 2017 23:21 - CONCLUSION: 1. Small bilateral pneumothoraces. 2. Scattered groundglass opacity in the lungs most characteristic of lung contusions or minimal aspiration. 3. Multiple fractures including burst fracture of T12, superior endplate fracture of T11 and multiple left rib fractures as above. 4. Endotracheal tube and nasogastric tube in good position. Dave Horton MD Cervical Spine CT 11/23/172252 Signed Impressions: Service Date/Time: Thursday, November 23, 2017 23:17 - CONCLUSION: 1. Nondisplaced fractures to the left lateral mass of C3 and C5 extending into the facet joints. No vertebral body fractures. No subluxation. Dave Horton MD Abdomen/Pelvis CT 11/23/172252 Signed Impressions: Service Date/Time: Thursday, November 23, 2017 23:21 - CONCLUSION: 1. Negative for solid visceral injury within the abdomen and pelvis. No free air or free fluid. 2. Small bilateral pneumothoraces. 3. Fractures of the left transverse processes of L1 and L2 and the left anterior fifth through eighth ribs. T11 superior endplate fracture and T12 burst fractures as previously described. 4. Appendicolith without evidence for appendicitis. NG tip in stomach. Clinton catheter in bladder. 5. There is a small amount of air in the left external iliac vein and left femoral vein. Dave Horton MD Objective Remarks Left upper extremity: Incisions healing well. Swelling a +3 over arm, but improving. Distally good capillary refills and palpable distal pulses. Thumb spica splint in place Assessment & Plan Assessment and Plan 1) Left humeral shaft fracture s/p ORIF - POD 20 (12/02) -Dressing of Xeroform and Primapore to be left in place for 1 more day and then discontinue - NWB -OT for motion of elbow and shoulder -DVT ultrasound negative for DVT Emerson Talbot Jr. Dec 22, 2017 06:48
[2017-12-22] MEDS: CHLORHEXIDINE 0.12% (ORAL KIT) 15 ML CUP MT SCH ×2 (08:00→20:07)
[2017-12-22] MEDS: HYDROmorphone HCL PF 2 MG/ML VIAL IV PUSH PRN ×3 (09:30→20:06)
[2017-12-22] MEDS: SODIUM CHLORIDE 0.9% FLUSH 10 ML FLUSH IV FLUSH SCH ×2 (09:40→20:07)
[2017-12-22] MEDS: BACITRACIN OPHT OINT 3.5 GM TUBO SCH ×2 (09:40→20:07)
[2017-12-22] MEDS: BENEPROTEIN POWDER 1 PACK G-TUBE SCH ×3 (09:40→16:21)
[2017-12-22] MEDS: MAGNESIUM HYDROXIDE SUSP 30 ML CUP PO SCH ×2 (09:42→20:06)
[2017-12-22] MEDS: METHADONE HCL 10 MG/10 ML ORAL SOLUTION PEG SCH (09:42)
[2017-12-22] MEDS: NYSTATIN 100,000 U/GM PWD 15 GM BTL TOPICAL SCH ×2 (09:43→20:08)
[2017-12-22] MEDS: BACITRACIN TOP OINT 15 GM TUBE TOPICAL SCH ×2 (09:43→20:08)
[2017-12-22] MEDS: LIDOCAINE HCL 5% PATCH T-DERMAL SCH (09:44)
[2017-12-22] MEDS: DOCUSATE SODIUM 50 MG/SENNA 8.6 MG TAB PO SCH ×2 (09:44→20:06)
[2017-12-22] MEDS: CHOLECALCIFEROL (VIT D3) 1000 UNIT TAB PO SCH (09:44)
[2017-12-22] MEDS: LEVOFLOXACIN 750 MG TAB PO SCH (09:44)
[2017-12-22] MEDS: ARTIFICIAL TEARS OPTH OINT 3.5 APPLIC/3.5 GM TUBO RIGHT EYE SCH ×3 (09:44→17:28)
[2017-12-22] MEDS: ENOXAPARIN SODIUM 100 MG/ML SYRINGE SQ SCH ×2 (09:44→20:06)
[2017-12-22] MEDS: FAMOTIDINE 20 MG TAB PO SCH ×2 (09:44→20:06)
[2017-12-22] MEDS: FUROSEMIDE 40 MG/4 ML VIAL IV PUSH SCH ×2 (10:20→17:30)
[2017-12-22] MEDS ORDERED: LORazepam 2 MG/ML VIAL ONE (10:57)
[2017-12-22] MEDS: ACETAMINOPHEN 650 MG/20.3 ML UDC PO PRN (11:09)
[2017-12-22] MEDS ORDERED: PROPOFOL 1000 MG/100 ML INJ 100 ML IV PRN (11:15)
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
[2017-12-22] MEDS ORDERED: LORazepam 2 MG/ML VIAL IV ONE (11:30)
[2017-12-22 11:48] LABS: BILIRUBIN, URINE NEG (NEG); BLOOD, URINE SMALL (NEG); GLUCOSE,URINE NEG (NEG); HYALINE CAST, URINE 6 /lpf (RARE); KETONE, URINE NEG (NEG); MUCUS URINE FEW /lpf (OCC); NITRITE,URINE NEG (NEG); SQUAMOUS EPITHELIAL CELL URINE <1 /hpf (0-5); URINE COLOR LIGHT-YELLOW (YELLW/STRAW); URINE LEUKOCYTE ESTERASE NEG (NEG)
--- NOTE | 2017-12-22 12:19 | PD.PROCEDR ---
Procedure Note Procedure Procedure: Ultrasound-guided left pigtail chest tube placement indication: Large possible parapneumonic left sided effusion A time-out was completed verifying correct patient, procedure, site, positioning , and special equipment. Ultrasound was used to winter the site. the patient was positioned appropriately for chest tube placement in right lateral decubitus position. The patients left chest was prepped and draped in sterile fashion. 1% Lidocaine was used to anesthetize the surrounding skin area. A 0.25cm skin incision was made in the in the posterolateral left hemithorax at the site marked with ultrasound. 18-gauge needle was inserted into the pleural space and slightly cloudy blood tinged pleural fluid was aspirated. Syringe was removed and guidewire was placed. After serial dilation, 8 F pigtail catheter was inserted into the pleural space using Seldinger technique and positioned appropriately. The chest tube was sutured securely to the skin with silk suture and a sterile dressing applied with Stay Fix. A pleurovac was attached to the chest tube and placed at -40 suction and a chest x-ray ordered. Initial output was 1300 ml slightly cloudy blood tinged pleural fluid. Will send pleural fluid studies and culture Estimated Blood Loss: <1ml The patient tolerated the procedure well and there were no immediate complications. Deloris Alan MD Dec 22, 2017 12:19
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
[2017-12-22] MEDS ORDERED: Vancomycin Consult Pharmacy 1 EA OTHER SCH (13:00)
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
[2017-12-22 13:24] LABS: TOTAL PROTEIN,PLEURAL FLUID 4.3 GM/DL
--- NOTE | 2017-12-22 14:08 | RADRPT ---
EXAM DATE/TIME: 12/22/2017 13:09 [facility] COMPARISON: CHEST SINGLE AP, December 21, 2017, 2:11. INDICATIONS : Evaluate left side chest tube. MEDICAL HISTORY : None. SURGICAL HISTORY : Fusion, thoracic. ORIF left humerus. Left frontotemporal craniotomy with fixation of depressed skull ENCOUNTER: Subsequent ACUITY: 1 month PAIN SCORE: Non-responsive. LOCATION: Left chest FINDINGS: A single view of the chest demonstrates a stable faint infiltrate right lung base. Left-sided pigtail catheter in good position. Tracheostomy tube in good position. Previous thoracic lumbar fixation. T he cardiomediastinal contours are unremarkable. Osseous structures are intact. CONCLUSION: Faint infiltrate right lung base. Left pigtail catheter in good position. Gilberto Guaman MD on December 22, 2017 at 14:06 Board Certified Radiologist. This report was verified electronically.
[2017-12-22 14:11] LABS: PLEURAL FLUID BASO 4 %; PLEURAL FLUID EOS 9 %; PLEURAL FLUID HISTIOCYTES 1 %; PLEURAL FLUID LYMPHS 73 %; PLEURAL FLUID MONOS 4 %; PLEURAL FLUID POLYS (SEGS) 9 %; PLEURAL FLUID RBC 49007 /MM3 (0-0); PLEURAL FLUID WBC 1638 /MM3 (0-10)
[2017-12-22] MEDS: CEFEPIME INJ 2,000 MG in SODIUM CHLORIDE 0.9% INJ 100 ML IV SCH ×2 (14:31→20:06)
[2017-12-22] MEDS: SULFAMETHOXAZOLE-TRIMETHOPRIM DS 800-160 MG TAB PO SCH ×2 (14:37→20:06)
[2017-12-22] MEDS: MICAFUNGIN INJ 150 MG in SODIUM CHLORIDE 0.9% INJ 100 ML IV SCH (14:59)
[2017-12-22] MEDS: VANCOMYCIN INJ 1,500 MG in SODIUM CHLORID 0.9% 500 ML INJ 500 ML IV SCH (16:33)
[2017-12-22] MEDS: DEXMEDETOMIDINE INJ 1,000 MCG in SODIUM CHLOR 0.9% 250 ML INJ 240 ML IV PRN (16:41)
[2017-12-22] MEDS: MELATONIN 5 MG TAB PO SCH (20:06)
[2017-12-22] MEDS: ONDANSETRON HCL 4 MG/2 ML VIAL IV PUSH PRN (21:28)
[2017-12-23] VITALS (18 sets, daily range): BP systolic 131–162; BP diastolic 68–95; PULSE 62–90; RESP 11–43; TEMP 99.3–101.8; O2SAT 99–100
[2017-12-23] MEDS: PROPRANOLOL HCL 40 MG TAB PO SCH ×5 (00:58→23:52)
[2017-12-23] MEDS: QUEtiapine FUMARATE 25 MG TAB PO SCH ×3 (00:58→18:05)
[2017-12-23] MEDS: VANCOMYCIN INJ 1,500 MG in SODIUM CHLORID 0.9% 500 ML INJ 500 ML IV SCH ×3 (00:58→18:04)
[2017-12-23] MEDS: ARTIFICIAL TEARS OPTH OINT 3.5 APPLIC/3.5 GM TUBO LEFT EYE SCH ×6 (00:58→22:00)
[2017-12-23] MEDS: DEXMEDETOMIDINE INJ 1,000 MCG in SODIUM CHLOR 0.9% 250 ML INJ 240 ML IV PRN ×2 (02:00→20:27)
[2017-12-23] MEDS: RESP: ALBUTEROL 2.5 MG/IPRATROPIUM 0.5 MG NEB (SCH) NEB ×4 (03:37→21:23)
[2017-12-23] MEDS: CHLORHEXIDINE GLUCONATE 2 % 1 PACK (2 CLOTHS) TOP SCH (04:00)
[2017-12-23] MEDS: ONDANSETRON HCL 4 MG/2 ML VIAL IV PUSH PRN (04:23)
[2017-12-23] MEDS: TOBRAMYCIN 0.3%/DEXAMETHASONE 0.1% OPHT SUSP 5 ML BTL LEFT EYE SCH ×6 (04:24→20:00)
[2017-12-23] MEDS: HYDROmorphone HCL PF 2 MG/ML VIAL IV PUSH PRN ×4 (04:45→20:38)
[2017-12-23] MEDS: cloNIDine HCL 0.2 MG TAB PO SCH ×3 (05:43→22:39)
[2017-12-23] MEDS: METHOCARBAMOL 500 MG TAB PO SCH ×3 (05:57→20:33)
[2017-12-23] MEDS: HALOPERIDOL LACTATE 5 MG/ML AMP IV PUSH PRN (05:57)
[2017-12-23] MEDS: CEFEPIME INJ 2,000 MG in SODIUM CHLORIDE 0.9% INJ 100 ML IV SCH ×3 (05:58→22:40)
[2017-12-23] MEDS: ACETAMINOPHEN 650 MG/20.3 ML UDC PO PRN (06:30)
--- NOTE | 2017-12-23 07:34 | PD.ORT.PN ---
Subjective Subjective Remarks Running low-grade temperature and has decreased swelling to left arm. No erythema. Awake, alert Objective Vitals Vital Signs Date Time Temp Pulse Resp B/P (MAP) Pulse Ox O2 Delivery O2 Flow Rate FiO2 12/23/17 06:00 80 12/23/17 04:16 100 40 12/23/17 04:00 99.3 76 31 148/88 (108) 100 12/23/17 04:00 40 12/23/17 04:00 76 12/23/17 02:00 62 12/23/17 01:06 100 40 12/23/17 00:00 40 12/23/17 00:00 100.0 90 23 150/89 (109) 100 12/23/17 00:00 62 12/22/17 22:00 64 12/22/17 20:00 99.2 74 25 146/88 (107) 100 12/22/17 20:00 40 12/22/17 20:00 74 12/22/17 19:50 99 40 12/22/17 18:00 69 12/22/17 17:07 97 40 12/22/17 16:00 45 12/22/17 16:00 100.0 90 23 150/89 (109) 100 12/22/17 16:00 88 12/22/17 14:00 66 12/22/17 12:00 73 12/22/17 12:00 45 12/22/17 12:00 99.5 73 19 96/70 (79) 97 12/22/17 11:16 97 55 12/22/17 10:00 83 12/22/17 08:08 98 45 12/22/17 08:00 45 12/22/17 08:00 102.2 82 43 120/94 (103) 97 12/22/17 08:00 82 I/O 12/22/17 12/22/17 12/22/17 12/23/17 12/23/17 12/23/17 07:00 15:00 23:00 07:00 15:00 23:00 Intake Total 695 ml 1420 ml 950 ml Output Total 1680 ml 0 ml 3700.0 ml 2000 ml Balance -985 ml 0 ml -2280.0 ml -1050 ml IV Total 1300 ml 850 ml Tube Feeding 545 ml 0 ml Other 150 ml 120 ml 100 ml Output Urine Total 1680 ml 1500 ml 2000 ml Stool Total 700 ml Gastric Drainage Total 0 ml Tube Feeding Residual Discard 0 ml 0 ml 0 ml 0 ml Chest Tube Drainage Total 1500 ml 0 ml Result Diagram: 12/22/17 0449 12/22/17 0449 Imaging Last 72 hours Impressions Chest X-Ray 11/24/170 Signed Impressions: Service Date/Time: November 04:58 - CONCLUSION: 1. Minimal basilar density, probably atelectasis. No significant effusion. No pneumothorax identified on plain film. Placement of left central line without pneumothorax. Left-sided rib fractures present. Dave Horton MD Pelvis X-Ray 11/23/172308 Signed Impressions: Service Date/Time: Thursday, November 23, 2017 22:48 - CONCLUSION: Unremarkable examination of the pelvis. Dave Horton MD Chest X-Ray 11/23/172308 Signed Impressions: Service Date/Time: Thursday, November 23, 2017 22:48 - CONCLUSION: 1. Left lower rib fractures. Cardiomediastinal silhouette within normal limits. No dense consolidation or effusion. Dave Horton MD Thoracic Spine CT 11/23/172252 Signed Impressions: Service Date/Time: Thursday, November 23, 2017 23:18 - CONCLUSION: 1. At T12 there is a burst fracture with retropulsion resulting in mild to moderate stenosis and fracture extending into the posterior elements. 2. At T11 there is a mild endplate fracture superiorly with fractures extending posteriorly into the posterior elements and facet joints at T11-12. Dave Horton MD Maxillofacial CT 11/23/172252 Signed Impressions: Service Date/Time: Thursday, November 23, 2017 23:17 - CONCLUSION: 1. Numerous facial fractures as above including bilateral mandibular, bilateral zygomatic arches, bilateral orbits bilateral maxillary and ethmoid sinuses. Also bilateral calvarial fractures. Trace pneumocephalus. Extensive scalp and facial swelling. Dave Horton MD Lumbar Spine CT 11/23/172252 Signed Impressions: Service Date/Time: Thursday, November 23, 2017 23:21 - CONCLUSION: 1. Fractures through the left transverse process of L1 and L2. No lumbar spine vertebral body fractures or subluxation. Dave Horton MD Head CT 11/23/172252 Signed Impressions: Service Date/Time: Thursday, November 23, 2017 23:16 - CONCLUSION: 1. Fractures of the left frontal bone and right parietal bone without significant displacement. Trace pneumocephalus near the right parietal bone fracture. No significant intracranial hemorrhage. 2. Numerous facial bone fractures with hemorrhage in the paranasal sinuses. Facial CT pending. Dave Horton MD Chest CT 11/23/172252 Signed Impressions: Service Date/Time: Thursday, November 23, 2017 23:21 - CONCLUSION: 1. Small bilateral pneumothoraces. 2. Scattered groundglass opacity in the lungs most characteristic of lung contusions or minimal aspiration. 3. Multiple fractures including burst fracture of T12, superior endplate fracture of T11 and multiple left rib fractures as above. 4. Endotracheal tube and nasogastric tube in good position. Dave Horton MD Cervical Spine CT 11/23/172252 Signed Impressions: Service Date/Time: Thursday, November 23, 2017 23:17 - CONCLUSION: 1. Nondisplaced fractures to the left lateral mass of C3 and C5 extending into the facet joints. No vertebral body fractures. No subluxation. Dave Horton MD Abdomen/Pelvis CT 11/23/172252 Signed Impressions: Service Date/Time: Thursday, November 23, 2017 23:21 - CONCLUSION: 1. Negative for solid visceral injury within the abdomen and pelvis. No free air or free fluid. 2. Small bilateral pneumothoraces. 3. Fractures of the left transverse processes of L1 and L2 and the left anterior fifth through eighth ribs. T11 superior endplate fracture and T12 burst fractures as previously described. 4. Appendicolith without evidence for appendicitis. NG tip in stomach. Clinton catheter in bladder. 5. There is a small amount of air in the left external iliac vein and left femoral vein. Dave Horton MD Radius/Ulna X-Ray 11/23/17 0000 Signed Impressions: Service Date/Time: Thursday, November 23, 2017 22:48 - CONCLUSION: 1. First Metacarpal fracture. No radius and ulna fractures. No dislocation. Dave Horton MD Humerus X-Ray 11/23/17 0000 Signed Impressions: Service Date/Time: Thursday, November 23, 2017 22:48 - CONCLUSION: 1. Angulated fracture left distal humeral shaft. Dave Horton MD Chest X-Ray 11/23/17 0000 Signed Impressions: Service Date/Time: Thursday, November 23, 2017 22:48 - CONCLUSION: 1. Endotracheal tube and nasogastric tube in good position. Scattered lung contusions or mild aspiration. No effusion. 2. Left-sided rib fractures. See abdomen and pelvic CT report. Dave Horton MD Last 24 hours Impressions Chest X-Ray 11/24/17 0400 Signed Impressions: Service Date/Time: November 04:58 - CONCLUSION: 1. Minimal basilar density, probably atelectasis. No significant effusion. No pneumothorax identified on plain film. Placement of left central line without pneumothorax. Left-sided rib fractures present. Dave Horton MD Pelvis X-Ray 11/23/172308 Signed Impressions: Service Date/Time: Thursday, November 23, 2017 22:48 - CONCLUSION: Unremarkable examination of the pelvis. Dave Horton MD Chest X-Ray 11/23/172308 Signed Impressions: Service Date/Time: Thursday, November 23, 2017 22:48 - CONCLUSION: 1. Left lower rib fractures. Cardiomediastinal silhouette within normal limits. No dense consolidation or effusion. Dave Horton MD Thoracic Spine CT 11/23/172252 Signed Impressions: Service Date/Time: Thursday, November 23, 2017 23:18 - CONCLUSION: 1. At T12 there is a burst fracture with retropulsion resulting in mild to moderate stenosis and fracture extending into the posterior elements. 2. At T11 there is a mild endplate fracture superiorly with fractures extending posteriorly into the posterior elements and facet joints at T11-12. Dave Horton MD Maxillofacial CT 11/23/172252 Signed Impressions: Service Date/Time: Thursday, November 23, 2017 23:17 - CONCLUSION: 1. Numerous facial fractures as above including bilateral mandibular, bilateral zygomatic arches, bilateral orbits bilateral maxillary and ethmoid sinuses. Also bilateral calvarial fractures. Trace pneumocephalus. Extensive scalp and facial swelling. Dave Horton MD Lumbar Spine CT 11/23/172252 Signed Impressions: Service Date/Time: Thursday, November 23, 2017 23:21 - CONCLUSION: 1. Fractures through the left transverse process of L1 and L2. No lumbar spine vertebral body fractures or subluxation. Dave Horton MD Head CT 11/23/172252 Signed Impressions: Service Date/Time: Thursday, November 23, 2017 23:16 - CONCLUSION: 1. Fractures of the left frontal bone and right parietal bone without significant displacement. Trace pneumocephalus near the right parietal bone fracture. No significant intracranial hemorrhage. 2. Numerous facial bone fractures with hemorrhage in the paranasal sinuses. Facial CT pending. Dave Horton MD Chest CT 11/23/172252 Signed Impressions: Service Date/Time: Thursday, November 23, 2017 23:21 - CONCLUSION: 1. Small bilateral pneumothoraces. 2. Scattered groundglass opacity in the lungs most characteristic of lung contusions or minimal aspiration. 3. Multiple fractures including burst fracture of T12, superior endplate fracture of T11 and multiple left rib fractures as above. 4. Endotracheal tube and nasogastric tube in good position. Dave Horton MD Cervical Spine CT 11/23/172252 Signed Impressions: Service Date/Time: Thursday, November 23, 2017 23:17 - CONCLUSION: 1. Nondisplaced fractures to the left lateral mass of C3 and C5 extending into the facet joints. No vertebral body fractures. No subluxation. Dave Horton MD Abdomen/Pelvis CT 11/23/172252 Signed Impressions: Service Date/Time: Thursday, November 23, 2017 23:21 - CONCLUSION: 1. Negative for solid visceral injury within the abdomen and pelvis. No free air or free fluid. 2. Small bilateral pneumothoraces. 3. Fractures of the left transverse processes of L1 and L2 and the left anterior fifth through eighth ribs. T11 superior endplate fracture and T12 burst fractures as previously described. 4. Appendicolith without evidence for appendicitis. NG tip in stomach. Clinton catheter in bladder. 5. There is a small amount of air in the left external iliac vein and left femoral vein. Dave Horton MD Objective Remarks Left upper extremity: Incisions healing well. Swelling a +3 over arm, but improving. Distally good capillary refills and palpable distal pulses. Thumb spica splint in place. Sensation over median and radial nerve but no sensation over ulna nerve distribution. Weak flexion of fingers. Difficulty with extension of fingers Right upper extremity: No pain with range of motion. Full motion and neurovascularly intact Bilateral lower extremities: No pain with range of motion of hip knee or ankle. Intact sensation distally dorsal and plantar surface of foot Active plantar flexion of feet but weak dorsiflexion. Assessment & Plan Assessment and Plan 1) Left humeral shaft fracture s/p ORIF - POD 21 (12/02) -Discontinue dressings to left humerus - NWB -OT for motion of elbow and shoulder Emerson Talbot Jr. Dec 23, 2017 07:34
[2017-12-23] MEDS: CHLORHEXIDINE 0.12% (ORAL KIT) 15 ML CUP MT SCH ×2 (08:00→20:34)
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
[2017-12-23] MEDS: ENOXAPARIN SODIUM 100 MG/ML SYRINGE SQ SCH ×2 (08:39→20:33)
[2017-12-23] MEDS: METHADONE HCL 10 MG/10 ML ORAL SOLUTION PEG SCH (08:40)
[2017-12-23] MEDS: SULFAMETHOXAZOLE-TRIMETHOPRIM DS 800-160 MG TAB PO SCH ×2 (08:41→20:33)
[2017-12-23] MEDS: CHOLECALCIFEROL (VIT D3) 1000 UNIT TAB PO SCH (08:41)
[2017-12-23] MEDS: FAMOTIDINE 20 MG TAB PO SCH ×2 (08:41→20:33)
[2017-12-23] MEDS: LEVOFLOXACIN 750 MG TAB PO SCH (08:41)
[2017-12-23] MEDS: LIDOCAINE HCL 5% PATCH T-DERMAL SCH (08:41)
[2017-12-23] MEDS: FUROSEMIDE 40 MG/4 ML VIAL IV PUSH SCH ×2 (08:42→18:06)
[2017-12-23] MEDS: DOCUSATE SODIUM 50 MG/SENNA 8.6 MG TAB PO SCH ×2 (08:43→20:26)
[2017-12-23] MEDS: BENEPROTEIN POWDER 1 PACK G-TUBE SCH ×3 (08:43→18:00)
[2017-12-23] MEDS: ARTIFICIAL TEARS OPTH OINT 3.5 APPLIC/3.5 GM TUBO RIGHT EYE SCH ×3 (08:43→18:00)
[2017-12-23] MEDS: BACITRACIN OPHT OINT 3.5 GM TUBO SCH ×2 (08:43→20:33)
[2017-12-23] MEDS: BACITRACIN TOP OINT 15 GM TUBE TOPICAL SCH ×2 (08:43→20:33)
[2017-12-23] MEDS: MAGNESIUM HYDROXIDE SUSP 30 ML CUP PO SCH ×2 (08:43→20:26)
[2017-12-23] MEDS: NYSTATIN 100,000 U/GM PWD 15 GM BTL TOPICAL SCH ×2 (08:43→20:33)
[2017-12-23] MEDS: SODIUM CHLORIDE 0.9% FLUSH 10 ML FLUSH IV FLUSH SCH ×2 (08:43→20:33)
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
--- NOTE | 2017-12-23 10:32 | RADRPT ---
EXAM DATE/TIME: 12/23/2017 10:02 [facility] COMPARISON: CHEST SINGLE AP, December 22, 2017, 13:09. INDICATIONS : Patient experiencing distended abdomen, possible ileus. MEDICAL HISTORY : Sleep apnea. PTSD. Depression. Substance use SURGICAL HISTORY : humerus, craniotomy, facial, back surgeries ENCOUNTER: Subsequent ACUITY: 1 day PAIN SCORE: 10/10 LOCATION: all over FINDINGS: Posterior charles and transpedicular screw fixation hardware noted at T11, T12, L2 and L3. There is mild gaseous distention of the stomach. Air is seen within nondilated small and large bowel. CONCLUSION: Mild gaseous distention of the stomach. Roderick Wynn MD on December 23, 2017 at 10:31 Board Certified Radiologist. This report was verified electronically.
[2017-12-23 10:44] LABS: BICARBONATE 23.2 MEQ/L (21.0-32.0); CALCIUM 8.3 MG/DL (8.5-10.1); CREATININE 0.39 MG/DL (0.60-1.30)
[2017-12-23 10:46] LABS: AUTOMATED NEUTROPHIL # 10.3 TH/MM3 (1.8-7.7); BASOPHIL # 0.1 TH/MM3 (0-0.2); BASOPHIL % 0.8 % (0.0-2.0); EOSINOPHIL # 0.3 TH/MM3 (0-0.4); EOSINOPHIL % 2.6 % (0.0-4.0); HEMATOCRIT 31.1 % (39.0-51.0); HEMOGLOBIN 10.5 GM/DL (13.0-17.0); LYMPH % 7.7 % (9.0-44.0); MEAN CORPUSCULAR HEMOGLOBIN 28.4 PG (27.0-34.0); MEAN CORPUSCULAR HGB CONC 33.8 % (32.0-36.0); MEAN PLATELET VOLUME 8.2 FL (7.0-11.0); MONO % 7.4 % (0.0-8.0); MONOCYTE # 0.9 TH/MM3 (0-0.9); NEUT % 81.5 % (16.0-70.0); PLATELET COUNT 321 TH/MM3 (150-450); RED CELL DISTRIBUTION WIDTH 15.3 % (11.6-17.2); WHITE BLOOD COUNT 12.6 TH/MM3 (4.0-11.0)
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
[2017-12-23 12:52] LABS: AMYLASE BODY FLUID 31 U/L; AMYLASE BODY FLUID TYPE PLEURAL
[2017-12-23] MEDS: ERGOCALCIFEROL (VIT D2) 50,000 UNIT CAP PO SCH (14:51)
[2017-12-23] MEDS: MICAFUNGIN INJ 150 MG in SODIUM CHLORIDE 0.9% INJ 100 ML IV SCH (14:54)
[2017-12-23] MEDS: POTASSIUM CHLORIDE 25 MEQ EFFERVESCENT TAB PO PRN (15:29)
[2017-12-23] MEDS ORDERED: PHARMACY ORDERED LAB ONE (15:45)
[2017-12-23] MEDS: MELATONIN 5 MG TAB PO SCH (20:33)
[2017-12-23] MEDS ORDERED: HYDROmorphone HCL PF 2 MG/ML VIAL IV SCH (23:48)
[2017-12-24] VITALS (18 sets, daily range): BP systolic 143–163; BP diastolic 64–87; PULSE 59–83; RESP 24–32; TEMP 97.9–99.7; O2SAT 93–100
[2017-12-24] MEDS: VANCOMYCIN INJ 1,500 MG in SODIUM CHLORID 0.9% 500 ML INJ 500 ML IV SCH ×2 (00:36→09:03)
[2017-12-24] MEDS: CHLORHEXIDINE GLUCONATE 2 % 1 PACK (2 CLOTHS) TOP SCH (01:30)
[2017-12-24] MEDS: QUEtiapine FUMARATE 25 MG TAB PO SCH ×3 (01:30→18:47)
[2017-12-24] MEDS: ARTIFICIAL TEARS OPTH OINT 3.5 APPLIC/3.5 GM TUBO LEFT EYE SCH ×6 (01:30→22:00)
[2017-12-24] MEDS: TOBRAMYCIN 0.3%/DEXAMETHASONE 0.1% OPHT SUSP 5 ML BTL LEFT EYE SCH ×7 (03:07→23:26)
[2017-12-24] MEDS: RESP: ALBUTEROL 2.5 MG/IPRATROPIUM 0.5 MG NEB (SCH) NEB ×4 (03:47→21:43)
[2017-12-24] MEDS: DEXMEDETOMIDINE INJ 1,000 MCG in SODIUM CHLOR 0.9% 250 ML INJ 240 ML IV PRN (03:58)
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
[2017-12-24] MEDS: METHOCARBAMOL 500 MG TAB PO SCH ×3 (05:25→22:01)
[2017-12-24] MEDS: CEFEPIME INJ 2,000 MG in SODIUM CHLORIDE 0.9% INJ 100 ML IV SCH ×3 (05:26→22:01)
[2017-12-24 05:55] LABS: AUTOMATED NEUTROPHIL # 4.9 TH/MM3 (1.8-7.7); BASOPHIL # 0.1 TH/MM3 (0-0.2); BASOPHIL % 1.2 % (0.0-2.0); EOSINOPHIL # 0.5 TH/MM3 (0-0.4); HEMOGLOBIN 10.5 GM/DL (13.0-17.0); LYMPH % 18.8 % (9.0-44.0); LYMPHOCYTE # 1.5 TH/MM3 (1.0-4.8); MEAN CELL VOLUME 84.4 FL (80.0-100.0); MEAN CORPUSCULAR HEMOGLOBIN 28.5 PG (27.0-34.0); MEAN CORPUSCULAR HGB CONC 33.8 % (32.0-36.0); MEAN PLATELET VOLUME 7.7 FL (7.0-11.0); MONOCYTE # 0.9 TH/MM3 (0-0.9); PLATELET COUNT 293 TH/MM3 (150-450); RED BLOOD COUNT 3.68 MIL/MM3 (4.50-5.90); RED CELL DISTRIBUTION WIDTH 15.7 % (11.6-17.2); WHITE BLOOD COUNT 7.8 TH/MM3 (4.0-11.0)
[2017-12-24] MEDS: PROPRANOLOL HCL 40 MG TAB PO SCH ×3 (06:00→18:59)
[2017-12-24 06:19] LABS: BICARBONATE 23.8 MEQ/L (21.0-32.0); CALCIUM 8.2 MG/DL (8.5-10.1); CREATININE 0.38 MG/DL (0.60-1.30)
[2017-12-24] MEDS: POTASSIUM CHLORIDE 25 MEQ EFFERVESCENT TAB PO PRN (06:32)
[2017-12-24] MEDS: cloNIDine HCL 0.2 MG TAB PO SCH ×3 (06:32→23:02)
[2017-12-24] MEDS: HYDROmorphone HCL PF 2 MG/ML VIAL IV PUSH PRN ×5 (08:05→23:59)
[2017-12-24] MEDS: DOCUSATE SODIUM 50 MG/SENNA 8.6 MG TAB PO SCH ×2 (09:00→20:01)
[2017-12-24] MEDS: BENEPROTEIN POWDER 1 PACK G-TUBE SCH ×3 (09:00→18:00)
[2017-12-24] MEDS: MAGNESIUM HYDROXIDE SUSP 30 ML CUP PO SCH ×2 (09:00→20:00)
[2017-12-24] MEDS: CHLORHEXIDINE 0.12% (ORAL KIT) 15 ML CUP MT SCH ×2 (09:04→20:00)
[2017-12-24] MEDS: BACITRACIN TOP OINT 15 GM TUBE TOPICAL SCH ×2 (09:04→20:20)
[2017-12-24] MEDS: LIDOCAINE HCL 5% PATCH T-DERMAL SCH (09:10)
[2017-12-24] MEDS: NYSTATIN 100,000 U/GM PWD 15 GM BTL TOPICAL SCH ×2 (09:11→20:21)
[2017-12-24] MEDS: ARTIFICIAL TEARS OPTH OINT 3.5 APPLIC/3.5 GM TUBO RIGHT EYE SCH ×3 (09:13→18:47)
[2017-12-24] MEDS: ENOXAPARIN SODIUM 100 MG/ML SYRINGE SQ SCH ×2 (09:14→20:20)
[2017-12-24] MEDS: SODIUM CHLORIDE 0.9% FLUSH 10 ML FLUSH IV FLUSH SCH ×2 (09:16→20:00)
[2017-12-24] MEDS: FUROSEMIDE 40 MG/4 ML VIAL IV PUSH SCH ×2 (09:16→18:55)
[2017-12-24] MEDS: METHADONE HCL 10 MG/10 ML ORAL SOLUTION PEG SCH (09:16)
[2017-12-24] MEDS: BACITRACIN OPHT OINT 3.5 GM TUBO SCH ×2 (09:17→20:20)
[2017-12-24] MEDS: FAMOTIDINE 20 MG TAB PO SCH ×2 (09:18→20:20)
[2017-12-24] MEDS: SULFAMETHOXAZOLE-TRIMETHOPRIM DS 800-160 MG TAB PO SCH ×2 (09:18→20:20)
[2017-12-24] MEDS: LEVOFLOXACIN 750 MG TAB PO SCH (09:18)
[2017-12-24] MEDS: CHOLECALCIFEROL (VIT D3) 1000 UNIT TAB PO SCH (09:19)
[2017-12-24] MEDS ORDERED: LIDOCAINE HCL 1% 20 ML VIAL INFIL ONE (09:45)
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
[2017-12-24] MEDS ORDERED: PHARMACY ORDERED LAB ONE (15:45)
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
[2017-12-24] MEDS: MELATONIN 5 MG TAB PO SCH (20:20)
[2017-12-25] VITALS (16 sets, daily range): BP systolic 141–164; BP diastolic 69–90; PULSE 64–86; RESP 17–30; TEMP 98.2–100.2; O2SAT 98–100
[2017-12-25] MEDS: ARTIFICIAL TEARS OPTH OINT 3.5 APPLIC/3.5 GM TUBO LEFT EYE SCH ×6 (01:14→21:25)
[2017-12-25] MEDS: QUEtiapine FUMARATE 25 MG TAB PO SCH ×2 (01:15→13:15)
[2017-12-25] MEDS: CHLORHEXIDINE GLUCONATE 2 % 1 PACK (2 CLOTHS) TOP SCH (01:15)
[2017-12-25] MEDS: DEXMEDETOMIDINE INJ 1,000 MCG in SODIUM CHLOR 0.9% 250 ML INJ 240 ML IV PRN (01:45)
[2017-12-25] MEDS: TOBRAMYCIN 0.3%/DEXAMETHASONE 0.1% OPHT SUSP 5 ML BTL LEFT EYE SCH ×5 (04:00→20:41)
[2017-12-25] MEDS: RESP: ALBUTEROL 2.5 MG/IPRATROPIUM 0.5 MG NEB (SCH) NEB ×4 (04:01→21:25)
[2017-12-25] MEDS: HYDROmorphone HCL PF 2 MG/ML VIAL IV PUSH PRN ×5 (04:13→22:11)
[2017-12-25 05:15] LABS: AUTOMATED NEUTROPHIL # 6.4 TH/MM3 (1.8-7.7); BASOPHIL # 0.1 TH/MM3 (0-0.2); BASOPHIL % 1.1 % (0.0-2.0); EOSINOPHIL # 0.4 TH/MM3 (0-0.4); EOSINOPHIL % 4.6 % (0.0-4.0); HEMOGLOBIN 11.5 GM/DL (13.0-17.0); LYMPH % 15.6 % (9.0-44.0); LYMPHOCYTE # 1.4 TH/MM3 (1.0-4.8); MEAN CELL VOLUME 83.4 FL (80.0-100.0); MEAN CORPUSCULAR HEMOGLOBIN 28.1 PG (27.0-34.0); MEAN CORPUSCULAR HGB CONC 33.7 % (32.0-36.0); MONO % 8.9 % (0.0-8.0); MONOCYTE # 0.8 TH/MM3 (0-0.9); NEUT % 69.8 % (16.0-70.0); PLATELET COUNT 373 TH/MM3 (150-450); RED BLOOD COUNT 4.07 MIL/MM3 (4.50-5.90); RED CELL DISTRIBUTION WIDTH 15.4 % (11.6-17.2); WHITE BLOOD COUNT 9.2 TH/MM3 (4.0-11.0)
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
[2017-12-25 05:43] LABS: ALBUMIN 2.7 GM/DL (3.4-5.0); AST (GOT) 39 U/L (15-37); BICARBONATE 27.2 MEQ/L (21.0-32.0); BLOOD UREA NITROGEN 14 MG/DL (7-18); CALCIUM 8.4 MG/DL (8.5-10.1); CHLORIDE 101 MEQ/L (98-107); CREATININE 0.36 MG/DL (0.60-1.30); GLOMERULAR FILTRATION RATE 282 ML/MIN (>89); GLUCOSE,RANDOM 113 MG/DL (74-106); SODIUM (NA) 136 MEQ/L (136-145)
[2017-12-25 05:52] LABS: ALKALINE PHOSPHATASE 177 U/L (45-117); ALT (GPT) 58 U/L (12-78); TOTAL BILIRUBIN ADULT 0.5 MG/DL (0.2-1.0)
[2017-12-25] MEDS: cloNIDine HCL 0.2 MG TAB PO SCH (06:09)
[2017-12-25] MEDS: CEFEPIME INJ 2,000 MG in SODIUM CHLORIDE 0.9% INJ 100 ML IV SCH ×3 (06:09→21:47)
[2017-12-25] MEDS: METHOCARBAMOL 500 MG TAB PO SCH ×3 (06:09→21:25)
[2017-12-25] MEDS: PROPRANOLOL HCL 40 MG TAB PO SCH ×4 (07:50→18:19)
[2017-12-25] MEDS: CHLORHEXIDINE 0.12% (ORAL KIT) 15 ML CUP MT SCH ×2 (08:47→20:00)
[2017-12-25] MEDS: BENEPROTEIN POWDER 1 PACK G-TUBE SCH ×3 (08:48→18:18)
[2017-12-25] MEDS: SODIUM CHLORIDE 0.9% FLUSH 10 ML FLUSH IV FLUSH SCH ×2 (08:48→20:44)
[2017-12-25] MEDS: METHADONE HCL 10 MG/10 ML ORAL SOLUTION PEG SCH (08:48)
[2017-12-25] MEDS: BACITRACIN OPHT OINT 3.5 GM TUBO SCH ×2 (08:48→21:00)
[2017-12-25] MEDS: FUROSEMIDE 40 MG/4 ML VIAL IV PUSH SCH ×2 (08:48→18:00)
[2017-12-25] MEDS: MAGNESIUM HYDROXIDE SUSP 30 ML CUP PO SCH ×2 (08:49→20:29)
[2017-12-25] MEDS: CHOLECALCIFEROL (VIT D3) 1000 UNIT TAB PO SCH (08:49)
[2017-12-25] MEDS: LEVOFLOXACIN 750 MG TAB PO SCH (08:49)
[2017-12-25] MEDS: ARTIFICIAL TEARS OPTH OINT 3.5 APPLIC/3.5 GM TUBO RIGHT EYE SCH ×3 (08:49→18:19)
[2017-12-25] MEDS: SULFAMETHOXAZOLE-TRIMETHOPRIM DS 800-160 MG TAB PO SCH ×2 (08:49→20:29)
[2017-12-25] MEDS: FAMOTIDINE 20 MG TAB PO SCH ×2 (08:49→20:29)
[2017-12-25] MEDS: DOCUSATE SODIUM 50 MG/SENNA 8.6 MG TAB PO SCH ×2 (08:49→20:29)
[2017-12-25] MEDS: ENOXAPARIN SODIUM 100 MG/ML SYRINGE SQ SCH ×2 (08:50→20:30)
[2017-12-25] MEDS: LIDOCAINE HCL 5% PATCH T-DERMAL SCH (08:51)
[2017-12-25] MEDS: BACITRACIN TOP OINT 15 GM TUBE TOPICAL SCH ×2 (08:51→20:41)
[2017-12-25] MEDS: NYSTATIN 100,000 U/GM PWD 15 GM BTL TOPICAL SCH ×2 (08:51→20:43)
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
[2017-12-25] MEDS: ALPRAZolam 0.5 MG TAB PO PRN ×2 (09:21→18:19)
--- NOTE | 2017-12-25 11:24 | HHI.CCPN ---
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 -Continue [place] for adequate urine output measurements -Continue fracture care per orthopedic surgery Mervin Dong MD Dec 25, 2017 11:24
[2017-12-25] MEDS: cloNIDine HCL 0.3 MG TAB PO SCH ×2 (13:15→21:25)
--- NOTE | 2017-12-25 16:37 | RADRPT ---
EXAM DATE/TIME: 12/25/2017 15:55 [facility] COMPARISON: No previous studies available for comparison. INDICATIONS : Post chest removal. MEDICAL HISTORY : None. SURGICAL HISTORY : Fusion, thoracic. ORIF left humerus. Left frontotemporal craniotomy with fixation of depressed skull. ENCOUNTER: Initial ACUITY: 1 day PAIN SCORE: Non-responsive. LOCATION: Bilateral chest FINDINGS: There is patchy left lower lobe airspace disease and small left effusion. Tracheostomy tube is noted. Juan C and screw fixation of the thoracolumbar spine. The left-sided chest tube has been removed. I do not see a pneumothorax. CONCLUSION: Left basilar airspace disease. Roderick Wynn MD on December 25, 2017 at 16:34 Board Certified Radiologist. This report was verified electronically.
[2017-12-25] MEDS: MELATONIN 5 MG TAB PO SCH (20:29)
[2017-12-25] MEDS ORDERED: QUEtiapine FUMARATE 100 MG TAB PO SCH (21:00)
[2017-12-26] VITALS (14 sets, daily range): BP systolic 126–180; BP diastolic 64–89; PULSE 71–89; RESP 17–26; TEMP 99.1–100; O2SAT 98–100
[2017-12-26] MEDS: ACETAMINOPHEN 650 MG/20.3 ML UDC PO PRN ×2 (00:03→23:35)
[2017-12-26] MEDS: TOBRAMYCIN 0.3%/DEXAMETHASONE 0.1% OPHT SUSP 5 ML BTL LEFT EYE SCH ×6 (00:06→19:44)
[2017-12-26] MEDS: PROPRANOLOL HCL 40 MG TAB PO SCH ×5 (00:08→23:25)
[2017-12-26] MEDS: ALPRAZolam 0.5 MG TAB PO PRN ×3 (00:41→13:49)
[2017-12-26] MEDS: ARTIFICIAL TEARS OPTH OINT 3.5 APPLIC/3.5 GM TUBO LEFT EYE SCH ×5 (02:00→22:00)
[2017-12-26] MEDS: HYDROmorphone HCL PF 2 MG/ML VIAL IV PUSH PRN ×6 (02:07→21:48)
[2017-12-26] MEDS: RESP: ALBUTEROL 2.5 MG/IPRATROPIUM 0.5 MG NEB (SCH) NEB ×4 (03:08→21:16)
[2017-12-26] MEDS: CHLORHEXIDINE GLUCONATE 2 % 1 PACK (2 CLOTHS) TOP SCH (04:00)
[2017-12-26] MEDS: DEXMEDETOMIDINE INJ 1,000 MCG in SODIUM CHLOR 0.9% 250 ML INJ 240 ML IV PRN (05:02)
[2017-12-26] MEDS: METHOCARBAMOL 500 MG TAB PO SCH ×3 (05:08→21:40)
[2017-12-26] MEDS: CEFEPIME INJ 2,000 MG in SODIUM CHLORIDE 0.9% INJ 100 ML IV SCH ×3 (05:08→21:39)
[2017-12-26] MEDS: cloNIDine HCL 0.3 MG TAB PO SCH ×3 (05:08→21:40)
--- NOTE | 2017-12-26 06:17 | RADRPT ---
EXAM DATE/TIME: 12/26/2017 05:17 [facility] COMPARISON: CHEST SINGLE AP, December 25, 2017, 15:55. INDICATIONS : Short of breath. MEDICAL HISTORY : None. SURGICAL HISTORY : Fusion, thoracic. ORIF left humerus. Left frontotemporal craniotomy with fixation of depressed skull. ENCOUNTER: Subsequent ACUITY: 2 months PAIN SCORE: 0/10 LOCATION: Bilateral chest FINDINGS: Portable AP view of the chest demonstrates a normal-sized cardiac silhouette. Tracheostomy remains pr esent. There is bibasilar airspace consolidation that is stable. No pneumothorax is visualized. There is a small left pleural based opacity. CONCLUSION: Stable chest x-ray with mild airspace opacity in the lower lung zones bilaterally. There is also a sm all left pleural effusion. Waqas Linares MD on December 26, 2017 at 6:15 Board Certified Radiologist. This report was verified electronically.
[2017-12-26 06:22] LABS: AUTOMATED NEUTROPHIL # 8.6 TH/MM3 (1.8-7.7); BASOPHIL # 0.1 TH/MM3 (0-0.2); BASOPHIL % 0.9 % (0.0-2.0); EOSINOPHIL # 0.6 TH/MM3 (0-0.4); EOSINOPHIL % 4.6 % (0.0-4.0); HEMATOCRIT 36.2 % (39.0-51.0); HEMOGLOBIN 12.6 GM/DL (13.0-17.0); LYMPH % 14.7 % (9.0-44.0); LYMPHOCYTE # 1.8 TH/MM3 (1.0-4.8); MEAN CELL VOLUME 82.5 FL (80.0-100.0); MEAN CORPUSCULAR HEMOGLOBIN 28.8 PG (27.0-34.0); MEAN CORPUSCULAR HGB CONC 34.9 % (32.0-36.0); MEAN PLATELET VOLUME 7.5 FL (7.0-11.0); MONO % 8.3 % (0.0-8.0); NEUT % 71.5 % (16.0-70.0); PLATELET COUNT 444 TH/MM3 (150-450); RED BLOOD COUNT 4.39 MIL/MM3 (4.50-5.90); RED CELL DISTRIBUTION WIDTH 15.4 % (11.6-17.2)
[2017-12-26 06:52] LABS: ALBUMIN 3.2 GM/DL (3.4-5.0); AST (GOT) 41 U/L (15-37); BICARBONATE 25.1 MEQ/L (21.0-32.0); BLOOD UREA NITROGEN 13 MG/DL (7-18); CALCIUM 8.3 MG/DL (8.5-10.1); CHLORIDE 98 MEQ/L (98-107); GLOMERULAR FILTRATION RATE 193 ML/MIN (>89); GLUCOSE,RANDOM 115 MG/DL (74-106); SODIUM (NA) 134 MEQ/L (136-145)
[2017-12-26 06:54] LABS: ALT (GPT) 64 U/L (12-78)
[2017-12-26 06:56] LABS: ALKALINE PHOSPHATASE 218 U/L (45-117); TOTAL BILIRUBIN ADULT 0.5 MG/DL (0.2-1.0); TOTAL PROTEIN 7.7 GM/DL (6.4-8.2)
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
[2017-12-26] MEDS: METHADONE HCL 10 MG/10 ML ORAL SOLUTION PEG SCH (07:55)
[2017-12-26] MEDS: LEVOFLOXACIN 750 MG TAB PO SCH (07:56)
[2017-12-26] MEDS: LIDOCAINE HCL 5% PATCH T-DERMAL SCH (07:56)
[2017-12-26] MEDS: CHOLECALCIFEROL (VIT D3) 1000 UNIT TAB PO SCH (07:56)
[2017-12-26] MEDS: ENOXAPARIN SODIUM 100 MG/ML SYRINGE SQ SCH ×2 (07:56→20:05)
[2017-12-26] MEDS: FAMOTIDINE 20 MG TAB PO SCH ×2 (07:56→20:05)
[2017-12-26] MEDS: FUROSEMIDE 40 MG/4 ML VIAL IV PUSH SCH ×2 (07:57→17:55)
[2017-12-26] MEDS: QUEtiapine FUMARATE 25 MG TAB PO SCH ×2 (08:00→13:49)
[2017-12-26] MEDS: CHLORHEXIDINE 0.12% (ORAL KIT) 15 ML CUP MT SCH ×2 (08:00→19:45)
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
[2017-12-26] MEDS: BACITRACIN TOP OINT 15 GM TUBE TOPICAL SCH ×2 (09:00→20:06)
[2017-12-26] MEDS: SODIUM CHLORIDE 0.9% FLUSH 10 ML FLUSH IV FLUSH SCH ×2 (09:00→20:06)
[2017-12-26] MEDS: MAGNESIUM HYDROXIDE SUSP 30 ML CUP PO SCH ×2 (09:00→20:06)
[2017-12-26] MEDS: NYSTATIN 100,000 U/GM PWD 15 GM BTL TOPICAL SCH ×2 (09:00→20:07)
[2017-12-26] MEDS: DOCUSATE SODIUM 50 MG/SENNA 8.6 MG TAB PO SCH ×2 (09:00→20:05)
[2017-12-26] MEDS: ARTIFICIAL TEARS OPTH OINT 3.5 APPLIC/3.5 GM TUBO RIGHT EYE SCH ×3 (09:00→18:00)
[2017-12-26] MEDS: BACITRACIN OPHT OINT 3.5 GM TUBO SCH ×2 (09:00→21:00)
[2017-12-26] MEDS: BENEPROTEIN POWDER 1 PACK G-TUBE SCH ×3 (09:00→18:00)
[2017-12-26] MEDS: oxyCODONE/ACETAMINOPHEN 7.5 MG/325 MG TAB PO SCH ×3 (09:25→19:37)
[2017-12-26] MEDS: SULFAMETHOXAZOLE-TRIMETHOPRIM DS 800-160 MG TAB PO SCH ×2 (09:54→20:05)
[2017-12-26] MEDS ORDERED: HYDROmorphone HCL PF 2 MG/ML VIAL IV PUSH ONE (13:00)
--- NOTE | 2017-12-26 13:06 | HHI.CCPN ---
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 increased to 100 mg at night, wean narcotics on a scheduled taper -Pulmonary continue aggressive pulmonary toilet and CPAP as tolerated, left chest tube will be removed today-cardiac is stable, continue to monitor -GI continue tube feeds at goal and continue bowel regimen to avoid constipation of his high level of medication use -Continue Clinton for adequate urine output measurements -Continue fracture care per orthopedic surgery Attestation Critical care time 32 minutes Patrick Hernández MD Dec 26, 2017 13:06
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
[2017-12-26] MEDS ORDERED: LABETALOL HCL 100 MG/20 ML VIAL IV PUSH PRN (15:45)
[2017-12-26] MEDS ORDERED: LORazepam 2 MG/ML VIAL ONE (16:00)
[2017-12-26] MEDS: GABAPENTIN 100 MG CAP PO SCH (19:43)
[2017-12-26] MEDS: LORazepam 2 MG/ML VIAL IV PUSH PRN ×2 (19:52→23:25)
[2017-12-26] MEDS: MELATONIN 5 MG TAB PO SCH (20:05)
[2017-12-27] VITALS (13 sets, daily range): BP systolic 119–149; BP diastolic 57–79; PULSE 67–93; RESP 18–42; TEMP 98–99.5; O2SAT 95–100
[2017-12-27] MEDS: ALPRAZolam 0.5 MG TAB PO PRN (00:13)
[2017-12-27] MEDS: HYDROmorphone HCL PF 2 MG/ML VIAL IV PUSH PRN ×3 (02:00→09:12)
[2017-12-27] MEDS: oxyCODONE/ACETAMINOPHEN 7.5 MG/325 MG TAB PO SCH ×4 (02:00→20:26)
[2017-12-27] MEDS: CHLORHEXIDINE GLUCONATE 2 % 1 PACK (2 CLOTHS) TOP SCH (04:00)
[2017-12-27] MEDS: RESP: ALBUTEROL 2.5 MG/IPRATROPIUM 0.5 MG NEB (SCH) NEB ×4 (04:03→22:13)
[2017-12-27] MEDS: LORazepam 2 MG/ML VIAL IV PUSH PRN (04:30)
--- NOTE | 2017-12-27 05:09 | RADRPT ---
EXAM DATE/TIME: 12/27/2017 04:21 [place] COMPARISON: CT THORAX W CONTRAST, November 23, 2017, 23:21. CHEST SINGLE AP, December 25, 2017, 15:55. CHEST SINGLE AP, December 26, 2017, 5:17. INDICATIONS : Follow up trauma. Shortness of breath. MEDICAL HISTORY : None. SURGICAL HISTORY : Fusion, thoracic. ORIF left humerus. Left frontotemporal craniotomy with fixation of depressed skull ENCOUNTER: Subsequent ACUITY: 1 month PAIN SCORE: 0/10 LOCATION: Bilateral chest FINDINGS: Portable AP view of the chest demonstrates a normal-sized cardiac silhouette. Tracheostomy remains pr esent. Lungs are underinflated. There is patchy airspace opacity at the right lung base and stable sm all left basilar pleural-parenchymal opacity. No pneumothorax is identified. CONCLUSION: Stable chest x-ray with mild patchy consolidation or atelectasis at the right lung base. There is a s table small left pleural effusion with associated volume loss and/or airspace consolidation. Waqas Linares MD on December 27, 2017 at 5:06 Board Certified Radiologist. This report was verified electronically.
[2017-12-27] MEDS: ARTIFICIAL TEARS OPTH OINT 3.5 APPLIC/3.5 GM TUBO LEFT EYE SCH ×5 (06:00→22:00)
[2017-12-27] MEDS: ONDANSETRON HCL 4 MG/2 ML VIAL IV PUSH PRN (06:06)
[2017-12-27] MEDS: METHOCARBAMOL 500 MG TAB PO SCH ×3 (06:06→20:15)
[2017-12-27] MEDS: CEFEPIME INJ 2,000 MG in SODIUM CHLORIDE 0.9% INJ 100 ML IV SCH ×3 (06:06→20:16)
[2017-12-27] MEDS: cloNIDine HCL 0.3 MG TAB PO SCH ×3 (06:06→20:15)
[2017-12-27] MEDS: PROPRANOLOL HCL 40 MG TAB PO SCH ×3 (06:06→16:45)
[2017-12-27 06:55] LABS: AUTOMATED NEUTROPHIL # 11.8 TH/MM3 (1.8-7.7); BASOPHIL % 0.3 % (0.0-2.0); EOSINOPHIL # 1.1 TH/MM3 (0-0.4); EOSINOPHIL % 6.7 % (0.0-4.0); HEMATOCRIT 40.2 % (39.0-51.0); HEMOGLOBIN 13.6 GM/DL (13.0-17.0); LYMPH % 15.3 % (9.0-44.0); LYMPHOCYTE # 2.5 TH/MM3 (1.0-4.8); MEAN CELL VOLUME 83.3 FL (80.0-100.0); MEAN CORPUSCULAR HEMOGLOBIN 28.2 PG (27.0-34.0); MEAN CORPUSCULAR HGB CONC 33.8 % (32.0-36.0); MEAN PLATELET VOLUME 7.9 FL (7.0-11.0); MONO % 6.8 % (0.0-8.0); MONOCYTE # 1.1 TH/MM3 (0-0.9); NEUT % 70.9 % (16.0-70.0); PLATELET COUNT 538 TH/MM3 (150-450); RED BLOOD COUNT 4.82 MIL/MM3 (4.50-5.90); RED CELL DISTRIBUTION WIDTH 15.9 % (11.6-17.2); WHITE BLOOD COUNT 16.6 TH/MM3 (4.0-11.0)
[2017-12-27 07:22] LABS: ALBUMIN 3.5 GM/DL (3.4-5.0); AST (GOT) 32 U/L (15-37); BLOOD UREA NITROGEN 15 MG/DL (7-18); CALCIUM 9.1 MG/DL (8.5-10.1); CHLORIDE 98 MEQ/L (98-107); CREATININE 0.64 MG/DL (0.60-1.30); GLOMERULAR FILTRATION RATE 145 ML/MIN (>89); GLUCOSE,RANDOM 103 MG/DL (74-106); MAGNESIUM 2.2 MG/DL (1.5-2.5); SODIUM (NA) 135 MEQ/L (136-145)
[2017-12-27 07:24] LABS: ALT (GPT) 60 U/L (12-78)
[2017-12-27 07:26] LABS: ALKALINE PHOSPHATASE 242 U/L (45-117); TOTAL BILIRUBIN ADULT 0.5 MG/DL (0.2-1.0); TOTAL PROTEIN 8.6 GM/DL (6.4-8.2)
[2017-12-27 07:53] LABS: BANDS 1 % (0-6); BASOPHILS 2 % (0-2); LYMPHOCYTES 10 % (9-44); MONOCYTES 4 % (0-8); MYELOCYTES 5 % (0-0); NEUTROPHIL # MANUAL DIFF 13.3 TH/MM3 (1.8-7.7); POLYS (SEG NEUTROPHILS) 74 % (16-70)
[2017-12-27 07:55] LABS: TOXIC VACUOLATION PRESENT (NONE SEEN)
[2017-12-27] MEDS: CHLORHEXIDINE 0.12% (ORAL KIT) 15 ML CUP MT SCH ×2 (07:57→20:00)
[2017-12-27] MEDS: TOBRAMYCIN 0.3%/DEXAMETHASONE 0.1% OPHT SUSP 5 ML BTL LEFT EYE SCH ×5 (07:57→20:00)
[2017-12-27] MEDS: FAMOTIDINE 20 MG TAB PO SCH ×2 (07:58→20:15)
[2017-12-27] MEDS: SULFAMETHOXAZOLE-TRIMETHOPRIM DS 800-160 MG TAB PO SCH ×2 (07:58→20:15)
[2017-12-27] MEDS: GABAPENTIN 100 MG CAP PO SCH ×3 (07:58→16:46)
[2017-12-27] MEDS: LEVOFLOXACIN 750 MG TAB PO SCH (07:58)
[2017-12-27] MEDS: CHOLECALCIFEROL (VIT D3) 1000 UNIT TAB PO SCH (07:58)
[2017-12-27] MEDS: ARTIFICIAL TEARS OPTH OINT 3.5 APPLIC/3.5 GM TUBO RIGHT EYE SCH ×3 (07:59→18:00)
[2017-12-27] MEDS: NYSTATIN 100,000 U/GM PWD 15 GM BTL TOPICAL SCH ×2 (07:59→21:00)
[2017-12-27] MEDS: SODIUM CHLORIDE 0.9% FLUSH 10 ML FLUSH IV FLUSH SCH ×2 (07:59→21:00)
[2017-12-27] MEDS: ENOXAPARIN SODIUM 100 MG/ML SYRINGE SQ SCH ×2 (07:59→20:16)
[2017-12-27] MEDS: LIDOCAINE HCL 5% PATCH T-DERMAL SCH (07:59)
[2017-12-27] MEDS: BACITRACIN TOP OINT 15 GM TUBE TOPICAL SCH ×2 (07:59→21:00)
[2017-12-27] MEDS: MAGNESIUM HYDROXIDE SUSP 30 ML CUP PO SCH ×2 (07:59→21:00)
[2017-12-27] MEDS: BENEPROTEIN POWDER 1 PACK G-TUBE SCH ×3 (07:59→18:00)
[2017-12-27] MEDS: BACITRACIN OPHT OINT 3.5 GM TUBO SCH ×2 (07:59→21:00)
[2017-12-27] MEDS: DOCUSATE SODIUM 50 MG/SENNA 8.6 MG TAB PO SCH ×2 (08:00→20:15)
[2017-12-27] MEDS: QUEtiapine FUMARATE 25 MG TAB PO SCH ×2 (08:03→14:26)
[2017-12-27] MEDS: FUROSEMIDE 40 MG/4 ML VIAL IV PUSH SCH (08:04)
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
[2017-12-27] MEDS: LORazepam 1 MG TAB PO PRN ×2 (11:12→18:32)
[2017-12-27] MEDS: HYDROmorphone HCL 2 MG TAB PO PRN ×2 (12:52→16:46)
[2017-12-27] MEDS ORDERED: TEMAZEPAM 15 MG CAP PO PRN (19:30)
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
[2017-12-27] MEDS: MELATONIN 5 MG TAB PO SCH (20:15)
[2017-12-27] MEDS ORDERED: QUEtiapine FUMARATE 100 MG TAB PO SCH (21:00)
[2017-12-28] VITALS (9 sets, daily range): BP systolic 124–161; BP diastolic 60–84; PULSE 73–86; RESP 18–31; TEMP 97.8–98.2; O2SAT 97–100
[2017-12-28] MEDS: LORazepam 1 MG TAB PO PRN ×2 (00:27→03:26)
[2017-12-28] MEDS: HYDROmorphone HCL 2 MG TAB PO PRN ×3 (00:27→10:46)
[2017-12-28] MEDS: PROPRANOLOL HCL 40 MG TAB PO SCH ×3 (00:27→11:36)
[2017-12-28] MEDS: ARTIFICIAL TEARS OPTH OINT 3.5 APPLIC/3.5 GM TUBO LEFT EYE SCH ×3 (02:00→10:00)
[2017-12-28] MEDS: oxyCODONE/ACETAMINOPHEN 7.5 MG/325 MG TAB PO SCH ×2 (02:00→08:20)
[2017-12-28] MEDS: CHLORHEXIDINE GLUCONATE 2 % 1 PACK (2 CLOTHS) TOP SCH (04:00)
[2017-12-28] MEDS: TOBRAMYCIN 0.3%/DEXAMETHASONE 0.1% OPHT SUSP 5 ML BTL LEFT EYE SCH ×4 (04:00→11:36)
[2017-12-28] MEDS: RESP: ALBUTEROL 2.5 MG/IPRATROPIUM 0.5 MG NEB (SCH) NEB ×2 (04:35→07:51)
[2017-12-28] MEDS: CEFEPIME INJ 2,000 MG in SODIUM CHLORIDE 0.9% INJ 100 ML IV SCH (05:55)
[2017-12-28] MEDS: METHOCARBAMOL 500 MG TAB PO SCH (05:55)
[2017-12-28] MEDS: cloNIDine HCL 0.3 MG TAB PO SCH (05:56)
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
[2017-12-28] MEDS: BACITRACIN OPHT OINT 3.5 GM TUBO SCH (08:00)
[2017-12-28] MEDS: CHLORHEXIDINE 0.12% (ORAL KIT) 15 ML CUP MT SCH (08:00)
[2017-12-28] MEDS: MAGNESIUM HYDROXIDE SUSP 30 ML CUP PO SCH (08:00)
[2017-12-28] MEDS: SULFAMETHOXAZOLE-TRIMETHOPRIM DS 800-160 MG TAB PO SCH (08:19)
[2017-12-28] MEDS: LIDOCAINE HCL 5% PATCH T-DERMAL SCH (08:19)
[2017-12-28] MEDS: FAMOTIDINE 20 MG TAB PO SCH (08:20)
[2017-12-28] MEDS: QUEtiapine FUMARATE 25 MG TAB PO SCH (08:20)
[2017-12-28] MEDS: GABAPENTIN 100 MG CAP PO SCH (08:20)
[2017-12-28] MEDS: CHOLECALCIFEROL (VIT D3) 1000 UNIT TAB PO SCH (08:20)
[2017-12-28] MEDS: LEVOFLOXACIN 750 MG TAB PO SCH (08:20)
[2017-12-28] MEDS: ENOXAPARIN SODIUM 100 MG/ML SYRINGE SQ SCH (08:21)
[2017-12-28] MEDS: DOCUSATE SODIUM 50 MG/SENNA 8.6 MG TAB PO SCH (08:23)
[2017-12-28] MEDS: ONDANSETRON HCL 4 MG/2 ML VIAL IV PUSH PRN (08:24)
[2017-12-28] MEDS: SODIUM CHLORIDE 0.9% FLUSH 10 ML FLUSH IV FLUSH SCH (08:44)
[2017-12-28] MEDS: ARTIFICIAL TEARS OPTH OINT 3.5 APPLIC/3.5 GM TUBO RIGHT EYE SCH (08:44)
[2017-12-28] MEDS: BENEPROTEIN POWDER 1 PACK G-TUBE SCH (08:45)
[2017-12-28] MEDS: NYSTATIN 100,000 U/GM PWD 15 GM BTL TOPICAL SCH (08:45)
[2017-12-28] MEDS: BACITRACIN TOP OINT 15 GM TUBE TOPICAL SCH (08:46)
[2017-12-28] MEDS ORDERED: CLON-481 PO (09:17)
[2017-12-28] MEDS ORDERED: ENOX100P SQ (09:17)
[2017-12-28] MEDS ORDERED: MELA5 PO (09:17)
[2017-12-28] MEDS ORDERED: OXYC1TAB35 PO (09:17)
[2017-12-28] MEDS ORDERED: PROP40TA3 PO (09:17)
[2017-12-28] MEDS ORDERED: SERO25TA PO (09:17)
[2017-12-28] MEDS ORDERED: TOBRO LEFT EYE (09:17)
[2017-12-28] MEDS ORDERED: GABA100C4 PO (09:17)
[2017-12-28] MEDS ORDERED: DILA2TAB4 PO (09:17)
[2017-12-28] MEDS ORDERED: QUET1TAB8 PO (09:17)
[2017-12-28] MEDS ORDERED: LIDO1ADH4 T-DERMAL (09:17)
[2017-12-28] MEDS ORDERED: PROT6POW G-TUBE (09:17)
[2017-12-28] MEDS ORDERED: BACIOIN6 (09:17)
[2017-12-28] MEDS ORDERED: LORA-474 PO (09:17)
[2017-12-28] MEDS ORDERED: CHLO.12%30 SWISH-SPIT (09:17)
[2017-12-28] MEDS ORDERED: ARTI3.5O RIGHT EYE (09:17)
[2017-12-28] MEDS ORDERED: Nystatin Powder TOPICAL (09:17)
[2017-12-28] MEDS ORDERED: ARTI3.5O LEFT EYE (09:17)
[2017-12-28] MEDS ORDERED: HALO5P IV PUSH (09:17)
[2017-12-28] MEDS ORDERED: PERI PO (09:17)
[2017-12-28] MEDS ORDERED: MAGN30S PO (09:17)
[2017-12-28] MEDS ORDERED: METH500T3 PO (09:17)
--- NOTE | 2017-12-28 10:09 | HHI.PR ---
Addendum to Inpatient Note Addendum Reason: Additional Documentation Additional Information Recd call from Muriel Light [employer]: Patient accepted at [facility] need final ID recs; Clinically stable WBC increased today per chart review. Levaquin (stop date:01/04/2018) Bactrim (stop date: 01/04/2018) Follow WBC Follow Temp trends Follow CXR If WBC persistently high or rising or any change in clinical condition please place ID consult for . Will sign off please call back if any change in clinical condition or questions. Lianna Devine MD Dec 28, 2017 10:09
[2017-12-28] MEDS ORDERED: FAMO20TA2 PO (11:08)
[2017-12-28] MEDS ORDERED: SULF1TAB23 PO (11:08)
[2017-12-28] MEDS ORDERED: LEVA750T9 PO (11:08)
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
== END 2017-12-28 12:11 | DRG 3 ==
LOC: NEPI 22:47 → EDBD 23:13 → NEDA 23:13 → N03B 23:44
PROVIDERS: ADMIT Surgery; ATTEND Surgery
PROC: 5A1955Z Respiratory Ventilation, Greater than 96 Consecutive Hours (ICD-10-PCS; 2017-11-23)
PROC: 0BH17EZ Insertion of Endotracheal Airway into Trachea, Via Natural or Artificial Opening (ICD-10-PCS; 2017-11-23)
PROC: 0NS Head and Facial Bones, Reposition (ICD-10-PCS; 2017-11-24)
PROC: 0HX0XZZ Transfer Scalp Skin, External Approach (ICD-10-PCS; 2017-11-24)
PROC: 08QRXZZ Repair Left Lower Eyelid, External Approach (ICD-10-PCS; 2017-11-24)
PROC: 0HDCXZZ Extraction of Left Upper Arm Skin, External Approach (ICD-10-PCS; 2017-11-24)
PROC: 0NS Head and Facial Bones, Reposition (ICD-10-PCS; principal; 2017-11-24 15:05)
PROC: 0NS104Z Reposition Frontal Bone with Internal Fixation Device, Open Approach (ICD-10-PCS; 2017-11-29)
PROC: 0NSQ04Z Reposition Left Orbit with Internal Fixation Device, Open Approach (ICD-10-PCS; 2017-11-29)
PROC: 0NST35Z Reposition Right Mandible with External Fixation Device, Percutaneous Approach (ICD-10-PCS; 2017-11-29)
PROC: 0QB30ZZ Excision of Left Pelvic Bone, Open Approach (ICD-10-PCS; 2017-12-01)
PROC: 0RG7071 Fusion of 2 to 7 Thoracic Vertebral Joints with Autologous Tissue Substitute, Posterior Approach, Posterior Column, Open Approach (ICD-10-PCS; 2017-12-01)
PROC: 0SG1071 Fusion of 2 or more Lumbar Vertebral Joints with Autologous Tissue Substitute, Posterior Approach, Posterior Column, Open Approach (ICD-10-PCS; 2017-12-01)
PROC: 0PSG04Z Reposition Left Humeral Shaft with Internal Fixation Device, Open Approach (ICD-10-PCS; 2017-12-02)
PROC: 02H633Z Insertion of Infusion Device into Right Atrium, Percutaneous Approach (ICD-10-PCS; 2017-12-02)
PROC: 0B113F4 Bypass Trachea to Cutaneous with Tracheostomy Device, Percutaneous Approach (ICD-10-PCS; 2017-12-05)
PROC: 0BJ08ZZ Inspection of Tracheobronchial Tree, Via Natural or Artificial Opening Endoscopic (ICD-10-PCS; 2017-12-05)
PROC: 0DH63UZ Insertion of Feeding Device into Stomach, Percutaneous Approach (ICD-10-PCS; 2017-12-06)
PROC: 0PSQ04Z Reposition Left Metacarpal with Internal Fixation Device, Open Approach (ICD-10-PCS; 2017-12-07)
PROC: 04HY32Z Insertion of Monitoring Device into Lower Artery, Percutaneous Approach (ICD-10-PCS; 2017-12-12)
PROC: 0W9B30Z Drainage of Left Pleural Cavity with Drainage Device, Percutaneous Approach (ICD-10-PCS; 2017-12-22)
DX: S02.0XXB Fracture of vault of skull, initial encounter for open fracture (principal); I26.99 Other pulmonary embolism without acute cor pulmonale; R57.8 Other shock; J69.0 Pneumonitis due to inhalation of food and vomit; J96.21 Acute and chronic respiratory failure with hypoxia; S27.0XXA Traumatic pneumothorax, initial encounter; S12.400A Unspecified displaced fracture of fifth cervical vertebra, initial encounter for closed fracture; E87.3 Alkalosis; G93.40 Encephalopathy, unspecified; J96.22 Acute and chronic respiratory failure with hypercapnia; S42.302B Unspecified fracture of shaft of humerus, left arm, initial encounter for open fracture; J98.11 Atelectasis; S22.081A Stable burst fracture of T11-T12 vertebra, initial encounter for closed fracture; S32.019A Unspecified fracture of first lumbar vertebra, initial encounter for closed fracture; S32.029A Unspecified fracture of second lumbar vertebra, initial encounter for closed fracture; S22.42XA Multiple fractures of ribs, left side, initial encounter for closed fracture; S27.321A Contusion of lung, unilateral, initial encounter; E44.1 Mild protein-calorie malnutrition; F02.81 Dementia in other diseases classified elsewhere, unspecified severity, with behavioral disturbance; J90 Pleural effusion, not elsewhere classified; Z99.11 Dependence on respirator [ventilator] status; J95.851 Ventilator associated pneumonia; S06.9X0A Unspecified intracranial injury without loss of consciousness, initial encounter; S02.31XA Fracture of orbital floor, right side, initial encounter for closed fracture; S02.32XA Fracture of orbital floor, left side, initial encounter for closed fracture; S02.40FA Zygomatic fracture, left side, initial encounter for closed fracture; S02.40EA Zygomatic fracture, right side, initial encounter for closed fracture; S02.611A Fracture of condylar process of right mandible, initial encounter for closed fracture; S02.19XB Other fracture of base of skull, initial encounter for open fracture; S02.413A LeFort III fracture, initial encounter for closed fracture; G93.89 Other specified disorders of brain; H11.423 Conjunctival edema, bilateral; S06.2X9A Diffuse traumatic brain injury with loss of consciousness of unspecified duration, initial encounter; R00.1 Bradycardia, unspecified; M48.04 Spinal stenosis, thoracic region; F32.9 Major depressive disorder, single episode, unspecified; M40.204 Unspecified kyphosis, thoracic region; S62.202A Unspecified fracture of first metacarpal bone, left hand, initial encounter for closed fracture; E87.70 Fluid overload, unspecified; R19.7 Diarrhea, unspecified; F41.9 Anxiety disorder, unspecified; Y84.8 Other medical procedures as the cause of abnormal reaction of the patient, or of later complication, without mention of misadventure at the time of the procedure; V48.5XXA Car driver injured in noncollision transport accident in traffic accident, initial encounter; Y92.410 Unspecified street and highway as the place of occurrence of the external cause
CPT/HCPCS: 29105; 31500; 31600; 31624; 32551; 36430; 36556; 36600; 51702; 70450; 70486; 71045; 71260; 71275; 72020; 72070; 72125; 72129; 72132; 72146; 72170; 73060; 73130; 74018; 74177; 76000; 76377; 76937; 80048; 80053; 80202; 81001; 82150; 82805; 82945; 83615; 83735; 83986; 84100; 84132; 84134; 84145; 84155; 84157; 84478; 85007; 85014; 85018; 85025; 85027; 85610; 85730; 86850; 86900; 86901; 86920; 87015; 87040; 87070; 87077; 87086; 87102; 87116; 87186; 87205; 87206; 87493; 87641; 88112; 88305; 89051; 90471; 93306; 93970; 93971; 94002; 94003; 94640; 94664; 94799; 96374; 96375; 99291; A7520; C1713; C9113; G0390; J0131; J0461; J0690; J0692; J0696; J1100; J1120; J1170; J1230; J1265; J1325; J1580; J1630; J1650; J1940; J1953; J1956; J2060; J2150; J2248; J2250; J2270; J2370; J2405; J2543; J2765; J2930; J3010; J3370; J3480; J7030; J7040; J7050; J7060; J7120; J7608; L0150; L0172; L0484; L3808; P9016; P9047; Q9967

== ENCOUNTER 2018-01-10 10:31 | Inpatient (IN) | payer OTHER ==
[~2018-01-10] VITALS: Ht 170.2 cm; Wt 72.2 kg
[~2018-01-10 10:31] MED LIST: ARTI3.5O LEFT EYE; ARTI3.5O RIGHT EYE; BACIOIN6; CEFT2.5V IV; CHLO.12%30 SWISH-SPIT; CLON-481 PO; DILA2TAB4 PO; ENOX100P SQ; FAMO20TA2 PO; GABA100C4 PO; HALO5P IV PUSH; LEVA750T9 PO; LIDO1ADH4 T-DERMAL; LORA-474 PO; MELA5 PO; METH500T3 PO; Nystatin Powder TOPICAL; OXYC1TAB35 PO; PROP40TA3 PO; PROT6POW G-TUBE; QUET1TAB8 PO; SERO25TA PO; SULF1TAB23 PO; TOBRO LEFT EYE
[2018-01-10] MEDS ORDERED: MORPHINE SULFATE 2 MG/ML SYRINGE ONE (10:51)
[2018-01-10] MEDS ORDERED: METOPROLOL TARTRATE 25 MG TAB PO PRN (11:00)
[2018-01-10] MEDS ORDERED: MORPHINE SULFATE 2 MG/ML SYRINGE IV PUSH SCH (11:00)
[2018-01-10] MEDS ORDERED: CHLORHEXIDINE GLUCONATE 2 % 1 PACK (2 CLOTHS) TOPICAL PRN (11:00)
[2018-01-10] MEDS ORDERED: LACTATED RINGER'S 1000 ML IV PRN (11:00)
[2018-01-10] MEDS ORDERED: SODIUM CHLORID 0.9% 500 ML IV PRN (11:00)
[2018-01-10] MEDS ORDERED: INSULIN HUMAN REGULAR 1,000 UNITS/10 ML VIAL SQ PRN (11:00)
[2018-01-10] MEDS ORDERED: POVIDONE IODINE 5% (ANTISEPSIS KIT) 4 APPLICATIONS EACH NARE PRN (11:00)
[2018-01-10] MEDS ORDERED: MIDAZOLAM HCL 2 MG/2 ML VIAL ONE (11:23)
[2018-01-10] MEDS ORDERED: VANCOMYCIN HCL 1000 MG VIAL ONE (11:53)
[2018-01-10] MEDS ORDERED: THROMBIN (TOPICAL) 5,000 UNIT VIAL ONE ×2 (11:53→12:07)
[2018-01-10] MEDS ORDERED: BUPIVACAINE/EPINEPHRINE 0.5% PF 30 ML VIAL ONE (11:54)
[2018-01-10] MEDS ORDERED: GELFOAM SIZE 100 ONE (11:54)
[2018-01-10] MEDS ORDERED: PROPOFOL 200 MG/20 ML AMP IV ONE (12:00)
[2018-01-10] MEDS ORDERED: LACTATED RINGER'S 1000 ML INJ 1,000 ML IV ONE (12:00)
[2018-01-10] MEDS ORDERED: ROCURONIUM INJ 50 MG/5 ML SYRINGE IV PUSH ONE (12:00)
[2018-01-10] MEDS ORDERED: NEOSTIGMINE 5 MG/5 ML SYRINGE IV PUSH ONE (12:00)
[2018-01-10] MEDS ORDERED: LIDOCAINE HCL 1% PF 5 ML SYRINGE OTHER ONE (12:00)
[2018-01-10] MEDS ORDERED: ONDANSETRON HCL 4 MG/2 ML VIAL IV ONE (12:00)
[2018-01-10] MEDS ORDERED: GLYCOPYRROLATE 1 MG/5 ML SYRINGE IV PUSH ONE (12:00)
[2018-01-10] MEDS ORDERED: RESP: ALBUTEROL 2.5 MG/3 ML NEB (PRN) NEB (13:15)
[2018-01-10] MEDS ORDERED: SODIUM CHLORIDE 0.9% FLUSH 10 ML FLUSH IV FLUSH PRN (13:15)
[2018-01-10] MEDS ORDERED: LACTULOSE SYRUP 20 GM/30 ML CUP PO PRN (13:15)
[2018-01-10] MEDS ORDERED: ALUMINUM/MAGNESIUM/SIMETH 30 ML CUP PO PRN (13:15)
[2018-01-10] MEDS ORDERED: BISACODYL 10 MG SUPP RECTAL PRN (13:15)
[2018-01-10] MEDS ORDERED: ACETAMINOPHEN 325 MG TAB PO PRN (13:15)
[2018-01-10] MEDS ORDERED: HALOPERIDOL LACTATE 5 MG/ML AMP IV PUSH PRN (13:15)
[2018-01-10] MEDS ORDERED: PROMETHAZINE INJ 25 MG/ML VIAL IM PRN (13:15)
[2018-01-10] MEDS ORDERED: MAGNESIUM HYDROXIDE SUSP 30 ML CUP PO PRN (13:15)
[2018-01-10] MEDS ORDERED: ONDANSETRON HCL 4 MG/2 ML VIAL IV PUSH PRN (13:15)
[2018-01-10] MEDS ORDERED: MENTHOL LOZENGE BUCCAL PRN (13:15)
[2018-01-10] MEDS ORDERED: ACETAMINOPHEN/HYDROcodone 325 MG/10 MG TAB PO PRN (13:15)
[2018-01-10] MEDS ORDERED: cloNIDine HCL 0.1 MG TAB PO PRN (13:15)
--- NOTE | 2018-01-10 13:22 | PD.OP ---
Operative Report Date of Surgery: Jan 10, 2018 Preoperative Diagnosis: Posterior thoracic spine wound dehiscence Postoperative Diagnosis: Same Procedure: Procedure thoracic spine incision and debridement Anesthesia: Gen. endotracheal by Candie brooke Surgeon: Geovanny Lowe M.D. Loss Prevention Research Engineer(s): Raisa Almazan Operation and Findings: Following administration of general endotracheal anesthesia patient was placed in a prone position with all pressure points adequately padded. Previous thoracic spine incision site at the inferior portion and some eschar formation with the nonhealing of the superficial aspect of the incision with intermittent serosanguineous drainage. After sterile prepping and draping and infiltrating the skin edges with 0.5% Marcaine with epinephrine solution the skin edges were debrided until more vascular edges noted down to the fascia and seromatous fluid and necrotic tissue was also noted but no obvious pus or infection. Intraoperative cultures were sent. Antibiotic irrigation used copiously. Subcutaneous ALEXANDER drain was then placed which is exited through separate site and secured with a 2-0 nylon tie. The skin was then approximated using 0 Prolene vertical mattress interrupted stitches and a sterile dressing applied. He was then turned supine position extubated and taken recovery room. There were no intraoperative complications and all sponge and needle count was correct at the end the procedure. Estimated blood loss was less than 5 cc. Geovanny Lowe MD Jan 10, 2018 13:22
[2018-01-10] MEDS ORDERED: *MEPERIDINE 25 MG INJ VIAL PERIprocedural Use ONLY ONE (13:24)
[2018-01-10] MEDS ORDERED: HYDROmorphone HCL PF 2 MG/ML VIAL ONE (13:29)
[2018-01-10] MEDS ORDERED: *morphine SULFATE 10 MG/ML PERIprocedure ONLY ONE (14:00)
[2018-01-10] MEDS ORDERED: DO NOT ADM ANY ANTICOAGULANT DRUGS PRN (14:15)
[2018-01-10 14:34] LABS: AUTOMATED NEUTROPHIL # 3.5 TH/MM3 (1.8-7.7); BASOPHIL % 0.7 % (0.0-2.0); EOSINOPHIL # 0.4 TH/MM3 (0-0.4); EOSINOPHIL % 5.8 % (0.0-4.0); HEMATOCRIT 33.5 % (39.0-51.0); HEMOGLOBIN 11.2 GM/DL (13.0-17.0); LYMPH % 30.1 % (9.0-44.0); LYMPHOCYTE # 1.8 TH/MM3 (1.0-4.8); MEAN CELL VOLUME 83.7 FL (80.0-100.0); MEAN CORPUSCULAR HGB CONC 33.5 % (32.0-36.0); MEAN PLATELET VOLUME 7.1 FL (7.0-11.0); MONO % 6.4 % (0.0-8.0); MONOCYTE # 0.4 TH/MM3 (0-0.9); PLATELET COUNT 209 TH/MM3 (150-450); RED BLOOD COUNT 4.01 MIL/MM3 (4.50-5.90); RED CELL DISTRIBUTION WIDTH 16.1 % (11.6-17.2); WHITE BLOOD COUNT 6.1 TH/MM3 (4.0-11.0)
[2018-01-10] MEDS: NS + KCL 20 MEQ INJ 1,000 ML IV SCH (14:41)
[2018-01-10] MEDS ORDERED: *morphine SULFATE 4 MG/ML PERIprocedure ONLY ONE (14:45)
[2018-01-10 14:47] LABS: BICARBONATE 29.8 MEQ/L (21.0-32.0); CALCIUM 8.8 MG/DL (8.5-10.1); CREATININE 0.52 MG/DL (0.60-1.30)
[2018-01-10] MEDS ORDERED: cloNIDine HCL 0.3 MG TAB PO SCH (15:00)
[2018-01-10] MEDS: QUEtiapine FUMARATE 25 MG TAB PO SCH (15:42)
[2018-01-10] MEDS: METHOCARBAMOL 500 MG TAB PO SCH ×2 (15:42→22:51)
[2018-01-10] MEDS: ACETAMINOPHEN/HYDROcodone 325 MG/10 MG TAB PO PRN ×3 (15:43→23:45)
[2018-01-10 16:00] VITALS: BP 126/73; PULSE 94; RESP 17; TEMP 96.4; O2SAT 96
[2018-01-10] MEDS: ARTIFICIAL TEARS OPTH OINT 3.5 APPLIC/3.5 GM TUBO LEFT EYE SCH ×3 (16:00→23:46)
[2018-01-10] MEDS: TOBRAMYCIN 0.3%/DEXAMETHASONE 0.1% OPHT SUSP 5 ML BTL LEFT EYE SCH ×3 (16:00→23:45)
[2018-01-10] MEDS: AVIBACTAM IV SCH (16:58)
[2018-01-10] MEDS: MORPHINE SULFATE 4 MG/ML INJ IV PUSH PRN ×4 (16:58→22:52)
[2018-01-10] MEDS: NS IV SCH (16:58)
[2018-01-10] MEDS: CEFTAZIDIME IV SCH (16:58)
[2018-01-10] MEDS: BENEPROTEIN POWDER 1 PACK G-TUBE SCH (16:59)
[2018-01-10] MEDS: GABAPENTIN 100 MG CAP PO SCH (17:04)
[2018-01-10] MEDS: ARTIFICIAL TEARS OPTH OINT 3.5 APPLIC/3.5 GM TUBO RIGHT EYE SCH (18:00)
[2018-01-10] MEDS: PROPRANOLOL HCL 80 MG TAB PO SCH ×2 (18:00→23:46)
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
[2018-01-10] MEDS: FAMOTIDINE 20 MG TAB PO SCH (20:05)
[2018-01-10] MEDS: DOCUSATE SODIUM 50 MG/SENNA 8.6 MG TAB PO SCH (20:05)
[2018-01-10] MEDS: MELATONIN 5 MG TAB PO SCH (20:05)
[2018-01-10] MEDS: QUEtiapine FUMARATE 100 MG TAB PO SCH (20:05)
[2018-01-10] MEDS: NYSTATIN 100,000 U/GM PWD 15 GM BTL TOPICAL SCH (20:06)
[2018-01-10] MEDS: SODIUM CHLORIDE 0.9% FLUSH 10 ML FLUSH IV FLUSH SCH (20:06)
[2018-01-10] MEDS: CHLORHEXIDINE 0.12% (ORAL KIT) 15 ML CUP SWISH-SPIT SCH (20:08)
[2018-01-10 20:25] VITALS: BP 118/68; PULSE 89; RESP 18; TEMP 98.3; O2SAT 97
[2018-01-10] MEDS: cloNIDine HCL 0.1 MG TAB PO SCH (20:44)
[2018-01-10] MEDS ORDERED: SULFAMETHOXAZOLE-TRIMETHOPRIM DS 800-160 MG TAB PO SCH (21:00)
[2018-01-11] MEDS: NS IV SCH ×3 (00:46→17:49)
[2018-01-11] MEDS: MORPHINE SULFATE 8 MG/ML INJ IV PUSH PRN ×4 (00:46→08:07)
[2018-01-11] MEDS: CEFTAZIDIME IV SCH ×3 (00:46→17:49)
[2018-01-11] MEDS: TEMAZEPAM 15 MG CAP PO PRN (00:46)
[2018-01-11] MEDS: AVIBACTAM IV SCH ×3 (00:46→17:49)
[2018-01-11] MEDS: NS + KCL 20 MEQ INJ 1,000 ML IV SCH ×2 (01:09→11:00)
[2018-01-11 01:46] VITALS: BP 116/65; PULSE 78; RESP 18; TEMP 96.7; O2SAT 98
[2018-01-11] MEDS: ARTIFICIAL TEARS OPTH OINT 3.5 APPLIC/3.5 GM TUBO LEFT EYE SCH ×5 (02:32→20:00)
[2018-01-11] MEDS: TOBRAMYCIN 0.3%/DEXAMETHASONE 0.1% OPHT SUSP 5 ML BTL LEFT EYE SCH ×5 (02:32→20:16)
[2018-01-11 05:15] VITALS: BP 112/59; PULSE 71; RESP 18; TEMP 96.7; O2SAT 97
[2018-01-11] MEDS: cloNIDine HCL 0.1 MG TAB PO SCH (05:40)
[2018-01-11] MEDS: ACETAMINOPHEN/HYDROcodone 325 MG/10 MG TAB PO PRN (05:41)
[2018-01-11] MEDS: PROPRANOLOL HCL 80 MG TAB PO SCH ×3 (06:00→17:50)
[2018-01-11] MEDS: METHOCARBAMOL 500 MG TAB PO SCH ×2 (07:00→14:19)
[2018-01-11 08:00] VITALS: BP 133/69; PULSE 74; RESP 18; TEMP 97.9; O2SAT 100
[2018-01-11] MEDS: ENOXAPARIN SODIUM 30 MG/0.3 ML SYRINGE SQ SCH ×2 (08:06→20:15)
[2018-01-11] MEDS: GABAPENTIN 100 MG CAP PO SCH ×3 (08:06→17:50)
[2018-01-11] MEDS: DOCUSATE SODIUM 50 MG/SENNA 8.6 MG TAB PO SCH ×2 (08:06→20:14)
[2018-01-11] MEDS: FAMOTIDINE 20 MG TAB PO SCH ×2 (08:06→20:15)
[2018-01-11] MEDS: CHLORHEXIDINE 0.12% (ORAL KIT) 15 ML CUP SWISH-SPIT SCH ×2 (08:10→20:17)
[2018-01-11] MEDS: NYSTATIN 100,000 U/GM PWD 15 GM BTL TOPICAL SCH ×2 (08:10→20:17)
[2018-01-11] MEDS: ARTIFICIAL TEARS OPTH OINT 3.5 APPLIC/3.5 GM TUBO RIGHT EYE SCH ×3 (08:10→18:00)
[2018-01-11] MEDS: LIDOCAINE HCL 5% PATCH T-DERMAL SCH (08:10)
[2018-01-11] MEDS: LORazepam 1 MG TAB PO PRN (08:11)
[2018-01-11] MEDS: BENEPROTEIN POWDER 1 PACK G-TUBE SCH ×3 (08:11→17:50)
[2018-01-11] MEDS: QUEtiapine FUMARATE 25 MG TAB PO SCH ×2 (08:14→14:20)
[2018-01-11] MEDS ORDERED: LEVOFLOXACIN 750 MG TAB PO SCH (09:00)
[2018-01-11] MEDS: SODIUM CHLORIDE 0.9% FLUSH 10 ML FLUSH IV FLUSH SCH ×2 (09:00→21:00)
[2018-01-11] MEDS ORDERED: HYDROmorphone HCL PF 1 MG/ML VIAL IV PUSH PRN (09:30)
[2018-01-11] MEDS: oxyCODONE/ACETAMINOPHEN 10 MG/325 MG TAB PO PRN (10:10)
--- NOTE | 2018-01-11 10:22 | HHI.NSPN ---
(Sancho Hammond) History Chief Complaint: Incisional pain. (Sancho Hammond) Interval History 01/11/18: Pt s/p thoracic spine I/D on 01/10/18. Pt awake and alert. He complains of incisional back pain. He states Morphine is not helping his pain at all. He denies any radiculopathy in LEs. He was on Percocet in rehab and is getting [place] here. (Sancho Hammond) Review of Systems General: Negative for: fever, chills, insomnia Respiratory: Negative for: shortness of breath, cough, sputum Cardiovascular: Negative for: chest pain Gastrointestinal: Negative for: nausea, vomitting, diarrhea, constipation ( Sancho Hammond) Exam Results Vital Signs Date Time Temp Pulse Resp B/P (MAP) Pulse Ox O2 Delivery O2 Flow Rate FiO2 01/11/18 08:00 97.9 74 18 133/69 (90) 100 01/10/18 14:50 Nasal Cannula 2 Intake and Output 01/11/18 01/11/18 01/12/18 08:00 16:00 00:00 Intake Total 480 ml Output Total 5 ml Balance 475 ml (Sancho Hammond) Physical Examination General: Pt resting comfortably in bed. Resp: CTA bilaterally Heart: NSR no murmurs Abd: Soft positive bs Skin: Pt log rolled new bandage applied by RN this morning. Discussed with her and was clean and dry. ALEXANDER drain in place. Muscle: Distal weakness with dorsiflexion bilaterally with bilateral foot drop. Proximally 4+/5. Neuro: Pt awake and alert. Follows commands well. Speech clear and appropriate. (Sancho Hammond) Lab, Micro, Other Results Laboratory Tests Test 01/10/18 13:53 White Blood Count 6.1 TH/MM3 Red Blood Count 4.01 MIL/MM3 Hemoglobin 11.2 GM/DL Hematocrit 33.5 % Mean Corpuscular Volume 83.7 FL Mean Corpuscular Hemoglobin 28.0 PG Mean Corpuscular Hemoglobin Concent 33.5 % Red Cell Distribution Width 16.1 % Platelet Count 209 TH/MM3 Mean Platelet Volume 7.1 FL Neutrophils (%) (Auto) 57.0 % Lymphocytes (%) (Auto) 30.1 % Monocytes (%) (Auto) 6.4 % Eosinophils (%) (Auto) 5.8 % Basophils (%) (Auto) 0.7 % Neutrophils # (Auto) 3.5 TH/MM3 Lymphocytes # (Auto) 1.8 TH/MM3 Monocytes # (Auto) 0.4 TH/MM3 Eosinophils # (Auto) 0.4 TH/MM3 Basophils # (Auto) 0.0 TH/MM3 CBC Comment DIFF FINAL Differential Comment Blood Urea Nitrogen 6 MG/DL Creatinine 0.52 MG/DL Random Glucose 98 MG/DL Calcium Level 8.8 MG/DL Sodium Level 142 MEQ/L Potassium Level 3.8 MEQ/L Chloride Level 105 MEQ/L Carbon Dioxide Level 29.8 MEQ/L Anion Gap 7 MEQ/L Estimat Glomerular Filtration Rate 184 ML/MIN (Sancho Hammond) Medical Decision Making Impression and Plan A: 32 y/o M s/p I/D thoracic incision wound. P: Continue with ALEXANDER drain. Pt has high tolerance to pain medication but he was on Percocet in rehab controlling his pain. He was therefore switched to Percocet. We also changed his Morphine to Dilaudid and pt was advised that this will be weaned after today. Continue with TLSO brace when oob. (Sancho Hammond) Attending Statement The exam, history, and the medical decision-making described in the above note were completed with the assistance of the mid-level provider. I reviewed and agree with the findings presented. I attest that I had a [id number] encounter with the patient on the same day, and personally performed and documented my assessment and findings in the medical record. Doing well post lower thoracic wound debridement with cultures negative so far. We'll discontinue ALEXANDER drain tomorrow morning. On Lovenox 30 mg twice a day and will increased to therapeutic dose tomorrow if stable. Continue with antibiotics and plan back to rehabilitation placement tomorrow if stable. (Geovanny Lowe MD) Sancho Hammond Jan 11, 2018 10:22 Geovanny Lowe MD Jan 11, 2018 15:50
[2018-01-11] MEDS: HYDROmorphone HCL PF 2 MG/ML VIAL IV PUSH PRN ×4 (10:49→23:05)
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
[2018-01-11 11:57] VITALS: BP 114/71; PULSE 75; RESP 18; TEMP 96.7; O2SAT 97
[2018-01-11] MEDS ORDERED: POLYETHYLENE GLYCOL 17 GM PKG PO ONE (13:30)
[2018-01-11] MEDS: HYDROmorphone HCL 2 MG TAB PO PRN ×3 (14:19→21:46)
[2018-01-11 16:00] VITALS: BP 126/80; PULSE 79; RESP 18; TEMP 98; O2SAT 99
[2018-01-11] MEDS: MELATONIN 5 MG TAB PO SCH (20:15)
[2018-01-11] MEDS: QUEtiapine FUMARATE 100 MG TAB PO SCH (20:15)
[2018-01-11 20:17] VITALS: BP 124/70; PULSE 81; RESP 18; TEMP 99; O2SAT 92
[2018-01-12] MEDS: TEMAZEPAM 15 MG CAP PO PRN (00:32)
[2018-01-12] MEDS: PROPRANOLOL HCL 80 MG TAB PO SCH ×3 (00:32→11:12)
[2018-01-12] MEDS: METHOCARBAMOL 500 MG TAB PO SCH ×4 (00:32→22:28)
[2018-01-12] MEDS: TOBRAMYCIN 0.3%/DEXAMETHASONE 0.1% OPHT SUSP 5 ML BTL LEFT EYE SCH ×6 (00:32→20:55)
[2018-01-12] MEDS: ARTIFICIAL TEARS OPTH OINT 3.5 APPLIC/3.5 GM TUBO LEFT EYE SCH ×6 (00:34→20:00)
[2018-01-12 00:35] VITALS: BP 108/67; PULSE 79; RESP 18; TEMP 96.8; O2SAT 96
[2018-01-12] MEDS: HYDROmorphone HCL 2 MG TAB PO PRN ×6 (01:52→22:29)
[2018-01-12] MEDS: HYDROmorphone HCL PF 2 MG/ML VIAL IV PUSH PRN ×4 (02:24→08:46)
[2018-01-12 04:27] VITALS: BP 116/72; PULSE 85; RESP 18; TEMP 97; O2SAT 96
[2018-01-12] MEDS: CEFTAZIDIME IV SCH ×3 (06:09→22:28)
[2018-01-12] MEDS: AVIBACTAM IV SCH ×3 (06:09→22:28)
[2018-01-12] MEDS: NS IV SCH ×3 (06:09→22:28)
--- NOTE | 2018-01-12 06:43 | PD.ORT.PN ---
Subjective Subjective Remarks Resting comfortably, no new complaints Objective Vitals Vital Signs Date Time Temp Pulse Resp B/P (MAP) Pulse Ox O2 Delivery O2 Flow Rate FiO2 01/12/18 04:27 97.0 85 18 116/72 (87) 96 01/12/18 00:35 96.8 79 18 108/67 (81) 96 01/11/18 20:17 99.0 81 18 124/70 (88) 92 01/11/18 18:51 18 01/11/18 16:00 98.0 79 18 126/80 (95) 99 01/11/18 13:10 18 01/11/18 11:57 96.7 75 18 114/71 (85) 97 01/11/18 11:23 18 01/11/18 08:00 97.9 74 18 133/69 (90) 100 I/O 01/11/18 01/11/18 01/11/18 01/12/18 01/12/18 01/12/18 07:00 15:00 23:00 07:00 15:00 23:00 Intake Total 480 ml 600 ml 480 ml 480 ml Output Total 5 ml 60 ml Balance 475 ml 600 ml 420 ml 480 ml Intake Oral 480 ml 600 ml 480 ml 480 ml Output Drainage Total 5 ml 60 ml # Voids 2 2 3 3 # Bowel Movements 0 0 2 1 Result Diagram: 01/10/18 1353 01/10/18 1353 Objective Remarks Right upper extremity: Full range of motion neurovascularly intact Bilateral lower extremities: No pain with hip knee or ankle range of motion. Active plantar flexion and weak dorsal flexion of feet. Some contractures developing with dorsiflexion Left upper extremity: Intact incision. Intact sensation of her radial ulnar median nerve distributions. Full extension and flexion of fingers. Elbow range of motion is from 25 to 90. Assessment & Plan Assessment and Plan Left humeral shaft fracture ORIF Nonweightbearing left upper extremity Occupational therapy for passive and active range of motion of shoulder and elbow and wrist. Repeat x-rays in approximately 2-3 weeks Emerson Talbot Jr. Jan 12, 2018 06:43
[2018-01-12 08:00] VITALS: BP 122/69; PULSE 72; RESP 18; TEMP 97.3; O2SAT 98
[2018-01-12] MEDS: QUEtiapine FUMARATE 25 MG TAB PO SCH ×2 (08:00→12:34)
[2018-01-12] MEDS: GABAPENTIN 100 MG CAP PO SCH ×3 (08:45→16:33)
[2018-01-12] MEDS: DOCUSATE SODIUM 50 MG/SENNA 8.6 MG TAB PO SCH ×2 (08:45→20:54)
[2018-01-12] MEDS: FAMOTIDINE 20 MG TAB PO SCH ×2 (08:45→20:53)
[2018-01-12] MEDS: SENNOSIDES 8.6 MG TAB PO PRN (08:46)
[2018-01-12] MEDS: oxyCODONE/ACETAMINOPHEN 10 MG/325 MG TAB PO PRN ×4 (08:46→20:53)
[2018-01-12] MEDS: LIDOCAINE HCL 5% PATCH T-DERMAL SCH (08:48)
[2018-01-12] MEDS: POLYETHYLENE GLYCOL 17 GM PKG PO SCH (08:51)
[2018-01-12] MEDS: ARTIFICIAL TEARS OPTH OINT 3.5 APPLIC/3.5 GM TUBO RIGHT EYE SCH ×3 (08:51→13:57)
[2018-01-12] MEDS: BENEPROTEIN POWDER 1 PACK G-TUBE SCH ×3 (08:56→13:57)
[2018-01-12] MEDS ORDERED: ENOXAPARIN SODIUM 30 MG/0.3 ML SYRINGE SQ SCH (09:00)
[2018-01-12] MEDS: CHLORHEXIDINE 0.12% (ORAL KIT) 15 ML CUP SWISH-SPIT SCH ×2 (09:00→21:00)
[2018-01-12] MEDS: SODIUM CHLORIDE 0.9% FLUSH 10 ML FLUSH IV FLUSH SCH ×2 (09:00→20:56)
[2018-01-12] MEDS: NYSTATIN 100,000 U/GM PWD 15 GM BTL TOPICAL SCH ×2 (09:00→21:00)
[2018-01-12] MEDS ORDERED: HYDROmorphone HCL PF 2 MG/ML VIAL IV PUSH ONE (11:00)
--- NOTE | 2018-01-12 11:01 | HHI.NSPN ---
(Sancho Hammond) History Chief Complaint: Incisional pain. (Sancho Hammond) Interval History 01/11/18: Pt s/p thoracic spine I/D on 01/10/18. Pt awake and alert. He complains of incisional back pain. He states Morphine is not helping his pain at all. He denies any radiculopathy in LEs. He was on Percocet in rehab and is getting [place] here. 01/12/18: Pt awake and alert. Complains of incisional pain. He is on Percocet and Dilaudid PO. Dilaudid prn breakthrough pain will be d/c'd. ALEXANDER drain will be removed. (Sancho Hammond) Review of Systems General: Negative for: fever, chills, insomnia Respiratory: Negative for: shortness of breath, cough, sputum Cardiovascular: Negative for: chest pain Gastrointestinal: Negative for: nausea, vomitting, diarrhea, constipation ( Sancho Hammond) Exam Results Vital Signs Date Time Temp Pulse Resp B/P (MAP) Pulse Ox O2 Delivery O2 Flow Rate FiO2 01/12/18 08:00 97.3 72 18 122/69 (86) 98 01/10/18 14:50 Nasal Cannula 2 Intake and Output 01/12/18 01/12/18 01/13/18 08:00 16:00 00:00 Intake Total 480 ml Output Total 0 ml Balance 480 ml (Sancho Hammond) Physical Examination General: Pt resting comfortably in bed. Resp: CTA bilaterally Heart: NSR no murmurs Abd: Soft positive bs Skin: Pt log rolled incision clean and dry with sutures in place. ALEXANDER drain in place. No erythema. Minimal drainage on bandage. Muscle: Distal weakness with dorsiflexion bilaterally with bilateral foot drop. Proximally 4+/5. Neuro: Pt awake and alert. Follows commands well. Speech clear and appropriate. (Sancho Hammond) Lab, Micro, Other Results 01/12/18 01/12/18 01/13/18 15:00 23:00 07:00 Output Total 0 ml Balance 0 ml Output Drainage Total 0 ml (Sancho Hammond) Medical Decision Making Impression and Plan A: 32 y/o M s/p I/D thoracic incision wound. Intraoperative wound cultures negative at 48 hours. P: ALEXANDER drain removed and steristrip placed at exit site. D/C prn Dilaudid IV. continue with Percocet and Dilaudid PO. Continue with TLSO brace when oob. [facility] has accepted him for tomorrow. Needs to stay off IV pain medication. (Sancho Hammond) Attending Statement The exam, history, and the medical decision-making described in the above note were completed with the assistance of the mid-level provider. I reviewed and agree with the findings presented. I attest that I had a [id number] encounter with the patient on the same day, and personally performed and documented my assessment and findings in the medical record. Increase Lovenox to therapeutic dose from 30 twice a day to 70 twice a day for history of pulmonary embolus. Wound cultures remain negative for 48 hours. Rehabilitation placement tomorrow. (Geovanny Lowe MD) Sancho Hammond Jan 12, 2018 11:01 Geovanny Lowe MD Jan 12, 2018 11:22
[2018-01-12 11:14] VITALS: BP 153/85; PULSE 68; RESP 19; TEMP 97.4; O2SAT 99
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
[2018-01-12] MEDS: PROPRANOLOL HCL 40 MG TAB PO SCH ×2 (14:00→22:28)
[2018-01-12 16:56] VITALS: BP 122/69; PULSE 79; RESP 18; TEMP 98.8; O2SAT 97
[2018-01-12 20:10] VITALS: BP 136/69; PULSE 83; RESP 16; TEMP 97.4; O2SAT 99
[2018-01-12] MEDS: MELATONIN 5 MG TAB PO SCH (20:53)
[2018-01-12] MEDS: QUEtiapine FUMARATE 100 MG TAB PO SCH (20:53)
[2018-01-12] MEDS: ENOXAPARIN SODIUM 80 MG/0.8 ML SYRINGE SQ SCH (22:29)
[2018-01-13 00:45] VITALS: BP 119/69; PULSE 77; RESP 16; TEMP 98.5; O2SAT 98
[2018-01-13] MEDS: TOBRAMYCIN 0.3%/DEXAMETHASONE 0.1% OPHT SUSP 5 ML BTL LEFT EYE SCH ×4 (00:51→11:44)
[2018-01-13] MEDS: oxyCODONE/ACETAMINOPHEN 10 MG/325 MG TAB PO PRN ×4 (00:51→11:42)
[2018-01-13] MEDS: TEMAZEPAM 15 MG CAP PO PRN (00:51)
[2018-01-13] MEDS: HYDROmorphone HCL 2 MG TAB PO PRN ×4 (02:47→14:25)
[2018-01-13] MEDS: LORazepam 1 MG TAB PO PRN (03:21)
[2018-01-13] MEDS: ARTIFICIAL TEARS OPTH OINT 3.5 APPLIC/3.5 GM TUBO LEFT EYE SCH ×5 (04:00→09:50)
[2018-01-13 04:40] VITALS: BP 142/85; PULSE 72; RESP 18; TEMP 96.5; O2SAT 99
[2018-01-13] MEDS: CEFTAZIDIME IV SCH ×2 (05:48→11:41)
[2018-01-13] MEDS: AVIBACTAM IV SCH ×2 (05:48→11:41)
[2018-01-13] MEDS: NS IV SCH ×2 (05:48→11:41)
[2018-01-13] MEDS: PROPRANOLOL HCL 40 MG TAB PO SCH ×2 (05:48→11:41)
[2018-01-13] MEDS: METHOCARBAMOL 500 MG TAB PO SCH ×2 (05:48→11:40)
[2018-01-13] MEDS: ARTIFICIAL TEARS OPTH OINT 3.5 APPLIC/3.5 GM TUBO RIGHT EYE SCH ×3 (07:11→09:50)
[2018-01-13] MEDS: BENEPROTEIN POWDER 1 PACK G-TUBE SCH ×3 (07:11→09:50)
[2018-01-13] MEDS: NYSTATIN 100,000 U/GM PWD 15 GM BTL TOPICAL SCH (07:12)
[2018-01-13] MEDS: CHLORHEXIDINE 0.12% (ORAL KIT) 15 ML CUP SWISH-SPIT SCH (07:12)
[2018-01-13 08:00] VITALS: BP 122/72; PULSE 70; RESP 17; TEMP 97.3; O2SAT 99
[2018-01-13] MEDS: GABAPENTIN 100 MG CAP PO SCH ×2 (08:33→11:39)
[2018-01-13] MEDS: SENNOSIDES 8.6 MG TAB PO PRN (08:33)
[2018-01-13] MEDS: QUEtiapine FUMARATE 25 MG TAB PO SCH ×2 (08:33→11:40)
[2018-01-13] MEDS: DOCUSATE SODIUM 50 MG/SENNA 8.6 MG TAB PO SCH (08:33)
[2018-01-13] MEDS: LIDOCAINE HCL 5% PATCH T-DERMAL SCH (08:34)
[2018-01-13] MEDS: ENOXAPARIN SODIUM 80 MG/0.8 ML SYRINGE SQ SCH (08:34)
[2018-01-13] MEDS: FAMOTIDINE 20 MG TAB PO SCH (08:34)
[2018-01-13] MEDS: POLYETHYLENE GLYCOL 17 GM PKG PO SCH (08:37)
[2018-01-13] MEDS: SODIUM CHLORIDE 0.9% FLUSH 10 ML FLUSH IV FLUSH SCH (08:37)
--- NOTE | 2018-01-13 08:46 | HHI.NSPN ---
History Chief Complaint: Incisional pain. Interval History 01/11/18: Pt s/p thoracic spine I/D on 01/10/18. Pt awake and alert. He complains of incisional back pain. He states Morphine is not helping his pain at all. He denies any radiculopathy in LEs. He was on Percocet in rehab and is getting [place] here. 01/12/18: Pt awake and alert. Complains of incisional pain. He is on Percocet and Dilaudid PO. Dilaudid prn breakthrough pain will be d/c'd. ALEXANDER drain will be removed. 01/13/18: Pt awake and alert. Complains of incisional pain but controlled. States at night he is having chills and night sweats, also anxiety at night. Review of Systems General: Positive for: chills (at night.), Negative for: fever Respiratory: Negative for: shortness of breath, cough, sputum Cardiovascular: Negative for: chest pain Gastrointestinal: Negative for: nausea, vomitting, diarrhea, constipation Exam Results Vital Signs Date Time Temp Pulse Resp B/P (MAP) Pulse Ox O2 Delivery O2 Flow Rate FiO2 01/13/18 04:40 96.5 72 18 142/85 (104) 99 01/10/18 14:50 Nasal Cannula 2 Intake and Output 01/13/18 01/13/18 01/14/18 08:00 16:00 00:00 Intake Total 360 ml Balance 360 ml Physical Examination General: Pt resting comfortably in bed. Resp: CTA bilaterally Heart: NSR no murmurs Abd: Soft positive bs Skin: Pt log rolled incision clean and dry with sutures in place. minimal drainage on bandage in area of where ALEXANDER drain was removed. No Erythema. Muscle: Distal weakness with dorsiflexion bilaterally with bilateral foot drop. Proximally 4+/5. Neuro: Pt awake and alert. Follows commands well. Speech clear and appropriate. Medical Decision Making Impression and Plan A: 32 y/o M s/p I/D thoracic incision wound. Intraoperative wound cultures negative at 72 hours. P: Continue with Percocet and Dilaudid PO. Continue with TLSO brace when oob. Will order labs but he is on antibiotics and sweats and anxiety may be more of withdrawal symptom than infectious. [facility] rehab placement Sancho Hammond Jan 13, 2018 8:45 am
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
[2018-01-13 11:52] VITALS: BP 119/68; PULSE 80; RESP 18; TEMP 96.4; O2SAT 100
[2018-01-13] MEDS ORDERED: ENOX80P SQ (11:55)
[2018-01-13] MEDS ORDERED: PROP40TA3 PO (11:55)
[2018-01-13 13:08] LABS: AUTOMATED NEUTROPHIL # 3.5 TH/MM3 (1.8-7.7); BASOPHIL % 0.7 % (0.0-2.0); EOSINOPHIL # 0.4 TH/MM3 (0-0.4); EOSINOPHIL % 6.6 % (0.0-4.0); HEMATOCRIT 36.8 % (39.0-51.0); HEMOGLOBIN 12.5 GM/DL (13.0-17.0); LYMPH % 28.5 % (9.0-44.0); LYMPHOCYTE # 1.7 TH/MM3 (1.0-4.8); MEAN CELL VOLUME 82.7 FL (80.0-100.0); MEAN CORPUSCULAR HEMOGLOBIN 28.2 PG (27.0-34.0); MEAN CORPUSCULAR HGB CONC 34.1 % (32.0-36.0); MEAN PLATELET VOLUME 7.1 FL (7.0-11.0); MONO % 7.2 % (0.0-8.0); MONOCYTE # 0.4 TH/MM3 (0-0.9); PLATELET COUNT 226 TH/MM3 (150-450); RED BLOOD COUNT 4.45 MIL/MM3 (4.50-5.90); RED CELL DISTRIBUTION WIDTH 16.1 % (11.6-17.2); WHITE BLOOD COUNT 6.1 TH/MM3 (4.0-11.0)
[2018-01-26] MEDS ORDERED: LACT PO (16:18)
[2018-01-26] MEDS ORDERED: GABA100C4 PO (16:18)
[2018-01-26] MEDS ORDERED: PERI PO (16:18)
[2018-01-26] MEDS ORDERED: MELA5 PO (16:18)
[2018-01-26] MEDS ORDERED: APIX5TAB PO (16:18)
[2018-01-26] MEDS ORDERED: ARTI3.5O EACH EYE (16:18)
[2018-01-26] MEDS ORDERED: ACET325T15 PO (16:18)
[2018-01-26] MEDS ORDERED: FAMO20TA2 PO (16:18)
[2018-01-26] MEDS ORDERED: METH500T3 PO (16:18)
[2018-01-26] MEDS ORDERED: ONDA4TAB7 PO (16:18)
[2018-01-27] MEDS ORDERED: PROP10TA6 PO ×2 (09:52→10:39)
[2018-01-27] MEDS ORDERED: ESCI10TA PO (09:52)
[2018-01-27] MEDS ORDERED: FENT25T T-DERMAL (09:52)
[2018-01-27] MEDS ORDERED: LORA-474 PO (09:52)
[2018-01-27] MEDS ORDERED: TRAZ50TA12 PO (09:52)
[2018-01-27] MEDS ORDERED: OXYC1TAB36 PO (09:52)
[2018-01-27] MEDS ORDERED: MAGN30S PO (10:39)
[2018-01-28] MEDS ORDERED: OXYC1TAB36 PO (10:41)
[2018-01-28] MEDS ORDERED: FENT25T T-DERMAL (10:41)
[2018-01-28] MEDS ORDERED: FENT25DI T-DERMAL (13:46)
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
== END 2018-01-13 14:26 | DRG 909 ==
LOC: HSDC 10:31 → HSDI 13:17 → N06B 15:04
PROVIDERS: ADMIT Neurological Surgery; ATTEND Neurological Surgery
PROC: 0JD70ZZ Extraction of Back Subcutaneous Tissue and Fascia, Open Approach (ICD-10-PCS; principal; 2018-01-10 11:44)
DX: T81.31XA Disruption of external operation (surgical) wound, not elsewhere classified, initial encounter (principal); B96.5 Pseudomonas (aeruginosa) (mallei) (pseudomallei) as the cause of diseases classified elsewhere; F41.9 Anxiety disorder, unspecified; Z16.24 Resistance to multiple antibiotics; Z98.1 Arthrodesis status
CPT/HCPCS: 80048; 85025; 87015; 87040; 87070; 87102; 87116; 87176; 87205; 87206; 94150; J0714; J1170; J1650; J2175; J2250; J2270; J2405; J2710; J3010; J3370; J3480; J7120

== ENCOUNTER → 2018-01-16 | Day surgery (SDC) | payer OTHER ==
[~2018-01-16] MED LIST changes: +CHLORHEXIDINE GLUCONATE 0.12% 15 ML CUP ONE; +CHLORHEXIDINE GLUCONATE 2 % 1 PACK (2 CLOTHS) TOPICAL PRN; -CLON-481 PO; -ENOX100P SQ; +ENOX80P SQ; +INSULIN HUMAN REGULAR 1,000 UNITS/10 ML VIAL SQ PRN; +LACTATED RINGER'S 1000 ML IV PRN; -LEVA750T9 PO; +LIDOCAINE HCL 1% PF 5 ML SYRINGE OTHER ONE; +METOPROLOL TARTRATE 25 MG TAB PO PRN; +MIDAZOLAM HCL 2 MG/2 ML VIAL ONE; +MORPHINE SULFATE 8 MG/ML INJ ONE; +POVIDONE IODINE 5% (ANTISEPSIS KIT) 4 APPLICATIONS EACH NARE PRN; +PROPOFOL 200 MG/20 ML AMP IV ONE; +SODIUM CHLORID 0.9% 500 ML IV PRN; -SULF1TAB23 PO; +oxyCODONE/ACETAMINOPHEN 10 MG/325 MG TAB ONE
[2018-01-16 10:08] VITALS: BP 124/68; PULSE 80; RESP 16; TEMP 97.4; O2SAT 97
--- NOTE | 2018-01-18 11:48 | PD.OP ---
Operative Report Date of Surgery: Jan 16, 2018 Preoperative Diagnosis: (1) Mandible fracture Postoperative Diagnosis: (1) Mandible fracture Procedure: Arch bar removal (31802, modifier [id number]) Anesthesia: Total IV anesthesia Surgeon: Dagoberto Snow Tarring Machine Operator(s): . Operation and Findings: This is a 32-year-old male who presents status post arch bar placement, here for removal. Risks benefits alternative treatments discussed. All questions answered and patient expressed understanding. Patient elected to assume the risks of arch bar removal. Informed consent obtained. Antibiotics were given on-call to the operating room. Patient was taken to the operating room. All pressure points were padded. A surgical timeout was performed. After the smooth induction of IV anesthesia, the surgical site was prepped and draped in usual sterile fashion. The arch bars were removed without difficulty. The patient was awoken from anesthesia and arrived stable doing well to the PACU. All needle sponge and instrument counts were correct 2. Dagoberto Snow MD Jan 18, 2018 11:48
== END | disposition home or self-care (01) ==
LOC: HSDC 07:56
PROVIDERS: ATTEND Student in an Organized Health Care Education/Training Program
DX: S02.609D Fracture of mandible, unspecified, subsequent encounter for fracture with routine healing (principal)
CPT/HCPCS: J0690; J2250; J2270; J3010; J7120